=== PATIENT | female | born 1960 | race Caucasian/White ===

== ENCOUNTER 2019-06-13 21:03 | Inpatient (IN) | payer OTHER ==
[~2019-06-13] VITALS: Ht 162.6 cm; Wt 96.6 kg
[2019-06-13 21:14] VITALS: BP 173/70
--- NOTE | 2019-06-13 21:14 | NUR ---
ED Nurse Note: Patient brought in by ambulance from [facility] d/t [facility] declined intake d/t systolic BP over 180. Patient aao x 4 and ambulatory with walker. Patient stated on MRSA contact precautions. Patient placed in gown and manager cardiac cath. No acute distress noted. Addendum: 06/13/19 at 2255 by IOROPEL ED Nurse Note: Patient brought in by ambulance from [facility], facility declined intake d/t systolic BP over 180. Patient aao x 4 and ambulatory with walker. Patient reported she is on MRSA contact precautions. Patient placed in gown and manager cardiac cath. No acute distress noted.
--- NOTE | 2019-06-13 21:21 | Emergency Room Report ---
History of Present Illness General Chief Complaint: Hypertension Source: Patient Present Illness HPI Disclaimer: Please note that this report is being documented using [employer] technology. This can lead to erroneous entry secondary to incorrect interpretation by the dictating instrument. HPI: 50-year-old female with history of obesity, diabetes and chronic left foot ulcers with multiple drug-resistant bacteria presents for evaluation of elevated blood pressures. She was discharged from [facility] today on route to a nursing facility. She states that the nursing facility did not know she was coming and refused to accept her. She was also noted to have an elevated blood pressure with systolics in the 180s and was brought to the hospital again for reevaluation. She noted a headache and some nausea earlier but these are improving. She was taken off her lisinopril, 5 mg daily, yesterday or the day before because of low systolic blood pressures while in the hospital. She currently denies any chest pain, palpitations, shortness of breath, abdominal pain, changes in her vision. No other complaints at this time. She is due to receive extended antibiotics for her lower extremity wounds. She does not want me to evaluate the wounds as they were recently dressed and are clean at this time. PMH: Hypertension, obesity, diabetes, chronic lower extremity ulcers PSH: Reviewed Allergies: Denies Allergies: Coded Allergies: No Known Allergies (Unverified , 06/13/19) Review of Systems All Other Systems: negative except mentioned in HPI Physical Exam Vital Signs Date Time Temp Pulse Resp B/P (MAP) Pulse Ox O2 Delivery O2 Flow Rate FiO2 06/13/19 20:59 98.2 76 18 182/96 (124) 98 Room Air General: Awake and alert, no acute distress, hypertensive HEENT: NC/AT. EOMI. PERRLA. No nystagmus. Moist mucous membranes Neck: Supple, trachea midline Chest Wall: No tenderness, no deformity Cardiovascular: RRR. S1 and S2 normal. No murmur appreciated Resp: Normal work of breathing. No cough, wheezing or crackles appreciated Abdomen: Abdomen is soft, nondistended, obese abdomen. Nontender Skin:Bandage over the left foot and ankle is clean dry and intact. MSK: Normal tone and bulk. Moving all extremities. No obvious deformity. PICC line in right upper extremity. Neuro: Awake and alert. Mentating appropriately. Moving all extremities Medical Decision Making Diagnostic Impression: Primary Impression: Asymptomatic hypertension Additional Impression: Occluded PICC line ER Course This is a 58-year-old female released today from [facility] for worsening left lower extremity ulcers due to receive long-term antibiotics presenting after she was turned away from her nursing facility for elevated blood pressures. She was complaining of headache and nausea earlier but states these are resolving. Otherwise she is neurologically intact and has no symptoms of chest pain, shortness of breath or other complaints at this time. Will send screening labs , restart the patient's lisinopril, give Zofran and Tylenol. Once medically cleared she can be returned to the nursing facility if she is excepted otherwise will make other arrangements. Laboratory Tests Test 06/13/19 21:56 White Blood Count 12.1 K/UL (4.8-10.8) H Red Blood Count 3.23 M/UL (4.20-5.40) L Hemoglobin 9.3 G/DL (12.0-16.0) L Hematocrit 29.1 % (37.0-47.0) L Mean Corpuscular Volume 90 FL (80-99) Mean Corpuscular Hemoglobin 28.8 PG (27.0-31.0) Mean Corpuscular Hemoglobin Concent 31.9 G/DL (32.0-36.0) L Red Cell Distribution Width 13.9 % (11.6-14.8) Platelet Count 477 K/UL (150-450) H Mean Platelet Volume 5.7 FL (6.5-10.1) L Neutrophils (%) (Auto) 70.6 % (45.0-75.0) Lymphocytes (%) (Auto) 16.8 % (20.0-45.0) L Monocytes (%) (Auto) 7.1 % (1.0-10.0) Eosinophils (%) (Auto) 4.1 % (0.0-3.0) H Basophils (%) (Auto) 1.3 % (0.0-2.0) Sodium Level 140 MMOL/L (136-145) Potassium Level 3.9 MMOL/L (3.5-5.1) Chloride Level 104 MMOL/L (98-107) Carbon Dioxide Level 28 MMOL/L (21-32) Anion Gap 8 mmol/L (5-15) Blood Urea Nitrogen 19 mg/dL (7-18) H Creatinine 1.2 MG/DL (0.55-1.30) Estimate Glomerular Filtration Rate 46.2 mL/min (>60) Glucose Level 125 MG/DL (74-106) H Calcium Level 9.0 MG/DL (8.5-10.1) Total Bilirubin 0.2 MG/DL (0.2-1.0) Aspartate Amino Transferase (AST) 62 U/L (15-37) H Alanine Aminotransferase (ALT) 99 U/L (12-78) H Alkaline Phosphatase 393 U/L (46-116) H Troponin I 0.003 ng/mL (0.000-0.056) Total Protein 7.4 G/DL (6.4-8.2) Albumin 2.5 G/DL (3.4-5.0) L Globulin 4.9 g/dL Albumin/Globulin Ratio 0.5 (1.0-2.7) L EKG Diagnostic Results EKG Time: 21:29 Rate: normal Rhythm: NSR ST Segments: no acute changes Other Impression Sinus rhythm, normal axis, normal intervals, no ST segment changes. ASA given to the pt in ED: Yes Rhythm Strip Diag. Results Rhythm Strip Time: 21:29 EP Interpretation: yes Rate: 70s Rhythm: NSR, no PVC's Chest X-Ray Diagnostic Results Chest X-Ray Diagnostic Results : Chest X-Ray Ordered: Yes # of Views/Limited/Complete: 1 View Indication: Other - HTN Interpretation: no consolidation, no effusion, no pneumothorax, other - peripheral line present Impression: No acute disease Reevaluation Time: 00:16 Last Vital Signs Date Time Temp Pulse Resp B/P (MAP) Pulse Ox O2 Delivery O2 Flow Rate FiO2 06/13/19 20:59 98.2 76 18 182/96 (124) 98 Room Air Reevaluation Impression Labs have returned within normal limits. Patient is no acute distress and remains asymptomatic. Blood pressure improved. While attempting to assess the patient's PICC line found that it was occluded. Since she has multidrug- resistant bacteria in the ulcers and requires long-term antibiotics cannot safely discharged with a malfunctioning PICC line at this time. She will be admitted for PICC line replacement tomorrow. Admit to panel physician on observation status. Disposition: PLACE IN OBSERVATION Condition: Stable Arpan Cline MD Jun 13, 2019 21:21
[2019-06-13] MEDS ORDERED: Lisinopril 10mg tab ORAL ONE (21:30)
--- NOTE | 2019-06-13 21:54 | NUR ---
ED Nurse Note: Attempted to draw blood from PICC line, PICC line clogged. Attempted to establish new IV line x 2, unsuccessful.
[2019-06-13 22:16] LABS: BASOPHILS % (AUTO) 1.3 % (0.0-2.0); EOSINOPHILS % (AUTO) 4.1 % (0.0-3.0); HEMATOCRIT 29.1 % (37.0-47.0); HEMOGLOBIN 9.3 G/DL (12.0-16.0); LYMPHOCYTES % (AUTO) 16.8 % (20.0-45.0); MEAN CORPUSCULAR VOLUME 90 FL (80-99); MONOCYTES % (AUTO) 7.1 % (1.0-10.0); NEUTROPHILS % (AUTO) 70.6 % (45.0-75.0); PLATELET COUNT 477 K/UL (150-450); RED BLOOD COUNT 3.23 M/UL (4.20-5.40); RED CELL DISTRIBUTION WIDTH 13.9 % (11.6-14.8); WHITE BLOOD COUNT 12.1 K/UL (4.8-10.8)
[2019-06-13 22:28] LABS: ANION GAP 8 mmol/L (5-15); BLOOD UREA NITROGEN 19 mg/dL (7-18); CARBON DIOXIDE 28 MMOL/L (21-32); CHLORIDE 104 MMOL/L (98-107); CREATININE 1.2 MG/DL (0.55-1.30); POTASSIUM 3.9 MMOL/L (3.5-5.1); SODIUM 140 MMOL/L (136-145)
[2019-06-13 22:32] VITALS: BP 100/57
--- NOTE | 2019-06-13 22:32 | NUR ---
ED Nurse Note: Per pt, admission to [facility] was for left foot and ankle pus/infection. Patient stated wounds kept getting infected and had to be drained.
[2019-06-13 22:33] LABS: ALANINE AMINOTRANSFERASE 99 U/L (12-78); ALBUMIN 2.5 G/DL (3.4-5.0); ALBUMIN/GLOBULIN RATIO 0.5 (1.0-2.7); ALKALINE PHOSPHATASE 393 U/L (46-116); ASPARTATE AMINO TRANSFERASE 62 U/L (15-37); BILIRUBIN,TOTAL 0.2 MG/DL (0.2-1.0)
[2019-06-13] MEDS ORDERED: ATORVASTATIN CA40 MG ORAL (23:24)
[2019-06-13] MEDS ORDERED: LISINOPRIL5 MG ORAL (23:24)
[2019-06-13] MEDS ORDERED: LANTUS SOL100 UNIT/1 SUBQ (23:24)
[2019-06-13] MEDS ORDERED: ACETAMINOPHEN325 M1 ORAL (23:24)
[2019-06-13] MEDS ORDERED: NOVOLOG100 UNIT/4 SQ (23:24)
--- NOTE | 2019-06-13 23:45 | NUR ---
ED Nurse Note: CRE, MRSA swabs, belongings list, and med reconciled completed.
--- NOTE | 2019-06-13 23:52 | NUR ---
ED Nurse Note: Wound pictures uploaded.
--- NOTE | 2019-06-14 01:37 | NUR ---
ED Nurse Note: Report given to MICHELLE Dotson.
--- NOTE | 2019-06-14 01:45 | NUR ---
ED Nurse Note: Patient transported to med surg floor via gurney accompanied by 1 RN and aviation electrical technician in stable condition.
--- NOTE | 2019-06-14 02:00 | NUR ---
NURSE NOTES: Admitted patient awake, alert, verbal, ambulates with a walker, with essentially normal vital signs.
[2019-06-14 02:13] VITALS: BP 138/73
[2019-06-14 03:59] VITALS: BP 113/59
--- NOTE | 2019-06-14 07:28 | NUR ---
HAND-OFF: Report given to Isaac Brandt RN.
--- NOTE | 2019-06-14 07:28 | NUR ---
NURSE NOTES: Report received from Nila MARTINEZ. Patient is awake and alert x 4. Patient is currently eating breakfast. Patient noted to have wound on left foot. Dressing dry and intact. Dressing changed on previous shift. Picture in chart reviewed with previous nurse. Consult for Daysi placed. Will continue to monitor blood glucose levels. Patient noted to have PICC in right upper arm. Per previous nurse PICC currently not working. MD aware. Will continue to follow plan of care.
[2019-06-14 07:37] LABS: BASOPHILS % (AUTO) 0.9 % (0.0-2.0); EOSINOPHILS % (AUTO) 3.9 % (0.0-3.0); HEMATOCRIT 27.4 % (37.0-47.0); HEMOGLOBIN 9.2 G/DL (12.0-16.0); LYMPHOCYTES % (AUTO) 16.9 % (20.0-45.0); MEAN CORPUSCULAR VOLUME 87 FL (80-99); MONOCYTES % (AUTO) 6.9 % (1.0-10.0); NEUTROPHILS % (AUTO) 71.3 % (45.0-75.0); PLATELET COUNT 423 K/UL (150-450); RED BLOOD COUNT 3.13 M/UL (4.20-5.40); RED CELL DISTRIBUTION WIDTH 12.5 % (11.6-14.8); WHITE BLOOD COUNT 11.6 K/UL (4.8-10.8)
[2019-06-14 07:45] LABS: ALANINE AMINOTRANSFERASE 84 U/L (12-78); ALBUMIN 2.4 G/DL (3.4-5.0); ALBUMIN/GLOBULIN RATIO 0.5 (1.0-2.7); ALKALINE PHOSPHATASE 356 U/L (46-116); ANION GAP 7 mmol/L (5-15); ASPARTATE AMINO TRANSFERASE 54 U/L (15-37); BILIRUBIN,TOTAL 0.2 MG/DL (0.2-1.0); BLOOD UREA NITROGEN 17 mg/dL (7-18); CALCIUM 8.9 MG/DL (8.5-10.1); CARBON DIOXIDE 28 MMOL/L (21-32); CHLORIDE 106 MMOL/L (98-107); CREATININE 1.1 MG/DL (0.55-1.30); POTASSIUM 3.9 MMOL/L (3.5-5.1); SODIUM 141 MMOL/L (136-145)
[2019-06-14 08:00] VITALS: BP 123/59
[2019-06-14] MEDS: Lisinopril 10mg tab ORAL SCH (08:14)
--- NOTE | 2019-06-14 09:46 | Consultation ---
History of Present Illness General Date patient seen: Jun 14, 2019 Reason for Hospitalization: Hypertension Present Illness HPI 50-year-old female with history of obesity, diabetes and chronic left foot ulcers with multiple drug-resistant bacteria admitted to [facility] for evaluation and care. She was discharged from [facility] recently on route to a nursing facility. She states that the nursing facility did not know she was coming and refused to accept her because of her isolation status. She currently denies any chest pain , palpitations, shortness of breath, abdominal pain, changes in her vision. No other complaints at this time. She is receiving extended antibiotics for her lower extremity wounds. Surgery called to evaluate and assist with care. Patient seen, patient evaluated, chart reviewed. Patient states in 2018 she was walking around with thin shoes and sustained a wound to her left foot which then developed a blister and then abscess requiring I&D infection since. Develops intermittent infections requiring I&D. Most recent I&D a week ago for evaluate evacuation of pus at outside facility. PMH: Hypertension, obesity, diabetes, chronic lower extremity ulcers PSH: Reviewed Allergies: Denies Allergies: Coded Allergies: No Known Allergies (Unverified , 06/13/19) Medication History Scheduled Atorvastatin Calcium* (Atorvastatin Calcium*), 80 MG ORAL BEDTIME, (Reported) Insulin Aspart (Novolog), 100 UNIT SQ TID, (Reported) Insulin Glargine (Lantus), 0 SUBQ TID, (Reported) Lisinopril (Lisinopril*), 10 MG ORAL DAILY, (Reported) Scheduled PRN Acetaminophen* (Acetaminophen 325MG Tablet*), 650 MG ORAL Q4H PRN for For Pain, (Reported) Patient History History Provided By: Patient, Medical Record, PMD Healthcare decision maker Resuscitation status Full Code Advanced Directive on File No Past Medical/Surgical History Past Medical/Surgical History: (1) Left foot infection (2) Cellulitis of left foot (3) Open wound of left foot (4) Hypertension (5) Asymptomatic hypertension (6) Occluded PICC line Review of Systems Review of Symptoms General ROS: no weight loss or fever Psychological ROS: no depression or mood changes, no memory loss Ophthalmic ROS: no visual changes or eye irritation ENT ROS: no nasal congestion, hearing loss, dizziness Allergy and Immunology ROS: no allergic symptoms or urticaria Hematological and Lymphatic ROS: no swollen glands, unusual bleeding or bruising Endocrine ROS: no polyuria, polydipsia, weight changes, temperature intolerance Respiratory ROS: no cough, shortness of breath, or wheezing Cardiovascular ROS: no chest pain or dyspnea on exertion Gastrointestinal ROS: denies abdominal pain, bright red blood in stool. Musculoskeletal ROS: no myalgias or arthralgias Neurological ROS: no TIA or stroke symptoms Dermatological ROS: no new or changing skin lesions, rashes or pruritis Physical Exam Physical Exam General appearance: alert, cooperative, no distress, appears stated age Head: Normocephalic, without obvious abnormality, atraumatic Eyes: conjunctivae/corneas clear. PERRL, EOM's intact. Fundi benign Throat: Lips, mucosa, and tongue normal. Teeth and gums normal Neck: supple, symmetrical, trachea midline, no adenopathy, thyroid: not enlarged, symmetric, no tenderness/mass/nodules, no carotid bruit and no JVD Lungs: clear to auscultation bilaterally Heart: regular rate and rhythm, S1, S2 normal, no murmur, click, rub or gallop Abdomen: soft, non-tender. Bowel sounds normal. No masses, no organomegaly Extremities: extremities left foot cellulitis with 2 open wounds Pulses: 2+ and symmetric Skin: Skin color, texture, turgor normal. No rashes or lesions Neurologic: Grossly normal Last 24 Hour Vital Signs Date Time Temp Pulse Resp B/P (MAP) Pulse Ox O2 Delivery O2 Flow Rate FiO2 06/14/19 09:00 Room Air 06/14/19 08:14 123/59 06/14/19 08:00 98.1 84 20 123/59 (80) 95 06/14/19 03:59 98.5 79 18 113/59 (77) 98 06/14/19 02:13 98.2 80 18 138/73 (94) 96 06/14/19 02:12 Room Air 06/14/19 01:53 98.3 80 19 112/53 96 Room Air 06/13/19 22:35 98.2 06/13/19 22:32 100/57 06/13/19 22:06 173/70 06/13/19 22:05 173/70 06/13/19 21:14 90 21 Room Air 06/13/19 21:14 98.2 90 21 173/70 95 Room Air 06/13/19 20:59 98.2 76 18 182/96 (124) 98 Room Air Intake and Output 06/13/19 06/14/19 19:00 07:00 Intake Total 0 ml Balance 0 ml Intake Oral 0 ml # Voids 1 Laboratory Tests Test 06/13/19 21:56 06/14/19 05:35 White Blood Count 12.1 K/UL (4.8-10.8) H 11.6 K/UL (4.8-10.8) H Red Blood Count 3.23 M/UL (4.20-5.40) L 3.13 M/UL (4.20-5.40) L Hemoglobin 9.3 G/DL (12.0-16.0) L 9.2 G/DL (12.0-16.0) L Hematocrit 29.1 % (37.0-47.0) L 27.4 % (37.0-47.0) L Mean Corpuscular Volume 90 FL (80-99) 87 FL (80-99) Mean Corpuscular Hemoglobin 28.8 PG (27.0-31.0) 29.3 PG (27.0-31.0) Mean Corpuscular Hemoglobin Concent 31.9 G/DL (32.0-36.0) L 33.6 G/DL (32.0-36.0) Red Cell Distribution Width 13.9 % (11.6-14.8) 12.5 % (11.6-14.8) Platelet Count 477 K/UL (150-450) H 423 K/UL (150-450) Mean Platelet Volume 5.7 FL (6.5-10.1) L 4.8 FL (6.5-10.1) L Neutrophils (%) (Auto) 70.6 % (45.0-75.0) 71.3 % (45.0-75.0) Lymphocytes (%) (Auto) 16.8 % (20.0-45.0) L 16.9 % (20.0-45.0) L Monocytes (%) (Auto) 7.1 % (1.0-10.0) 6.9 % (1.0-10.0) Eosinophils (%) (Auto) 4.1 % (0.0-3.0) H 3.9 % (0.0-3.0) H Basophils (%) (Auto) 1.3 % (0.0-2.0) 0.9 % (0.0-2.0) Sodium Level 140 MMOL/L (136-145) 141 MMOL/L (136-145) Potassium Level 3.9 MMOL/L (3.5-5.1) 3.9 MMOL/L (3.5-5.1) Chloride Level 104 MMOL/L (98-107) 106 MMOL/L (98-107) Carbon Dioxide Level 28 MMOL/L (21-32) 28 MMOL/L (21-32) Anion Gap 8 mmol/L (5-15) 7 mmol/L (5-15) Blood Urea Nitrogen 19 mg/dL (7-18) H 17 mg/dL (7-18) Creatinine 1.2 MG/DL (0.55-1.30) 1.1 MG/DL (0.55-1.30) Estimat Glomerular Filtration Rate 46.2 mL/min (>60) 51.0 mL/min (>60) Glucose Level 125 MG/DL (74-106) H 143 MG/DL (74-106) H Calcium Level 9.0 MG/DL (8.5-10.1) 8.9 MG/DL (8.5-10.1) Total Bilirubin 0.2 MG/DL (0.2-1.0) 0.2 MG/DL (0.2-1.0) Aspartate Amino Transf (AST/SGOT) 62 U/L (15-37) H 54 U/L (15-37) H Alanine Aminotransferase (ALT/SGPT) 99 U/L (12-78) H 84 U/L (12-78) H Alkaline Phosphatase 393 U/L (46-116) H 356 U/L (46-116) H Troponin I 0.003 ng/mL (0.000-0.056) Total Protein 7.4 G/DL (6.4-8.2) 7.0 G/DL (6.4-8.2) Albumin 2.5 G/DL (3.4-5.0) L 2.4 G/DL (3.4-5.0) L Globulin 4.9 g/dL 4.6 g/dL Albumin/Globulin Ratio 0.5 (1.0-2.7) L 0.5 (1.0-2.7) L Microbiology Date/Time Source Procedure Growth Status 06/13/19 22:52 Rectum Received Height (Feet): 5 Height (Inches): 4.00 Weight (Pounds): 215 Medications Current Medications Medications (Trade) Dose Ordered Sig/Dileep Route PRN Reason Start Time Stop Time Status Last Admin Dose Admin Acetaminophen (Tylenol) 650 mg Q4H PRN ORAL For Pain 06/14/19 04:15 07/14/19 04:14 Atorvastatin Calcium (Lipitor) 80 mg BEDTIME ORAL 06/14/19 21:00 07/14/19 20:59 Dextrose (Dextrose 50%) 25 ml Q30M PRN IV Hypoglycemia 06/14/19 07:45 07/14/19 07:44 Dextrose (Dextrose 50%) 50 ml Q30M PRN IV Hypoglycemia 06/14/19 07:45 07/14/19 07:44 Insulin Aspart (NovoLOG) BEFORE MEALS AND HS SUBQ 06/14/19 11:30 07/14/19 11:29 Lisinopril (ZestriL) 10 mg DAILY ORAL 06/14/19 09:00 07/14/19 08:59 Assessment/Plan Problem List: (1) Left foot infection ICD Codes: L08.9 - Local infection of the skin and subcutaneous tissue, unspecified SNOMED: 954577800 (2) Occluded PICC line Assessment & Plan: Will need replacement ICD Codes: T82.898A - Other specified complication of vascular prosthetic devices, implants and grafts, initial encounter SNOMED: 177140669 (3) Open wound of left foot ICD Codes: S91.302A - Unspecified open wound, left foot, initial encounter SNOMED: 47286857669323712 (4) Cellulitis of left foot Assessment & Plan: 50-year-old female with history of chronic left foot wounds , cellulitis, infection who in 2018 initially developed a abscess/blister and has been dealing with chronic infection of the left foot since. On the medial aspect there is a 3 cm x 2 cm x 1 cm open wound with good granulation tissue seemingly a little bit more chronic than 1 week no drainage no signs of significant active infection. On the plantar aspect of the foot there is a 1 cm x 1 cm by half centimeter open punched-out wound from prior drainage with no active drainage currently. Patient states that she was recommended to have local wound care and antibiotics for 6 weeks. States that she is on isolation for the cultures that were taken outside facility. PICC line currently included needs a new PICC line for extended IV antibiotics Local wound care with hydrogel packing or Thera honey packing gauze daily Wash wound left foot daily with normal saline then apply above dressings Wrap foot leg with gauze after packing and dressings applied Trend labs Antibiotics per infectious disease Thank you will follow with recommendations ICD Codes: L03.116 - Cellulitis of left lower limb SNOMED: 945836738 Cristian Tavarez Jun 14, 2019 09:46
[2019-06-14] MEDS ORDERED: Heparin1,000 units/500ml Premix(Conc:2 units/ml) IV PRN (10:00)
[2019-06-14] MEDS ORDERED: Lidocaine 1% Plain 30 ml INJ PRN (10:00)
--- NOTE | 2019-06-14 10:48 | NUR ---
*-* NO INSURANCE INFORMATION ON [facility] UNABLE TO SEND CLINICALS OR REVIEWS *-*
--- NOTE | 2019-06-14 11:30 | Consultation ---
Consult Note Consult Note asked to evaluate by Dr Metz for electrolyte and BP management patient interviewed- Complains of swollen all over and weakness examined data reviewed ER: HPI: 50-year-old female with history of obesity, diabetes and chronic left foot ulcers with multiple drug-resistant bacteria presents for evaluation of elevated blood pressures. She was discharged from [facility] today on route to a nursing facility. She states that the nursing facility did not know she was coming and refused to accept her. She was also noted to have an elevated blood pressure with systolics in the 180s and was brought to the hospital again for reevaluation. She noted a headache and some nausea earlier but these are improving. She was taken off her lisinopril, 5 mg daily, yesterday or the day before because of low systolic blood pressures while in the hospital. She currently denies any chest pain, palpitations, shortness of breath, abdominal pain, changes in her vision. No other complaints at this time. She is due to receive extended antibiotics for her lower extremity wounds. She does not want me to evaluate the wounds as they were recently dressed and are clean at this time. PMH: Hypertension, obesity, diabetes, chronic lower extremity ulcers . Assessment/Plan Ascitis Obese DM Anemia HypoAlbuminemia elevated LFTs UA Anemia larose adjust BP meds wound care per orders Erasto Parikh MD Jun 14, 2019 11:30
[2019-06-14] MEDS: NovoLOG Insulin Flexpen SUBQ SCH ×3 (11:56→21:27)
[2019-06-14 12:00] VITALS: BP 133/58
[2019-06-14 12:06] LABS: CREATINE KINASE 26 U/L (26-308)
--- NOTE | 2019-06-14 12:07 | Diagnostic Imaging Report ---
Indication: Chest pain Technique: One view of the chest Comparison: none Findings: The heart is borderline enlarged. Lungs and pleural spaces are clear. There is a right arm PICC Impression: Borderline cardiomegaly. No acute process
[2019-06-14 12:19] LABS: CHOLESTEROL 117 MG/DL (< 200); FERRITIN 97 NG/ML (8-388); GAMMA GLUTAMYL TRANSPEPTIDASE 469 U/L (5-85); HDL CHOLESTEROL 24 MG/DL (40-60); PHOSPHORUS 3.9 MG/DL (2.5-4.9); TRIGLYCERIDES 203 MG/DL (30-150)
[2019-06-14 12:30] LABS: % IRON SATURATION 15 % (15-50); IRON 37 ug/dL (50-175); TOTAL IRON BINDING CAPACITY 251 ug/dL (250-450)
--- NOTE | 2019-06-14 13:52 | NUR ---
NURSE NOTES: Transport arrived to bring patient down to radiology for PICC placement. Consent signed. Patient okay with procedure. No questions at this time. Patient safely transferred to wheelchair. Patient awake and alert x 4 when leaving unit.
--- NOTE | 2019-06-14 15:00 | NUR ---
NURSE NOTES: Patient arrived back on unit. Patient safely transferred back to bed. Patient awake and alert x 4. Patient does not have any complaints. PICC line in right upper arm patent, intact, and functioning properly. Both lines have blood return and are able flush. Addendum: 06/14/19 at 1745 by Isaac Brandt RN PICC line cut at 40 cm per Doctor Porter
--- NOTE | 2019-06-14 15:09 | NUR ---
RADIOLOGY NOTE: RIGHT UPPER EXTREMITY PICC LINE REPLACEMENT BY DR. HARVINDER DASILVA AT 1420 HRS. FA
--- NOTE | 2019-06-14 15:21 | Consultation ---
Consult Note Assessment/Plan Dictated A/ 1) Osteo vs Charcot left foot 2) S/P I&D of left ankle and left foot - doing well 3) DM 2 4) Charcot P/ 1) Wound care orders placed. No surgical intervention is indicated at this time 2) Abx per ID 3) WIll follow Thank you John Rivera DPM Jun 14, 2019 15:21
[2019-06-14 16:00] VITALS: BP 130/70
--- NOTE | 2019-06-14 16:21 | NUR ---
CASE MANAGEMENT: INITIAL REVIEW 58YR OLD FEMALE BIBA FROM [facility] CC: HYPERTENSION SI: ASYMPTOMATIC HTN . OCCLUDED PICC LINE 98.3 80 19 112/53 96% ON RA WBC 12.1 H/H 9.3/29.1 PLT 477 BUN 19 BG 125 AST/ALT 62/99 ALK-PHOS 393 IS:IV HYDRALAZINE X1 IV ZOFRAN X1 ZESTRIL PO X1 TYLENOL PO X1 CHEST X-RAY \: 4E MED SURG UNIT CASE MANAGEMENT: REVIEW 06/14/19 SI: ASYMPTOMATIC HTN . OCCLUDED PICC LINE 98.5 62 18 133/58 94% ON RA WBC 11.6 H/H 9.2/27.4 BG 143 AST/ALT 54/84 ALK-PHOS 356 GGT 469 TRIGLYCERIDES 203 IS:LINEZOLID PO BID NOVOLOG SQ AC&HS TYLENOL PO Q4HR/PRN \: 4E MED SURG UNIT PLAN: CONSULT FOR WOUND LEFT FOOT ULCER
--- NOTE | 2019-06-14 16:25 | Pre-Procedure Note/Attestation ---
Pre-Procedure Note/Attestation Complete Prior to Procedure Planned Procedure: right Procedure Narrative: PICC exchange Indications for Procedure Pre-Operative Diagnosis: malfunction PICC Attestation I attest that I discussed the nature of the procedure; its benefits; risks and complications; and alternatives (and the risks and benefits of such alternatives ), prior to the procedure, with the patient (or the patient's legal business process representative). I attest that, if there was a reasonable possibility of needing a blood transfusion, the patient (or the patient's legal business process representative) was given the [facility] standardized written summary, pursuant to the [place] Blood Safety Act ([place] Health and Safety Code # 1645, as amended). I attest that I re-evaluated the patient just prior to the surgery and that there has been no change in the patient's H&P, except as documented below: Kye Porter MD Jun 14, 2019 16:25
--- NOTE | 2019-06-14 16:26 | Brief Operative Note ---
Immediate Post Operative Note Operative Note Pre-op Diagnosis: malfunction PICC Procedure: PICC exchange Post-op Diagnosis: same Surgeon: Ishmael Lewis Anesthesia: local Specimen: none Complications: none Condition: stable Fluids: none Estimated Blood Loss: none Implant(s) used?: No Kye Lewis MD Jun 14, 2019 16:26
--- NOTE | 2019-06-14 17:29 | Diagnostic Imaging Report ---
. Indications: Needs long-term IV access Technique: Total sterile technique, including sterile probe cover and sterile gel, hat, mask, sterile gown, large sterile drape, and preparation with 2% chlorhexidine utilized. Local anesthesia with 1% lidocaine. Through pre-existing catheter, passage 0.018 guidewire under direct fluoroscopy, which was used to determine appropriate catheter length, exchange for 4 Burkinan peel-away sheath. 4 [place] Bard dual-lumen power PICC cut to 40 cm. It was inserted through the peel-away sheath. Peel-away sheath and guidewire removed. Catheter fixed to the skin. Both catheter ports aspirated and flushed. Patient tolerated procedure well, without immediate complication. Digital radiograph documents satisfactory catheter tip position, at the cavoatrial junction. Total fluoroscopy time 31.2 seconds. Total dose area product [id number] Total number of images: 1 Impression: Successful replacement over wire (no sonography utilized) of right arm PICC under sonographic and fluoroscopic guidance, as described above.
--- NOTE | 2019-06-14 19:18 | NUR ---
HAND-OFF: Report given to Sourav MARTINEZ. Patient in stable condition.
--- NOTE | 2019-06-14 19:30 | NUR ---
NURSE NOTES: Received patient in no apparent distress. A&OX4. PICC line noted on right upper arm, patent and intact. Dressing noted on left foot, dry and intact. Bed in lowest position. Call light within reach. Will continue to monitor.
[2019-06-14 20:00] VITALS: BP 140/82
[2019-06-14] MEDS: Bactrim-DS 1 tab ORAL SCH (21:25)
[2019-06-14] MEDS: Atorvastatin 80mg tab ORAL SCH (21:25)
[2019-06-14] MEDS: Dyna-Hex 2% Top Sol 2oz TOPIC SCH (21:26)
[2019-06-14 23:51] LABS: APPEARANCE,URINE CLEAR; BILIRUBIN, URINE NEGATIVE (NEGATIVE); COLOR,URINE PALE YELLOW; GLUCOSE, URINE (UA) 2+ (NEGATIVE); KETONES,URINE NEGATIVE (NEGATIVE); LEUKOCYTE ESTERASE ,URINE NEGATIVE (NEGATIVE); NITRITE,URINE NEGATIVE (NEGATIVE); PH,URINE 7 (4.5-8.0); UROBILINOGEN,URINE NORMAL MG/DL (0.0-1.0)
[2019-06-14 23:55] LABS: PROTEIN,URINE NEGATIVE (NEGATIVE)
[2019-06-15] VITALS: BP 143/71
[2019-06-15 04:00] VITALS: BP 126/66
--- NOTE | 2019-06-15 04:00 | Consultation ---
DATE OF CONSULTATION: 06/14/2019 CONSULTING PHYSICIAN: John Gallegos D.P.M. REQUESTING PHYSICIAN: Elodia Dunbar M.D. REASON FOR CONSULTATION: Infected left foot ulceration in the presence of diabetes mellitus, failed PICC line placement, and sensitivity to antibiotics. HISTORY OF PRESENT ILLNESS: The patient is a 58-year-old female, who was admitted to [facility] on 06/13/2019 for PICC line problems. The patient states that she was admitted to the hospital about a week ago where she stated that her left lower extremity was severely swollen and she was diagnosed with an abscess in her foot as well as her ankle. She was taken for an incision and drainage and she has noted that her foot has extensively improved since her surgery. Swelling has gone down, redness has gone down, and she is able to ambulate with a walker as tolerated. She stated she has been on antibiotics at the facility that she was at, but she has developed a sensitivity to the antibiotics. She denies any pain, fevers, chills, nausea, or vomiting. PAST MEDICAL HISTORY: Significant for hypertension, diabetes mellitus, Charcot of the left foot, abscess of the left foot, possible osteomyelitis of the left foot. PAST SURGICAL HISTORY: As noted above. ALLERGIES: She has no known drug allergies. MEDICATIONS: Per MAR and include Bactrim and Zyvox. FAMILY HISTORY: Noncontributory. SOCIAL HISTORY: Noncontributory. REVIEW OF SYSTEMS: HEENT: The patient denies any headaches, blurred vision, or ringing in the ears. CARDIORESPIRATORY: The patient denies any shortness of breath or chest pain. GENITOURINARY: The patient denies any urgency, frequency, burning upon urination, or hematuria. GASTROINTESTINAL: The patient denies any constipation, diarrhea, or blood in the stool. PHYSICAL EXAMINATION: VITAL SIGNS: Temperature is 98.5, pulse is 62, respiration rate is 18, blood pressure is 133/58, she is sating 94% on room air. LOWER EXTREMITIES: Vascular, weakly palpable pedal pulses are noted bilaterally. Feet are equally warm. There is mild 1+ pitting edema noted bilateral. No cyanosis is noted of the toes. DERMATOLOGICAL: Right foot is unremarkable. Left foot full-thickness plantar ulceration is noted. No bone or tendon is exposed post. There is also a medial left ankle wound noted, appears clean. No signs of infection as well. The wounds appear granular with minimal serous drainage noted from the sites, no malodor is noted. No periwound erythema is noted. No pain upon palpation of either sites. MUSCULOSKELETAL: Right lower extremity is unremarkable. Left foot is noted to have a rocker bottom shape. Collapsed medial arch is noted. The patient ambulates with a walker. No gross deformities are noted. Muscle strength is intact bilateral. NEUROLOGICAL: Protective threshold is diminished. LABORATORY AND DIAGNOSTIC DATA: Laboratory data, white blood cell count is down from admission to 11.6 now, hemoglobin and hematocrit are 9.2 and 27.4, platelet count is 423. Sodium is 141, potassium is 3.9, BUN is 17, creatinine is 1.1, glucose is 143. Hemoglobin A1c is 11.2. Albumin is 2.4. Imaging, MRI from outside hospital notes that she has destructive erosive changes of the midfoot of the left foot. MRI could not conclude whether it was Charcot versus osteo or both. ASSESSMENT: 1. Osteomyelitis versus Charcot, left foot. 2. Status post I and D of the left ankle and left foot, doing well. 3. Uncontrolled type 2 diabetes mellitus. 4. Charcot foot. PLAN: 1. Wound care orders were placed. No surgical intervention is indicated at this time. Her surgical wounds appear to be healing without complication. 2. Antibiotics per Infectious Disease. 3. We will follow. Thank you for the courtesy of this consultation. John Gallegos D.P.M. DR: WICHO JOB#: [id number] CC: CIRO
--- NOTE | 2019-06-15 05:45 | History and Physical Report ---
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 discharged from a different hospital, went to the care home; however, was rejected because of her elevated blood pressure. She was asymptomatic, came to the ER, was admitted for cellulitis of the lower extremities, and PICC line was also placed at the hospital, so she came with a PICC line. The patient has pus from the left foot and was status post I and D of the last week. The patient also has rash all over for the past one week, most likely from the antibiotic that she has been receiving, came with PICC. The patient also has edema of the lower extremities. So, she is being admitted for the cellulitis of the feet, left worse than the right. The patient denies nausea, vomiting, or diarrhea. Denies fever or chills. PAST MEDICAL HISTORY: Hyperlipidemia, NIDDM, hypertension, and edema. PAST SURGICAL HISTORY: . ALLERGIES: No known allergies. FAMILY HISTORY: Noncontributory. MEDICATIONS: Lipitor, lisinopril, and Lantus. REVIEW OF SYSTEMS: HEENT: Denies headaches. RESPIRATORY: Denies shortness of breath. Denies cough. CARDIOVASCULAR: Denies chest pain. GASTROINTESTINAL: Denies nausea, vomiting, or diarrhea. EXTREMITIES: Does have pain in the lower extremities. CENTRAL NERVOUS SYSTEM: Denies change in speech pattern. PHYSICAL EXAMINATION: VITAL SIGNS: Temperature is 98.5, pulse is 79, and blood pressure is 113/59. HEENT: PERRLA. NECK: Supple. No lymphadenopathy. CHEST: Clear to auscultation. CARDIOVASCULAR: Regular rate and rhythm. No murmurs or extra sounds. GASTROINTESTINAL: Soft, nontender, and nondistended. No organomegaly. EXTREMITIES: No edema. Moves all four extremities. Sensory intact to light touch. Reflexes on both sides. Does have edema in the lower extremities, erythema, and warm to touch, especially on the left foot. LABORATORY DATA: WBC of 12.1, hemoglobin 9.3, and platelets 477. Sodium 140, potassium 3.9, BUN of 19, creatinine 1.2, glucose of 125. AST of 62 and ALT of 99. ASSESSMENT AND PLAN: Cellulitis of the feet, especially on the left, edema, rash all over from previous antibiotic most likely. I have consulted Dr. Adarsh Pitts, Dr. John Gallegos and Dr. Parikh for the management of basically infection. We will monitor the patient closely. Elodia Dunbar M.D. DR: NAN JOB#: [id number] CC:
[2019-06-15 06:11] LABS: BASOPHILS % (AUTO) 0.8 % (0.0-2.0); EOSINOPHILS % (AUTO) 3.4 % (0.0-3.0); HEMATOCRIT 27.3 % (37.0-47.0); HEMOGLOBIN 9.3 G/DL (12.0-16.0); LYMPHOCYTES % (AUTO) 20.3 % (20.0-45.0); MEAN CORPUSCULAR VOLUME 88 FL (80-99); NEUTROPHILS % (AUTO) 68.5 % (45.0-75.0); PLATELET COUNT 433 K/UL (150-450); RED BLOOD COUNT 3.11 M/UL (4.20-5.40); RED CELL DISTRIBUTION WIDTH 12.7 % (11.6-14.8); WHITE BLOOD COUNT 11.3 K/UL (4.8-10.8)
[2019-06-15] MEDS: NovoLOG Insulin Flexpen SUBQ SCH ×4 (06:12→20:54)
[2019-06-15 06:47] LABS: ALANINE AMINOTRANSFERASE 82 U/L (12-78); ALBUMIN 2.5 G/DL (3.4-5.0); ALBUMIN/GLOBULIN RATIO 0.5 (1.0-2.7); ALKALINE PHOSPHATASE 368 U/L (46-116); ANION GAP 6 mmol/L (5-15); ASPARTATE AMINO TRANSFERASE 52 U/L (15-37); BILIRUBIN,TOTAL 0.3 MG/DL (0.2-1.0); BLOOD UREA NITROGEN 18 mg/dL (7-18); CARBON DIOXIDE 30 MMOL/L (21-32); CHLORIDE 104 MMOL/L (98-107); CREATININE 1.2 MG/DL (0.55-1.30); POTASSIUM 4.4 MMOL/L (3.5-5.1); SODIUM 140 MMOL/L (136-145)
--- NOTE | 2019-06-15 07:13 | NUR ---
HAND-OFF: Report given to Isaac MARTINEZ.
--- NOTE | 2019-06-15 07:15 | Consultation ---
DATE OF CONSULTATION: 06/14/2019 INFECTIOUS DISEASE CONSULTATION CONSULTING PHYSICIAN: Adarsh Pitts M.D. PRIMARY ATTENDING PHYSICIAN: Elodia Dunbar M.D. REASON FOR CONSULT: Osteomyelitis of left foot, diabetic foot, allergic drug reaction to antibiotic. HISTORY OF PRESENT ILLNESS: This is a 58-year-old female admitted from a nursing facility after developing rash more in the lower extremity. The patient had a recent admission to [facility] in [place] with diabetic foot. At that time, she had left ankle abscess, had incision and drainage on 06/02/2019. Cultures in the hospital grew ESBL E coli, Enterococcus faecalis, and Strep group B. There was a concern about osteomyelitis of the foot and the patient was supposed to get 6 weeks of antibiotic treatment. For that reason, the patient had a PICC line placement. The patient was transferred because of the local rash that is itching. PAST MEDICAL HISTORY: Diabetes mellitus, obesity, has history of multiple infections in left and right foot, 4 times in the left foot, hypertension, Charcot joint in the left foot. ALLERGIES: No known drug allergies. MEDICATIONS: Getting atorvastatin, insulin, heparin, lisinopril. SOCIAL HISTORY: , has a daughter. Denies alcohol, drug abuse, or smoking. 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 REVIEW OF SYSTEMS: No fever, no chills. Some coughing. No nausea, no vomiting. No problem passing urine. Has erythematous rash that is itching. Overall, the foot after the surgery is better. PHYSICAL EXAMINATION: VITAL SIGNS: Temperature 98.5, pulse 62, blood pressure 133/85. GENERAL APPEARANCE: No acute distress. Obese. HEAD AND NECK: [place] conjunctivae. HEART: Normal rate. LUNGS: Clear. ABDOMEN: Soft, nontender. EXTREMITIES: Left foot deformity has some edema. SKIN: Has rash more in the lower extremities & back. Rash is erythematous, but there are area of scaling especially in upper body. IMPRESSION: 1. Diabetic foot, osteomyelitis. 2. Allergic drug reaction to Invanz and vancomycin with rash. 3. Diabetes mellitus. 4. Charcot joint. 5. Anemia. Based on the culture report, E coli ESBL is sensitive to Bactrim and Enterococcus & Strep group B start the patient on Bactrim and Zyvox. We will follow up the clinical course and check for ESR. At the end of my exam, I thank, Dr. Dunbar, for involving me in the care of this patient. Adarsh Pitts M.D. DR: ALTON JOB#: [id number] CC: CIRO
--- NOTE | 2019-06-15 07:20 | NUR ---
NURSE NOTES: Report received form Sourav MARTINEZ. Patient is awake and alert x 4. Patient presents with cellulitis and wound on the left foot. Left foot has clean, dry, and intact dressing. Legs noted to have edema bilaterally. Rash noted on lower extremities bilaterally, thought to be from previous antibiotic use. PICC line noted in right upper arm. Flushes and has blood return. Patient does not have any complaints at this time. Bed locked and in lowest position. Call light within reach. Will continue to follow plan of car.e
--- NOTE | 2019-06-15 07:57 | NUR ---
NURSE NOTES: DVT therapy contra indicated per Doctor Bettina due to wounds.
[2019-06-15 08:00] VITALS: BP 132/70
[2019-06-15] MEDS: Lisinopril 10mg tab ORAL SCH (08:46)
[2019-06-15] MEDS: Bactrim-DS 1 tab ORAL SCH ×2 (09:02→20:53)
[2019-06-15] MEDS ORDERED: Furosemide 40mg tab ORAL SCH (10:30)
--- NOTE | 2019-06-15 11:00 | Surgery Progress Note ---
Surgery Progress Note Subjective Additional Comments picc changed doing well labs noted exam stable Objective Last 24 Hour Vital Signs Date Time Temp Pulse Resp B/P (MAP) Pulse Ox O2 Delivery O2 Flow Rate FiO2 06/15/19 09:00 Room Air 06/15/19 08:46 132/70 06/15/19 08:00 97.8 79 18 132/70 (90) 96 06/15/19 04:00 98.3 78 18 126/66 (86) 95 06/15/19 00:00 98.6 82 18 143/71 (95) 96 06/14/19 21:00 Room Air 06/14/19 20:00 98.6 82 18 140/82 (101) 96 06/14/19 16:00 98.6 85 18 130/70 (90) 100 06/14/19 12:00 98.5 62 18 133/58 (83) 94 I&O Intake and Output 06/14/19 06/15/19 19:00 07:00 Intake Total 360 ml 120 ml Balance 360 ml 120 ml Intake Oral 360 ml 120 ml # Voids 2 2 Dressing: other Wound: other Drains: other Cardiovascular: RSR Respiratory: decreased breath sounds Abdomen: soft, present bowel sounds Extremities: no cyanosis Laboratory Tests Test 06/14/19 23:00 06/15/19 05:00 Urine Color Pale yellow Urine Appearance Clear Urine pH 7 (4.5-8.0) Urine Specific [place] 1.005 (1.005-1.035) Urine Protein Negative (NEGATIVE) Urine Glucose (UA) 2+ (NEGATIVE) H Urine Ketones Negative (NEGATIVE) Urine Blood Negative (NEGATIVE) Urine Nitrite Negative (NEGATIVE) Urine Bilirubin Negative (NEGATIVE) Urine Urobilinogen Normal MG/DL (0.0-1.0) Urine Leukocyte Esterase Negative (NEGATIVE) Urine RBC 0-2 /HPF (0 - 2) Urine WBC 0 /HPF (0 - 2) Urine Squamous Epithelial Cells Few /LPF (NONE/OCC) Urine Bacteria None /HPF (NONE) White Blood Count 11.3 K/UL (4.8-10.8) H Red Blood Count 3.11 M/UL (4.20-5.40) L Hemoglobin 9.3 G/DL (12.0-16.0) L Hematocrit 27.3 % (37.0-47.0) L Mean Corpuscular Volume 88 FL (80-99) Mean Corpuscular Hemoglobin 29.8 PG (27.0-31.0) Mean Corpuscular Hemoglobin Concent 33.9 G/DL (32.0-36.0) Red Cell Distribution Width 12.7 % (11.6-14.8) Platelet Count 433 K/UL (150-450) Mean Platelet Volume 4.9 FL (6.5-10.1) L Neutrophils (%) (Auto) 68.5 % (45.0-75.0) Lymphocytes (%) (Auto) 20.3 % (20.0-45.0) Monocytes (%) (Auto) 7.0 % (1.0-10.0) Eosinophils (%) (Auto) 3.4 % (0.0-3.0) H Basophils (%) (Auto) 0.8 % (0.0-2.0) Erythrocyte Sedimentation Rate 120 MM/HR (0-30) H Sodium Level 140 MMOL/L (136-145) Potassium Level 4.4 MMOL/L (3.5-5.1) Chloride Level 104 MMOL/L (98-107) Carbon Dioxide Level 30 MMOL/L (21-32) Anion Gap 6 mmol/L (5-15) Blood Urea Nitrogen 18 mg/dL (7-18) Creatinine 1.2 MG/DL (0.55-1.30) Estimat Glomerular Filtration Rate 46.2 mL/min (>60) Glucose Level 150 MG/DL (74-106) H Calcium Level 9.0 MG/DL (8.5-10.1) Total Bilirubin 0.3 MG/DL (0.2-1.0) Aspartate Amino Transf (AST/SGOT) 52 U/L (15-37) H Alanine Aminotransferase (ALT/SGPT) 82 U/L (12-78) H Alkaline Phosphatase 368 U/L (46-116) H C-Reactive Protein, Quantitative 2.1 mg/dL (0.00-0.90) H Pro-B-Type Natriuretic Peptide 1345 pg/mL (0-125) H Total Protein 7.3 G/DL (6.4-8.2) Albumin 2.5 G/DL (3.4-5.0) L Globulin 4.8 g/dL Albumin/Globulin Ratio 0.5 (1.0-2.7) L Plan Problems: (1) Left foot infection (2) Occluded PICC line Assessment & Plan: new picc 06/14/2019 (3) Open wound of left foot (4) Cellulitis of left foot Assessment & Plan: 50-year-old female with history of chronic left foot wounds , cellulitis, infection who in 2018 initially developed a abscess/blister and has been dealing with chronic infection of the left foot since. On the medial aspect there is a 3 cm x 2 cm x 1 cm open wound with good granulation tissue seemingly a little bit more chronic than 1 week no drainage no signs of significant active infection. On the plantar aspect of the foot there is a 1 cm x 1 cm by half centimeter open punched-out wound from prior drainage with no active drainage currently. Patient states that she was recommended to have local wound care and antibiotics for 6 weeks. States that she is on isolation for the cultures that were taken outside facility. new picc placed Local wound care with hydrogel packing or Thera honey packing gauze daily Wash wound left foot daily with normal saline then apply above dressings Wrap foot leg with gauze after packing and dressings applied Trend labs Antibiotics per infectious disease podiatry input appreciated Thank you will follow with recommendations Cristian Tavarez Jun 15, 2019 11:00
[2019-06-15 12:00] VITALS: BP 136/77
--- NOTE | 2019-06-15 12:02 | NUR ---
CASE MANAGEMENT: REVIEW 06/15/19 SI: ASYMPTOMATIC HTN . OCCLUDED PICC LINE . LEFT FOOT OSTEOMYELITIS 97.8 79 18 132/70 96% ON RA WBC 11.3 H/H 9.3/27.3 ESR 120 BG 150 AST/ALT 52/82 ALK-PHOS 368 BNP 1345 C-REC PROT. 2.1 IS:PO LASIX X1 LINEZOLID PO BID BACTRIM-DS PO BID LIPITOR PO QHS KRISTI-HEX 2% TP QD NOVOLOG SQ AC&HS TYLENOL PO Q4HR/PRN \: 4E MED SURG UNIT PLAN: WOUND CARE
[2019-06-15] MEDS: Magnesium Oxide 400mg tab ORAL SCH ×2 (12:24→17:05)
[2019-06-15] MEDS: metFORMIN 500mg tab ORAL SCH ×2 (12:24→17:05)
--- NOTE | 2019-06-15 14:12 | Infectious Diseases Prog Note ---
Assessment/Plan Assessment/Plan IMPRESSION: 1. Diabetic foot, osteomyelitis. 2. Allergic drug reaction to Invanz and vancomycin with rash. 3. Diabetes mellitus. 4. Charcot joint. 5. Anemia. 6. Elevated transaminase Plan: Continue Bactrim & Zyvox Check for hepatitis B & C Subjective ROS Limited/Unobtainable: No Constitutional: Reports: no symptoms, other - feels better Respiratory: Reports: dry cough Cardiovascular: Reports: other - PICC line was changed Gastrointestinal/Abdominal: Reports: no symptoms Skin: Reports: rash, other - decreasing Allergies: Coded Allergies: No Known Allergies (Unverified , 06/13/19) Objective Vital Signs Last 24 Hour Vital Signs Date Time Temp Pulse Resp B/P (MAP) Pulse Ox O2 Delivery O2 Flow Rate FiO2 06/15/19 12:00 98.3 72 18 136/77 (96) 94 06/15/19 09:00 Room Air 06/15/19 08:46 132/70 06/15/19 08:00 97.8 79 18 132/70 (90) 96 06/15/19 04:00 98.3 78 18 126/66 (86) 95 06/15/19 00:00 98.6 82 18 143/71 (95) 96 06/14/19 21:00 Room Air 06/14/19 20:00 98.6 82 18 140/82 (101) 96 06/14/19 16:00 98.6 85 18 130/70 (90) 100 Height (Feet): 5 Height (Inches): 4.00 Weight (Pounds): 215 General Appearance: no acute distress HEENT: mucous membranes moist Respiratory/Chest: lungs clear Cardiovascular: normal rate Abdomen: soft, non tender Extremities: no edema Skin: rash, other - erythmatous more in legs improving Neurologic/Psychiatric: alert, oriented x 3, responsive Microbiology Date/Time Source Procedure Growth Status 06/13/19 22:52 Rectum Received Laboratory Tests Test 06/14/19 23:00 06/15/19 05:00 Urine Color Pale yellow Urine Appearance Clear Urine pH 7 (4.5-8.0) Urine Specific [place] 1.005 (1.005-1.035) Urine Protein Negative (NEGATIVE) Urine Glucose (UA) 2+ (NEGATIVE) H Urine Ketones Negative (NEGATIVE) Urine Blood Negative (NEGATIVE) Urine Nitrite Negative (NEGATIVE) Urine Bilirubin Negative (NEGATIVE) Urine Urobilinogen Normal MG/DL (0.0-1.0) Urine Leukocyte Esterase Negative (NEGATIVE) Urine RBC 0-2 /HPF (0 - 2) Urine WBC 0 /HPF (0 - 2) Urine Squamous Epithelial Cells Few /LPF (NONE/OCC) Urine Bacteria None /HPF (NONE) White Blood Count 11.3 K/UL (4.8-10.8) H Red Blood Count 3.11 M/UL (4.20-5.40) L Hemoglobin 9.3 G/DL (12.0-16.0) L Hematocrit 27.3 % (37.0-47.0) L Mean Corpuscular Volume 88 FL (80-99) Mean Corpuscular Hemoglobin 29.8 PG (27.0-31.0) Mean Corpuscular Hemoglobin Concent 33.9 G/DL (32.0-36.0) Red Cell Distribution Width 12.7 % (11.6-14.8) Platelet Count 433 K/UL (150-450) Mean Platelet Volume 4.9 FL (6.5-10.1) L Neutrophils (%) (Auto) 68.5 % (45.0-75.0) Lymphocytes (%) (Auto) 20.3 % (20.0-45.0) Monocytes (%) (Auto) 7.0 % (1.0-10.0) Eosinophils (%) (Auto) 3.4 % (0.0-3.0) H Basophils (%) (Auto) 0.8 % (0.0-2.0) Erythrocyte Sedimentation Rate 120 MM/HR (0-30) H Sodium Level 140 MMOL/L (136-145) Potassium Level 4.4 MMOL/L (3.5-5.1) Chloride Level 104 MMOL/L (98-107) Carbon Dioxide Level 30 MMOL/L (21-32) Anion Gap 6 mmol/L (5-15) Blood Urea Nitrogen 18 mg/dL (7-18) Creatinine 1.2 MG/DL (0.55-1.30) Estimat Glomerular Filtration Rate 46.2 mL/min (>60) Glucose Level 150 MG/DL (74-106) H Calcium Level 9.0 MG/DL (8.5-10.1) Total Bilirubin 0.3 MG/DL (0.2-1.0) Aspartate Amino Transf (AST/SGOT) 52 U/L (15-37) H Alanine Aminotransferase (ALT/SGPT) 82 U/L (12-78) H Alkaline Phosphatase 368 U/L (46-116) H C-Reactive Protein, Quantitative 2.1 mg/dL (0.00-0.90) H Pro-B-Type Natriuretic Peptide 1345 pg/mL (0-125) H Total Protein 7.3 G/DL (6.4-8.2) Albumin 2.5 G/DL (3.4-5.0) L Globulin 4.8 g/dL Albumin/Globulin Ratio 0.5 (1.0-2.7) L Current Medications Medications (Trade) Dose Ordered Sig/Dileep Route PRN Reason Start Time Stop Time Status Last Admin Dose Admin Acetaminophen (Tylenol) 650 mg Q4H PRN ORAL For Pain 06/14/19 04:15 07/14/19 04:14 06/14/19 21:45 Atorvastatin Calcium (Lipitor) 80 mg BEDTIME ORAL 06/14/19 21:00 07/14/19 20:59 06/14/19 21:25 Chlorhexidine Gluconate (Tianna-Hex 2%) 1 applic DAILY@2000 TOPIC 06/14/19 20:00 07/14/19 19:59 06/14/19 21:26 Dextrose (Dextrose 50%) 25 ml Q30M PRN IV Hypoglycemia 06/14/19 07:45 07/14/19 07:44 Dextrose (Dextrose 50%) 50 ml Q30M PRN IV Hypoglycemia 06/14/19 07:45 07/14/19 07:44 Folic Acid (Folate) 2 mg DAILY ORAL 06/15/19 10:30 07/15/19 10:29 06/15/19 10:49 Heparin Sodium/ Sodium Chloride (Heparin 1000 units/500ml Premix) 1,000 unit ONCE PRN IV PICC LINE 06/14/19 10:00 06/16/19 18:00 Insulin Aspart (NovoLOG) BEFORE MEALS AND HS SUBQ 06/14/19 11:30 07/14/19 11:29 06/15/19 12:26 Lidocaine HCl (Xylocaine 1% 30ml) 30 ml ONCE PRN INJ PICC LINE 06/14/19 10:00 06/16/19 18:00 Linezolid (Zyvox) 600 mg EVERY 12 HOURS ORAL 06/14/19 15:42 06/19/19 15:41 06/15/19 09:02 Lisinopril (ZestriL) 10 mg DAILY ORAL 06/14/19 09:00 07/14/19 08:59 Magnesium Oxide (Mag-Ox 400mg) 400 mg THREE TIMES A DAY ORAL 06/15/19 13:00 07/15/19 12:59 06/15/19 12:24 Metformin HCl (Glucophage) 500 mg TIAC ORAL 06/15/19 11:30 07/15/19 11:29 06/15/19 12:24 Ondansetron HCl (Zofran) 4 mg Q6H PRN IVP Nausea & Vomiting 06/14/19 22:00 07/14/19 21:59 06/14/19 22:19 Trimethoprim/ Sulfamethoxazole (Bactrim-DS) 1 tab Q12HR ORAL 06/14/19 21:00 06/21/19 20:59 06/15/19 09:02 Adarsh Pitts MD Jun 15, 2019 14:12
--- NOTE | 2019-06-15 14:26 | Consultation ---
History of Present Illness General Chief Complaint: Hypertension Present Illness Allergies: Coded Allergies: No Known Allergies (Unverified , 06/13/19) Medication History Scheduled Atorvastatin Calcium* (Atorvastatin Calcium*), 80 MG ORAL BEDTIME, (Reported) Insulin Aspart (Novolog), 100 UNIT SQ TID, (Reported) Insulin Glargine (Lantus), 0 SUBQ TID, (Reported) Lisinopril (Lisinopril*), 10 MG ORAL DAILY, (Reported) Scheduled PRN Acetaminophen* (Acetaminophen 325MG Tablet*), 650 MG ORAL Q4H PRN for For Pain, (Reported) Patient History Healthcare decision maker Resuscitation status Full Code Advanced Directive on File No Physical Exam Last 24 Hour Vital Signs Date Time Temp Pulse Resp B/P (MAP) Pulse Ox O2 Delivery O2 Flow Rate FiO2 06/15/19 12:00 98.3 72 18 136/77 (96) 94 06/15/19 09:00 Room Air 06/15/19 08:46 132/70 06/15/19 08:00 97.8 79 18 132/70 (90) 96 06/15/19 04:00 98.3 78 18 126/66 (86) 95 06/15/19 00:00 98.6 82 18 143/71 (95) 96 06/14/19 21:00 Room Air 06/14/19 20:00 98.6 82 18 140/82 (101) 96 06/14/19 16:00 98.6 85 18 130/70 (90) 100 Intake and Output 06/14/19 06/15/19 19:00 07:00 Intake Total 360 ml 120 ml Balance 360 ml 120 ml Intake Oral 360 ml 120 ml # Voids 2 2 Laboratory Tests Test 06/14/19 23:00 06/15/19 05:00 Urine Color Pale yellow Urine Appearance Clear Urine pH 7 (4.5-8.0) Urine Specific [place] 1.005 (1.005-1.035) Urine Protein Negative (NEGATIVE) Urine Glucose (UA) 2+ (NEGATIVE) H Urine Ketones Negative (NEGATIVE) Urine Blood Negative (NEGATIVE) Urine Nitrite Negative (NEGATIVE) Urine Bilirubin Negative (NEGATIVE) Urine Urobilinogen Normal MG/DL (0.0-1.0) Urine Leukocyte Esterase Negative (NEGATIVE) Urine RBC 0-2 /HPF (0 - 2) Urine WBC 0 /HPF (0 - 2) Urine Squamous Epithelial Cells Few /LPF (NONE/OCC) Urine Bacteria None /HPF (NONE) White Blood Count 11.3 K/UL (4.8-10.8) H Red Blood Count 3.11 M/UL (4.20-5.40) L Hemoglobin 9.3 G/DL (12.0-16.0) L Hematocrit 27.3 % (37.0-47.0) L Mean Corpuscular Volume 88 FL (80-99) Mean Corpuscular Hemoglobin 29.8 PG (27.0-31.0) Mean Corpuscular Hemoglobin Concent 33.9 G/DL (32.0-36.0) Red Cell Distribution Width 12.7 % (11.6-14.8) Platelet Count 433 K/UL (150-450) Mean Platelet Volume 4.9 FL (6.5-10.1) L Neutrophils (%) (Auto) 68.5 % (45.0-75.0) Lymphocytes (%) (Auto) 20.3 % (20.0-45.0) Monocytes (%) (Auto) 7.0 % (1.0-10.0) Eosinophils (%) (Auto) 3.4 % (0.0-3.0) H Basophils (%) (Auto) 0.8 % (0.0-2.0) Erythrocyte Sedimentation Rate 120 MM/HR (0-30) H Sodium Level 140 MMOL/L (136-145) Potassium Level 4.4 MMOL/L (3.5-5.1) Chloride Level 104 MMOL/L (98-107) Carbon Dioxide Level 30 MMOL/L (21-32) Anion Gap 6 mmol/L (5-15) Blood Urea Nitrogen 18 mg/dL (7-18) Creatinine 1.2 MG/DL (0.55-1.30) Estimat Glomerular Filtration Rate 46.2 mL/min (>60) Glucose Level 150 MG/DL (74-106) H Calcium Level 9.0 MG/DL (8.5-10.1) Total Bilirubin 0.3 MG/DL (0.2-1.0) Aspartate Amino Transf (AST/SGOT) 52 U/L (15-37) H Alanine Aminotransferase (ALT/SGPT) 82 U/L (12-78) H Alkaline Phosphatase 368 U/L (46-116) H C-Reactive Protein, Quantitative 2.1 mg/dL (0.00-0.90) H Pro-B-Type Natriuretic Peptide 1345 pg/mL (0-125) H Total Protein 7.3 G/DL (6.4-8.2) Albumin 2.5 G/DL (3.4-5.0) L Globulin 4.8 g/dL Albumin/Globulin Ratio 0.5 (1.0-2.7) L Height (Feet): 5 Height (Inches): 4.00 Weight (Pounds): 215 Medications Current Medications Medications (Trade) Dose Ordered Sig/Dileep Route PRN Reason Start Time Stop Time Status Last Admin Dose Admin Acetaminophen (Tylenol) 650 mg Q4H PRN ORAL For Pain 06/14/19 04:15 07/14/19 04:14 06/14/19 21:45 Atorvastatin Calcium (Lipitor) 80 mg BEDTIME ORAL 06/14/19 21:00 07/14/19 20:59 06/14/19 21:25 Chlorhexidine Gluconate (Tianna-Hex 2%) 1 applic DAILY@2000 TOPIC 06/14/19 20:00 07/14/19 19:59 06/14/19 21:26 Dextrose (Dextrose 50%) 25 ml Q30M PRN IV Hypoglycemia 06/14/19 07:45 07/14/19 07:44 Dextrose (Dextrose 50%) 50 ml Q30M PRN IV Hypoglycemia 06/14/19 07:45 07/14/19 07:44 Folic Acid (Folate) 2 mg DAILY ORAL 06/15/19 10:30 07/15/19 10:29 06/15/19 10:49 Heparin Sodium/ Sodium Chloride (Heparin 1000 units/500ml Premix) 1,000 unit ONCE PRN IV PICC LINE 06/14/19 10:00 06/16/19 18:00 Insulin Aspart (NovoLOG) BEFORE MEALS AND HS SUBQ 06/14/19 11:30 07/14/19 11:29 06/15/19 12:26 Lidocaine HCl (Xylocaine 1% 30ml) 30 ml ONCE PRN INJ PICC LINE 06/14/19 10:00 06/16/19 18:00 Linezolid (Zyvox) 600 mg EVERY 12 HOURS ORAL 06/14/19 15:42 06/19/19 15:41 06/15/19 09:02 Lisinopril (ZestriL) 10 mg DAILY ORAL 06/14/19 09:00 07/14/19 08:59 Magnesium Oxide (Mag-Ox 400mg) 400 mg THREE TIMES A DAY ORAL 06/15/19 13:00 07/15/19 12:59 06/15/19 12:24 Metformin HCl (Glucophage) 500 mg TIAC ORAL 06/15/19 11:30 07/15/19 11:29 06/15/19 12:24 Ondansetron HCl (Zofran) 4 mg Q6H PRN IVP Nausea & Vomiting 06/14/19 22:00 07/14/19 21:59 06/14/19 22:19 Trimethoprim/ Sulfamethoxazole (Bactrim-DS) 1 tab Q12HR ORAL 06/14/19 21:00 06/21/19 20:59 06/15/19 09:02 Assessment/Plan Assessment/Plan: Heme consult REQ MD: Elodia Metz RFC: Anemia eval DOS: 06/15/19 HPI: 50-year-old female with history of obesity, diabetes and chronic left foot ulcers with multiple drug-resistant bacteria presents for evaluation of elevated blood pressures. She was discharged from [facility] today on route to a nursing facility. She states that the nursing facility did not know she was coming and refused to accept her. She was also noted to have an elevated blood pressure with systolics in the 180s and was brought to the hospital again for reevaluation. She noted a headache and some nausea earlier but these are improving. She was taken off her lisinopril, 5 mg daily, yesterday or the day before because of low systolic blood pressures while in the hospital. She currently denies any chest pain, palpitations, shortness of breath, abdominal pain, changes in her vision. No other complaints at this time. She is due to receive extended antibiotics for her lower extremity wounds. She does not want me to evaluate the wounds as they were recently dressed and are clean at this time. Here started on abx, seen by id, surg, podiatry and heme consulted for anemia eval, currently hgb 9.3 PMH: Hypertension, obesity, diabetes, chronic lower extremity ulcers PSH: Reviewed Allergies: Denies No Known Allergies (Unverified , 06/13/19) Review of Systems All Other Systems: negative except mentioned in HPI Physical Exam Vitals: reviewed General: NAD Neck: supple Chest: clear breath sounds bilaterally Cardiovascular: RRR, no s3, s4 Abdomen: soft, nontender, nd Extremities: no cce, normal range of motion ++ picc upper arm r, also ankle and left foot erythema with bandages+ Mental: alert Labs: noted Imaging: reviewed Assessment and Recs: # Anemia of chronic disease due to underlying chronic medical issues, multifactorial v Gi bleed --> Anemia workup has been ordered, rule out gi bleed --> No evidence of hemolysis is noted, peripheral smear has been reviewed. --> Hgb goal >7. Transfuse prn. --> Epogen or iron at this time is not particularly indicated --> Medications have been reviewed --> low threshold for gi evaluation in case has occult + # Occluded PICC line --> has been changed # Diabetic foot, osteomyelitis. --> per endo, accuchecks qac and qhs --> seen by pod, id surg --> on bactrim zyvox # Diabetes mellitus. # Charcot joint. # Transaminitis Appreciate consultation and dw Jose Hauser MD Jun 15, 2019 14:26
[2019-06-15 16:00] VITALS: BP 127/82
--- NOTE | 2019-06-15 19:20 | NUR ---
HAND-OFF: Report given to Guerline MARTINEZ.
--- NOTE | 2019-06-15 20:03 | Nephrology Progress Note ---
Assessment/Plan Problem List: (1) DMII (diabetes mellitus, type 2) (2) Ascites (3) Hypertension (4) Cellulitis of left foot Assessment Ascitis Obese DM Anemia HypoAlbuminemia elevated LFTs Plan UA Anemia larose adjust BP meds wound care per orders Subjective Constitutional: Reports: malaise, weakness Objective Objective Last 24 Hour Vital Signs Date Time Temp Pulse Resp B/P (MAP) Pulse Ox O2 Delivery O2 Flow Rate FiO2 06/15/19 18:46 Room Air 06/15/19 16:00 97.9 76 18 127/82 (97) 96 06/15/19 12:00 98.3 72 18 136/77 (96) 94 06/15/19 09:00 Room Air 06/15/19 08:46 132/70 06/15/19 08:00 97.8 79 18 132/70 (90) 96 06/15/19 04:00 98.3 78 18 126/66 (86) 95 06/15/19 00:00 98.6 82 18 143/71 (95) 96 06/14/19 21:00 Room Air Intake and Output 06/14/19 06/15/19 19:00 07:00 Intake Total 360 ml 120 ml Balance 360 ml 120 ml Intake Oral 360 ml 120 ml # Voids 2 2 Current Medications Medications (Trade) Dose Ordered Sig/Dileep Route PRN Reason Start Time Stop Time Status Last Admin Dose Admin Acetaminophen (Tylenol) 650 mg Q4H PRN ORAL For Pain 06/14/19 04:15 07/14/19 04:14 06/14/19 21:45 Atorvastatin Calcium (Lipitor) 80 mg BEDTIME ORAL 06/14/19 21:00 07/14/19 20:59 06/14/19 21:25 Chlorhexidine Gluconate (Tianna-Hex 2%) 1 applic DAILY@2000 TOPIC 06/14/19 20:00 07/14/19 19:59 06/14/19 21:26 Dextrose (Dextrose 50%) 25 ml Q30M PRN IV Hypoglycemia 06/14/19 07:45 07/14/19 07:44 Dextrose (Dextrose 50%) 50 ml Q30M PRN IV Hypoglycemia 06/14/19 07:45 07/14/19 07:44 Folic Acid (Folate) 2 mg DAILY ORAL 06/15/19 10:30 07/15/19 10:29 06/15/19 10:49 Heparin Sodium/ Sodium Chloride (Heparin 1000 units/500ml Premix) 1,000 unit ONCE PRN IV PICC LINE 06/14/19 10:00 06/16/19 18:00 Insulin Aspart (NovoLOG) BEFORE MEALS AND HS SUBQ 06/14/19 11:30 07/14/19 11:29 06/15/19 17:06 Lidocaine HCl (Xylocaine 1% 30ml) 30 ml ONCE PRN INJ PICC LINE 06/14/19 10:00 06/16/19 18:00 Linezolid (Zyvox) 600 mg EVERY 12 HOURS ORAL 06/14/19 15:42 06/19/19 15:41 06/15/19 09:02 Lisinopril (ZestriL) 10 mg DAILY ORAL 06/14/19 09:00 07/14/19 08:59 Magnesium Oxide (Mag-Ox 400mg) 400 mg THREE TIMES A DAY ORAL 06/15/19 13:00 07/15/19 12:59 06/15/19 17:05 Metformin HCl (Glucophage) 500 mg TIAC ORAL 06/15/19 11:30 07/15/19 11:29 06/15/19 17:05 Ondansetron HCl (Zofran) 4 mg Q6H PRN IVP Nausea & Vomiting 06/14/19 22:00 07/14/19 21:59 06/14/19 22:19 Trimethoprim/ Sulfamethoxazole (Bactrim-DS) 1 tab Q12HR ORAL 06/14/19 21:00 06/21/19 20:59 06/15/19 09:02 Laboratory Tests 06/14/19 23:00: Urine Color Pale yellow, Urine Appearance Clear, Urine pH 7, Urine Specific [place] 1.005, Urine Protein Negative, Urine Glucose (UA) 2+H, Urine Ketones Negative, Urine Blood Negative, Urine Nitrite Negative, Urine Bilirubin Negative , Urine Urobilinogen Normal, Urine Leukocyte Esterase Negative, Urine RBC 0-2, Urine WBC 0, Urine Squamous Epithelial Cells Few, Urine Bacteria None 06/15/19 05:00: White Blood Count 11.3H, Red Blood Count 3.11L, Hemoglobin 9.3L, Hematocrit 27.3L, Mean Corpuscular Volume 88, Mean Corpuscular Hemoglobin 29.8, Mean Corpuscular Hemoglobin Concent 33.9, Red Cell Distribution Width 12.7, Platelet Count 433, Mean Platelet Volume 4.9L, Neutrophils (%) (Auto) 68.5, Lymphocytes ( %) (Auto) 20.3, Monocytes (%) (Auto) 7.0, Eosinophils (%) (Auto) 3.4H, Basophils (%) (Auto) 0.8, Erythrocyte Sedimentation Rate 120H, Sodium Level 140 , Potassium Level 4.4, Chloride Level 104, Carbon Dioxide Level 30, Anion Gap 6 , Blood Urea Nitrogen 18, Creatinine 1.2, Estimat Glomerular Filtration Rate 46.2, Glucose Level 150H, Calcium Level 9.0, Total Bilirubin 0.3, Aspartate Amino Transf (AST/SGOT) 52H, Alanine Aminotransferase (ALT/SGPT) 82H, Alkaline Phosphatase 368H, C-Reactive Protein, Quantitative 2.1H, Pro-B-Type Natriuretic Peptide 1345H, Total Protein 7.3, Albumin 2.5L, Globulin 4.8, Albumin/Globulin Ratio 0.5L Height (Feet): 5 Height (Inches): 4.00 Weight (Pounds): 215 General Appearance: no apparent distress Cardiovascular: normal rate Respiratory/Chest: decreased breath sounds Abdomen: distended Extremities: other - swollen Erasto Parikh MD Jun 15, 2019 20:03
--- NOTE | 2019-06-15 20:04 | NUR ---
NURSE NOTES: Received patient in bed awake, alert and oriented X4. Breathing even and unlaboured. PICC line noted on right upper arm, patent and intact. Dressing noted on left foot, dry and intact. Bed in lowest position. Call light within reach. Will continue to monitor.
[2019-06-15 20:37] VITALS: BP 147/82
[2019-06-15] MEDS: Dyna-Hex 2% Top Sol 2oz TOPIC SCH (20:53)
[2019-06-15] MEDS: Atorvastatin 80mg tab ORAL SCH (20:53)
--- NOTE | 2019-06-15 21:07 | General Progress Note ---
Assessment/Plan Problem List: (1) Hypertension ICD Codes: I10 - Essential (primary) hypertension SNOMED: 89350075 (2) Cellulitis of left foot ICD Codes: L03.116 - Cellulitis of left lower limb SNOMED: 971862319 (3) Open wound of left foot ICD Codes: S91.302A - Unspecified open wound, left foot, initial encounter SNOMED: 46416115072970983 (4) Left foot infection ICD Codes: L08.9 - Local infection of the skin and subcutaneous tissue, unspecified SNOMED: 406036099 (5) DMII (diabetes mellitus, type 2) ICD Codes: E11.9 - Type 2 diabetes mellitus without complications SNOMED: 25236056 Status: progressing Assessment/Plan: foot cellulitis le celluitis and edema abx 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 Subjective ROS Limited/Unobtainable: Yes Allergies: Coded Allergies: No Known Allergies (Unverified , 06/13/19) Objective Last 24 Hour Vital Signs Date Time Temp Pulse Resp B/P (MAP) Pulse Ox O2 Delivery O2 Flow Rate FiO2 06/15/19 20:37 98.7 79 16 147/82 (103) 97 06/15/19 18:46 Room Air 06/15/19 16:00 97.9 76 18 127/82 (97) 96 06/15/19 12:00 98.3 72 18 136/77 (96) 94 06/15/19 09:00 Room Air 06/15/19 08:46 132/70 06/15/19 08:00 97.8 79 18 132/70 (90) 96 06/15/19 04:00 98.3 78 18 126/66 (86) 95 06/15/19 00:00 98.6 82 18 143/71 (95) 96 Intake and Output 06/14/19 06/15/19 19:00 07:00 Intake Total 360 ml 120 ml Balance 360 ml 120 ml Intake Oral 360 ml 120 ml # Voids 2 2 Laboratory Tests 06/14/19 23:00: Urine Color Pale yellow, Urine Appearance Clear, Urine pH 7, Urine Specific [place] 1.005, Urine Protein Negative, Urine Glucose (UA) 2+H, Urine Ketones Negative, Urine Blood Negative, Urine Nitrite Negative, Urine Bilirubin Negative , Urine Urobilinogen Normal, Urine Leukocyte Esterase Negative, Urine RBC 0-2, Urine WBC 0, Urine Squamous Epithelial Cells Few, Urine Bacteria None 06/15/19 05:00: White Blood Count 11.3H, Red Blood Count 3.11L, Hemoglobin 9.3L, Hematocrit 27.3L, Mean Corpuscular Volume 88, Mean Corpuscular Hemoglobin 29.8, Mean Corpuscular Hemoglobin Concent 33.9, Red Cell Distribution Width 12.7, Platelet Count 433, Mean Platelet Volume 4.9L, Neutrophils (%) (Auto) 68.5, Lymphocytes ( %) (Auto) 20.3, Monocytes (%) (Auto) 7.0, Eosinophils (%) (Auto) 3.4H, Basophils (%) (Auto) 0.8, Erythrocyte Sedimentation Rate 120H, Sodium Level 140 , Potassium Level 4.4, Chloride Level 104, Carbon Dioxide Level 30, Anion Gap 6 , Blood Urea Nitrogen 18, Creatinine 1.2, Estimat Glomerular Filtration Rate 46.2, Glucose Level 150H, Calcium Level 9.0, Total Bilirubin 0.3, Aspartate Amino Transf (AST/SGOT) 52H, Alanine Aminotransferase (ALT/SGPT) 82H, Alkaline Phosphatase 368H, C-Reactive Protein, Quantitative 2.1H, Pro-B-Type Natriuretic Peptide 1345H, Total Protein 7.3, Albumin 2.5L, Globulin 4.8, Albumin/Globulin Ratio 0.5L Height (Feet): 5 Height (Inches): 4.00 Weight (Pounds): 215 General Appearance: lethargic Neck: supple Cardiovascular: regular rhythm Elodia Dunbar MD Jun 15, 2019 21:07
[2019-06-16] VITALS: BP 111/63
--- NOTE | 2019-06-16 03:46 | NUR ---
NURSE NOTES: Received call , from lab and spoke with Pradip regarding patient is positive for VRE rectum
[2019-06-16 04:00] VITALS: BP 118/56
[2019-06-16 04:28] LABS: APPEARANCE,URINE CLEAR; BILIRUBIN, URINE NEGATIVE (NEGATIVE); COLOR,URINE PALE YELLOW; GLUCOSE, URINE (UA) NEGATIVE (NEGATIVE); KETONES,URINE NEGATIVE (NEGATIVE); LEUKOCYTE ESTERASE ,URINE 1+ (NEGATIVE); NITRITE,URINE NEGATIVE (NEGATIVE); PH,URINE 6.5 (4.5-8.0); PROTEIN,URINE 2+ (NEGATIVE); UROBILINOGEN,URINE NORMAL MG/DL (0.0-1.0)
[2019-06-16 04:44] LABS: ALANINE AMINOTRANSFERASE 72 U/L (12-78); ALBUMIN 2.8 G/DL (3.4-5.0); ALBUMIN/GLOBULIN RATIO 0.6 (1.0-2.7); ALKALINE PHOSPHATASE 372 U/L (46-116); ANION GAP 7 mmol/L (5-15); ASPARTATE AMINO TRANSFERASE 35 U/L (15-37); BILIRUBIN,TOTAL 0.2 MG/DL (0.2-1.0); BLOOD UREA NITROGEN 22 mg/dL (7-18); CARBON DIOXIDE 30 MMOL/L (21-32); CHLORIDE 100 MMOL/L (98-107); CREATININE 1.5 MG/DL (0.55-1.30); POTASSIUM 4.3 MMOL/L (3.5-5.1); SODIUM 137 MMOL/L (136-145)
[2019-06-16 04:57] LABS: EOSINOPHILS % (AUTO) 3.9 % (0.0-3.0); HEMATOCRIT 28.9 % (37.0-47.0); HEMOGLOBIN 9.7 G/DL (12.0-16.0); LYMPHOCYTES % (AUTO) 18.7 % (20.0-45.0); MEAN CORPUSCULAR VOLUME 87 FL (80-99); NEUTROPHILS % (AUTO) 68.4 % (45.0-75.0); PLATELET COUNT 457 K/UL (150-450); RED BLOOD COUNT 3.32 M/UL (4.20-5.40); RED CELL DISTRIBUTION WIDTH 12.6 % (11.6-14.8); WHITE BLOOD COUNT 11.9 K/UL (4.8-10.8)
[2019-06-16 05:06] LABS: PHOSPHORUS 3.5 MG/DL (2.5-4.9)
[2019-06-16] MEDS: metFORMIN 500mg tab ORAL SCH ×3 (05:51→17:27)
[2019-06-16] MEDS: NovoLOG Insulin Flexpen SUBQ SCH ×4 (05:52→22:34)
--- NOTE | 2019-06-16 06:12 | NUR ---
NURSE NOTES: Informed DR Dunbar about pt is positive for VRE rectum.
--- NOTE | 2019-06-16 07:15 | NUR ---
NURSE NOTES: Report received from Guerline MARTINEZ. Patient is awake and alert x 4. Patient presents to hospital due to abscess on left foot. Dressing noted, clean, dry, and in tact. Patient does not have complaints of pain at this time. Patient able to make needs known, will call when needs to get up, ambulates well with walker. PICC line present in right upper arm. Flushes and has blood return. Bed locked in lowest position. Call light within reach. Will continue to follow plan of care.
--- NOTE | 2019-06-16 07:29 | NUR ---
HAND-OFF: Report given to MICHELLE Paredes.
[2019-06-16 08:00] VITALS: BP 132/76
[2019-06-16] MEDS: Lisinopril 10mg tab ORAL SCH (08:32)
[2019-06-16] MEDS: Bactrim-DS 1 tab ORAL SCH (08:33)
[2019-06-16] MEDS: Magnesium Oxide 400mg tab ORAL SCH ×3 (08:33→17:27)
--- NOTE | 2019-06-16 09:00 | NUR ---
NURSE NOTES: Spoke with Doctor Dunbar on phone. He is okay with patient being discharged. Needs to be cleared by podiatry first, then infectious disease. Will contact appropriate doctors.
--- NOTE | 2019-06-16 10:18 | NUR ---
CASE MANAGEMENT: REVIEW 06/16/19 SI: LEFT FOOT OSTEOMYELITIS/ INFECTION . DM II 96.3 85 16 132/76 98% ON RA WBC 11.9 H/H 9.7/28.9 PLT 457 BUN 22 CREAT 1.5 PHOS 1.6 ALK-PHOS 372 IS:IV MG SULFATE X 4BAGS LINEZOLID PO BID BACTRIM-DS PO BID LIPITOR PO QHS KRISTI-HEX 2% TP QD NOVOLOG SQ AC&HS TYLENOL PO Q4HR/PRN MAG-OX PO TID \: 4E MED SURG UNIT PLAN: HEP PANEL PENDING +VRE PICC LINE CHANGE 06/14 WOUND CARE
--- NOTE | 2019-06-16 11:06 | Infectious Diseases Prog Note ---
Assessment/Plan Assessment/Plan IMPRESSION: 1. Diabetic foot, osteomyelitis. 2. Allergic drug reaction to Invanz and vancomycin with rash. 3. Diabetes mellitus. 4. Charcot joint. 5. Anemia. 6. Elevated transaminase improving Plan: Decrease dose of Bactrim Continue Zyvox Will f/u hepatitis B & C serologies Subjective ROS Limited/Unobtainable: No Constitutional: Reports: no symptoms Respiratory: Reports: no symptoms Gastrointestinal/Abdominal: Reports: no symptoms Genitourinary: Reports: no symptoms Skin: Reports: rash, other - mild itching Allergies: Coded Allergies: No Known Allergies (Unverified , 06/13/19) Objective Vital Signs Last 24 Hour Vital Signs Date Time Temp Pulse Resp B/P (MAP) Pulse Ox O2 Delivery O2 Flow Rate FiO2 06/16/19 09:00 Room Air 06/16/19 08:32 132/76 06/16/19 08:00 96.3 85 16 132/76 (94) 98 06/16/19 04:00 97.3 77 16 118/56 (76) 96 06/16/19 00:00 98.6 81 16 111/63 (79) 96 06/15/19 20:37 98.7 79 16 147/82 (103) 97 06/15/19 18:46 Room Air 06/15/19 16:00 97.9 76 18 127/82 (97) 96 06/15/19 12:00 98.3 72 18 136/77 (96) 94 Height (Feet): 5 Height (Inches): 4.00 Weight (Pounds): 215 General Appearance: no acute distress HEENT: mucous membranes moist Respiratory/Chest: lungs clear Cardiovascular: normal rate, other - R arm PICC line Abdomen: soft, non tender Extremities: no edema Skin: rash, other - legs Microbiology Date/Time Source Procedure Growth Status 06/13/19 22:52 Nasal Nares MRSA Culture - Final NO METHICILLIN RESISTANT STAPH AUREUS... 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 Complete Laboratory Tests Test 06/16/19 04:15 06/16/19 04:45 Urine Color Pale yellow Urine Appearance Clear Urine pH 6.5 (4.5-8.0) Urine Specific [place] 1.010 (1.005-1.035) Urine Protein 2+ (NEGATIVE) H Urine Glucose (UA) Negative (NEGATIVE) Urine Ketones Negative (NEGATIVE) Urine Blood 5+ (NEGATIVE) H Urine Nitrite Negative (NEGATIVE) Urine Bilirubin Negative (NEGATIVE) Urine Urobilinogen Normal MG/DL (0.0-1.0) Urine Leukocyte Esterase 1+ (NEGATIVE) H Urine RBC Tntc /HPF (0 - 2) H Urine WBC 0-2 /HPF (0 - 2) Urine Squamous Epithelial Cells Moderate /LPF (NONE/OCC) H Urine Bacteria Few /HPF (NONE) Urine Mucus Moderate /LPF (NONE/OCC) H Sodium Level 137 MMOL/L (136-145) Potassium Level 4.3 MMOL/L (3.5-5.1) Chloride Level 100 MMOL/L (98-107) Carbon Dioxide Level 30 MMOL/L (21-32) Anion Gap 7 mmol/L (5-15) Blood Urea Nitrogen 22 mg/dL (7-18) H Creatinine 1.5 MG/DL (0.55-1.30) H Estimat Glomerular Filtration Rate 35.7 mL/min (>60) Glucose Level 194 MG/DL (74-106) H Calcium Level 9.0 MG/DL (8.5-10.1) Phosphorus Level 3.5 MG/DL (2.5-4.9) Magnesium Level 1.6 MG/DL (1.8-2.4) L Total Bilirubin 0.2 MG/DL (0.2-1.0) Aspartate Amino Transf (AST/SGOT) 35 U/L (15-37) Alanine Aminotransferase (ALT/SGPT) 72 U/L (12-78) Alkaline Phosphatase 372 U/L (46-116) H Total Protein 7.5 G/DL (6.4-8.2) Albumin 2.8 G/DL (3.4-5.0) L Globulin 4.7 g/dL Albumin/Globulin Ratio 0.6 (1.0-2.7) L Hepatitis B Surface Antigen Pending Hepatitis B Surface Antibody, Quant Pending Hepatitis C Antibody Pending White Blood Count 11.9 K/UL (4.8-10.8) H Red Blood Count 3.32 M/UL (4.20-5.40) L Hemoglobin 9.7 G/DL (12.0-16.0) L Hematocrit 28.9 % (37.0-47.0) L Mean Corpuscular Volume 87 FL (80-99) Mean Corpuscular Hemoglobin 29.4 PG (27.0-31.0) Mean Corpuscular Hemoglobin Concent 33.7 G/DL (32.0-36.0) Red Cell Distribution Width 12.6 % (11.6-14.8) Platelet Count 457 K/UL (150-450) H Mean Platelet Volume 5.0 FL (6.5-10.1) L Neutrophils (%) (Auto) 68.4 % (45.0-75.0) Lymphocytes (%) (Auto) 18.7 % (20.0-45.0) L Monocytes (%) (Auto) 8.0 % (1.0-10.0) Eosinophils (%) (Auto) 3.9 % (0.0-3.0) H Basophils (%) (Auto) 1.0 % (0.0-2.0) Current Medications Medications (Trade) Dose Ordered Sig/Dileep Route PRN Reason Start Time Stop Time Status Last Admin Dose Admin Acetaminophen (Tylenol) 650 mg Q4H PRN ORAL For Pain 06/14/19 04:15 07/14/19 04:14 06/14/19 21:45 Atorvastatin Calcium (Lipitor) 80 mg BEDTIME ORAL 06/14/19 21:00 07/14/19 20:59 06/15/19 20:53 Chlorhexidine Gluconate (Tianna-Hex 2%) 1 applic DAILY@2000 TOPIC 06/14/19 20:00 07/14/19 19:59 06/15/19 20:53 Dextrose (Dextrose 50%) 25 ml Q30M PRN IV Hypoglycemia 06/14/19 07:45 07/14/19 07:44 Dextrose (Dextrose 50%) 50 ml Q30M PRN IV Hypoglycemia 06/14/19 07:45 07/14/19 07:44 Folic Acid (Folate) 2 mg DAILY ORAL 06/15/19 10:30 07/15/19 10:29 06/16/19 08:33 Heparin Sodium/ Sodium Chloride (Heparin 1000 units/500ml Premix) 1,000 unit ONCE PRN IV PICC LINE 06/14/19 10:00 06/16/19 18:00 Insulin Aspart (NovoLOG) BEFORE MEALS AND HS SUBQ 06/14/19 11:30 07/14/19 11:29 06/16/19 05:52 Lidocaine HCl (Xylocaine 1% 30ml) 30 ml ONCE PRN INJ PICC LINE 06/14/19 10:00 06/16/19 18:00 Linezolid (Zyvox) 600 mg EVERY 12 HOURS ORAL 06/14/19 15:42 06/19/19 15:41 06/16/19 08:33 Lisinopril (ZestriL) 10 mg DAILY ORAL 06/14/19 09:00 07/14/19 08:59 06/16/19 08:32 Magnesium Oxide (Mag-Ox 400mg) 400 mg THREE TIMES A DAY ORAL 06/15/19 13:00 07/15/19 12:59 06/16/19 08:33 Magnesium Sulfate 100 ml @ 100 mls/hr Q1H IVPB 06/16/19 08:00 06/16/19 11:59 06/16/19 10:00 Metformin HCl (Glucophage) 500 mg TIAC ORAL 06/15/19 11:30 07/15/19 11:29 06/16/19 05:51 Ondansetron HCl (Zofran) 4 mg Q6H PRN IVP Nausea & Vomiting 06/14/19 22:00 07/14/19 21:59 06/16/19 08:56 Trimethoprim/ Sulfamethoxazole (Bactrim-DS) 1 tab Q12HR ORAL 06/14/19 21:00 06/21/19 20:59 06/16/19 08:33 Adarsh Pitts MD Jun 16, 2019 11:06
--- NOTE | 2019-06-16 11:11 | NUR ---
NURSE NOTES: Contacted Doctor Fiona's office regarding discharge. left message, waiting for call back.
[2019-06-16 12:00] VITALS: BP_SYST 134; BP_SYST 212; BP_DIAS 125; BP_DIAS 72
--- NOTE | 2019-06-16 12:40 | Nephrology Progress Note ---
Assessment/Plan Problem List: (1) DMII (diabetes mellitus, type 2) (2) Ascites (3) Hypertension (4) Cellulitis of left foot Assessment Ascitis Obese DM Anemia HypoAlbuminemia elevated LFTs Plan UA prn Lasix Anemia larose adjust BP meds wound care per orders Subjective ROS Limited/Unobtainable: No Objective Objective Last 24 Hour Vital Signs Date Time Temp Pulse Resp B/P (MAP) Pulse Ox O2 Delivery O2 Flow Rate FiO2 06/16/19 09:00 Room Air 06/16/19 08:32 132/76 06/16/19 08:00 96.3 85 16 132/76 (94) 98 06/16/19 04:00 97.3 77 16 118/56 (76) 96 06/16/19 00:00 98.6 81 16 111/63 (79) 96 06/15/19 20:37 98.7 79 16 147/82 (103) 97 06/15/19 18:46 Room Air 06/15/19 16:00 97.9 76 18 127/82 (97) 96 Intake and Output 06/15/19 06/16/19 19:00 07:00 Intake Total 1200 ml Balance 1200 ml Other 1200 ml # Voids 1 # Bowel Movements 1 Current Medications Medications (Trade) Dose Ordered Sig/Dileep Route PRN Reason Start Time Stop Time Status Last Admin Dose Admin Acetaminophen (Tylenol) 650 mg Q4H PRN ORAL For Pain 06/14/19 04:15 07/14/19 04:14 06/14/19 21:45 Atorvastatin Calcium (Lipitor) 80 mg BEDTIME ORAL 06/14/19 21:00 07/14/19 20:59 06/15/19 20:53 Chlorhexidine Gluconate (Tianna-Hex 2%) 1 applic DAILY@1999 TOPIC 06/14/19 20:00 07/14/19 19:59 06/15/19 20:53 Dextrose (Dextrose 50%) 25 ml Q30M PRN IV Hypoglycemia 06/14/19 07:45 07/14/19 07:44 Dextrose (Dextrose 50%) 50 ml Q30M PRN IV Hypoglycemia 06/14/19 07:45 07/14/19 07:44 Folic Acid (Folate) 2 mg DAILY ORAL 06/15/19 10:30 07/15/19 10:29 06/16/19 08:33 Heparin Sodium/ Sodium Chloride (Heparin 1000 units/500ml Premix) 1,000 unit ONCE PRN IV PICC LINE 06/14/19 10:00 06/16/19 18:00 Insulin Aspart (NovoLOG) BEFORE MEALS AND HS SUBQ 06/14/19 11:30 07/14/19 11:29 06/16/19 11:48 Lidocaine HCl (Xylocaine 1% 30ml) 30 ml ONCE PRN INJ PICC LINE 06/14/19 10:00 06/16/19 18:00 Linezolid (Zyvox) 600 mg EVERY 12 HOURS ORAL 06/14/19 15:42 06/19/19 15:41 06/16/19 08:33 Lisinopril (ZestriL) 10 mg DAILY ORAL 06/14/19 09:00 07/14/19 08:59 06/16/19 08:32 Magnesium Oxide (Mag-Ox 400mg) 400 mg THREE TIMES A DAY ORAL 06/15/19 13:00 07/15/19 12:59 06/16/19 11:47 Metformin HCl (Glucophage) 500 mg TIAC ORAL 06/15/19 11:30 07/15/19 11:29 06/16/19 11:47 Ondansetron HCl (Zofran) 4 mg Q6H PRN IVP Nausea & Vomiting 06/14/19 22:00 07/14/19 21:59 06/16/19 08:56 Trimethoprim/ Sulfamethoxazole (Bactrim Single Strength) 1 tab EVERY 12 HOURS ORAL 06/16/19 21:00 06/23/19 20:59 Laboratory Tests 06/16/19 04:15: Urine Color Pale yellow, Urine Appearance Clear, Urine pH 6.5, Urine Specific [place] 1.010, Urine Protein 2+H, Urine Glucose (UA) Negative, Urine Ketones Negative, Urine Blood 5+H, Urine Nitrite Negative, Urine Bilirubin Negative, Urine Urobilinogen Normal, Urine Leukocyte Esterase 1+H, Urine RBC TntcH, Urine WBC 0-2, Urine Squamous Epithelial Cells ModerateH, Urine Bacteria Few, Urine Mucus ModerateH, Sodium Level 137, Potassium Level 4.3, Chloride Level 100, Carbon Dioxide Level 30, Anion Gap 7, Blood Urea Nitrogen 22H, Creatinine 1.5H, Estimat Glomerular Filtration Rate 35.7, Glucose Level 194H, Calcium Level 9.0, Phosphorus Level 3.5, Magnesium Level 1.6L, Total Bilirubin 0.2, Aspartate Amino Transf (AST/SGOT) 35, Alanine Aminotransferase (ALT/SGPT) 72, Alkaline Phosphatase 372H, Total Protein 7.5, Albumin 2.8L, Globulin 4.7, Albumin/ Globulin Ratio 0.6L, Hepatitis B Surface Antigen [Pending], Hepatitis B Surface Antibody, Quant [Pending], Hepatitis C Antibody [Pending] 06/16/19 04:45: White Blood Count 11.9H, Red Blood Count 3.32L, Hemoglobin 9.7L, Hematocrit 28.9L, Mean Corpuscular Volume 87, Mean Corpuscular Hemoglobin 29.4, Mean Corpuscular Hemoglobin Concent 33.7, Red Cell Distribution Width 12.6, Platelet Count 457H, Mean Platelet Volume 5.0L, Neutrophils (%) (Auto) 68.4, Lymphocytes (%) (Auto) 18.7L, Monocytes (%) (Auto) 8.0, Eosinophils (%) (Auto) 3.9H, Basophils (%) (Auto) 1.0 Height (Feet): 5 Height (Inches): 4.00 Weight (Pounds): 215 Cardiovascular: normal rate Respiratory/Chest: decreased breath sounds Abdomen: distended Erasto Parikh MD Jun 16, 2019 12:40
[2019-06-16] MEDS ORDERED: Furosemide 40mg tab ORAL SCH (12:41)
--- NOTE | 2019-06-16 14:11 | NUR ---
NURSE NOTES: Doctor Rosy cleared patient for discharge.
--- NOTE | 2019-06-16 15:04 | NUR ---
NURSE NOTES: Paged Doctor Ratlan regarding discharge of patient. No answer, left message, awaiting call back.
--- NOTE | 2019-06-16 15:20 | Surgery Progress Note ---
Surgery Progress Note Subjective Symptoms: improved Objective Last 24 Hour Vital Signs Date Time Temp Pulse Resp B/P (MAP) Pulse Ox O2 Delivery O2 Flow Rate FiO2 06/16/19 12:00 98.5 69 18 134/72 (92) 94 06/16/19 09:00 Room Air 06/16/19 08:32 132/76 06/16/19 08:00 96.3 85 16 132/76 (94) 98 06/16/19 04:00 97.3 77 16 118/56 (76) 96 06/16/19 00:00 98.6 81 16 111/63 (79) 96 06/15/19 20:37 98.7 79 16 147/82 (103) 97 06/15/19 18:46 Room Air 06/15/19 16:00 97.9 76 18 127/82 (97) 96 I&O Intake and Output 06/15/19 06/16/19 19:00 07:00 Intake Total 1200 ml Balance 1200 ml Other 1200 ml # Voids 1 # Bowel Movements 1 Dressing: other Wound: other Drains: other Cardiovascular: RSR Respiratory: decreased breath sounds Abdomen: soft, present bowel sounds Extremities: no cyanosis, other Laboratory Tests Test 06/16/19 04:15 06/16/19 04:45 Urine Color Pale yellow Urine Appearance Clear Urine pH 6.5 (4.5-8.0) Urine Specific [place] 1.010 (1.005-1.035) Urine Protein 2+ (NEGATIVE) H Urine Glucose (UA) Negative (NEGATIVE) Urine Ketones Negative (NEGATIVE) Urine Blood 5+ (NEGATIVE) H Urine Nitrite Negative (NEGATIVE) Urine Bilirubin Negative (NEGATIVE) Urine Urobilinogen Normal MG/DL (0.0-1.0) Urine Leukocyte Esterase 1+ (NEGATIVE) H Urine RBC Tntc /HPF (0 - 2) H Urine WBC 0-2 /HPF (0 - 2) Urine Squamous Epithelial Cells Moderate /LPF (NONE/OCC) H Urine Bacteria Few /HPF (NONE) Urine Mucus Moderate /LPF (NONE/OCC) H Sodium Level 137 MMOL/L (136-145) Potassium Level 4.3 MMOL/L (3.5-5.1) Chloride Level 100 MMOL/L (98-107) Carbon Dioxide Level 30 MMOL/L (21-32) Anion Gap 7 mmol/L (5-15) Blood Urea Nitrogen 22 mg/dL (7-18) H Creatinine 1.5 MG/DL (0.55-1.30) H Estimat Glomerular Filtration Rate 35.7 mL/min (>60) Glucose Level 194 MG/DL (74-106) H Calcium Level 9.0 MG/DL (8.5-10.1) Phosphorus Level 3.5 MG/DL (2.5-4.9) Magnesium Level 1.6 MG/DL (1.8-2.4) L Total Bilirubin 0.2 MG/DL (0.2-1.0) Aspartate Amino Transf (AST/SGOT) 35 U/L (15-37) Alanine Aminotransferase (ALT/SGPT) 72 U/L (12-78) Alkaline Phosphatase 372 U/L (46-116) H Total Protein 7.5 G/DL (6.4-8.2) Albumin 2.8 G/DL (3.4-5.0) L Globulin 4.7 g/dL Albumin/Globulin Ratio 0.6 (1.0-2.7) L Hepatitis B Surface Antigen Pending Hepatitis B Surface Antibody, Quant Pending Hepatitis C Antibody Pending White Blood Count 11.9 K/UL (4.8-10.8) H Red Blood Count 3.32 M/UL (4.20-5.40) L Hemoglobin 9.7 G/DL (12.0-16.0) L Hematocrit 28.9 % (37.0-47.0) L Mean Corpuscular Volume 87 FL (80-99) Mean Corpuscular Hemoglobin 29.4 PG (27.0-31.0) Mean Corpuscular Hemoglobin Concent 33.7 G/DL (32.0-36.0) Red Cell Distribution Width 12.6 % (11.6-14.8) Platelet Count 457 K/UL (150-450) H Mean Platelet Volume 5.0 FL (6.5-10.1) L Neutrophils (%) (Auto) 68.4 % (45.0-75.0) Lymphocytes (%) (Auto) 18.7 % (20.0-45.0) L Monocytes (%) (Auto) 8.0 % (1.0-10.0) Eosinophils (%) (Auto) 3.9 % (0.0-3.0) H Basophils (%) (Auto) 1.0 % (0.0-2.0) Plan Problems: (1) Left foot infection (2) Occluded PICC line Assessment & Plan: new picc 06/14/2019 (3) Open wound of left foot (4) Cellulitis of left foot Assessment & Plan: 50-year-old female with history of chronic left foot wounds , cellulitis, infection who in 2018 initially developed a abscess/blister and has been dealing with chronic infection of the left foot since. On the medial aspect there is a 3 cm x 2 cm x 1 cm open wound with good granulation tissue seemingly a little bit more chronic than 1 week no drainage no signs of significant active infection. On the plantar aspect of the foot there is a 1 cm x 1 cm by half centimeter open punched-out wound from prior drainage with no active drainage currently. Patient states that she was recommended to have local wound care and antibiotics for 6 weeks. States that she is on isolation for the cultures that were taken outside facility. new picc placed Local wound care with hydrogel packing or Thera honey packing gauze daily Wash wound left foot daily with normal saline then apply above dressings Wrap foot leg with gauze after packing and dressings applied Trend labs Antibiotics per infectious disease podiatry input appreciated Thank you will follow with recommendations Cristian Tavarez Jun 16, 2019 15:20
--- NOTE | 2019-06-16 15:52 | NUR ---
NURSE NOTES: Spoke with Doctor Gisselle. Clarification needed on where patient is being discharged to. Stacy from case management is waiting to hear back from [facility] if bed is available. Awaiting call back and will update Gisselle.
[2019-06-16 16:00] VITALS: BP 130/79
--- NOTE | 2019-06-16 16:51 | NUR ---
NURSE NOTES: No update on discharge placement for patient.
--- NOTE | 2019-06-16 19:30 | NUR ---
NURSE NOTES: RECEIVED PATIENT FROM MICHELLE SULLIVAN. PATIENT IS AWAKE, AAOX4, ON ROOM AIR, NO ACUTE DISTRESS NOTED. DRESSINGS ON LEFT FOOT IS INTACT AND DRY. PICC LINE ON RIGHT UPPER ARM IS INTACT AND PATENT, FLUSHES WELL. BED IS LOCKED AND LOW, BED ALARMS ACTIVE, SIDE RAILS UP X2, AND CALL LIGHT IS WITHIN REACH. WILL CONTINUE TO MONITOR.
--- NOTE | 2019-06-16 19:37 | NUR ---
HAND-OFF: Report given to Maritza RN.
--- NOTE | 2019-06-16 19:57 | Hematology/Onc Progress Note ---
Assessment/Plan Assessment/Plan Assessment and Recs: # Anemia of chronic disease due to underlying chronic medical issues, multifactorial v Gi bleed --> Anemia workup has been ordered, rule out gi bleed --> No evidence of hemolysis is noted, peripheral smear has been reviewed. --> Hgb goal >7. Transfuse prn. --> Epogen or iron at this time is not particularly indicated --> hgb trend: 9.7 --> Medications have been reviewed --> low threshold for gi evaluation in case has occult + # Occluded PICC line --> has been changed # Diabetic foot, osteomyelitis. --> per endo, accuchecks qac and qhs --> seen by pod, id surg --> on bactrim zyvox # Diabetes mellitus. # Charcot joint. # Transaminitis Appreciate consultation and dw RN Subjective Allergies: Coded Allergies: ERTAPENEM (Verified Allergy, Intermediate, RASH - legs, back, torso, ) VANCOMYCIN (Verified Allergy, Intermediate, RASH - legs, back, torso, 06/16) Subjective 06/16: no acute events, h/h stable, on zyvox, hep panel pending Objective Objective Current Medications Medications (Trade) Dose Ordered Sig/Dileep Route PRN Reason Start Time Stop Time Status Last Admin Dose Admin Acetaminophen (Tylenol) 650 mg Q4H PRN ORAL For Pain 06/14/19 04:15 07/14/19 04:14 06/16/19 17:26 Atorvastatin Calcium (Lipitor) 80 mg BEDTIME ORAL 06/14/19 21:00 07/14/19 20:59 06/15/19 20:53 Chlorhexidine Gluconate (Tianna-Hex 2%) 1 applic DAILY@1999 TOPIC 06/14/19 20:00 07/14/19 19:59 06/15/19 20:53 Dextrose (Dextrose 50%) 25 ml Q30M PRN IV Hypoglycemia 06/14/19 07:45 07/14/19 07:44 Dextrose (Dextrose 50%) 50 ml Q30M PRN IV Hypoglycemia 06/14/19 07:45 07/14/19 07:44 Folic Acid (Folate) 2 mg DAILY ORAL 06/15/19 10:30 07/15/19 10:29 06/16/19 08:33 Insulin Aspart (NovoLOG) BEFORE MEALS AND HS SUBQ 06/14/19 11:30 07/14/19 11:29 06/16/19 17:28 Linezolid (Zyvox) 600 mg EVERY 12 HOURS ORAL 06/14/19 15:42 06/19/19 15:41 06/16/19 08:33 Lisinopril (ZestriL) 10 mg DAILY ORAL 06/14/19 09:00 07/14/19 08:59 06/16/19 08:32 Magnesium Oxide (Mag-Ox 400mg) 400 mg THREE TIMES A DAY ORAL 06/15/19 13:00 07/15/19 12:59 06/16/19 17:27 Metformin HCl (Glucophage) 500 mg TIAC ORAL 06/15/19 11:30 07/15/19 11:29 06/16/19 17:27 Ondansetron HCl (Zofran) 4 mg Q6H PRN IVP Nausea & Vomiting 06/14/19 22:00 07/14/19 21:59 06/16/19 17:27 Trimethoprim/ Sulfamethoxazole (Bactrim Single Strength) 1 tab EVERY 12 HOURS ORAL 06/16/19 21:00 06/23/19 20:59 Last 24 Hour Vital Signs Date Time Temp Pulse Resp B/P (MAP) Pulse Ox O2 Delivery O2 Flow Rate FiO2 06/16/19 16:00 97.9 70 18 130/79 (96) 93 06/16/19 12:00 98.5 69 18 134/72 (92) 94 06/16/19 09:00 Room Air 06/16/19 08:32 132/76 06/16/19 08:00 96.3 85 16 132/76 (94) 98 06/16/19 04:00 97.3 77 16 118/56 (76) 96 06/16/19 00:00 98.6 81 16 111/63 (79) 96 06/15/19 20:37 98.7 79 16 147/82 (103) 97 06/15/19 18:46 Room Air 06/15/19 16:00 97.9 76 18 127/82 (97) 96 06/15/19 12:00 98.3 72 18 136/77 (96) 94 06/15/19 09:00 Room Air 06/15/19 08:46 132/70 06/15/19 08:00 97.8 79 18 132/70 (90) 96 06/15/19 04:00 98.3 78 18 126/66 (86) 95 06/15/19 00:00 98.6 82 18 143/71 (95) 96 06/14/19 21:00 Room Air 06/14/19 20:00 98.6 82 18 140/82 (101) 96 Intake and Output 06/15/19 06/16/19 19:00 07:00 Intake Total 1200 ml Balance 1200 ml Other 1200 ml # Voids 1 # Bowel Movements 1 Labs Test 06/13/19 21:56 06/14/19 05:31 06/14/19 05:35 06/14/19 23:00 White Blood Count 12.1 K/UL (4.8-10.8) 11.6 K/UL (4.8-10.8) Red Blood Count 3.23 M/UL (4.20-5.40) 3.13 M/UL (4.20-5.40) Hemoglobin 9.3 G/DL (12.0-16.0) 9.2 G/DL (12.0-16.0) Hematocrit 29.1 % (37.0-47.0) 27.4 % (37.0-47.0) Mean Corpuscular Volume 90 FL (80-99) 87 FL (80-99) Mean Corpuscular Hemoglobin 28.8 PG (27.0-31.0) 29.3 PG (27.0-31.0) Mean Corpuscular Hemoglobin Concent 31.9 G/DL (32.0-36.0) 33.6 G/DL (32.0-36.0) Red Cell Distribution Width 13.9 % (11.6-14.8) 12.5 % (11.6-14.8) Platelet Count 477 K/UL (150-450) 423 K/UL (150-450) Mean Platelet Volume 5.7 FL (6.5-10.1) 4.8 FL (6.5-10.1) Neutrophils (%) (Auto) 70.6 % (45.0-75.0) 71.3 % (45.0-75.0) Lymphocytes (%) (Auto) 16.8 % (20.0-45.0) 16.9 % (20.0-45.0) Monocytes (%) (Auto) 7.1 % (1.0-10.0) 6.9 % (1.0-10.0) Eosinophils (%) (Auto) 4.1 % (0.0-3.0) 3.9 % (0.0-3.0) Basophils (%) (Auto) 1.3 % (0.0-2.0) 0.9 % (0.0-2.0) Sodium Level 140 MMOL/L (136-145) 141 MMOL/L (136-145) Potassium Level 3.9 MMOL/L (3.5-5.1) 3.9 MMOL/L (3.5-5.1) Chloride Level 104 MMOL/L (98-107) 106 MMOL/L (98-107) Carbon Dioxide Level 28 MMOL/L (21-32) 28 MMOL/L (21-32) Anion Gap 8 mmol/L (5-15) 7 mmol/L (5-15) Blood Urea Nitrogen 19 mg/dL (7-18) 17 mg/dL (7-18) Creatinine 1.2 MG/DL (0.55-1.30) 1.1 MG/DL (0.55-1.30) Estimat Glomerular Filtration Rate 46.2 mL/min (>60) 51.0 mL/min (>60) Glucose Level 125 MG/DL (74-106) 143 MG/DL (74-106) Calcium Level 9.0 MG/DL (8.5-10.1) 8.9 MG/DL (8.5-10.1) Total Bilirubin 0.2 MG/DL (0.2-1.0) 0.2 MG/DL (0.2-1.0) Aspartate Amino Transf (AST/SGOT) 62 U/L (15-37) 54 U/L (15-37) Alanine Aminotransferase (ALT/SGPT) 99 U/L (12-78) 84 U/L (12-78) Alkaline Phosphatase 393 U/L (46-116) 356 U/L (46-116) Troponin I 0.003 ng/mL (0.000-0.056) Total Protein 7.4 G/DL (6.4-8.2) 7.0 G/DL (6.4-8.2) Albumin 2.5 G/DL (3.4-5.0) 2.4 G/DL (3.4-5.0) Globulin 4.9 g/dL 4.6 g/dL Albumin/Globulin Ratio 0.5 (1.0-2.7) 0.5 (1.0-2.7) Hemoglobin A1c 11.2 % (4.3-6.0) Uric Acid 7.0 MG/DL (2.6-7.2) Phosphorus Level 3.9 MG/DL (2.5-4.9) Magnesium Level 1.6 MG/DL (1.8-2.4) Iron Level 37 ug/dL (50-175) Total Iron Binding Capacity 251 ug/dL (250-450) Percent Iron Saturation 15 % (15-50) Unsaturated Iron Binding 214 ug/dL (112-346) Ferritin 97 NG/ML (8-388) Gamma Glutamyl Transpeptidase 469 U/L (5-85) Total Creatine Kinase 26 U/L (26-308) Triglycerides Level 203 MG/DL (30-150) Cholesterol Level 117 MG/DL (< 200) LDL Cholesterol 60 mg/dL (<100) HDL Cholesterol 24 MG/DL (40-60) Cholesterol/HDL Ratio 4.9 (3.3-4.4) Vitamin B12 Level 387 PG/ML (193-986) Folate 7.0 NG/ML (8.6-58.9) Urine Color Pale yellow Urine Appearance Clear Urine pH 7 (4.5-8.0) Urine Specific [place] 1.005 (1.005-1.035) Urine Protein Negative (NEGATIVE) Urine Glucose (UA) 2+ (NEGATIVE) Urine Ketones Negative (NEGATIVE) Urine Blood Negative (NEGATIVE) Urine Nitrite Negative (NEGATIVE) Urine Bilirubin Negative (NEGATIVE) Urine Urobilinogen Normal MG/DL (0.0-1.0) Urine Leukocyte Esterase Negative (NEGATIVE) Urine RBC 0-2 /HPF (0 - 2) Urine WBC 0 /HPF (0 - 2) Urine Squamous Epithelial Cells Few /LPF (NONE/OCC) Urine Bacteria None /HPF (NONE) Test 06/15/19 05:00 06/16/19 04:15 06/16/19 04:45 White Blood Count 11.3 K/UL (4.8-10.8) 11.9 K/UL (4.8-10.8) Red Blood Count 3.11 M/UL (4.20-5.40) 3.32 M/UL (4.20-5.40) Hemoglobin 9.3 G/DL (12.0-16.0) 9.7 G/DL (12.0-16.0) Hematocrit 27.3 % (37.0-47.0) 28.9 % (37.0-47.0) Mean Corpuscular Volume 88 FL (80-99) 87 FL (80-99) Mean Corpuscular Hemoglobin 29.8 PG (27.0-31.0) 29.4 PG (27.0-31.0) Mean Corpuscular Hemoglobin Concent 33.9 G/DL (32.0-36.0) 33.7 G/DL (32.0-36.0) Red Cell Distribution Width 12.7 % (11.6-14.8) 12.6 % (11.6-14.8) Platelet Count 433 K/UL (150-450) 457 K/UL (150-450) Mean Platelet Volume 4.9 FL (6.5-10.1) 5.0 FL (6.5-10.1) Neutrophils (%) (Auto) 68.5 % (45.0-75.0) 68.4 % (45.0-75.0) Lymphocytes (%) (Auto) 20.3 % (20.0-45.0) 18.7 % (20.0-45.0) Monocytes (%) (Auto) 7.0 % (1.0-10.0) 8.0 % (1.0-10.0) Eosinophils (%) (Auto) 3.4 % (0.0-3.0) 3.9 % (0.0-3.0) Basophils (%) (Auto) 0.8 % (0.0-2.0) 1.0 % (0.0-2.0) Erythrocyte Sedimentation Rate 120 MM/HR (0-30) Sodium Level 140 MMOL/L (136-145) 137 MMOL/L (136-145) Potassium Level 4.4 MMOL/L (3.5-5.1) 4.3 MMOL/L (3.5-5.1) Chloride Level 104 MMOL/L (98-107) 100 MMOL/L (98-107) Carbon Dioxide Level 30 MMOL/L (21-32) 30 MMOL/L (21-32) Anion Gap 6 mmol/L (5-15) 7 mmol/L (5-15) Blood Urea Nitrogen 18 mg/dL (7-18) 22 mg/dL (7-18) Creatinine 1.2 MG/DL (0.55-1.30) 1.5 MG/DL (0.55-1.30) Estimat Glomerular Filtration Rate 46.2 mL/min (>60) 35.7 mL/min (>60) Glucose Level 150 MG/DL (74-106) 194 MG/DL (74-106) Calcium Level 9.0 MG/DL (8.5-10.1) 9.0 MG/DL (8.5-10.1) Total Bilirubin 0.3 MG/DL (0.2-1.0) 0.2 MG/DL (0.2-1.0) Aspartate Amino Transf (AST/SGOT) 52 U/L (15-37) 35 U/L (15-37) Alanine Aminotransferase (ALT/SGPT) 82 U/L (12-78) 72 U/L (12-78) Alkaline Phosphatase 368 U/L (46-116) 372 U/L (46-116) C-Reactive Protein, Quantitative 2.1 mg/dL (0.00-0.90) Pro-B-Type Natriuretic Peptide 1345 pg/mL (0-125) Total Protein 7.3 G/DL (6.4-8.2) 7.5 G/DL (6.4-8.2) Albumin 2.5 G/DL (3.4-5.0) 2.8 G/DL (3.4-5.0) Globulin 4.8 g/dL 4.7 g/dL Albumin/Globulin Ratio 0.5 (1.0-2.7) 0.6 (1.0-2.7) Urine Color Pale yellow Urine Appearance Clear Urine pH 6.5 (4.5-8.0) Urine Specific [place] 1.010 (1.005-1.035) Urine Protein 2+ (NEGATIVE) Urine Glucose (UA) Negative (NEGATIVE) Urine Ketones Negative (NEGATIVE) Urine Blood 5+ (NEGATIVE) Urine Nitrite Negative (NEGATIVE) Urine Bilirubin Negative (NEGATIVE) Urine Urobilinogen Normal MG/DL (0.0-1.0) Urine Leukocyte Esterase 1+ (NEGATIVE) Urine RBC Tntc /HPF (0 - 2) Urine WBC 0-2 /HPF (0 - 2) Urine Squamous Epithelial Cells Moderate /LPF (NONE/OCC) Urine Bacteria Few /HPF (NONE) Urine Mucus Moderate /LPF (NONE/OCC) Phosphorus Level 3.5 MG/DL (2.5-4.9) Magnesium Level 1.6 MG/DL (1.8-2.4) Height (Feet): 5 Height (Inches): 4.00 Weight (Pounds): 215 Objective Physical Exam Vitals: reviewed General: NAD Neck: supple Chest: clear breath sounds bilaterally Cardiovascular: RRR, no s3, s4 Abdomen: soft, nontender, nd Extremities: no cce, normal range of motion ++ picc upper arm r, also ankle and left foot erythema with bandages+ Mental: alert Jose Bond MD Jun 16, 2019 19:57
[2019-06-16 20:00] VITALS: BP 144/82
[2019-06-16] MEDS: Atorvastatin 80mg tab ORAL SCH (22:26)
[2019-06-16] MEDS: Bactrim SS Tab ORAL SCH (22:26)
[2019-06-16] MEDS: Dyna-Hex 2% Top Sol 2oz TOPIC SCH (22:27)
[2019-06-17] VITALS: BP 119/60
[2019-06-17 04:00] VITALS: BP 129/67
[2019-06-17] MEDS: metFORMIN 500mg tab ORAL SCH ×3 (06:46→17:10)
[2019-06-17] MEDS: NovoLOG Insulin Flexpen SUBQ SCH ×4 (06:55→21:39)
--- NOTE | 2019-06-17 07:25 | NUR ---
NURSE NOTES: Report received from Maritza, RN. Patient is awake, alert, oriented x 4. Dressing clean, dry, and intact. denies of pain at this time. Patient able to make needs known, ambulates with walker. PICC line present in right upper arm. intact and patent. HOB elevated. Bed locked in lowest position. Call light within reach. Will continue to follow plan of care.
--- NOTE | 2019-06-17 07:45 | NUR ---
HAND-OFF: Report given to MICHELLE Reyes.
[2019-06-17 08:00] VITALS: BP 114/60
[2019-06-17] MEDS: Lisinopril 10mg tab ORAL SCH (08:09)
[2019-06-17] MEDS: Magnesium Oxide 400mg tab ORAL SCH ×3 (08:09→17:10)
[2019-06-17] MEDS: Bactrim SS Tab ORAL SCH ×2 (08:09→21:35)
[2019-06-17 12:00] VITALS: BP 128/67
[2019-06-17] MEDS ORDERED: Furosemide 40mg tab ORAL SCH (14:00)
--- NOTE | 2019-06-17 14:04 | Nephrology Progress Note ---
Assessment/Plan Problem List: (1) DMII (diabetes mellitus, type 2) (2) Ascites (3) Hypertension (4) Cellulitis of left foot (5) Proteinuria Assessment: diabetic nephropathy Assessment Ascitis Obese DM Anemia HypoAlbuminemia elevated LFTs Plan UA prn Lasix Anemia larose adjust BP meds wound care per orders Subjective ROS Limited/Unobtainable: No Constitutional: Reports: malaise Objective Objective Last 24 Hour Vital Signs Date Time Temp Pulse Resp B/P (MAP) Pulse Ox O2 Delivery O2 Flow Rate FiO2 06/17/19 12:00 98.7 78 17 128/67 (87) 97 06/17/19 09:00 Room Air 06/17/19 08:09 114/60 06/17/19 08:00 98.0 82 19 114/60 (78) 96 06/17/19 04:00 98.6 74 17 129/67 (87) 94 06/17/19 00:00 98.4 77 17 119/60 (79) 99 06/16/19 21:00 Room Air 06/16/19 20:00 98.2 70 17 144/82 (102) 94 06/16/19 16:00 97.9 70 18 130/79 (96) 93 Intake and Output 06/16/19 06/17/19 19:00 07:00 Intake Total 1400 ml 300 ml Balance 1400 ml 300 ml IV Total 400 ml Other 1000 ml 300 ml # Voids 1 # Bowel Movements 1 Height (Feet): 5 Height (Inches): 4.00 Weight (Pounds): 215 General Appearance: no apparent distress Cardiovascular: normal rate Respiratory/Chest: decreased breath sounds Abdomen: soft Extremities: other - less edema Objective no change Erasto Parikh MD Jun 17, 2019 14:04
--- NOTE | 2019-06-17 15:17 | Surgery Progress Note ---
Surgery Progress Note Subjective Additional Comments no acute events comfortable stable Objective Last 24 Hour Vital Signs Date Time Temp Pulse Resp B/P (MAP) Pulse Ox O2 Delivery O2 Flow Rate FiO2 06/17/19 12:00 98.7 78 17 128/67 (87) 97 06/17/19 09:00 Room Air 06/17/19 08:09 114/60 06/17/19 08:00 98.0 82 19 114/60 (78) 96 06/17/19 04:00 98.6 74 17 129/67 (87) 94 06/17/19 00:00 98.4 77 17 119/60 (79) 99 06/16/19 21:00 Room Air 06/16/19 20:00 98.2 70 17 144/82 (102) 94 06/16/19 16:00 97.9 70 18 130/79 (96) 93 I&O Intake and Output 06/16/19 06/17/19 19:00 07:00 Intake Total 1400 ml 300 ml Balance 1400 ml 300 ml IV Total 400 ml Other 1000 ml 300 ml # Voids 1 # Bowel Movements 1 Dressing: other Wound: other Drains: other Cardiovascular: RSR Respiratory: decreased breath sounds Abdomen: soft, present bowel sounds Extremities: no cyanosis Plan Problems: (1) Left foot infection (2) Occluded PICC line Assessment & Plan: new picc 06/14/2019 (3) Open wound of left foot (4) Cellulitis of left foot Assessment & Plan: 50-year-old female with history of chronic left foot wounds , cellulitis, infection who in 2018 initially developed a abscess/blister and has been dealing with chronic infection of the left foot since. On the medial aspect there is a 3 cm x 2 cm x 1 cm open wound with good granulation tissue seemingly a little bit more chronic than 1 week no drainage no signs of significant active infection. On the plantar aspect of the foot there is a 1 cm x 1 cm by half centimeter open punched-out wound from prior drainage with no active drainage currently. Patient states that she was recommended to have local wound care and antibiotics for 6 weeks. States that she is on isolation for the cultures that were taken outside facility. new picc placed Local wound care with hydrogel packing or Thera honey packing gauze daily Wash wound left foot daily with normal saline then apply above dressings Wrap foot leg with gauze after packing and dressings applied [facility] labs Antibiotics per infectious disease podiatry input appreciated Thank you will follow with recommendations Cristian Tavarez Jun 17, 2019 15:17
--- NOTE | 2019-06-17 15:39 | General Progress Note ---
Assessment/Plan Problem List: (1) Hypertension ICD Codes: I10 - Essential (primary) hypertension SNOMED: 61099983 (2) Cellulitis of left foot ICD Codes: L03.116 - Cellulitis of left lower limb SNOMED: 711770872 (3) Open wound of left foot ICD Codes: S91.302A - Unspecified open wound, left foot, initial encounter SNOMED: 24233965294576728 (4) Left foot infection ICD Codes: L08.9 - Local infection of the skin and subcutaneous tissue, unspecified SNOMED: 429753947 (5) DMII (diabetes mellitus, type 2) ICD Codes: E11.9 - Type 2 diabetes mellitus without complications SNOMED: 33398000 Status: progressing Assessment/Plan: foot cellulitis le celluitis and edema dc once cleared by id and podiatry afebrile Subjective ROS Limited/Unobtainable: Yes Allergies: Coded Allergies: ERTAPENEM (Verified Allergy, Intermediate, RASH - legs, back, torso, ) VANCOMYCIN (Verified Allergy, Intermediate, RASH - legs, back, torso, 06/16) Objective Last 24 Hour Vital Signs Date Time Temp Pulse Resp B/P (MAP) Pulse Ox O2 Delivery O2 Flow Rate FiO2 06/17/19 12:00 98.7 78 17 128/67 (87) 97 06/17/19 09:00 Room Air 06/17/19 08:09 114/60 06/17/19 08:00 98.0 82 19 114/60 (78) 96 06/17/19 04:00 98.6 74 17 129/67 (87) 94 06/17/19 00:00 98.4 77 17 119/60 (79) 99 06/16/19 21:00 Room Air 06/16/19 20:00 98.2 70 17 144/82 (102) 94 06/16/19 16:00 97.9 70 18 130/79 (96) 93 Intake and Output 06/16/19 06/17/19 19:00 07:00 Intake Total 1400 ml 300 ml Balance 1400 ml 300 ml IV Total 400 ml Other 1000 ml 300 ml # Voids 1 # Bowel Movements 1 Height (Feet): 5 Height (Inches): 4.00 Weight (Pounds): 215 Cardiovascular: normal peripheral pulses Respiratory/Chest: lungs clear Elodia Dunbar MD Jun 17, 2019 15:39
[2019-06-17 16:00] VITALS: BP 127/69
--- NOTE | 2019-06-17 19:17 | NUR ---
HAND-OFF: Report given to maria de jesus.
--- NOTE | 2019-06-17 19:46 | NUR ---
NURSE NOTES: Patient in bed, awake and alert x4. On room air with no signs of distress or SOB. MICHELLE PICC line intact and patent. Dressing dry and intact. Bed locked in lowest position. Call light within reach. Will continue to follow plan of care.
[2019-06-17 20:00] VITALS: BP 114/68
[2019-06-17] MEDS: Dyna-Hex 2% Top Sol 2oz TOPIC SCH (21:32)
[2019-06-17] MEDS: Atorvastatin 80mg tab ORAL SCH (21:35)
[2019-06-18] VITALS: BP 121/69
--- NOTE | 2019-06-18 01:00 | NUR ---
NURSE NOTES: Left foot dressing changed as ordered. Patient tolerated well. Will continue to follow plan of care.
[2019-06-18 04:00] VITALS: BP 116/71
[2019-06-18] MEDS: metFORMIN 500mg tab ORAL SCH ×3 (06:00→16:56)
[2019-06-18] MEDS: NovoLOG Insulin Flexpen SUBQ SCH ×4 (06:01→21:00)
[2019-06-18 07:02] LABS: ALANINE AMINOTRANSFERASE 45 U/L (12-78); ALBUMIN 2.9 G/DL (3.4-5.0); ALBUMIN/GLOBULIN RATIO 0.6 (1.0-2.7); ALKALINE PHOSPHATASE 296 U/L (46-116); ANION GAP 8 mmol/L (5-15); ASPARTATE AMINO TRANSFERASE 17 U/L (15-37); BILIRUBIN,TOTAL 0.2 MG/DL (0.2-1.0); BLOOD UREA NITROGEN 26 mg/dL (7-18); CALCIUM 9.2 MG/DL (8.5-10.1); CARBON DIOXIDE 27 MMOL/L (21-32); CHLORIDE 101 MMOL/L (98-107); CREATININE 1.7 MG/DL (0.55-1.30); PHOSPHORUS 3.2 MG/DL (2.5-4.9); SODIUM 136 MMOL/L (136-145)
[2019-06-18 07:19] LABS: EOSINOPHILS % (AUTO) 4.2 % (0.0-3.0); HEMATOCRIT 29.6 % (37.0-47.0); LYMPHOCYTES % (AUTO) 28.6 % (20.0-45.0); MEAN CORPUSCULAR VOLUME 88 FL (80-99); MONOCYTES % (AUTO) 4.5 % (1.0-10.0); NEUTROPHILS % (AUTO) 61.7 % (45.0-75.0); PLATELET COUNT 472 K/UL (150-450); RED BLOOD COUNT 3.36 M/UL (4.20-5.40); RED CELL DISTRIBUTION WIDTH 12.9 % (11.6-14.8)
--- NOTE | 2019-06-18 07:25 | NUR ---
NURSE NOTES: Report received from MICHELLE Padilla. Patient is awake, alert, oriented x 4. Dressing clean, dry, and intact. denies of pain at this time. Patient able to make needs known. PICC line present in right upper arm. intact and patent. HOB elevated. Bed locked in lowest position. Call light within reach. Will continue to follow plan of care.
--- NOTE | 2019-06-18 07:46 | NUR ---
HAND-OFF: Report given to LEOBARDO Cool.
[2019-06-18 08:00] VITALS: BP 119/61
[2019-06-18] MEDS: Bactrim SS Tab ORAL SCH ×2 (09:06→21:14)
[2019-06-18] MEDS: Magnesium Oxide 400mg tab ORAL SCH (09:06)
--- NOTE | 2019-06-18 10:55 | Nephrology Progress Note ---
Assessment/Plan Problem List: (1) DMII (diabetes mellitus, type 2) (2) Ascites (3) Hypertension (4) Cellulitis of left foot (5) Proteinuria Assessment: diabetic nephropathy Assessment Cr rising- Hold Zestril- watch Cr on Bactrim - Metformin Ascitis Obese DM Anemia HypoAlbuminemia elevated LFTs Plan UA prn Lasix Anemia larose adjust BP meds wound care per orders Subjective ROS Limited/Unobtainable: No Constitutional: Reports: malaise, weakness Objective Objective Last 24 Hour Vital Signs Date Time Temp Pulse Resp B/P (MAP) Pulse Ox O2 Delivery O2 Flow Rate FiO2 06/18/19 08:00 98.6 80 19 119/61 (80) 97 06/18/19 04:00 97.0 80 16 116/71 (86) 99 06/18/19 03:43 Room Air 06/18/19 00:00 97.9 76 17 121/69 (86) 96 06/17/19 20:19 Room Air 06/17/19 20:00 98.1 80 16 114/68 (83) 96 06/17/19 16:00 97.5 80 17 127/69 (88) 98 06/17/19 12:00 98.7 78 17 128/67 (87) 97 Intake and Output 06/17/19 06/18/19 19:00 07:00 Intake Total 950 ml 480 ml Balance 950 ml 480 ml Intake Oral 480 ml Other 950 ml # Voids 1 # Bowel Movements 2 Laboratory Tests 06/18/19 05:51: White Blood Count 10.0, Red Blood Count 3.36L, Hemoglobin 10.0L, Hematocrit 29.6L, Mean Corpuscular Volume 88, Mean Corpuscular Hemoglobin 29.8, Mean Corpuscular Hemoglobin Concent 33.8, Red Cell Distribution Width 12.9, Platelet Count 472H, Mean Platelet Volume 4.7L, Neutrophils (%) (Auto) 61.7, Lymphocytes (%) (Auto) 28.6, Monocytes (%) (Auto) 4.5, Eosinophils (%) (Auto) 4.2H, Basophils (%) (Auto) 1.0, Sodium Level 136, Potassium Level 5.0, Chloride Level 101, Carbon Dioxide Level 27, Anion Gap 8, Blood Urea Nitrogen 26H, Creatinine 1.7H, Estimat Glomerular Filtration Rate 30.9, Glucose Level 175H, Uric Acid 7.5H, Calcium Level 9.2, Phosphorus Level 3.2, Magnesium Level 2.1, Total Bilirubin 0.2, Aspartate Amino Transf (AST/SGOT) 17, Alanine Aminotransferase ( ALT/SGPT) 45, Alkaline Phosphatase 296H, C-Reactive Protein, Quantitative 0.6, Pro-B-Type Natriuretic Peptide 160H, Total Protein 7.9, Albumin 2.9L, Globulin 5.0, Albumin/Globulin Ratio 0.6L Height (Feet): 5 Height (Inches): 4.00 Weight (Pounds): 215 Cardiovascular: normal rate Respiratory/Chest: decreased breath sounds Abdomen: soft Objective no change Erasto Parikh MD Jun 18, 2019 10:55
--- NOTE | 2019-06-18 11:55 | Hematology/Onc Progress Note ---
Assessment/Plan Assessment/Plan Assessment and Recs: # Anemia of chronic disease due to underlying chronic medical issues, multifactorial v Gi bleed --> Anemia workup has been ordered, rule out gi bleed --> No evidence of hemolysis is noted, peripheral smear has been reviewed. --> Hgb goal >7. Transfuse prn. --> Epogen or iron at this time is not particularly indicated --> hgb trend: 9.7-->10 --> Medications have been reviewed --> low threshold for gi evaluation in case has occult + # Occluded PICC line --> has been changed # Diabetic foot, osteomyelitis. --> per endo, accuchecks qac and qhs --> seen by pod, id surg --> on bactrim zyvox # Diabetes mellitus. # Charcot joint. # Transaminitis Appreciate consultation and dw RN Subjective Allergies: Coded Allergies: ERTAPENEM (Verified Allergy, Intermediate, RASH - legs, back, torso, ) VANCOMYCIN (Verified Allergy, Intermediate, RASH - legs, back, torso, 06/16) Subjective 06/16: no acute events, h/h stable, on zyvox, hep panel pending 06/18: awake and alert, no acute distress, labs reviewed Objective Objective Current Medications Medications (Trade) Dose Ordered Sig/Dileep Route PRN Reason Start Time Stop Time Status Last Admin Dose Admin Acetaminophen (Tylenol) 650 mg Q4H PRN ORAL For Pain 06/14/19 04:15 07/14/19 04:14 06/16/19 17:26 Atorvastatin Calcium (Lipitor) 80 mg BEDTIME ORAL 06/14/19 21:00 07/14/19 20:59 06/17/19 21:35 Chlorhexidine Gluconate (Tianna-Hex 2%) 1 applic DAILY@1999 TOPIC 06/14/19 20:00 07/14/19 19:59 06/17/19 21:32 Dextrose (Dextrose 50%) 25 ml Q30M PRN IV Hypoglycemia 06/14/19 07:45 07/14/19 07:44 Dextrose (Dextrose 50%) 50 ml Q30M PRN IV Hypoglycemia 06/14/19 07:45 07/14/19 07:44 Folic Acid (Folate) 2 mg DAILY ORAL 06/15/19 10:30 07/15/19 10:29 06/18/19 09:08 Insulin Aspart (NovoLOG) BEFORE MEALS AND HS SUBQ 06/14/19 11:30 07/14/19 11:29 06/18/19 06:01 Linezolid (Zyvox) 600 mg EVERY 12 HOURS ORAL 06/14/19 15:42 06/23/19 15:41 06/18/19 09:06 Metformin HCl (Glucophage) 500 mg TIAC ORAL 06/15/19 11:30 07/15/19 11:29 06/18/19 06:00 Ondansetron HCl (Zofran) 4 mg Q6H PRN IVP Nausea & Vomiting 06/14/19 22:00 07/14/19 21:59 06/18/19 09:33 Trimethoprim/ Sulfamethoxazole (Bactrim Single Strength) 1 tab EVERY 12 HOURS ORAL 06/16/19 21:00 06/23/19 20:59 06/18/19 09:06 Last 24 Hour Vital Signs Date Time Temp Pulse Resp B/P (MAP) Pulse Ox O2 Delivery O2 Flow Rate FiO2 06/18/19 08:00 98.6 80 19 119/61 (80) 97 06/18/19 04:00 97.0 80 16 116/71 (86) 99 06/18/19 03:43 Room Air 06/18/19 00:00 97.9 76 17 121/69 (86) 96 06/17/19 20:19 Room Air 06/17/19 20:00 98.1 80 16 114/68 (83) 96 06/17/19 16:00 97.5 80 17 127/69 (88) 98 06/17/19 12:00 98.7 78 17 128/67 (87) 97 06/17/19 09:00 Room Air 06/17/19 08:09 114/60 06/17/19 08:00 98.0 82 19 114/60 (78) 96 06/17/19 04:00 98.6 74 17 129/67 (87) 94 06/17/19 00:00 98.4 77 17 119/60 (79) 99 06/16/19 21:00 Room Air 06/16/19 20:00 98.2 70 17 144/82 (102) 94 06/16/19 16:00 97.9 70 18 130/79 (96) 93 06/16/19 12:00 98.5 69 18 134/72 (92) 94 Intake and Output 06/17/19 06/18/19 19:00 07:00 Intake Total 950 ml 480 ml Balance 950 ml 480 ml Intake Oral 480 ml Other 950 ml # Voids 1 # Bowel Movements 2 Labs Test 06/16/19 04:15 06/16/19 04:45 06/18/19 05:51 Urine Color Pale yellow Urine Appearance Clear Urine pH 6.5 (4.5-8.0) Urine Specific [address] 1.010 (1.005-1.035) Urine Protein 2+ (NEGATIVE) Urine Glucose (UA) Negative (NEGATIVE) Urine Ketones Negative (NEGATIVE) Urine Blood 5+ (NEGATIVE) Urine Nitrite Negative (NEGATIVE) Urine Bilirubin Negative (NEGATIVE) Urine Urobilinogen Normal MG/DL (0.0-1.0) Urine Leukocyte Esterase 1+ (NEGATIVE) Urine RBC Tntc /HPF (0 - 2) Urine WBC 0-2 /HPF (0 - 2) Urine Squamous Epithelial Cells Moderate /LPF (NONE/OCC) Urine Bacteria Few /HPF (NONE) Urine Mucus Moderate /LPF (NONE/OCC) Sodium Level 137 MMOL/L (136-145) 136 MMOL/L (136-145) Potassium Level 4.3 MMOL/L (3.5-5.1) 5.0 MMOL/L (3.5-5.1) Chloride Level 100 MMOL/L (98-107) 101 MMOL/L (98-107) Carbon Dioxide Level 30 MMOL/L (21-32) 27 MMOL/L (21-32) Anion Gap 7 mmol/L (5-15) 8 mmol/L (5-15) Blood Urea Nitrogen 22 mg/dL (7-18) 26 mg/dL (7-18) Creatinine 1.5 MG/DL (0.55-1.30) 1.7 MG/DL (0.55-1.30) Estimat Glomerular Filtration Rate 35.7 mL/min (>60) 30.9 mL/min (>60) Glucose Level 194 MG/DL (74-106) 175 MG/DL (74-106) Calcium Level 9.0 MG/DL (8.5-10.1) 9.2 MG/DL (8.5-10.1) Phosphorus Level 3.5 MG/DL (2.5-4.9) 3.2 MG/DL (2.5-4.9) Magnesium Level 1.6 MG/DL (1.8-2.4) 2.1 MG/DL (1.8-2.4) Total Bilirubin 0.2 MG/DL (0.2-1.0) 0.2 MG/DL (0.2-1.0) Aspartate Amino Transf (AST/SGOT) 35 U/L (15-37) 17 U/L (15-37) Alanine Aminotransferase (ALT/SGPT) 72 U/L (12-78) 45 U/L (12-78) Alkaline Phosphatase 372 U/L (46-116) 296 U/L (46-116) Total Protein 7.5 G/DL (6.4-8.2) 7.9 G/DL (6.4-8.2) Albumin 2.8 G/DL (3.4-5.0) 2.9 G/DL (3.4-5.0) Globulin 4.7 g/dL 5.0 g/dL Albumin/Globulin Ratio 0.6 (1.0-2.7) 0.6 (1.0-2.7) White Blood Count 11.9 K/UL (4.8-10.8) 10.0 K/UL (4.8-10.8) Red Blood Count 3.32 M/UL (4.20-5.40) 3.36 M/UL (4.20-5.40) Hemoglobin 9.7 G/DL (12.0-16.0) 10.0 G/DL (12.0-16.0) Hematocrit 28.9 % (37.0-47.0) 29.6 % (37.0-47.0) Mean Corpuscular Volume 87 FL (80-99) 88 FL (80-99) Mean Corpuscular Hemoglobin 29.4 PG (27.0-31.0) 29.8 PG (27.0-31.0) Mean Corpuscular Hemoglobin Concent 33.7 G/DL (32.0-36.0) 33.8 G/DL (32.0-36.0) Red Cell Distribution Width 12.6 % (11.6-14.8) 12.9 % (11.6-14.8) Platelet Count 457 K/UL (150-450) 472 K/UL (150-450) Mean Platelet Volume 5.0 FL (6.5-10.1) 4.7 FL (6.5-10.1) Neutrophils (%) (Auto) 68.4 % (45.0-75.0) 61.7 % (45.0-75.0) Lymphocytes (%) (Auto) 18.7 % (20.0-45.0) 28.6 % (20.0-45.0) Monocytes (%) (Auto) 8.0 % (1.0-10.0) 4.5 % (1.0-10.0) Eosinophils (%) (Auto) 3.9 % (0.0-3.0) 4.2 % (0.0-3.0) Basophils (%) (Auto) 1.0 % (0.0-2.0) 1.0 % (0.0-2.0) Uric Acid 7.5 MG/DL (2.6-7.2) C-Reactive Protein, Quantitative 0.6 mg/dL (0.00-0.90) Pro-B-Type Natriuretic Peptide 160 pg/mL (0-125) Height (Feet): 5 Height (Inches): 4.00 Weight (Pounds): 215 Objective Physical Exam Vitals: reviewed General: NAD Neck: supple Chest: clear breath sounds bilaterally Cardiovascular: RRR, no s3, s4 Abdomen: soft, nontender, nd Extremities: no cce, normal range of motion ++ picc upper arm r, also ankle and left foot erythema with bandages+ Mental: alert Jose Bond MD Jun 18, 2019 11:55
[2019-06-18 12:00] VITALS: BP 132/82
--- NOTE | 2019-06-18 12:43 | Surgery Progress Note ---
Surgery Progress Note Subjective Additional Comments no acute events Objective Last 24 Hour Vital Signs Date Time Temp Pulse Resp B/P (MAP) Pulse Ox O2 Delivery O2 Flow Rate FiO2 06/18/19 12:00 98.2 86 19 132/82 (99) 96 06/18/19 08:00 98.6 80 19 119/61 (80) 97 06/18/19 04:00 97.0 80 16 116/71 (86) 99 06/18/19 03:43 Room Air 06/18/19 00:00 97.9 76 17 121/69 (86) 96 06/17/19 20:19 Room Air 06/17/19 20:00 98.1 80 16 114/68 (83) 96 06/17/19 16:00 97.5 80 17 127/69 (88) 98 I&O Intake and Output 06/17/19 06/18/19 19:00 07:00 Intake Total 950 ml 480 ml Balance 950 ml 480 ml Intake Oral 480 ml Other 950 ml # Voids 1 # Bowel Movements 2 Dressing: other Wound: other Drains: other Cardiovascular: RSR Respiratory: decreased breath sounds Abdomen: soft, present bowel sounds Extremities: no cyanosis, other Laboratory Tests Test 06/18/19 05:51 White Blood Count 10.0 K/UL (4.8-10.8) Red Blood Count 3.36 M/UL (4.20-5.40) L Hemoglobin 10.0 G/DL (12.0-16.0) L Hematocrit 29.6 % (37.0-47.0) L Mean Corpuscular Volume 88 FL (80-99) Mean Corpuscular Hemoglobin 29.8 PG (27.0-31.0) Mean Corpuscular Hemoglobin Concent 33.8 G/DL (32.0-36.0) Red Cell Distribution Width 12.9 % (11.6-14.8) Platelet Count 472 K/UL (150-450) H Mean Platelet Volume 4.7 FL (6.5-10.1) L Neutrophils (%) (Auto) 61.7 % (45.0-75.0) Lymphocytes (%) (Auto) 28.6 % (20.0-45.0) Monocytes (%) (Auto) 4.5 % (1.0-10.0) Eosinophils (%) (Auto) 4.2 % (0.0-3.0) H Basophils (%) (Auto) 1.0 % (0.0-2.0) Sodium Level 136 MMOL/L (136-145) Potassium Level 5.0 MMOL/L (3.5-5.1) Chloride Level 101 MMOL/L (98-107) Carbon Dioxide Level 27 MMOL/L (21-32) Anion Gap 8 mmol/L (5-15) Blood Urea Nitrogen 26 mg/dL (7-18) H Creatinine 1.7 MG/DL (0.55-1.30) H Estimat Glomerular Filtration Rate 30.9 mL/min (>60) Glucose Level 175 MG/DL (74-106) H Uric Acid 7.5 MG/DL (2.6-7.2) H Calcium Level 9.2 MG/DL (8.5-10.1) Phosphorus Level 3.2 MG/DL (2.5-4.9) Magnesium Level 2.1 MG/DL (1.8-2.4) Total Bilirubin 0.2 MG/DL (0.2-1.0) Aspartate Amino Transf (AST/SGOT) 17 U/L (15-37) Alanine Aminotransferase (ALT/SGPT) 45 U/L (12-78) Alkaline Phosphatase 296 U/L (46-116) H C-Reactive Protein, Quantitative 0.6 mg/dL (0.00-0.90) Pro-B-Type Natriuretic Peptide 160 pg/mL (0-125) H Total Protein 7.9 G/DL (6.4-8.2) Albumin 2.9 G/DL (3.4-5.0) L Globulin 5.0 g/dL Albumin/Globulin Ratio 0.6 (1.0-2.7) L Plan Problems: (1) Left foot infection (2) Occluded PICC line Assessment & Plan: new picc 06/14/2019 (3) Open wound of left foot (4) Cellulitis of left foot Assessment & Plan: 50-year-old female with history of chronic left foot wounds , cellulitis, infection who in 2018 initially developed a abscess/blister and has been dealing with chronic infection of the left foot since. On the medial aspect there is a 3 cm x 2 cm x 1 cm open wound with good granulation tissue seemingly a little bit more chronic than 1 week no drainage no signs of significant active infection. On the plantar aspect of the foot there is a 1 cm x 1 cm by half centimeter open punched-out wound from prior drainage with no active drainage currently. Patient states that she was recommended to have local wound care and antibiotics for 6 weeks. States that she is on isolation for the cultures that were taken outside facility. new picc placed Local wound care with hydrogel packing or Thera honey packing gauze daily Wash wound left foot daily with normal saline then apply above dressings Wrap foot leg with gauze after packing and dressings applied Trend labs Antibiotics per infectious disease podiatry input appreciated Thank you will follow with recommendations Cristian Tavarez Jun 18, 2019 12:43
--- NOTE | 2019-06-18 13:49 | Infectious Diseases Prog Note ---
Assessment/Plan Assessment/Plan IMPRESSION: 1. Diabetic foot, osteomyelitis. 2. Allergic drug reaction to Invanz and vancomycin with rash. 3. Diabetes mellitus. 4. Charcot joint. 5. Anemia. 6. Elevated transaminase improving 7. Plan: If Creatinine continue to goes up will stop Bactrim Continue Zyvox Will f/u hepatitis B & C serologies Subjective ROS Limited/Unobtainable: No Constitutional: Reports: no symptoms Respiratory: Reports: no symptoms Gastrointestinal/Abdominal: Reports: vomiting, diarrhea Genitourinary: Reports: no symptoms Allergies: Coded Allergies: ERTAPENEM (Verified Allergy, Intermediate, RASH - legs, back, torso, ) VANCOMYCIN (Verified Allergy, Intermediate, RASH - legs, back, torso, 06/16) Objective Vital Signs Last 24 Hour Vital Signs Date Time Temp Pulse Resp B/P (MAP) Pulse Ox O2 Delivery O2 Flow Rate FiO2 06/18/19 12:00 98.2 86 19 132/82 (99) 96 06/18/19 08:00 98.6 80 19 119/61 (80) 97 06/18/19 04:00 97.0 80 16 116/71 (86) 99 06/18/19 03:43 Room Air 06/18/19 00:00 97.9 76 17 121/69 (86) 96 06/17/19 20:19 Room Air 06/17/19 20:00 98.1 80 16 114/68 (83) 96 06/17/19 16:00 97.5 80 17 127/69 (88) 98 Height (Feet): 5 Height (Inches): 4.00 Weight (Pounds): 215 General Appearance: no acute distress HEENT: mucous membranes moist Cardiovascular: normal rate Abdomen: soft, non tender Extremities: no edema Neurologic/Psychiatric: alert, oriented x 3, responsive Laboratory Tests Test 06/18/19 05:51 White Blood Count 10.0 K/UL (4.8-10.8) Red Blood Count 3.36 M/UL (4.20-5.40) L Hemoglobin 10.0 G/DL (12.0-16.0) L Hematocrit 29.6 % (37.0-47.0) L Mean Corpuscular Volume 88 FL (80-99) Mean Corpuscular Hemoglobin 29.8 PG (27.0-31.0) Mean Corpuscular Hemoglobin Concent 33.8 G/DL (32.0-36.0) Red Cell Distribution Width 12.9 % (11.6-14.8) Platelet Count 472 K/UL (150-450) H Mean Platelet Volume 4.7 FL (6.5-10.1) L Neutrophils (%) (Auto) 61.7 % (45.0-75.0) Lymphocytes (%) (Auto) 28.6 % (20.0-45.0) Monocytes (%) (Auto) 4.5 % (1.0-10.0) Eosinophils (%) (Auto) 4.2 % (0.0-3.0) H Basophils (%) (Auto) 1.0 % (0.0-2.0) Sodium Level 136 MMOL/L (136-145) Potassium Level 5.0 MMOL/L (3.5-5.1) Chloride Level 101 MMOL/L (98-107) Carbon Dioxide Level 27 MMOL/L (21-32) Anion Gap 8 mmol/L (5-15) Blood Urea Nitrogen 26 mg/dL (7-18) H Creatinine 1.7 MG/DL (0.55-1.30) H Estimat Glomerular Filtration Rate 30.9 mL/min (>60) Glucose Level 175 MG/DL (74-106) H Uric Acid 7.5 MG/DL (2.6-7.2) H Calcium Level 9.2 MG/DL (8.5-10.1) Phosphorus Level 3.2 MG/DL (2.5-4.9) Magnesium Level 2.1 MG/DL (1.8-2.4) Total Bilirubin 0.2 MG/DL (0.2-1.0) Aspartate Amino Transf (AST/SGOT) 17 U/L (15-37) Alanine Aminotransferase (ALT/SGPT) 45 U/L (12-78) Alkaline Phosphatase 296 U/L (46-116) H C-Reactive Protein, Quantitative 0.6 mg/dL (0.00-0.90) Pro-B-Type Natriuretic Peptide 160 pg/mL (0-125) H Total Protein 7.9 G/DL (6.4-8.2) Albumin 2.9 G/DL (3.4-5.0) L Globulin 5.0 g/dL Albumin/Globulin Ratio 0.6 (1.0-2.7) L Current Medications Medications (Trade) Dose Ordered Sig/Dileep Route PRN Reason Start Time Stop Time Status Last Admin Dose Admin Acetaminophen (Tylenol) 650 mg Q4H PRN ORAL For Pain 06/14/19 04:15 07/14/19 04:14 06/16/19 17:26 Atorvastatin Calcium (Lipitor) 80 mg BEDTIME ORAL 06/14/19 21:00 07/14/19 20:59 06/17/19 21:35 Chlorhexidine Gluconate (Tianna-Hex 2%) 1 applic DAILY@1999 TOPIC 06/14/19 20:00 07/14/19 19:59 06/17/19 21:32 Dextrose (Dextrose 50%) 25 ml Q30M PRN IV Hypoglycemia 06/14/19 07:45 07/14/19 07:44 Dextrose (Dextrose 50%) 50 ml Q30M PRN IV Hypoglycemia 06/14/19 07:45 07/14/19 07:44 Folic Acid (Folate) 2 mg DAILY ORAL 06/15/19 10:30 07/15/19 10:29 06/18/19 09:08 Insulin Aspart (NovoLOG) BEFORE MEALS AND HS SUBQ 06/14/19 11:30 07/14/19 11:29 06/18/19 12:15 Linezolid (Zyvox) 600 mg EVERY 12 HOURS ORAL 06/14/19 15:42 06/23/19 15:41 06/18/19 09:06 Metformin HCl (Glucophage) 500 mg TIAC ORAL 06/15/19 11:30 07/15/19 11:29 06/18/19 12:13 Ondansetron HCl (Zofran) 4 mg Q6H PRN IVP Nausea & Vomiting 06/14/19 22:00 07/14/19 21:59 06/18/19 09:33 Trimethoprim/ Sulfamethoxazole (Bactrim Single Strength) 1 tab EVERY 12 HOURS ORAL 06/16/19 21:00 06/23/19 20:59 06/18/19 09:06 Adarsh Pitts MD Jun 18, 2019 13:49
--- NOTE | 2019-06-18 15:36 | NUR ---
NURSE NOTES: PATIENT HAD EPISODES OF N/V X1. ZOFRAN GIVEN VIA IVP GIVEN BY LISBETH RICE. PATIENT IS NOW RESTING COMFORTABLY. NO C/O PAIN/DISCOMFORT NOTED. WILL CONT TO MONITOR.
[2019-06-18 16:00] VITALS: BP 142/75
--- NOTE | 2019-06-18 19:07 | NUR ---
HAND-OFF: Report given to Valerie.
[2019-06-18 20:00] VITALS: BP 156/75
[2019-06-18] MEDS: Dyna-Hex 2% Top Sol 2oz TOPIC SCH (20:00)
[2019-06-18] MEDS: Atorvastatin 80mg tab ORAL SCH (21:14)
--- NOTE | 2019-06-18 22:15 | General Progress Note ---
Assessment/Plan Problem List: (1) Hypertension ICD Codes: I10 - Essential (primary) hypertension SNOMED: 39154058 (2) Cellulitis of left foot ICD Codes: L03.116 - Cellulitis of left lower limb SNOMED: 784365602 (3) Open wound of left foot ICD Codes: S91.302A - Unspecified open wound, left foot, initial encounter SNOMED: 05065851633215727 (4) Left foot infection ICD Codes: L08.9 - Local infection of the skin and subcutaneous tissue, unspecified SNOMED: 270334850 (5) DMII (diabetes mellitus, type 2) ICD Codes: E11.9 - Type 2 diabetes mellitus without complications SNOMED: 69217360 Status: progressing Assessment/Plan: foot cellulitis le celluitis and edema dc only if cleared by id and podiatry abx per id Subjective ROS Limited/Unobtainable: Yes Allergies: Coded Allergies: ERTAPENEM (Verified Allergy, Intermediate, RASH - legs, back, torso, ) VANCOMYCIN (Verified Allergy, Intermediate, RASH - legs, back, torso, 06/16) Objective Last 24 Hour Vital Signs Date Time Temp Pulse Resp B/P (MAP) Pulse Ox O2 Delivery O2 Flow Rate FiO2 06/18/19 16:00 98.4 85 20 142/75 (97) 95 06/18/19 12:00 98.2 86 19 132/82 (99) 96 06/18/19 09:00 Room Air 06/18/19 08:00 98.6 80 19 119/61 (80) 97 06/18/19 04:00 97.0 80 16 116/71 (86) 99 06/18/19 03:43 Room Air 06/18/19 00:00 97.9 76 17 121/69 (86) 96 Intake and Output 06/17/19 06/18/19 19:00 07:00 Intake Total 950 ml 480 ml Balance 950 ml 480 ml Intake Oral 480 ml Other 950 ml # Voids 1 # Bowel Movements 2 Laboratory Tests 06/18/19 05:51: White Blood Count 10.0, Red Blood Count 3.36L, Hemoglobin 10.0L, Hematocrit 29.6L, Mean Corpuscular Volume 88, Mean Corpuscular Hemoglobin 29.8, Mean Corpuscular Hemoglobin Concent 33.8, Red Cell Distribution Width 12.9, Platelet Count 472H, Mean Platelet Volume 4.7L, Neutrophils (%) (Auto) 61.7, Lymphocytes (%) (Auto) 28.6, Monocytes (%) (Auto) 4.5, Eosinophils (%) (Auto) 4.2H, Basophils (%) (Auto) 1.0, Sodium Level 136, Potassium Level 5.0, Chloride Level 101, Carbon Dioxide Level 27, Anion Gap 8, Blood Urea Nitrogen 26H, Creatinine 1.7H, Estimat Glomerular Filtration Rate 30.9, Glucose Level 175H, Uric Acid 7.5H, Calcium Level 9.2, Phosphorus Level 3.2, Magnesium Level 2.1, Total Bilirubin 0.2, Aspartate Amino Transf (AST/SGOT) 17, Alanine Aminotransferase ( ALT/SGPT) 45, Alkaline Phosphatase 296H, C-Reactive Protein, Quantitative 0.6, Pro-B-Type Natriuretic Peptide 160H, Total Protein 7.9, Albumin 2.9L, Globulin 5.0, Albumin/Globulin Ratio 0.6L Height (Feet): 5 Height (Inches): 4.00 Weight (Pounds): 215 Neck: normal alignment Cardiovascular: normal rate Respiratory/Chest: lungs clear Elodia Dunbar MD Jun 18, 2019 22:15
[2019-06-19] VITALS: BP 136/74
[2019-06-19 04:00] VITALS: BP 129/63
[2019-06-19] MEDS: NovoLOG Insulin Flexpen SUBQ SCH ×4 (05:38→20:17)
[2019-06-19] MEDS: metFORMIN 500mg tab ORAL SCH ×3 (05:38→17:12)
[2019-06-19 06:02] LABS: ANION GAP 8 mmol/L (5-15); BLOOD UREA NITROGEN 28 mg/dL (7-18); CALCIUM 9.3 MG/DL (8.5-10.1); CARBON DIOXIDE 27 MMOL/L (21-32); CHLORIDE 101 MMOL/L (98-107); CREATININE 1.6 MG/DL (0.55-1.30); POTASSIUM 5.3 MMOL/L (3.5-5.1); SODIUM 136 MMOL/L (136-145)
--- NOTE | 2019-06-19 06:10 | NUR ---
NURSE NOTES: Patient's potassium noted to be 5.3 this morning. Contacted ordering physician and left message. Awaiting orders.
--- NOTE | 2019-06-19 07:21 | NUR ---
HAND-OFF: Report given to MICHELLE Beck.
[2019-06-19 08:00] VITALS: BP 117/73
[2019-06-19] MEDS: Bactrim SS Tab ORAL SCH (08:14)
[2019-06-19] MEDS ORDERED: Sodium Polystyrene Sulfonate 15gm Powder ORAL SCH (11:00)
--- NOTE | 2019-06-19 11:01 | Infectious Diseases Prog Note ---
Assessment/Plan Assessment/Plan IMPRESSION: 1. Diabetic foot, osteomyelitis. 2. Allergic drug reaction to Invanz and vancomycin with rash. 3. Diabetes mellitus. 4. Charcot joint. 5. Anemia. 6. Elevated transaminase improving 7. Chronic kidney disease Plan: stop Bactrim Continue Zyvox X 24 days Will f/u hepatitis B & C serologies Subjective ROS Limited/Unobtainable: No Constitutional: Reports: no symptoms Respiratory: Reports: no symptoms Cardiovascular: Reports: no symptoms Gastrointestinal/Abdominal: Reports: no symptoms Genitourinary: Reports: no symptoms Allergies: Coded Allergies: ERTAPENEM (Verified Allergy, Intermediate, RASH - legs, back, torso, ) VANCOMYCIN (Verified Allergy, Intermediate, RASH - legs, back, torso, 06/16) Objective Vital Signs Last 24 Hour Vital Signs Date Time Temp Pulse Resp B/P (MAP) Pulse Ox O2 Delivery O2 Flow Rate FiO2 06/19/19 08:00 98.5 85 16 117/73 (88) 98 06/19/19 04:00 98.2 82 16 129/63 (85) 96 06/19/19 00:00 98.2 76 16 136/74 (94) 96 06/18/19 21:00 Room Air 06/18/19 20:00 97.9 83 20 156/75 (102) 98 06/18/19 16:00 98.4 85 20 142/75 (97) 95 06/18/19 12:00 98.2 86 19 132/82 (99) 96 Height (Feet): 5 Height (Inches): 4.00 Weight (Pounds): 215 General Appearance: no acute distress HEENT: mucous membranes moist Respiratory/Chest: lungs clear Cardiovascular: normal rate Extremities: other - edema of left leg Skin: ulcers, other - left foot, toe callous of R foot Neurologic/Psychiatric: alert, oriented x 3, responsive Microbiology Date/Time Source Procedure Growth Status 06/19/19 05:02 Stool Clostridium difficile Toxin Assay - Final Complete Laboratory Tests Test 06/19/19 05:30 Sodium Level 136 MMOL/L (136-145) Potassium Level 5.3 MMOL/L (3.5-5.1) H Chloride Level 101 MMOL/L (98-107) Carbon Dioxide Level 27 MMOL/L (21-32) Anion Gap 8 mmol/L (5-15) Blood Urea Nitrogen 28 mg/dL (7-18) H Creatinine 1.6 MG/DL (0.55-1.30) H Estimat Glomerular Filtration Rate 33.1 mL/min (>60) Glucose Level 139 MG/DL (74-106) H Calcium Level 9.3 MG/DL (8.5-10.1) Current Medications Medications (Trade) Dose Ordered Sig/Dileep Route PRN Reason Start Time Stop Time Status Last Admin Dose Admin Acetaminophen (Tylenol) 650 mg Q4H PRN ORAL For Pain 06/14/19 04:15 07/14/19 04:14 06/16/19 17:26 Atorvastatin Calcium (Lipitor) 80 mg BEDTIME ORAL 06/14/19 21:00 07/14/19 20:59 06/18/19 21:14 Chlorhexidine Gluconate (Tianna-Hex 2%) 1 applic DAILY@2000 TOPIC 06/14/19 20:00 07/14/19 19:59 06/17/19 21:32 Dextrose (Dextrose 50%) 25 ml Q30M PRN IV Hypoglycemia 06/14/19 07:45 07/14/19 07:44 Dextrose (Dextrose 50%) 50 ml Q30M PRN IV Hypoglycemia 06/14/19 07:45 07/14/19 07:44 Folic Acid (Folate) 2 mg DAILY ORAL 06/15/19 10:30 07/15/19 10:29 06/19/19 08:15 Insulin Aspart (NovoLOG) BEFORE MEALS AND HS SUBQ 06/14/19 11:30 07/14/19 11:29 06/18/19 12:15 Linezolid (Zyvox) 600 mg EVERY 12 HOURS ORAL 06/14/19 15:42 06/23/19 15:41 06/19/19 08:14 Metformin HCl (Glucophage) 500 mg TIAC ORAL 06/15/19 11:30 07/15/19 11:29 06/19/19 05:38 Ondansetron HCl (Zofran) 4 mg Q6H PRN IVP Nausea & Vomiting 06/14/19 22:00 07/14/19 21:59 06/18/19 09:33 Trimethoprim/ Sulfamethoxazole (Bactrim Single Strength) 1 tab EVERY 12 HOURS ORAL 06/16/19 21:00 06/23/19 20:59 06/19/19 08:14 Adarsh Pitts MD Jun 19, 2019 11:01
--- NOTE | 2019-06-19 11:06 | Nephrology Progress Note ---
Assessment/Plan Problem List: (1) DMII (diabetes mellitus, type 2) (2) Ascites (3) Hypertension (4) Cellulitis of left foot (5) Proteinuria Assessment: diabetic nephropathy Assessment Cr rising- Hold Zestril- watch Cr on Bactrim - Metformin Ascitis Obese DM Anemia HypoAlbuminemia elevated LFTs Plan Kayexelate as needed Bolus NS UA prn Lasix Anemia larose adjust BP meds wound care per orders Subjective ROS Limited/Unobtainable: No Constitutional: Reports: malaise Objective Objective Last 24 Hour Vital Signs Date Time Temp Pulse Resp B/P (MAP) Pulse Ox O2 Delivery O2 Flow Rate FiO2 06/19/19 09:00 Room Air 06/19/19 08:00 98.5 85 16 117/73 (88) 98 06/19/19 04:00 98.2 82 16 129/63 (85) 96 06/19/19 00:00 98.2 76 16 136/74 (94) 96 06/18/19 21:00 Room Air 06/18/19 20:00 97.9 83 20 156/75 (102) 98 06/18/19 16:00 98.4 85 20 142/75 (97) 95 06/18/19 12:00 98.2 86 19 132/82 (99) 96 Intake and Output 06/18/19 06/19/19 19:00 07:00 Intake Total 480 ml 240 ml Balance 480 ml 240 ml Intake Oral 480 ml 240 ml # Voids 3 2 # Bowel Movements 1 2 Laboratory Tests 06/19/19 05:30: Sodium Level 136, Potassium Level 5.3H, Chloride Level 101, Carbon Dioxide Level 27, Anion Gap 8, Blood Urea Nitrogen 28H, Creatinine 1.6H, Estimat Glomerular Filtration Rate 33.1, Glucose Level 139H, Calcium Level 9.3 Height (Feet): 5 Height (Inches): 4.00 Weight (Pounds): 215 General Appearance: no apparent distress Objective no change Erasto Parikh MD Jun 19, 2019 11:06
--- NOTE | 2019-06-19 11:29 | Hematology/Onc Progress Note ---
Assessment/Plan Assessment/Plan Assessment and Recs: # Anemia of chronic disease due to underlying chronic medical issues, multifactorial v Gi bleed --> Anemia workup has been ordered, rule out gi bleed --> No evidence of hemolysis is noted, peripheral smear has been reviewed. --> Hgb goal >7. Transfuse prn. --> Epogen or iron at this time is not particularly indicated --> hgb trend: 9.7-->10 --> Medications have been reviewed --> low threshold for gi evaluation in case has occult + # Occluded PICC line --> has been changed # Diabetic foot, osteomyelitis. --> per endo, accuchecks qac and qhs --> seen by pod, id surg --> on bactrim zyvox # Diabetes mellitus. # Charcot joint. # Transaminitis Appreciate consultation and dw RN Subjective Constitutional: Denies: no symptoms, chills, fever, malaise, weakness, other HEENT: Denies: no symptoms, eye pain, blurred vision, tearing, double vision, ear pain, ear discharge, nose pain, nose congestion, throat pain, throat swelling, mouth pain, mouth swelling, other Respiratory: Denies: no symptoms, cough, shortness of breath, SOB with excertion, SOB at rest, sputum, wheezing, other Genitourinary: Denies: no symptoms, burning, discharge, frequency, flank pain, hematuria, incontinence, pain, urgency, other Neurologic/Psychiatric: Denies: no symptoms, anxiety, depressed, emotional problems, headache, numbness, paresthesia, pre-existing deficit, seizure, tingling, tremors, weakness, other Hematologic/Lymphatic: Denies: no symptoms, anemia, easy bleeding, easy bruising, adenopathy, other Allergies: Coded Allergies: ERTAPENEM (Verified Allergy, Intermediate, RASH - legs, back, torso, ) VANCOMYCIN (Verified Allergy, Intermediate, RASH - legs, back, torso, 06/16) Subjective 06/16: no acute events, h/h stable, on zyvox, hep panel pending 06/18: awake and alert, no acute distress, labs reviewed 06/19: remains on linezolid, no bleeding, labs noted, no major changes Objective Objective Current Medications Medications (Trade) Dose Ordered Sig/Dileep Route PRN Reason Start Time Stop Time Status Last Admin Dose Admin Acetaminophen (Tylenol) 650 mg Q4H PRN ORAL For Pain 06/14/19 04:15 07/14/19 04:14 06/16/19 17:26 Atorvastatin Calcium (Lipitor) 80 mg BEDTIME ORAL 06/14/19 21:00 07/14/19 20:59 06/18/19 21:14 Chlorhexidine Gluconate (Tianna-Hex 2%) 1 applic DAILY@2000 TOPIC 06/14/19 20:00 07/14/19 19:59 06/17/19 21:32 Dextrose (Dextrose 50%) 25 ml Q30M PRN IV Hypoglycemia 06/14/19 07:45 07/14/19 07:44 Dextrose (Dextrose 50%) 50 ml Q30M PRN IV Hypoglycemia 06/14/19 07:45 07/14/19 07:44 Folic Acid (Folate) 2 mg DAILY ORAL 06/15/19 10:30 07/15/19 10:29 06/19/19 08:15 Insulin Aspart (NovoLOG) BEFORE MEALS AND HS SUBQ 06/14/19 11:30 07/14/19 11:29 06/18/19 12:15 Linezolid (Zyvox) 600 mg EVERY 12 HOURS ORAL 06/14/19 15:42 06/23/19 15:41 06/19/19 08:14 Metformin HCl (Glucophage) 500 mg TIAC ORAL 06/15/19 11:30 07/15/19 11:29 06/19/19 05:38 Ondansetron HCl (Zofran) 4 mg Q6H PRN IVP Nausea & Vomiting 06/14/19 22:00 07/14/19 21:59 06/18/19 09:33 Sodium Polystyrene Sulfonate (Kayexalate) 30 gm ONCE ORAL 06/19/19 11:00 06/19/19 12:00 Sodium Chloride 250 ml @ 999 mls/hr Q16M ONCE IV 06/19/19 11:15 06/19/19 11:30 Last 24 Hour Vital Signs Date Time Temp Pulse Resp B/P (MAP) Pulse Ox O2 Delivery O2 Flow Rate FiO2 06/19/19 09:00 Room Air 06/19/19 08:00 98.5 85 16 117/73 (88) 98 06/19/19 04:00 98.2 82 16 129/63 (85) 96 06/19/19 00:00 98.2 76 16 136/74 (94) 96 06/18/19 21:00 Room Air 06/18/19 20:00 97.9 83 20 156/75 (102) 98 06/18/19 16:00 98.4 85 20 142/75 (97) 95 06/18/19 12:00 98.2 86 19 132/82 (99) 96 06/18/19 09:00 Room Air 06/18/19 08:00 98.6 80 19 119/61 (80) 97 06/18/19 04:00 97.0 80 16 116/71 (86) 99 06/18/19 03:43 Room Air 06/18/19 00:00 97.9 76 17 121/69 (86) 96 06/17/19 20:19 Room Air 06/17/19 20:00 98.1 80 16 114/68 (83) 96 06/17/19 16:00 97.5 80 17 127/69 (88) 98 06/17/19 12:00 98.7 78 17 128/67 (87) 97 Intake and Output 06/18/19 06/19/19 19:00 07:00 Intake Total 480 ml 240 ml Balance 480 ml 240 ml Intake Oral 480 ml 240 ml # Voids 3 2 # Bowel Movements 1 2 Labs Test 06/18/19 05:51 06/19/19 05:30 White Blood Count 10.0 K/UL (4.8-10.8) Red Blood Count 3.36 M/UL (4.20-5.40) Hemoglobin 10.0 G/DL (12.0-16.0) Hematocrit 29.6 % (37.0-47.0) Mean Corpuscular Volume 88 FL (80-99) Mean Corpuscular Hemoglobin 29.8 PG (27.0-31.0) Mean Corpuscular Hemoglobin Concent 33.8 G/DL (32.0-36.0) Red Cell Distribution Width 12.9 % (11.6-14.8) Platelet Count 472 K/UL (150-450) Mean Platelet Volume 4.7 FL (6.5-10.1) Neutrophils (%) (Auto) 61.7 % (45.0-75.0) Lymphocytes (%) (Auto) 28.6 % (20.0-45.0) Monocytes (%) (Auto) 4.5 % (1.0-10.0) Eosinophils (%) (Auto) 4.2 % (0.0-3.0) Basophils (%) (Auto) 1.0 % (0.0-2.0) Sodium Level 136 MMOL/L (136-145) 136 MMOL/L (136-145) Potassium Level 5.0 MMOL/L (3.5-5.1) 5.3 MMOL/L (3.5-5.1) Chloride Level 101 MMOL/L (98-107) 101 MMOL/L (98-107) Carbon Dioxide Level 27 MMOL/L (21-32) 27 MMOL/L (21-32) Anion Gap 8 mmol/L (5-15) 8 mmol/L (5-15) Blood Urea Nitrogen 26 mg/dL (7-18) 28 mg/dL (7-18) Creatinine 1.7 MG/DL (0.55-1.30) 1.6 MG/DL (0.55-1.30) Estimat Glomerular Filtration Rate 30.9 mL/min (>60) 33.1 mL/min (>60) Glucose Level 175 MG/DL (74-106) 139 MG/DL (74-106) Uric Acid 7.5 MG/DL (2.6-7.2) Calcium Level 9.2 MG/DL (8.5-10.1) 9.3 MG/DL (8.5-10.1) Phosphorus Level 3.2 MG/DL (2.5-4.9) Magnesium Level 2.1 MG/DL (1.8-2.4) Total Bilirubin 0.2 MG/DL (0.2-1.0) Aspartate Amino Transf (AST/SGOT) 17 U/L (15-37) Alanine Aminotransferase (ALT/SGPT) 45 U/L (12-78) Alkaline Phosphatase 296 U/L (46-116) C-Reactive Protein, Quantitative 0.6 mg/dL (0.00-0.90) Pro-B-Type Natriuretic Peptide 160 pg/mL (0-125) Total Protein 7.9 G/DL (6.4-8.2) Albumin 2.9 G/DL (3.4-5.0) Globulin 5.0 g/dL Albumin/Globulin Ratio 0.6 (1.0-2.7) Micro Microbiology Date/Time Source Procedure Growth Status 06/19/19 05:02 Stool Clostridium difficile Toxin Assay - Final Complete Height (Feet): 5 Height (Inches): 4.00 Weight (Pounds): 215 Objective Physical Exam Vitals: reviewed General: NAD Neck: supple Chest: clear breath sounds bilaterally Cardiovascular: RRR, no s3, s4 Abdomen: soft, nontender, nd Extremities: no cce, normal range of motion ++ picc upper arm r, also ankle and left foot erythema with bandages+ Mental: alert Jose Bond MD Jun 19, 2019 11:29
[2019-06-19 12:00] VITALS: BP 120/80
[2019-06-19] MEDS ORDERED: ZYVOX600 MG ORAL (13:06)
--- NOTE | 2019-06-19 13:57 | Surgery Progress Note ---
Surgery Progress Note Subjective Additional Comments improved comfortable states feels better Objective Last 24 Hour Vital Signs Date Time Temp Pulse Resp B/P (MAP) Pulse Ox O2 Delivery O2 Flow Rate FiO2 06/19/19 12:00 98.7 17 120/80 (93) 81 06/19/19 09:00 Room Air 06/19/19 08:00 98.5 85 16 117/73 (88) 98 06/19/19 04:00 98.2 82 16 129/63 (85) 96 06/19/19 00:00 98.2 76 16 136/74 (94) 96 06/18/19 21:00 Room Air 06/18/19 20:00 97.9 83 20 156/75 (102) 98 06/18/19 16:00 98.4 85 20 142/75 (97) 95 I&O Intake and Output 06/18/19 06/19/19 18:59 06:59 Intake Total 480 ml 240 ml Balance 480 ml 240 ml Intake Oral 480 ml 240 ml # Voids 3 2 # Bowel Movements 1 2 Dressing: other Wound: other Drains: other Cardiovascular: RSR, other Respiratory: clear Abdomen: soft, flat, non-tender, present bowel sounds Extremities: no cyanosis Laboratory Tests Test 06/19/19 05:30 Sodium Level 136 MMOL/L (136-145) Potassium Level 5.3 MMOL/L (3.5-5.1) H Chloride Level 101 MMOL/L (98-107) Carbon Dioxide Level 27 MMOL/L (21-32) Anion Gap 8 mmol/L (5-15) Blood Urea Nitrogen 28 mg/dL (7-18) H Creatinine 1.6 MG/DL (0.55-1.30) H Estimat Glomerular Filtration Rate 33.1 mL/min (>60) Glucose Level 139 MG/DL (74-106) H Calcium Level 9.3 MG/DL (8.5-10.1) Plan Problems: (1) Left foot infection (2) Occluded PICC line Assessment & Plan: new picc 06/14/2019 (3) Open wound of left foot (4) Cellulitis of left foot Assessment & Plan: 50-year-old female with history of chronic left foot wounds , cellulitis, infection who in 2018 initially developed a abscess/blister and has been dealing with chronic infection of the left foot since. On the medial aspect there is a 3 cm x 2 cm x 1 cm open wound with good granulation tissue seemingly a little bit more chronic than 1 week no drainage no signs of significant active infection. On the plantar aspect of the foot there is a 1 cm x 1 cm by half centimeter open punched-out wound from prior drainage with no active drainage currently. Patient states that she was recommended to have local wound care and antibiotics for 6 weeks. States that she is on isolation for the cultures that were taken outside facility. new picc placed Local wound care with hydrogel packing or Thera honey packing gauze daily Wash wound left foot daily with normal saline then apply above dressings Wrap foot leg with gauze after packing and dressings applied Trend labs Antibiotics per infectious disease podiatry input appreciated Thank you will follow with recommendations Cristian Tavarez Jun 19, 2019 13:57
--- NOTE | 2019-06-19 14:29 | NUR ---
NURSE NOTES: PT AXOX4, CALM, IN NO APPARENT DISTRESS AT THIS TIME. PT HAD ONE EPISODE OF EMESIS. PT WAS GIVEN PRN ZOFRAN ORDERED. PT ABLE TO EAT LUNCH AND TOLERATED WELL. ORDER FOR DISCHARGE NOTED. DR HILLIARD WITH ORDER FOR HOME HEALTH FOR WOUND DRESSINGS. MICHELLE STAFFORD, ADMINISTRATIVE OFFICE SPECIALIST, AWARE OF HOME HEALTH ORDER. PT'S NEW PRESCRIPTION FOR ZYVOX FAXED TO [facility] AND CONFIRMED RECEIPT. RN MADE PHARMACY AWARE PT HAS NO FUNDS TO PAY FOR PRESCRIPTION. WILL CONTINUE TO MONITOR.
--- NOTE | 2019-06-19 15:44 | NUR ---
*-* INSURANCE *-* ALL CLINICALS HAVE BEEN FAXED: [facility] SEXTON # [phone] FAX# [phone] REVIEWS/CLINICALS
[2019-06-19 16:00] VITALS: BP 110/70
--- NOTE | 2019-06-19 19:29 | NUR ---
HAND-OFF: Report given to Arsh VIDALES RN.
--- NOTE | 2019-06-19 19:44 | NUR ---
MARJAN NOTES: Patient in bed, awake and alert x4. On room air. No c/o pain or acute distress noted. MICHELLE PICC line intact and patent. Dressing dry and intact. Bed locked in lowest position. Call light within reach. Will continue to monitor the pt.
[2019-06-19 19:59] VITALS: BP 110/70
[2019-06-19] MEDS: Dyna-Hex 2% Top Sol 2oz TOPIC SCH (20:18)
[2019-06-19] MEDS: Atorvastatin 80mg tab ORAL SCH (20:18)
--- NOTE | 2019-06-19 20:53 | General Progress Note ---
Assessment/Plan Problem List: (1) Hypertension ICD Codes: I10 - Essential (primary) hypertension SNOMED: 33937170 (2) Cellulitis of left foot ICD Codes: L03.116 - Cellulitis of left lower limb SNOMED: 310414996 (3) Open wound of left foot ICD Codes: S91.302A - Unspecified open wound, left foot, initial encounter SNOMED: 84117181992786538 (4) Left foot infection ICD Codes: L08.9 - Local infection of the skin and subcutaneous tissue, unspecified SNOMED: 544600297 (5) DMII (diabetes mellitus, type 2) ICD Codes: E11.9 - Type 2 diabetes mellitus without complications SNOMED: 89607708 Status: progressing Assessment/Plan: le and foot celluiits cleared by podiatry and id for dc afebrile no acute events Subjective ROS Limited/Unobtainable: Yes Allergies: Coded Allergies: ERTAPENEM (Verified Allergy, Intermediate, RASH - legs, back, torso, ) VANCOMYCIN (Verified Allergy, Intermediate, RASH - legs, back, torso, 06/16) Objective Last 24 Hour Vital Signs Date Time Temp Pulse Resp B/P (MAP) Pulse Ox O2 Delivery O2 Flow Rate FiO2 06/19/19 19:59 98.4 84 18 110/70 (83) 97 06/19/19 16:00 98.6 18 110/70 (83) 84 06/19/19 12:00 98.7 17 120/80 (93) 81 06/19/19 09:00 Room Air 06/19/19 08:00 98.5 85 16 117/73 (88) 98 06/19/19 04:00 98.2 82 16 129/63 (85) 96 06/19/19 00:00 98.2 76 16 136/74 (94) 96 06/18/19 21:00 Room Air Intake and Output 06/18/19 06/19/19 19:00 07:00 Intake Total 480 ml 240 ml Balance 480 ml 240 ml Intake Oral 480 ml 240 ml # Voids 3 2 # Bowel Movements 1 2 Laboratory Tests 06/19/19 05:30: Sodium Level 136, Potassium Level 5.3H, Chloride Level 101, Carbon Dioxide Level 27, Anion Gap 8, Blood Urea Nitrogen 28H, Creatinine 1.6H, Estimat Glomerular Filtration Rate 33.1, Glucose Level 139H, Calcium Level 9.3 Height (Feet): 5 Height (Inches): 4.00 Weight (Pounds): 215 Cardiovascular: regular rhythm Respiratory/Chest: lungs clear Elodia Dunbar MD Jun 19, 2019 20:53
[2019-06-20] VITALS: BP 118/72
[2019-06-20 04:00] VITALS: BP 106/68
[2019-06-20] MEDS: NovoLOG Insulin Flexpen SUBQ SCH ×4 (06:04→20:40)
[2019-06-20] MEDS: metFORMIN 500mg tab ORAL SCH ×3 (06:04→17:01)
--- NOTE | 2019-06-20 06:38 | Hematology/Onc Progress Note ---
Assessment/Plan Assessment/Plan Assessment and Recs: # Anemia of chronic disease due to underlying chronic medical issues, multifactorial v Gi bleed --> Anemia workup has been ordered, rule out gi bleed --> No evidence of hemolysis is noted, peripheral smear has been reviewed. --> Hgb goal >7. Transfuse prn. --> Epogen or iron at this time is not particularly indicated --> hgb trend: 9.7-->10 --> Medications have been reviewed --> low threshold for gi evaluation in case has occult + # Occluded PICC line --> has been changed # Diabetic foot, osteomyelitis. --> per endo, accuchecks qac and qhs --> seen by pod, id surg --> on bactrim zyvox-->now off # Diabetes mellitus. # Charcot joint. # Transaminitis # Dvt ppx scds Appreciate consultation and dw RN Subjective Constitutional: Denies: no symptoms, chills, fever, malaise, weakness, other HEENT: Denies: no symptoms, eye pain, blurred vision, tearing, double vision, ear pain, ear discharge, nose pain, nose congestion, throat pain, throat swelling, mouth pain, mouth swelling, other Respiratory: Denies: no symptoms, cough, shortness of breath, SOB with excertion, SOB at rest, sputum, wheezing, other Gastrointestinal/Abdominal: Denies: no symptoms, abdomen distended, abdominal pain, black stools, tarry stools, blood in stool, constipated, diarrhea, difficulty swallowing, nausea, poor appetite, poor fluid intake, rectal bleeding , vomiting, other Genitourinary: Denies: no symptoms, burning, discharge, frequency, flank pain, hematuria, incontinence, pain, urgency, other Neurologic/Psychiatric: Denies: no symptoms, anxiety, depressed, emotional problems, headache, numbness, paresthesia, pre-existing deficit, seizure, tingling, tremors, weakness, other Allergies: Coded Allergies: ERTAPENEM (Verified Allergy, Intermediate, RASH - legs, back, torso, ) VANCOMYCIN (Verified Allergy, Intermediate, RASH - legs, back, torso, 06/16) Subjective 06/16: no acute events, h/h stable, on zyvox, hep panel pending 06/18: awake and alert, no acute distress, labs reviewed 06/19: remains on linezolid, no bleeding, labs noted, no major changes 06/20: no major changes, labs noted, remains on abx, no bleeding Objective Objective Current Medications Medications (Trade) Dose Ordered Sig/Dielep Route PRN Reason Start Time Stop Time Status Last Admin Dose Admin Acetaminophen (Tylenol) 650 mg Q4H PRN ORAL For Pain 06/14/19 04:15 07/14/19 04:14 06/16/19 17:26 Atorvastatin Calcium (Lipitor) 80 mg BEDTIME ORAL 06/14/19 21:00 07/14/19 20:59 06/19/19 20:18 Chlorhexidine Gluconate (Tianna-Hex 2%) 1 applic DAILY@1999 TOPIC 06/14/19 20:00 07/14/19 19:59 06/19/19 20:18 Dextrose (Dextrose 50%) 25 ml Q30M PRN IV Hypoglycemia 06/14/19 07:45 07/14/19 07:44 Dextrose (Dextrose 50%) 50 ml Q30M PRN IV Hypoglycemia 06/14/19 07:45 07/14/19 07:44 Folic Acid (Folate) 2 mg DAILY ORAL 06/15/19 10:30 07/15/19 10:29 06/19/19 08:15 Insulin Aspart (NovoLOG) BEFORE MEALS AND HS SUBQ 06/14/19 11:30 07/14/19 11:29 06/20/19 06:04 Linezolid (Zyvox) 600 mg EVERY 12 HOURS ORAL 06/14/19 15:42 06/23/19 15:41 06/19/19 20:18 Metformin HCl (Glucophage) 500 mg TIAC ORAL 06/15/19 11:30 07/15/19 11:29 06/20/19 06:04 Ondansetron HCl (Zofran) 4 mg Q6H PRN IVP Nausea & Vomiting 06/14/19 22:00 07/14/19 21:59 06/19/19 11:33 Last 24 Hour Vital Signs Date Time Temp Pulse Resp B/P (MAP) Pulse Ox O2 Delivery O2 Flow Rate FiO2 06/20/19 04:00 98.5 83 18 106/68 (81) 98 06/20/19 00:00 98.2 85 18 118/72 (87) 98 06/19/19 21:00 Room Air 06/19/19 19:59 98.4 84 18 110/70 (83) 97 06/19/19 16:00 98.6 18 110/70 (83) 84 06/19/19 12:00 98.7 17 120/80 (93) 81 06/19/19 09:00 Room Air 06/19/19 08:00 98.5 85 16 117/73 (88) 98 06/19/19 04:00 98.2 82 16 129/63 (85) 96 06/19/19 00:00 98.2 76 16 136/74 (94) 96 06/18/19 21:00 Room Air 06/18/19 20:00 97.9 83 20 156/75 (102) 98 06/18/19 16:00 98.4 85 20 142/75 (97) 95 06/18/19 12:00 98.2 86 19 132/82 (99) 96 06/18/19 09:00 Room Air 06/18/19 08:00 98.6 80 19 119/61 (80) 97 Intake and Output 06/19/19 06/20/19 19:00 07:00 Intake Total 300 ml Balance 300 ml Intake Oral 300 ml # Voids 2 Labs Test 06/18/19 05:51 06/19/19 05:30 White Blood Count 10.0 K/UL (4.8-10.8) Red Blood Count 3.36 M/UL (4.20-5.40) Hemoglobin 10.0 G/DL (12.0-16.0) Hematocrit 29.6 % (37.0-47.0) Mean Corpuscular Volume 88 FL (80-99) Mean Corpuscular Hemoglobin 29.8 PG (27.0-31.0) Mean Corpuscular Hemoglobin Concent 33.8 G/DL (32.0-36.0) Red Cell Distribution Width 12.9 % (11.6-14.8) Platelet Count 472 K/UL (150-450) Mean Platelet Volume 4.7 FL (6.5-10.1) Neutrophils (%) (Auto) 61.7 % (45.0-75.0) Lymphocytes (%) (Auto) 28.6 % (20.0-45.0) Monocytes (%) (Auto) 4.5 % (1.0-10.0) Eosinophils (%) (Auto) 4.2 % (0.0-3.0) Basophils (%) (Auto) 1.0 % (0.0-2.0) Sodium Level 136 MMOL/L (136-145) 136 MMOL/L (136-145) Potassium Level 5.0 MMOL/L (3.5-5.1) 5.3 MMOL/L (3.5-5.1) Chloride Level 101 MMOL/L (98-107) 101 MMOL/L (98-107) Carbon Dioxide Level 27 MMOL/L (21-32) 27 MMOL/L (21-32) Anion Gap 8 mmol/L (5-15) 8 mmol/L (5-15) Blood Urea Nitrogen 26 mg/dL (7-18) 28 mg/dL (7-18) Creatinine 1.7 MG/DL (0.55-1.30) 1.6 MG/DL (0.55-1.30) Estimat Glomerular Filtration Rate 30.9 mL/min (>60) 33.1 mL/min (>60) Glucose Level 175 MG/DL (74-106) 139 MG/DL (74-106) Uric Acid 7.5 MG/DL (2.6-7.2) Calcium Level 9.2 MG/DL (8.5-10.1) 9.3 MG/DL (8.5-10.1) Phosphorus Level 3.2 MG/DL (2.5-4.9) Magnesium Level 2.1 MG/DL (1.8-2.4) Total Bilirubin 0.2 MG/DL (0.2-1.0) Aspartate Amino Transf (AST/SGOT) 17 U/L (15-37) Alanine Aminotransferase (ALT/SGPT) 45 U/L (12-78) Alkaline Phosphatase 296 U/L (46-116) C-Reactive Protein, Quantitative 0.6 mg/dL (0.00-0.90) Pro-B-Type Natriuretic Peptide 160 pg/mL (0-125) Total Protein 7.9 G/DL (6.4-8.2) Albumin 2.9 G/DL (3.4-5.0) Globulin 5.0 g/dL Albumin/Globulin Ratio 0.6 (1.0-2.7) Height (Feet): 5 Height (Inches): 4.00 Weight (Pounds): 215 Objective Physical Exam Vitals: reviewed General: NAD Neck: supple Chest: clear breath sounds bilaterally Cardiovascular: RRR, no s3, s4 Abdomen: soft, nontender, nd Extremities: no cce, normal range of motion ++ picc upper arm r, also ankle and left foot erythema with bandages+ Mental: alert Jose Bond MD Jun 20, 2019 06:38
--- NOTE | 2019-06-20 07:16 | NUR ---
HAND-OFF: Report given to MICHELLE Irwin.
[2019-06-20 07:21] LABS: BASOPHILS % (AUTO) 1.2 % (0.0-2.0); EOSINOPHILS % (AUTO) 4.2 % (0.0-3.0); HEMATOCRIT 32.7 % (37.0-47.0); LYMPHOCYTES % (AUTO) 23.9 % (20.0-45.0); MEAN CORPUSCULAR VOLUME 89 FL (80-99); NEUTROPHILS % (AUTO) 63.8 % (45.0-75.0); PLATELET COUNT 434 K/UL (150-450); RED BLOOD COUNT 3.69 M/UL (4.20-5.40); WHITE BLOOD COUNT 9.9 K/UL (4.8-10.8)
[2019-06-20 07:54] LABS: ALANINE AMINOTRANSFERASE 29 U/L (12-78); ALBUMIN 3.1 G/DL (3.4-5.0); ALBUMIN/GLOBULIN RATIO 0.6 (1.0-2.7); ALKALINE PHOSPHATASE 240 U/L (46-116); ANION GAP 13 mmol/L (5-15); ASPARTATE AMINO TRANSFERASE 21 U/L (15-37); BILIRUBIN,TOTAL 0.4 MG/DL (0.2-1.0); BLOOD UREA NITROGEN 34 mg/dL (7-18); CALCIUM 9.3 MG/DL (8.5-10.1); CARBON DIOXIDE 22 MMOL/L (21-32); CHLORIDE 101 MMOL/L (98-107); CREATININE 1.6 MG/DL (0.55-1.30); PHOSPHORUS 4.4 MG/DL (2.5-4.9); POTASSIUM 4.9 MMOL/L (3.5-5.1); SODIUM 136 MMOL/L (136-145)
[2019-06-20 08:00] VITALS: BP 113/71
[2019-06-20 08:23] LABS: CREATINE KINASE 15 U/L (26-308); GAMMA GLUTAMYL TRANSPEPTIDASE 18 U/L (5-85)
--- NOTE | 2019-06-20 10:40 | NUR ---
NURSE TECH NOTE Pt is identified as homeless. SW met w/ pt and assessed her needs. Pt states she has been homeless since 1989. Pt is single, never , has seven adult children and emergency contact provided: Patty (daughter) [phone]. Pt uses a walker to ambulate and is independent w/ ADLs. Pt receives GR and food stamp. Her income is available for this month. Pt denies substance abuse. Pt declined counseling/tx intervention/resource on substance abuse. PT was previously at [facility] in [place] before admitting to [facility]. Assigned CM is aware of pt's situation. SW will F/U as needed w/ dc planning. Signed: 06/20/19 at 1047 by ERMIAS GAMBOA <Co-Signature Required>
--- NOTE | 2019-06-20 10:47 | Infectious Diseases Prog Note ---
Assessment/Plan Assessment/Plan IMPRESSION: 1. Diabetic foot, osteomyelitis. 2. Allergic drug reaction to Invanz and vancomycin with rash, resolving 3. Diabetes mellitus. 4. Charcot joint. 5. Anemia. 6. Elevated transaminase improving 7. Chronic kidney disease Plan: stop Bactrim Continue Zyvox X 23 days Negative hepatitis B & C serologies Waiting for placement Subjective ROS Limited/Unobtainable: No Constitutional: Reports: no symptoms Respiratory: Reports: no symptoms Gastrointestinal/Abdominal: Reports: nausea, vomiting Genitourinary: Reports: no symptoms Allergies: Coded Allergies: ERTAPENEM (Verified Allergy, Intermediate, RASH - legs, back, torso, ) VANCOMYCIN (Verified Allergy, Intermediate, RASH - legs, back, torso, 06/16) Objective Vital Signs Last 24 Hour Vital Signs Date Time Temp Pulse Resp B/P (MAP) Pulse Ox O2 Delivery O2 Flow Rate FiO2 06/20/19 09:00 Room Air 06/20/19 08:00 98.5 85 19 113/71 (85) 97 06/20/19 04:00 98.5 83 18 106/68 (81) 98 06/20/19 00:00 98.2 85 18 118/72 (87) 98 06/19/19 21:00 Room Air 06/19/19 19:59 98.4 84 18 110/70 (83) 97 06/19/19 16:00 98.6 18 110/70 (83) 84 06/19/19 12:00 98.7 17 120/80 (93) 81 Height (Feet): 5 Height (Inches): 4.00 Weight (Pounds): 215 General Appearance: no acute distress HEENT: mucous membranes moist Respiratory/Chest: lungs clear Cardiovascular: normal rate Abdomen: soft, non tender Extremities: other - edema of left foot Skin: ulcers, other - left foot Neurologic/Psychiatric: alert, oriented x 3, responsive Microbiology Date/Time Source Procedure Growth Status 06/19/19 05:02 Stool Clostridium difficile Toxin Assay - Final Complete Laboratory Tests Test 06/20/19 05:55 White Blood Count 9.9 K/UL (4.8-10.8) Red Blood Count 3.69 M/UL (4.20-5.40) L Hemoglobin 11.0 G/DL (12.0-16.0) L Hematocrit 32.7 % (37.0-47.0) L Mean Corpuscular Volume 89 FL (80-99) Mean Corpuscular Hemoglobin 29.7 PG (27.0-31.0) Mean Corpuscular Hemoglobin Concent 33.6 G/DL (32.0-36.0) Red Cell Distribution Width 13.0 % (11.6-14.8) Platelet Count 434 K/UL (150-450) Mean Platelet Volume 4.6 FL (6.5-10.1) L Neutrophils (%) (Auto) 63.8 % (45.0-75.0) Lymphocytes (%) (Auto) 23.9 % (20.0-45.0) Monocytes (%) (Auto) 7.0 % (1.0-10.0) Eosinophils (%) (Auto) 4.2 % (0.0-3.0) H Basophils (%) (Auto) 1.2 % (0.0-2.0) Sodium Level 136 MMOL/L (136-145) Potassium Level 4.9 MMOL/L (3.5-5.1) Chloride Level 101 MMOL/L (98-107) Carbon Dioxide Level 22 MMOL/L (21-32) Anion Gap 13 mmol/L (5-15) Blood Urea Nitrogen 34 mg/dL (7-18) H Creatinine 1.6 MG/DL (0.55-1.30) H Estimat Glomerular Filtration Rate 33.1 mL/min (>60) Glucose Level 152 MG/DL (74-106) H Calcium Level 9.3 MG/DL (8.5-10.1) Phosphorus Level 4.4 MG/DL (2.5-4.9) Magnesium Level 2.1 MG/DL (1.8-2.4) Total Bilirubin 0.4 MG/DL (0.2-1.0) Gamma Glutamyl Transpeptidase 18 U/L (5-85) Aspartate Amino Transf (AST/SGOT) 21 U/L (15-37) Alanine Aminotransferase (ALT/SGPT) 29 U/L (12-78) Alkaline Phosphatase 240 U/L (46-116) H Total Creatine Kinase 15 U/L (26-308) L C-Reactive Protein, Quantitative 0.6 mg/dL (0.00-0.90) Pro-B-Type Natriuretic Peptide 76 pg/mL (0-125) Total Protein 8.2 G/DL (6.4-8.2) Albumin 3.1 G/DL (3.4-5.0) L Globulin 5.1 g/dL Albumin/Globulin Ratio 0.6 (1.0-2.7) L Current Medications Medications (Trade) Dose Ordered Sig/Dileep Route PRN Reason Start Time Stop Time Status Last Admin Dose Admin Acetaminophen (Tylenol) 650 mg Q4H PRN ORAL For Pain 06/14/19 04:15 07/14/19 04:14 06/16/19 17:26 Atorvastatin Calcium (Lipitor) 80 mg BEDTIME ORAL 06/14/19 21:00 07/14/19 20:59 06/19/19 20:18 Chlorhexidine Gluconate (Tianna-Hex 2%) 1 applic DAILY@1999 TOPIC 06/14/19 20:00 07/14/19 19:59 06/19/19 20:18 Dextrose (Dextrose 50%) 25 ml Q30M PRN IV Hypoglycemia 06/14/19 07:45 07/14/19 07:44 Dextrose (Dextrose 50%) 50 ml Q30M PRN IV Hypoglycemia 06/14/19 07:45 07/14/19 07:44 Folic Acid (Folate) 2 mg DAILY ORAL 06/15/19 10:30 07/15/19 10:29 06/20/19 08:38 Insulin Aspart (NovoLOG) BEFORE MEALS AND HS SUBQ 06/14/19 11:30 07/14/19 11:29 06/20/19 06:04 Linezolid (Zyvox) 600 mg EVERY 12 HOURS ORAL 06/14/19 15:42 06/23/19 15:41 06/20/19 08:38 Metformin HCl (Glucophage) 500 mg TIAC ORAL 06/15/19 11:30 07/15/19 11:29 06/20/19 06:04 Ondansetron HCl (Zofran) 4 mg Q6H PRN IVP Nausea & Vomiting 06/14/19 22:00 07/14/19 21:59 06/19/19 11:33 Adarsh Pitts MD Jun 20, 2019 10:47
--- NOTE | 2019-06-20 11:00 | NUR ---
NURSE NOTES: PT'S LEFT FOOT DRESSING WAS SOILED AND DRESSING WAS CHANGED ORDERED. PT TOLERATED WELL. WILL CONTINUE TO MONITOR.
[2019-06-20 12:00] VITALS: BP 118/79
--- NOTE | 2019-06-20 12:25 | NUR ---
NURSE NOTES: PT WOULD LIKE TO GO BACK TO HER RECUPERATIVE CARE ([facility]) AND WANTS OUR DATA ENTRY COORDINATOR TO SPEAK TO THE DATA ENTRY COORDINATOR AT THE REC CARE: SAMMIE BREEN EXT 808 OR NISHA EXT 066. RN WILL RELAY TO CM. RIVERA
--- NOTE | 2019-06-20 12:31 | Surgery Progress Note ---
Surgery Progress Note Subjective Additional Comments stable comfortable no complaints Objective Last 24 Hour Vital Signs Date Time Temp Pulse Resp B/P (MAP) Pulse Ox O2 Delivery O2 Flow Rate FiO2 06/20/19 09:00 Room Air 06/20/19 08:00 98.5 85 19 113/71 (85) 97 06/20/19 04:00 98.5 83 18 106/68 (81) 98 06/20/19 00:00 98.2 85 18 118/72 (87) 98 06/19/19 21:00 Room Air 06/19/19 19:59 98.4 84 18 110/70 (83) 97 06/19/19 16:00 98.6 18 110/70 (83) 84 I&O Intake and Output 06/19/19 06/20/19 19:00 07:00 Intake Total 300 ml Balance 300 ml Intake Oral 300 ml # Voids 2 Cardiovascular: RSR Respiratory: clear Abdomen: soft, non-tender, present bowel sounds Extremities: no cyanosis Laboratory Tests Test 06/20/19 05:55 White Blood Count 9.9 K/UL (4.8-10.8) Red Blood Count 3.69 M/UL (4.20-5.40) L Hemoglobin 11.0 G/DL (12.0-16.0) L Hematocrit 32.7 % (37.0-47.0) L Mean Corpuscular Volume 89 FL (80-99) Mean Corpuscular Hemoglobin 29.7 PG (27.0-31.0) Mean Corpuscular Hemoglobin Concent 33.6 G/DL (32.0-36.0) Red Cell Distribution Width 13.0 % (11.6-14.8) Platelet Count 434 K/UL (150-450) Mean Platelet Volume 4.6 FL (6.5-10.1) L Neutrophils (%) (Auto) 63.8 % (45.0-75.0) Lymphocytes (%) (Auto) 23.9 % (20.0-45.0) Monocytes (%) (Auto) 7.0 % (1.0-10.0) Eosinophils (%) (Auto) 4.2 % (0.0-3.0) H Basophils (%) (Auto) 1.2 % (0.0-2.0) Sodium Level 136 MMOL/L (136-145) Potassium Level 4.9 MMOL/L (3.5-5.1) Chloride Level 101 MMOL/L (98-107) Carbon Dioxide Level 22 MMOL/L (21-32) Anion Gap 13 mmol/L (5-15) Blood Urea Nitrogen 34 mg/dL (7-18) H Creatinine 1.6 MG/DL (0.55-1.30) H Estimat Glomerular Filtration Rate 33.1 mL/min (>60) Glucose Level 152 MG/DL (74-106) H Calcium Level 9.3 MG/DL (8.5-10.1) Phosphorus Level 4.4 MG/DL (2.5-4.9) Magnesium Level 2.1 MG/DL (1.8-2.4) Total Bilirubin 0.4 MG/DL (0.2-1.0) Gamma Glutamyl Transpeptidase 18 U/L (5-85) Aspartate Amino Transf (AST/SGOT) 21 U/L (15-37) Alanine Aminotransferase (ALT/SGPT) 29 U/L (12-78) Alkaline Phosphatase 240 U/L (46-116) H Total Creatine Kinase 15 U/L (26-308) L C-Reactive Protein, Quantitative 0.6 mg/dL (0.00-0.90) Pro-B-Type Natriuretic Peptide 76 pg/mL (0-125) Total Protein 8.2 G/DL (6.4-8.2) Albumin 3.1 G/DL (3.4-5.0) L Globulin 5.1 g/dL Albumin/Globulin Ratio 0.6 (1.0-2.7) L Plan Problems: (1) Left foot infection (2) Occluded PICC line Assessment & Plan: new picc 06/14/2019 (3) Open wound of left foot (4) Cellulitis of left foot Assessment & Plan: 50-year-old female with history of chronic left foot wounds , cellulitis, infection who in 2018 initially developed a abscess/blister and has been dealing with chronic infection of the left foot since. On the medial aspect there is a 3 cm x 2 cm x 1 cm open wound with good granulation tissue seemingly a little bit more chronic than 1 week no drainage no signs of significant active infection. On the plantar aspect of the foot there is a 1 cm x 1 cm by half centimeter open punched-out wound from prior drainage with no active drainage currently. Patient states that she was recommended to have local wound care and antibiotics for 6 weeks. States that she is on isolation for the cultures that were taken outside facility. new picc placed Local wound care with hydrogel packing or Thera honey packing gauze daily Wash wound left foot daily with normal saline then apply above dressings Wrap foot leg with gauze after packing and dressings applied Trend labs Antibiotics per infectious disease podiatry input appreciated Thank you will follow with recommendations Cristian Tavarez Jun 20, 2019 12:31
--- NOTE | 2019-06-20 12:37 | Nephrology Progress Note ---
Assessment/Plan Problem List: (1) DMII (diabetes mellitus, type 2) (2) Ascites (3) Hypertension (4) Cellulitis of left foot (5) Proteinuria Assessment: diabetic nephropathy Assessment Cr rising- Hold Zestril- watch Cr on Bactrim - Metformin Ascitis Obese DM Anemia HypoAlbuminemia elevated LFTs Plan Kayexelate as needed Bolus NS UA prn Lasix Anemia larose adjust BP meds wound care per orders Subjective ROS Limited/Unobtainable: No Constitutional: Reports: malaise Objective Objective Last 24 Hour Vital Signs Date Time Temp Pulse Resp B/P (MAP) Pulse Ox O2 Delivery O2 Flow Rate FiO2 06/20/19 12:00 97.9 83 17 118/79 (92) 99 06/20/19 09:00 Room Air 06/20/19 08:00 98.5 85 19 113/71 (85) 97 06/20/19 04:00 98.5 83 18 106/68 (81) 98 06/20/19 00:00 98.2 85 18 118/72 (87) 98 06/19/19 21:00 Room Air 06/19/19 19:59 98.4 84 18 110/70 (83) 97 06/19/19 16:00 98.6 18 110/70 (83) 84 Intake and Output 06/19/19 06/20/19 19:00 07:00 Intake Total 300 ml Balance 300 ml Intake Oral 300 ml # Voids 2 Current Medications Medications (Trade) Dose Ordered Sig/Dileep Route PRN Reason Start Time Stop Time Status Last Admin Dose Admin Acetaminophen (Tylenol) 650 mg Q4H PRN ORAL For Pain 06/14/19 04:15 07/14/19 04:14 06/16/19 17:26 Atorvastatin Calcium (Lipitor) 80 mg BEDTIME ORAL 06/14/19 21:00 07/14/19 20:59 06/19/19 20:18 Chlorhexidine Gluconate (Tianna-Hex 2%) 1 applic DAILY@1999 TOPIC 06/14/19 20:00 07/14/19 19:59 06/19/19 20:18 Dextrose (Dextrose 50%) 25 ml Q30M PRN IV Hypoglycemia 06/14/19 07:45 07/14/19 07:44 Dextrose (Dextrose 50%) 50 ml Q30M PRN IV Hypoglycemia 06/14/19 07:45 07/14/19 07:44 Folic Acid (Folate) 2 mg DAILY ORAL 06/15/19 10:30 07/15/19 10:29 06/20/19 08:38 Insulin Aspart (NovoLOG) BEFORE MEALS AND HS SUBQ 06/14/19 11:30 07/14/19 11:29 06/20/19 06:04 Linezolid (Zyvox) 600 mg EVERY 12 HOURS ORAL 06/14/19 15:42 06/23/19 15:41 06/20/19 08:38 Metformin HCl (Glucophage) 500 mg TIAC ORAL 06/15/19 11:30 07/15/19 11:29 06/20/19 12:20 Ondansetron HCl (Zofran) 4 mg Q6H PRN IVP Nausea & Vomiting 06/14/19 22:00 07/14/19 21:59 06/20/19 12:20 Laboratory Tests 06/20/19 05:55: White Blood Count 9.9, Red Blood Count 3.69L, Hemoglobin 11.0L, Hematocrit 32.7L , Mean Corpuscular Volume 89, Mean Corpuscular Hemoglobin 29.7, Mean Corpuscular Hemoglobin Concent 33.6, Red Cell Distribution Width 13.0, Platelet Count 434, Mean Platelet Volume 4.6L, Neutrophils (%) (Auto) 63.8, Lymphocytes ( %) (Auto) 23.9, Monocytes (%) (Auto) 7.0, Eosinophils (%) (Auto) 4.2H, Basophils (%) (Auto) 1.2, Sodium Level 136, Potassium Level 4.9, Chloride Level 101, Carbon Dioxide Level 22, Anion Gap 13, Blood Urea Nitrogen 34H, Creatinine 1.6H, Estimat Glomerular Filtration Rate 33.1, Glucose Level 152H, Calcium Level 9.3, Phosphorus Level 4.4, Magnesium Level 2.1, Total Bilirubin 0.4, Gamma Glutamyl Transpeptidase 18, Aspartate Amino Transf (AST/SGOT) 21, Alanine Aminotransferase (ALT/SGPT) 29, Alkaline Phosphatase 240H, Total Creatine Kinase 15L, C-Reactive Protein, Quantitative 0.6, Pro-B-Type Natriuretic Peptide 76, Total Protein 8.2, Albumin 3.1L, Globulin 5.1, Albumin/Globulin Ratio 0.6L Height (Feet): 5 Height (Inches): 4.00 Weight (Pounds): 215 General Appearance: no apparent distress Extremities: other - LE edema much decreased Objective no change Erasto Parikh MD Jun 20, 2019 12:37
--- NOTE | 2019-06-20 14:00 | NUR ---
NURSE NOTES: PT STATES SHE WOULD LIKE PLACEMENT NEAR [place]. RN RELAYED TO [facility] STAFFORD.
--- NOTE | 2019-06-20 15:08 | NUR ---
CASE MANAGEMENT:REVIEW 06/19/2019 SI;LEFT FOOT CELLULITIS. HTN. 98.6 86 20 159/75 95% ON RA NO LABS AVAILABLE IS;ZYVOX PO Q12 HRS KRISTI-HEX TOP Q12 HRS MED SURG STATUS DCP;SNF PLACEMENT OR HOME HEALTH UPON DISCHARGE CASE MANAGEMENT:REVIEW 06/20/2019 SI.LEFT FOOT CELLULITIS. HTN. 98.5 85 19 118/72 97% ON RA BUN 34 CR 1.6 IS;ZYVOX PO Q12 HRS KRISTI-HEX TOP Q12 HRS MED SURG STATUS DCP;SNF PLACEMENT
--- NOTE | 2019-06-20 15:16 | NUR ---
CDDI NOTE:DISCHARGE PLANNING NOTE PATIENT HAS BEEN REFERRED TO TERESO QUINTERO P: [phone] F: [phone]
[2019-06-20 16:00] VITALS: BP 141/88
--- NOTE | 2019-06-20 19:07 | NUR ---
HAND-OFF: Report given to Arsh VIDALES RN.
--- NOTE | 2019-06-20 19:36 | NUR ---
NURSE NOTES: Patient A x4,on room air. Denies pain or discomfort at this time. MICHELLE PICC line intact and patent. Dressing dry and intact. Bed locked in lowest position. Call light within reach. Will continue to monitor the pt.
[2019-06-20 20:19] VITALS: BP 127/75
[2019-06-20] MEDS: Atorvastatin 80mg tab ORAL SCH (20:41)
[2019-06-20] MEDS: Dyna-Hex 2% Top Sol 2oz TOPIC SCH (20:41)
--- NOTE | 2019-06-20 21:06 | General Progress Note ---
Assessment/Plan Problem List: (1) Hypertension ICD Codes: I10 - Essential (primary) hypertension SNOMED: 75191059 (2) Cellulitis of left foot ICD Codes: L03.116 - Cellulitis of left lower limb SNOMED: 204657855 (3) Open wound of left foot ICD Codes: S91.302A - Unspecified open wound, left foot, initial encounter SNOMED: 38182071948826132 (4) Left foot infection ICD Codes: L08.9 - Local infection of the skin and subcutaneous tissue, unspecified SNOMED: 726761073 (5) DMII (diabetes mellitus, type 2) ICD Codes: E11.9 - Type 2 diabetes mellitus without complications SNOMED: 10779865 Status: progressing Assessment/Plan: le and foot celluiits cleared by podiatry and id for dc iv abx per id so dc appropiate place per id to finish iv abx Subjective ROS Limited/Unobtainable: Yes Allergies: Coded Allergies: ERTAPENEM (Verified Allergy, Intermediate, RASH - legs, back, torso, ) VANCOMYCIN (Verified Allergy, Intermediate, RASH - legs, back, torso, 06/16) Objective Last 24 Hour Vital Signs Date Time Temp Pulse Resp B/P (MAP) Pulse Ox O2 Delivery O2 Flow Rate FiO2 06/20/19 20:19 98.2 93 18 127/75 (92) 97 06/20/19 16:00 98.4 79 17 141/88 (105) 97 06/20/19 12:00 97.9 83 17 118/79 (92) 99 06/20/19 09:00 Room Air 06/20/19 08:00 98.5 85 19 113/71 (85) 97 06/20/19 04:00 98.5 83 18 106/68 (81) 98 06/20/19 00:00 98.2 85 18 118/72 (87) 98 Intake and Output 06/19/19 06/20/19 19:00 07:00 Intake Total 300 ml Balance 300 ml Intake Oral 300 ml # Voids 2 Laboratory Tests 06/20/19 05:55: White Blood Count 9.9, Red Blood Count 3.69L, Hemoglobin 11.0L, Hematocrit 32.7L , Mean Corpuscular Volume 89, Mean Corpuscular Hemoglobin 29.7, Mean Corpuscular Hemoglobin Concent 33.6, Red Cell Distribution Width 13.0, Platelet Count 434, Mean Platelet Volume 4.6L, Neutrophils (%) (Auto) 63.8, Lymphocytes ( %) (Auto) 23.9, Monocytes (%) (Auto) 7.0, Eosinophils (%) (Auto) 4.2H, Basophils (%) (Auto) 1.2, Sodium Level 136, Potassium Level 4.9, Chloride Level 101, Carbon Dioxide Level 22, Anion Gap 13, Blood Urea Nitrogen 34H, Creatinine 1.6H, Estimat Glomerular Filtration Rate 33.1, Glucose Level 152H, Calcium Level 9.3, Phosphorus Level 4.4, Magnesium Level 2.1, Total Bilirubin 0.4, Gamma Glutamyl Transpeptidase 18, Aspartate Amino Transf (AST/SGOT) 21, Alanine Aminotransferase (ALT/SGPT) 29, Alkaline Phosphatase 240H, Total Creatine Kinase 15L, C-Reactive Protein, Quantitative 0.6, Pro-B-Type Natriuretic Peptide 76, Total Protein 8.2, Albumin 3.1L, Globulin 5.1, Albumin/Globulin Ratio 0.6L Height (Feet): 5 Height (Inches): 4.00 Weight (Pounds): 215 Cardiovascular: regular rhythm Respiratory/Chest: lungs clear Abdomen: soft Elodia Dunbar MD Jun 20, 2019 21:05
[2019-06-21] VITALS (7 sets, daily range): BP systolic 104–130; BP diastolic 54–75
--- NOTE | 2019-06-21 00:49 | NUR ---
NURSE NOTES: Called and received order for Loperamide 4mg PO one time dose due to c/o three episodes of diarrhea. Order carried out. Will continue to monitor the pt.
[2019-06-21] MEDS: metFORMIN 500mg tab ORAL SCH ×3 (06:12→16:30)
[2019-06-21] MEDS: NovoLOG Insulin Flexpen SUBQ SCH ×4 (06:12→21:08)
--- NOTE | 2019-06-21 06:45 | NUR ---
NURSE NOTES: No diarrhea noted after one dose of imodium 4mg po @ 0030.
--- NOTE | 2019-06-21 07:20 | NUR ---
NURSE NOTES:Handoff received from MICHELLE Patel. Patient received awake and alert and able to make needs known, Patient has Right upper arm PICC line, clean dry and intact, saline locked. No acute signs of distress noted. Patient has call light at reach with bed in the low and locked position. Patient does not have any DVT prophylaxis as said it is contraindicated for L foot wound. patient is on room air, no SOB or acute respiratory issues noted. Will continue to monitor patient.
--- NOTE | 2019-06-21 07:30 | NUR ---
HAND-OFF: Report given to MICHELLE Perea.
--- NOTE | 2019-06-21 12:12 | NUR ---
*-*DISCHARGE PLANNING*-* PATIENT HAS BEEN REFERRED TO: TERESOBRAYAN QUINTERO P: [phone] F: [phone] [facility] P:[phone] F:[phone] [facility] P: [phone] F: [phone]
--- NOTE | 2019-06-21 12:20 | NUR ---
NURSE NOTES: patient observed vomiting, patient stated the nausea came on suddenly and that she has been throwing up on and off for 5 days. Zofran administered.
--- NOTE | 2019-06-21 13:29 | NUR ---
CASE MANAGEMENT:DISCHARGE PLANNING NOTE SPOKE WITH PATIENT AT BEDSIDE. REQUESTED TO BE REFERRED BACK TO [facility] [facility] EMERG[facility]Y [facility]MENT. CALL MADE TO [facility]. SPOKE WITH SAMMIE, MEDICAL OUTSIDE SALESPERSON WHO STATES PATIENT NEEDS TO BE REFERRED TO [facility] FOR [facility]P BEFORE BEING ACCEPTED BACK TH [facility]. CALL MADE TO [facility] FOR HELP. SPOKE WITH [facility] WHO REQUESTS INPATIENT MEDICAL RECORDS TO PROCESS REQUEST FOR PLACEMENT. STATES THEY MAY BE ABLE TO EXPEDITE PLACEMENT PATIENT HAS BEEN AN ESTABLISHED CLIENT [facility] @ [facility] FOR HELP [phone] EMAIL: [email or web address] ERMIAS INFORMED AND AWARE Addendum: 06/21/19 at 1512 by RIVERA OCAMPO LVN LVN CORRECTION P: [phone] EMAIL: [email or web address] Addendum: 06/21/19 at 1652 by RIVERA OCAMPO LVN LVN CALL RECEIVED FROM LIAM AT [facility] FOR HELP. REPORTS THAT A STAFF NURSE WILL CONTACT [facility] Wednesday06/22/19 AFTER REVIEWING CLINICALS IN RE TO PLACEMENT. WILL ANTICIPATE CALL BACK
--- NOTE | 2019-06-21 14:25 | Infectious Diseases Prog Note ---
Assessment/Plan Assessment/Plan IMPRESSION: 1. Diabetic foot, osteomyelitis. 2. Allergic drug reaction to Invanz and vancomycin with rash, resolving 3. Diabetes mellitus. 4. Charcot joint. 5. Anemia. 6. Elevated transaminase improving 7. Chronic kidney disease 8. Diarrhea, negative C. difficile Plan: start on Imodium Continue Zyvox X 22 days Negative hepatitis B & C serologies Waiting for placement Subjective ROS Limited/Unobtainable: Yes Respiratory: Reports: no symptoms Gastrointestinal/Abdominal: Reports: vomiting, diarrhea Musculoskeletal: Reports: other - occasional foot pain Allergies: Coded Allergies: ERTAPENEM (Verified Allergy, Intermediate, RASH - legs, back, torso, ) VANCOMYCIN (Verified Allergy, Intermediate, RASH - legs, back, torso, 06/16) Objective Vital Signs Last 24 Hour Vital Signs Date Time Temp Pulse Resp B/P (MAP) Pulse Ox O2 Delivery O2 Flow Rate FiO2 06/21/19 14:00 98.8 96 20 130/75 (93) 98 06/21/19 12:00 98.8 96 20 130/75 (93) 98 06/21/19 09:00 Room Air 06/21/19 08:00 98.7 87 18 124/60 (81) 92 06/21/19 04:00 99.0 85 18 104/58 (73) 96 06/21/19 00:13 98.3 93 18 114/54 (74) 96 06/20/19 21:00 Room Air 06/20/19 20:19 98.2 93 18 127/75 (92) 97 06/20/19 16:00 98.4 79 17 141/88 (105) 97 Height (Feet): 5 Height (Inches): 4.00 Weight (Pounds): 213 General Appearance: no acute distress HEENT: mucous membranes moist Respiratory/Chest: lungs clear Cardiovascular: normal rate Abdomen: soft, non tender Extremities: other - mild edema Skin: ulcers, other - left foot Neurologic/Psychiatric: alert, oriented x 3, responsive Microbiology Date/Time Source Procedure Growth Status 06/19/19 05:02 Stool Clostridium difficile Toxin Assay - Final Complete Current Medications Medications (Trade) Dose Ordered Sig/Dileep Route PRN Reason Start Time Stop Time Status Last Admin Dose Admin Acetaminophen (Tylenol) 650 mg Q4H PRN ORAL For Pain 06/14/19 04:15 07/14/19 04:14 06/16/19 17:26 Atorvastatin Calcium (Lipitor) 80 mg BEDTIME ORAL 06/14/19 21:00 07/14/19 20:59 06/20/19 20:41 Chlorhexidine Gluconate (Tianna-Hex 2%) 1 applic DAILY@2000 TOPIC 06/14/19 20:00 07/14/19 19:59 06/20/19 20:41 Dextrose (Dextrose 50%) 25 ml Q30M PRN IV Hypoglycemia 06/14/19 07:45 07/14/19 07:44 Dextrose (Dextrose 50%) 50 ml Q30M PRN IV Hypoglycemia 06/14/19 07:45 07/14/19 07:44 Folic Acid (Folate) 2 mg DAILY ORAL 06/15/19 10:30 07/15/19 10:29 06/21/19 09:11 Insulin Aspart (NovoLOG) BEFORE MEALS AND HS SUBQ 06/14/19 11:30 07/14/19 11:29 06/21/19 12:31 Linezolid (Zyvox) 600 mg EVERY 12 HOURS ORAL 06/14/19 15:42 06/23/19 15:41 06/21/19 09:11 Metformin HCl (Glucophage) 500 mg TIAC ORAL 06/15/19 11:30 07/15/19 11:29 06/21/19 12:55 Ondansetron HCl (Zofran) 4 mg Q6H PRN IVP Nausea & Vomiting 06/14/19 22:00 07/14/19 21:59 06/21/19 12:21 Adarsh Pitts MD Jun 21, 2019 14:25
--- NOTE | 2019-06-21 14:26 | NUR ---
ASSEMBLY INSPECTOR NOTE Donnie Umana from [facility] [phone]. BEE faxed clinicals to [email or web address] Signed: 06/21/19 at 1427 by ERMIAS GAMBOA <Co-Signature Required>
--- NOTE | 2019-06-21 14:27 | NUR ---
*-* INSURANCE *-* ALL CLINICALS HAVE BEEN FAXED: CARMITA SEXTON # [phone] FAX# [phone] REVIEWS/CLINICALS
--- NOTE | 2019-06-21 14:56 | Nephrology Progress Note ---
Assessment/Plan Problem List: (1) DMII (diabetes mellitus, type 2) (2) Ascites (3) Hypertension (4) Cellulitis of left foot (5) Proteinuria Assessment: diabetic nephropathy Assessment Cr rising- Hold Zestril- watch Cr on Bactrim - Metformin Ascitis Obese DM Anemia HypoAlbuminemia elevated LFTs Plan Kayexelate as needed Bolus NS UA prn Lasix Anemia larose adjust BP meds wound care per orders Subjective ROS Limited/Unobtainable: No Constitutional: Reports: malaise Objective Objective Last 24 Hour Vital Signs Date Time Temp Pulse Resp B/P (MAP) Pulse Ox O2 Delivery O2 Flow Rate FiO2 06/21/19 14:00 98.8 96 20 130/75 (93) 98 06/21/19 12:00 98.8 96 20 130/75 (93) 98 06/21/19 09:00 Room Air 06/21/19 08:00 98.7 87 18 124/60 (81) 92 06/21/19 04:00 99.0 85 18 104/58 (73) 96 06/21/19 00:13 98.3 93 18 114/54 (74) 96 06/20/19 21:00 Room Air 06/20/19 20:19 98.2 93 18 127/75 (92) 97 06/20/19 16:00 98.4 79 17 141/88 (105) 97 Intake and Output 06/20/19 06/21/19 19:00 07:00 Intake Total 1020 ml Balance 1020 ml Intake Oral 120 ml Other 900 ml Height (Feet): 5 Height (Inches): 4.00 Weight (Pounds): 213 General Appearance: no apparent distress Objective no change Erasto Parikh MD Jun 21, 2019 14:56
--- NOTE | 2019-06-21 15:14 | NUR ---
CASE MANAGEMENT:REVIEW SI;LEFT FOOT CELLULITIS 99.0 96 20 130/75 92% ON RA NO LABS AVAILABLE IS;KRISTI-HEX TOP QD ZOFRAN IV Q6 HRS ZYVOX PO Q12 HRS MED SURG STATUS DCP;PLACEMENT
--- NOTE | 2019-06-21 15:33 | General Progress Note ---
Assessment/Plan Status: progressing Assessment/Plan: Assessment and Recs: # Anemia of chronic disease due to underlying chronic medical issues, multifactorial v Gi bleed --> Anemia workup has been ordered, rule out gi bleed --> No evidence of hemolysis is noted, peripheral smear has been reviewed. --> Hgb goal >7. Transfuse prn. --> Epogen or iron at this time is not particularly indicated --> hgb trend: 9.7-->10 --> Medications have been reviewed --> low threshold for gi evaluation in case has occult + # Occluded PICC line --> has been changed # Diabetic foot, osteomyelitis. LE foot cellulitis --> per endo, accuchecks qac and qhs --> seen by pod, id surg --> on bactrim zyvox-->now off # Diabetes mellitus. # Charcot joint. # Transaminitis # Dvt ppx scds Appreciate consultation and holden RN Subjective HEENT: Denies: no symptoms, eye pain, blurred vision, tearing, double vision, ear pain, ear discharge, nose pain, nose congestion, throat pain, throat swelling, mouth pain, mouth swelling, other Cardiovascular: Denies: no symptoms, chest pain, edema, irregular heart rate, lightheadedness, palpitations, syncope, other Respiratory: Denies: no symptoms, cough, orthopnea, shortness of breath, SOB with excertion, SOB at rest, sputum, stridor, wheezing, other Gastrointestinal/Abdominal: Denies: no symptoms, abdomen distended, abdominal pain, black stools, tarry stools, blood in stool, constipated, diarrhea, difficulty swallowing, nausea, poor appetite, poor fluid intake, rectal bleeding , vomiting, other Allergies: Coded Allergies: ERTAPENEM (Verified Allergy, Intermediate, RASH - legs, back, torso, ) VANCOMYCIN (Verified Allergy, Intermediate, RASH - legs, back, torso, 06/16) Subjective 06/16: no acute events, h/h stable, on zyvox, hep panel pending 06/18: awake and alert, no acute distress, labs reviewed 06/19: remains on linezolid, no bleeding, labs noted, no major changes 06/20: no major changes, labs noted, remains on abx, no bleeding 06/21: no bleeding, labs noted, with nausea this am, zofran was given Objective Last 24 Hour Vital Signs Date Time Temp Pulse Resp B/P (MAP) Pulse Ox O2 Delivery O2 Flow Rate FiO2 06/21/19 14:00 98.8 96 20 130/75 (93) 98 06/21/19 12:00 98.8 96 20 130/75 (93) 98 06/21/19 09:00 Room Air 06/21/19 08:00 98.7 87 18 124/60 (81) 92 06/21/19 04:00 99.0 85 18 104/58 (73) 96 06/21/19 00:13 98.3 93 18 114/54 (74) 96 06/20/19 21:00 Room Air 06/20/19 20:19 98.2 93 18 127/75 (92) 97 06/20/19 16:00 98.4 79 17 141/88 (105) 97 Intake and Output 06/20/19 06/21/19 19:00 07:00 Intake Total 1020 ml Balance 1020 ml Intake Oral 120 ml Other 900 ml Height (Feet): 5 Height (Inches): 4.00 Weight (Pounds): 213 Objective Physical Exam Vitals: reviewed General: NAD Neck: supple Chest: clear breath sounds bilaterally Cardiovascular: RRR, no s3, s4 Abdomen: soft, nontender, nd Extremities: no cce, normal range of motion ++ picc upper arm r, also ankle and left foot erythema with bandages+ Mental: alert Jose Bond MD Jun 21, 2019 15:33
--- NOTE | 2019-06-21 16:41 | NUR ---
MACHINE SHOP INSTRUCTOR NOTE Josefina Umana confirmed she received the fax and the packet will be reviewed by her RN senior systems programmer. Signed: 06/21/19 at 1642 by ERMIAS GAMBOA <Co-Signature Required>
[2019-06-21] MEDS: Dyna-Hex 2% Top Sol 2oz TOPIC SCH (19:30)
--- NOTE | 2019-06-21 19:39 | NUR ---
NURSE NOTES: Received patient awake in bed, able to make needs known, no c/o vomiting at this time. PICC noted, dressing to be changed today. Bed low and locked, patient wearing non slip socks. Call light and belongings within reach.
[2019-06-21] MEDS: Atorvastatin 80mg tab ORAL SCH (19:59)
--- NOTE | 2019-06-21 22:33 | NUR ---
NURSE NOTES: Dressing changed on left foot per wound care order.
[2019-06-22] VITALS (7 sets, daily range): BP systolic 109–160; BP diastolic 53–89
[2019-06-22 05:37] LABS: BASOPHILS % (AUTO) 0.9 % (0.0-2.0); EOSINOPHILS % (AUTO) 4.4 % (0.0-3.0); HEMATOCRIT 31.2 % (37.0-47.0); HEMOGLOBIN 10.5 G/DL (12.0-16.0); LYMPHOCYTES % (AUTO) 33.7 % (20.0-45.0); MEAN CORPUSCULAR VOLUME 88 FL (80-99); MONOCYTES % (AUTO) 6.1 % (1.0-10.0); NEUTROPHILS % (AUTO) 54.9 % (45.0-75.0); PLATELET COUNT 399 K/UL (150-450); RED BLOOD COUNT 3.53 M/UL (4.20-5.40); RED CELL DISTRIBUTION WIDTH 13.1 % (11.6-14.8); WHITE BLOOD COUNT 9.8 K/UL (4.8-10.8)
[2019-06-22] MEDS: metFORMIN 500mg tab ORAL SCH ×3 (06:02→16:30)
[2019-06-22] MEDS: NovoLOG Insulin Flexpen SUBQ SCH ×4 (06:02→20:38)
--- NOTE | 2019-06-22 07:10 | NUR ---
NURSE NOTES: Handoff received from MICHELLE Monreal. Patient received awake and alert with no acute signs of distress, patient denies pain at this time. Patient has call light at bedside, bed in the low and locked position. Patient has right upper arm PICC line, saline locked, dressing changed PM shift. Patient is on contact precaution for VRE. Will continue to monitor patient.
--- NOTE | 2019-06-22 07:12 | NUR ---
HAND-OFF: Report given to MICHELLE Perea.
--- NOTE | 2019-06-22 08:44 | Nephrology Progress Note ---
Assessment/Plan Problem List: (1) DMII (diabetes mellitus, type 2) (2) Ascites (3) Hypertension (4) Cellulitis of left foot (5) Proteinuria Assessment: diabetic nephropathy Assessment Cr rising- Hold Zestril- watch Cr on Bactrim - Metformin Ascitis Obese DM Anemia HypoAlbuminemia elevated LFTs Plan no chem panel today- Kayexelate as needed Bolus NS as needed UA prn Lasix Anemia larose adjust BP meds wound care per orders Subjective ROS Limited/Unobtainable: No Constitutional: Reports: malaise Objective Objective Last 24 Hour Vital Signs Date Time Temp Pulse Resp B/P (MAP) Pulse Ox O2 Delivery O2 Flow Rate FiO2 06/22/19 04:00 97.9 89 18 127/74 (91) 95 06/22/19 00:00 98.8 89 18 109/53 (71) 95 06/21/19 22:59 Room Air 06/21/19 20:00 97.8 91 18 112/70 (84) 95 06/21/19 16:00 98.5 94 19 114/65 (81) 95 06/21/19 14:00 98.8 96 20 130/75 (93) 98 06/21/19 12:00 98.8 96 20 130/75 (93) 98 06/21/19 09:00 Room Air Intake and Output 06/21/19 06/22/19 19:00 07:00 Intake Total 840 ml Balance 840 ml Intake Oral 840 ml # Voids 5 Laboratory Tests 06/22/19 04:40: White Blood Count 9.8, Red Blood Count 3.53L, Hemoglobin 10.5L, Hematocrit 31.2L , Mean Corpuscular Volume 88, Mean Corpuscular Hemoglobin 29.7, Mean Corpuscular Hemoglobin Concent 33.7, Red Cell Distribution Width 13.1, Platelet Count 399, Mean Platelet Volume 4.7L, Neutrophils (%) (Auto) 54.9, Lymphocytes ( %) (Auto) 33.7, Monocytes (%) (Auto) 6.1, Eosinophils (%) (Auto) 4.4H, Basophils (%) (Auto) 0.9 Height (Feet): 5 Height (Inches): 4.00 Weight (Pounds): 213 General Appearance: no apparent distress Objective no change Erasto Parikh MD Jun 22, 2019 08:44
--- NOTE | 2019-06-22 09:58 | General Progress Note ---
Assessment/Plan Status: progressing Assessment/Plan: IM PROGRESS NOTE COVERING FOR DR. HILLIARD Assessment and Recs: # Occluded PICC line, MICHELLE --> has been changed # Diabetic foot, osteomyelitis. LE foot cellulitis --> per endo, accuchecks qac and qhs --> seen by pod, id surg --> on bactrim zyvox-->now off # Anemia of chronic disease due to underlying chronic medical issues, multifactorial v Gi bleed --> Anemia workup has been ordered, rule out gi bleed --> No evidence of hemolysis is noted, peripheral smear has been reviewed. --> Hgb goal >7. Transfuse prn. --> Epogen or iron at this time is not particularly indicated --> hgb trend: 9.7-->10-->10.5 --> Medications have been reviewed --> low threshold for gi evaluation in case has occult + # Diabetes mellitus. # Charcot joint. # Transaminitis # Dvt ppx scds Appreciate consultation and dw RN Subjective Allergies: Coded Allergies: ERTAPENEM (Verified Allergy, Intermediate, RASH - legs, back, torso, ) VANCOMYCIN (Verified Allergy, Intermediate, RASH - legs, back, torso, 06/16) Subjective 06/16: no acute events, h/h stable, on zyvox, hep panel pending 06/18: awake and alert, no acute distress, labs reviewed 06/19: remains on linezolid, no bleeding, labs noted, no major changes 06/20: no major changes, labs noted, remains on abx, no bleeding 06/21: no bleeding, labs noted, with nausea this am, zofran was given 06/22: awake and alert, no acute events, on room air, folate Objective Last 24 Hour Vital Signs Date Time Temp Pulse Resp B/P (MAP) Pulse Ox O2 Delivery O2 Flow Rate FiO2 06/22/19 09:00 Room Air 06/22/19 08:00 98.2 90 18 115/59 (77) 98 06/22/19 04:00 97.9 89 18 127/74 (91) 95 06/22/19 00:00 98.8 89 18 109/53 (71) 95 06/21/19 22:59 Room Air 06/21/19 20:00 97.8 91 18 112/70 (84) 95 06/21/19 16:00 98.5 94 19 114/65 (81) 95 06/21/19 14:00 98.8 96 20 130/75 (93) 98 06/21/19 12:00 98.8 96 20 130/75 (93) 98 Intake and Output 06/21/19 06/22/19 19:00 07:00 Intake Total 840 ml Balance 840 ml Intake Oral 840 ml # Voids 5 Laboratory Tests 06/22/19 04:40: White Blood Count 9.8, Red Blood Count 3.53L, Hemoglobin 10.5L, Hematocrit 31.2L , Mean Corpuscular Volume 88, Mean Corpuscular Hemoglobin 29.7, Mean Corpuscular Hemoglobin Concent 33.7, Red Cell Distribution Width 13.1, Platelet Count 399, Mean Platelet Volume 4.7L, Neutrophils (%) (Auto) 54.9, Lymphocytes ( %) (Auto) 33.7, Monocytes (%) (Auto) 6.1, Eosinophils (%) (Auto) 4.4H, Basophils (%) (Auto) 0.9 Height (Feet): 5 Height (Inches): 4.00 Weight (Pounds): 213 Objective Physical Exam Vitals: reviewed General: NAD Neck: supple Chest: clear breath sounds bilaterally Cardiovascular: RRR, no s3, s4 Abdomen: soft, nontender, nd Extremities: no cce, normal range of motion ++ picc upper arm r, also ankle and left foot erythema with bandages+ Mental: alert Jose Bond MD Jun 22, 2019 09:58
--- NOTE | 2019-06-22 10:07 | NUR ---
NURSE NOTES: Patient has a form she needs filling out by an MD for physical health assessment for general relief. Contacted Dr Zaldivar to see if he could sign this form for the patient. stated he will try and fill it out next time he is in the hospital.
--- NOTE | 2019-06-22 11:14 | NUR ---
RESPITE WORKER NOTE BEE received a message from Josefina Umana from [facility] that pt is not appropriate for their interim housing program d/t incompletion of 6 weeks of antibiotics and isolation. Isolation needs to be cleared by in order for pt to qualify for such program. Josefina will re-assess the pt once the documentation of clearance are provided. BEE relayed such information to CORA Chapman. Signed: 06/22/19 at 1117 by ERMIAS GAMBOA <Co-Signature Required>
--- NOTE | 2019-06-22 12:01 | Infectious Diseases Prog Note ---
Assessment/Plan Assessment/Plan IMPRESSION: 1. Diabetic foot, osteomyelitis. 2. Allergic drug reaction to Invanz and vancomycin with rash, resolving 3. Diabetes mellitus. 4. Charcot joint. 5. Anemia. 6. Elevated transaminase improving 7. Chronic kidney disease 8. Diarrhea, negative C. 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 Plan: start on Imodium Continue Zyvox X 21 days Negative hepatitis B & C serologies Waiting for placement Subjective ROS Limited/Unobtainable: No Constitutional: Reports: no symptoms, other - feels better Respiratory: Reports: no symptoms Cardiovascular: Reports: no symptoms Gastrointestinal/Abdominal: Reports: nausea, diarrhea Skin: Reports: other - itching Allergies: Coded Allergies: ERTAPENEM (Verified Allergy, Intermediate, RASH - legs, back, torso, ) VANCOMYCIN (Verified Allergy, Intermediate, RASH - legs, back, torso, 06/16) Objective Vital Signs Last 24 Hour Vital Signs Date Time Temp Pulse Resp B/P (MAP) Pulse Ox O2 Delivery O2 Flow Rate FiO2 06/22/19 09:00 Room Air 06/22/19 08:00 98.2 90 18 115/59 (77) 98 06/22/19 04:00 97.9 89 18 127/74 (91) 95 06/22/19 00:00 98.8 89 18 109/53 (71) 95 06/21/19 22:59 Room Air 06/21/19 20:00 97.8 91 18 112/70 (84) 95 06/21/19 16:00 98.5 94 19 114/65 (81) 95 06/21/19 14:00 98.8 96 20 130/75 (93) 98 06/21/19 12:00 98.8 96 20 130/75 (93) 98 Height (Feet): 5 Height (Inches): 4.00 Weight (Pounds): 213 General Appearance: no acute distress HEENT: mucous membranes moist Respiratory/Chest: lungs clear Cardiovascular: normal rate Abdomen: soft, non tender Extremities: no edema Neurologic/Psychiatric: alert, oriented x 3, responsive Laboratory Tests Test 06/22/19 04:40 White Blood Count 9.8 K/UL (4.8-10.8) Red Blood Count 3.53 M/UL (4.20-5.40) L Hemoglobin 10.5 G/DL (12.0-16.0) L Hematocrit 31.2 % (37.0-47.0) L Mean Corpuscular Volume 88 FL (80-99) Mean Corpuscular Hemoglobin 29.7 PG (27.0-31.0) Mean Corpuscular Hemoglobin Concent 33.7 G/DL (32.0-36.0) Red Cell Distribution Width 13.1 % (11.6-14.8) Platelet Count 399 K/UL (150-450) Mean Platelet Volume 4.7 FL (6.5-10.1) L Neutrophils (%) (Auto) 54.9 % (45.0-75.0) Lymphocytes (%) (Auto) 33.7 % (20.0-45.0) Monocytes (%) (Auto) 6.1 % (1.0-10.0) Eosinophils (%) (Auto) 4.4 % (0.0-3.0) H Basophils (%) (Auto) 0.9 % (0.0-2.0) Current Medications Medications (Trade) Dose Ordered Sig/Dileep Route PRN Reason Start Time Stop Time Status Last Admin Dose Admin Acetaminophen (Tylenol) 650 mg Q4H PRN ORAL For Pain 06/14/19 04:15 07/14/19 04:14 06/16/19 17:26 Atorvastatin Calcium (Lipitor) 80 mg BEDTIME ORAL 06/14/19 21:00 07/14/19 20:59 06/21/19 19:59 Chlorhexidine Gluconate (Tianna-Hex 2%) 1 applic DAILY@2000 TOPIC 06/14/19 20:00 07/14/19 19:59 06/21/19 19:30 Dextrose (Dextrose 50%) 25 ml Q30M PRN IV Hypoglycemia 06/14/19 07:45 07/14/19 07:44 Dextrose (Dextrose 50%) 50 ml Q30M PRN IV Hypoglycemia 06/14/19 07:45 07/14/19 07:44 Folic Acid (Folate) 2 mg DAILY ORAL 06/15/19 10:30 07/15/19 10:29 06/22/19 09:49 Insulin Aspart (NovoLOG) BEFORE MEALS AND HS SUBQ 06/14/19 11:30 07/14/19 11:29 06/22/19 11:29 Linezolid (Zyvox) 600 mg EVERY 12 HOURS ORAL 06/14/19 15:42 07/13/19 23:59 06/22/19 09:49 Loperamide HCl (Imodium) 2 mg Q4H PRN ORAL Diarrhea 06/21/19 14:30 07/21/19 14:29 Metformin HCl (Glucophage) 500 mg TIAC ORAL 06/15/19 11:30 07/15/19 11:29 06/22/19 10:45 Ondansetron HCl (Zofran) 4 mg Q6H PRN IVP Nausea & Vomiting 06/14/19 22:00 07/14/19 21:59 06/22/19 10:45 Adarsh Pitts MD Jun 22, 2019 12:01
--- NOTE | 2019-06-22 13:17 | Surgery Progress Note ---
Surgery Progress Note Subjective Symptoms: improved Objective Last 24 Hour Vital Signs Date Time Temp Pulse Resp B/P (MAP) Pulse Ox O2 Delivery O2 Flow Rate FiO2 06/22/19 12:00 98.3 97 18 121/83 (96) 96 06/22/19 09:00 Room Air 06/22/19 08:00 98.2 90 18 115/59 (77) 98 06/22/19 04:00 97.9 89 18 127/74 (91) 95 06/22/19 00:00 98.8 89 18 109/53 (71) 95 06/21/19 22:59 Room Air 06/21/19 20:00 97.8 91 18 112/70 (84) 95 06/21/19 16:00 98.5 94 19 114/65 (81) 95 06/21/19 14:00 98.8 96 20 130/75 (93) 98 I&O Intake and Output 06/21/19 06/22/19 19:00 07:00 Intake Total 840 ml Balance 840 ml Intake Oral 840 ml # Voids 5 Dressing: dry Wound: clean Cardiovascular: RSR Respiratory: clear Abdomen: soft, non-tender, present bowel sounds Extremities: no cyanosis Laboratory Tests Test 06/22/19 04:40 White Blood Count 9.8 K/UL (4.8-10.8) Red Blood Count 3.53 M/UL (4.20-5.40) L Hemoglobin 10.5 G/DL (12.0-16.0) L Hematocrit 31.2 % (37.0-47.0) L Mean Corpuscular Volume 88 FL (80-99) Mean Corpuscular Hemoglobin 29.7 PG (27.0-31.0) Mean Corpuscular Hemoglobin Concent 33.7 G/DL (32.0-36.0) Red Cell Distribution Width 13.1 % (11.6-14.8) Platelet Count 399 K/UL (150-450) Mean Platelet Volume 4.7 FL (6.5-10.1) L Neutrophils (%) (Auto) 54.9 % (45.0-75.0) Lymphocytes (%) (Auto) 33.7 % (20.0-45.0) Monocytes (%) (Auto) 6.1 % (1.0-10.0) Eosinophils (%) (Auto) 4.4 % (0.0-3.0) H Basophils (%) (Auto) 0.9 % (0.0-2.0) Plan Problems: (1) Left foot infection (2) Occluded PICC line Assessment & Plan: new picc 06/14/2019 (3) Open wound of left foot (4) Cellulitis of left foot Assessment & Plan: 50-year-old female with history of chronic left foot wounds , cellulitis, infection who in 2018 initially developed a abscess/blister and has been dealing with chronic infection of the left foot since. On the medial aspect there is a 3 cm x 2 cm x 1 cm open wound with good granulation tissue seemingly a little bit more chronic than 1 week no drainage no signs of significant active infection. On the plantar aspect of the foot there is a 1 cm x 1 cm by half centimeter open punched-out wound from prior drainage with no active drainage currently. Patient states that she was recommended to have local wound care and antibiotics for 6 weeks. States that she is on isolation for the cultures that were taken outside facility. new picc placed Local wound care with hydrogel packing or Thera honey packing gauze daily Wash wound left foot daily with normal saline then apply above dressings Wrap foot leg with gauze after packing and dressings applied Trend labs Antibiotics per infectious disease podiatry input appreciated Thank you will follow with recommendations Cristian Tavarez Jun 22, 2019 13:17
--- NOTE | 2019-06-22 13:18 | Surgery Progress Note ---
Surgery Progress Note Subjective Additional Comments This is a late entry for examination performed on June 21, 2019. Unfortunate was called to the emergency room following to the operating room was unable to complete note. Patient states she is doing well. More comfortable. Alert awake oriented and calm well without pain. No nausea vomiting fever chills. Labs improving. Objective Last 24 Hour Vital Signs Date Time Temp Pulse Resp B/P (MAP) Pulse Ox O2 Delivery O2 Flow Rate FiO2 06/22/19 12:00 98.3 97 18 121/83 (96) 96 06/22/19 09:00 Room Air 06/22/19 08:00 98.2 90 18 115/59 (77) 98 06/22/19 04:00 97.9 89 18 127/74 (91) 95 06/22/19 00:00 98.8 89 18 109/53 (71) 95 06/21/19 22:59 Room Air 06/21/19 20:00 97.8 91 18 112/70 (84) 95 06/21/19 16:00 98.5 94 19 114/65 (81) 95 06/21/19 14:00 98.8 96 20 130/75 (93) 98 I&O Intake and Output 06/21/19 06/22/19 19:00 07:00 Intake Total 840 ml Balance 840 ml Intake Oral 840 ml # Voids 5 Laboratory Tests Test 06/22/19 04:40 White Blood Count 9.8 K/UL (4.8-10.8) Red Blood Count 3.53 M/UL (4.20-5.40) L Hemoglobin 10.5 G/DL (12.0-16.0) L Hematocrit 31.2 % (37.0-47.0) L Mean Corpuscular Volume 88 FL (80-99) Mean Corpuscular Hemoglobin 29.7 PG (27.0-31.0) Mean Corpuscular Hemoglobin Concent 33.7 G/DL (32.0-36.0) Red Cell Distribution Width 13.1 % (11.6-14.8) Platelet Count 399 K/UL (150-450) Mean Platelet Volume 4.7 FL (6.5-10.1) L Neutrophils (%) (Auto) 54.9 % (45.0-75.0) Lymphocytes (%) (Auto) 33.7 % (20.0-45.0) Monocytes (%) (Auto) 6.1 % (1.0-10.0) Eosinophils (%) (Auto) 4.4 % (0.0-3.0) H Basophils (%) (Auto) 0.9 % (0.0-2.0) Plan Problems: (1) Left foot infection (2) Occluded PICC line Assessment & Plan: new picc 06/14/2019 (3) Open wound of left foot (4) Cellulitis of left foot Assessment & Plan: 50-year-old female with history of chronic left foot wounds , cellulitis, infection who in 2018 initially developed a abscess/blister and has been dealing with chronic infection of the left foot since. On the medial aspect there is a 3 cm x 2 cm x 1 cm open wound with good granulation tissue seemingly a little bit more chronic than 1 week no drainage no signs of significant active infection. On the plantar aspect of the foot there is a 1 cm x 1 cm by half centimeter open punched-out wound from prior drainage with no active drainage currently. Patient states that she was recommended to have local wound care and antibiotics for 6 weeks. States that she is on isolation for the cultures that were taken outside facility. new picc placed Local wound care with hydrogel packing or Thera honey packing gauze daily Wash wound left foot daily with normal saline then apply above dressings Wrap foot leg with gauze after packing and dressings applied Trend labs Antibiotics per infectious disease podiatry input appreciated Thank you will follow with recommendations Cristian Tavarez Jun 22, 2019 13:18
--- NOTE | 2019-06-22 13:59 | NUR ---
RD ASSESSMENT & RECOMMENDATIONS SEE CARE ACTIVITY FOR COMPLETE ASSESSMENT DAILY ESTIMATED NEEDS: Needs based on DM, wound/ 64kg abw 25-30 kcals/kg 6352-5724 total kcals 1.25-1.5 g protein/kg 80-96 g total protein 25-30 mL/kg 1478-1906 total fluid mLs NUTRITION DIAGNOSIS: Altered nutrition related lab values R/T diabtes as evidenced by A1C of 11.2, POC glu (145-157 improved), Uglu 2+ upon adm. CURRENT DIET:Cardiac, mech soft chopped PO DIET RECOMMENDATIONS: CCHO MED/ texture as tolerated ADDITIONAL RECOMMENDATIONS: * Calibrated bedscale wt * Carb controlled diet as above * Wound healing: add MVI x 1, Vit C 250mg QD Angel BID as tolerated
--- NOTE | 2019-06-22 15:54 | NUR ---
*-*DISCHARGE PLANNING*-* PATIENT HAS BEEN REFERRED TO: [facility] P: [phone] F: [phone] [facility] P: [phone] F: [phone] [facility] P: [phone] F: [phone] [facility] P: [phone] F: [phone] [facility] P: [phone] F: [phone] [facility] P: [phone] F: [phone] [facility] P: [phone] F: [phone] [facility] P: [phone] F: [phone] [facility] P: [phone] F: [phone] [facility] P: [phone] F: [phone] *-*CLINICALS FAXED*-*
--- NOTE | 2019-06-22 16:48 | NUR ---
NURSE NOTES: Patient experienced nausea and vomiting, Zofran given. Patient states that she does not want the Metformin as she still feels nauseous.
--- NOTE | 2019-06-22 19:30 | NUR ---
NURSE NOTES: Received patient in bed. Awake, A/o x4. Patient denies pain at this time. Patient reports some nausea, saltine crackers given, will provide anti-emetics as prescribed. On room air, respirations unlabored. PICC line in the right upper arm with clean dressing intact.
--- NOTE | 2019-06-22 19:44 | NUR ---
HAND-OFF: Report given to MICHELLE Kong.
[2019-06-22] MEDS: Atorvastatin 80mg tab ORAL SCH (20:30)
[2019-06-22] MEDS: Dyna-Hex 2% Top Sol 2oz TOPIC SCH (20:31)
[2019-06-23] VITALS: BP 139/71
[2019-06-23 04:00] VITALS: BP 129/64
[2019-06-23] MEDS: metFORMIN 500mg tab ORAL SCH ×4 (06:17→17:02)
[2019-06-23] MEDS: NovoLOG Insulin Flexpen SUBQ SCH ×4 (06:21→21:00)
--- NOTE | 2019-06-23 07:03 | NUR ---
NURSE NOTES: Called the next of kin contact number for consent of blood. Left a message. Called twice.
--- NOTE | 2019-06-23 07:27 | NUR ---
NURSE NOTES: Report received from Dilan MARTINEZ. Patient is currently awake and alert x 4 sitting upright in bed eating breakfast. Patient currently has no complaints at this time. Patient noted to have a clean, dry, and intact dressing on left foot. Patient does not have complaints of pain in her foot at this time. Patient noted to have PICC line in right upper arm. Dressing clean and intact. Does not need to be changed at this time. Bed locked and in lowest position. Call light within reach. Will continue to follow plan of care.
--- NOTE | 2019-06-23 07:27 | NUR ---
HAND-OFF: Report given to Isaac MARTINEZ.
[2019-06-23 07:49] LABS: BASOPHILS % (AUTO) 0.9 % (0.0-2.0); EOSINOPHILS % (AUTO) 4.4 % (0.0-3.0); HEMATOCRIT 32.9 % (37.0-47.0); HEMOGLOBIN 11.1 G/DL (12.0-16.0); LYMPHOCYTES % (AUTO) 26.9 % (20.0-45.0); MEAN CORPUSCULAR VOLUME 88 FL (80-99); MONOCYTES % (AUTO) 6.9 % (1.0-10.0); NEUTROPHILS % (AUTO) 60.9 % (45.0-75.0); PLATELET COUNT 368 K/UL (150-450); RED BLOOD COUNT 3.74 M/UL (4.20-5.40); RED CELL DISTRIBUTION WIDTH 12.9 % (11.6-14.8); WHITE BLOOD COUNT 9.1 K/UL (4.8-10.8)
[2019-06-23 08:00] VITALS: BP 120/71
[2019-06-23 08:48] LABS: ALANINE AMINOTRANSFERASE 25 U/L (12-78); ALBUMIN 3.3 G/DL (3.4-5.0); ALBUMIN/GLOBULIN RATIO 0.6 (1.0-2.7); ALKALINE PHOSPHATASE 195 U/L (46-116); ANION GAP 14 mmol/L (5-15); ASPARTATE AMINO TRANSFERASE 10 U/L (15-37); BILIRUBIN,TOTAL 0.5 MG/DL (0.2-1.0); BLOOD UREA NITROGEN 35 mg/dL (7-18); CALCIUM 9.7 MG/DL (8.5-10.1); CARBON DIOXIDE 23 MMOL/L (21-32); CHLORIDE 102 MMOL/L (98-107); CREATININE 1.6 MG/DL (0.55-1.30); PHOSPHORUS 3.6 MG/DL (2.5-4.9); POTASSIUM 4.4 MMOL/L (3.5-5.1); SODIUM 139 MMOL/L (136-145)
--- NOTE | 2019-06-23 10:53 | NUR ---
METAL CASKET ASSEMBLER NOTE BEE communicated w/ Josefina from [facility] and was informed to send discharge notes. Per Filiberto, no bed was available as of yesterday afternoon. BEE faxed discharge notes to Josefina. Signed: 06/23/19 at 1054 by ERMIAS GAMBOA <Co-Signature Required>
--- NOTE | 2019-06-23 11:50 | NUR ---
NURSE NOTES: Contacted Doctor Varun regarding PICC line for patient. Patient's PICC line is flushing but has no return. New PICC line to be placed per Varun. Leave current PICC line in place until new one is placed per Varun.
[2019-06-23 12:00] VITALS: BP_SYST 141; BP_SYST 150; BP_DIAS 76; BP_DIAS 92
[2019-06-23] MEDS ORDERED: Heparin1,000 units/500ml Premix(Conc:2 units/ml) IV SCH (12:15)
[2019-06-23] MEDS ORDERED: Lidocaine 1% Plain 30 ml INJ SCH (12:15)
--- NOTE | 2019-06-23 12:23 | Infectious Diseases Prog Note ---
Assessment/Plan Assessment/Plan IMPRESSION: 1. Diabetic foot, osteomyelitis. 2. Allergic drug reaction to Invanz and vancomycin with rash, resolving 3. Diabetes mellitus. 4. Charcot joint. 5. Anemia. 6. Elevated transaminase improving 7. Chronic kidney disease 8. Diarrhea, negative C. 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 Plan: start on Imodium Continue Zyvox X 20 days Negative hepatitis B & C serologies Waiting for placement Subjective ROS Limited/Unobtainable: No Constitutional: Reports: other - feels better Respiratory: Reports: no symptoms Gastrointestinal/Abdominal: Reports: diarrhea; Denies: vomiting Musculoskeletal: Reports: no symptoms Allergies: Coded Allergies: ERTAPENEM (Verified Allergy, Intermediate, RASH - legs, back, torso, ) VANCOMYCIN (Verified Allergy, Intermediate, RASH - legs, back, torso, 06/16) Objective Vital Signs Last 24 Hour Vital Signs Date Time Temp Pulse Resp B/P (MAP) Pulse Ox O2 Delivery O2 Flow Rate FiO2 06/23/19 09:00 Room Air 06/23/19 08:00 98.0 84 18 120/71 (87) 96 06/23/19 04:00 98.0 83 20 129/64 (85) 95 06/23/19 00:00 97.9 84 20 139/71 (93) 97 06/22/19 21:00 Room Air 06/22/19 20:00 98.2 93 22 121/60 (80) 96 06/22/19 17:00 152/74 (100) 06/22/19 16:00 98.4 94 18 160/89 (112) 96 Height (Feet): 5 Height (Inches): 4.00 Weight (Pounds): 213 General Appearance: no acute distress HEENT: mucous membranes moist Respiratory/Chest: lungs clear Cardiovascular: normal rate Abdomen: soft, non tender Extremities: other - left foot edema Skin: ulcers, other - left foot Neurologic/Psychiatric: alert, oriented x 3, responsive Laboratory Tests Test 06/23/19 07:20 White Blood Count 9.1 K/UL (4.8-10.8) Red Blood Count 3.74 M/UL (4.20-5.40) L Hemoglobin 11.1 G/DL (12.0-16.0) L Hematocrit 32.9 % (37.0-47.0) L Mean Corpuscular Volume 88 FL (80-99) Mean Corpuscular Hemoglobin 29.5 PG (27.0-31.0) Mean Corpuscular Hemoglobin Concent 33.6 G/DL (32.0-36.0) Red Cell Distribution Width 12.9 % (11.6-14.8) Platelet Count 368 K/UL (150-450) Mean Platelet Volume 4.8 FL (6.5-10.1) L Neutrophils (%) (Auto) 60.9 % (45.0-75.0) Lymphocytes (%) (Auto) 26.9 % (20.0-45.0) Monocytes (%) (Auto) 6.9 % (1.0-10.0) Eosinophils (%) (Auto) 4.4 % (0.0-3.0) H Basophils (%) (Auto) 0.9 % (0.0-2.0) Sodium Level 139 MMOL/L (136-145) Potassium Level 4.4 MMOL/L (3.5-5.1) Chloride Level 102 MMOL/L (98-107) Carbon Dioxide Level 23 MMOL/L (21-32) Anion Gap 14 mmol/L (5-15) Blood Urea Nitrogen 35 mg/dL (7-18) H Creatinine 1.6 MG/DL (0.55-1.30) H Estimat Glomerular Filtration Rate 33.1 mL/min (>60) Glucose Level 128 MG/DL (74-106) H Uric Acid 10.2 MG/DL (2.6-7.2) H Calcium Level 9.7 MG/DL (8.5-10.1) Phosphorus Level 3.6 MG/DL (2.5-4.9) Magnesium Level 1.9 MG/DL (1.8-2.4) Total Bilirubin 0.5 MG/DL (0.2-1.0) Aspartate Amino Transf (AST/SGOT) 10 U/L (15-37) L Alanine Aminotransferase (ALT/SGPT) 25 U/L (12-78) Alkaline Phosphatase 195 U/L (46-116) H C-Reactive Protein, Quantitative < 0.4 mg/dL (0.00-0.90) Pro-B-Type Natriuretic Peptide 91 pg/mL (0-125) Total Protein 8.5 G/DL (6.4-8.2) H Albumin 3.3 G/DL (3.4-5.0) L Globulin 5.2 g/dL Albumin/Globulin Ratio 0.6 (1.0-2.7) L Current Medications Medications (Trade) Dose Ordered Sig/Dileep Route PRN Reason Start Time Stop Time Status Last Admin Dose Admin Acetaminophen (Tylenol) 650 mg Q4H PRN ORAL For Pain 06/14/19 04:15 07/14/19 04:14 06/16/19 17:26 Atorvastatin Calcium (Lipitor) 80 mg BEDTIME ORAL 06/14/19 21:00 07/14/19 20:59 06/22/19 20:30 Chlorhexidine Gluconate (Tianna-Hex 2%) 1 applic DAILY@1999 TOPIC 06/14/19 20:00 07/14/19 19:59 06/22/19 20:31 Chlorhexidine Gluconate (Tianna-Hex 2%) 1 applic DAILY@1999 TOPIC 06/23/19 20:00 07/23/19 19:59 UNV Dextrose (Dextrose 50%) 25 ml Q30M PRN IV Hypoglycemia 06/14/19 07:45 07/14/19 07:44 Dextrose (Dextrose 50%) 50 ml Q30M PRN IV Hypoglycemia 06/14/19 07:45 07/14/19 07:44 Folic Acid (Folate) 2 mg DAILY ORAL 06/15/19 10:30 07/15/19 10:29 06/23/19 08:14 Heparin Sodium/ Sodium Chloride (Heparin 1000 units/500ml Premix) 1,000 unit ONCE ONCE IV 06/23/19 12:15 06/23/19 12:16 UNV Insulin Aspart (NovoLOG) BEFORE MEALS AND HS SUBQ 06/14/19 11:30 07/14/19 11:29 06/23/19 11:47 Lidocaine HCl (Xylocaine 1% 30ml) 30 ml ONCE ONCE INJ 06/23/19 12:15 06/23/19 12:16 UNV Linezolid (Zyvox) 600 mg EVERY 12 HOURS ORAL 06/14/19 15:42 07/13/19 23:59 06/23/19 08:14 Loperamide HCl (Imodium) 2 mg Q4H PRN ORAL Diarrhea 06/21/19 14:30 07/21/19 14:29 06/22/19 20:30 Metformin HCl (Glucophage) 500 mg TIAC ORAL 06/15/19 11:30 07/15/19 11:29 06/23/19 11:45 Ondansetron HCl (Zofran) 4 mg Q6H PRN IVP Nausea & Vomiting 06/14/19 22:00 07/14/19 21:59 06/23/19 08:14 Adarsh Pitts MD Jun 23, 2019 12:23
--- NOTE | 2019-06-23 13:57 | NUR ---
DUPLICATING MACHINE OPERATOR NOTE BEE spoke w/ Josefina Umana from [facility] that [employer] nurse manager risk spoke w/ assigned RN. Per Josefina, pt is not eligible for the program d/t isolation. When medically cleared, Josefina is requesting to fax the updates for re-evaluation. BEE relayed such information to CORA Chapman. Signed: 06/23/19 at 1402 by ERMIAS GAMBOA <Co-Signature Required>
--- NOTE | 2019-06-23 14:18 | Surgery Progress Note ---
Surgery Progress Note Subjective Symptoms: improved Objective Last 24 Hour Vital Signs Date Time Temp Pulse Resp B/P (MAP) Pulse Ox O2 Delivery O2 Flow Rate FiO2 06/23/19 09:00 Room Air 06/23/19 08:00 98.0 84 18 120/71 (87) 96 06/23/19 04:00 98.0 83 20 129/64 (85) 95 06/23/19 00:00 97.9 84 20 139/71 (93) 97 06/22/19 21:00 Room Air 06/22/19 20:00 98.2 93 22 121/60 (80) 96 06/22/19 17:00 152/74 (100) 06/22/19 16:00 98.4 94 18 160/89 (112) 96 I&O Intake and Output 06/22/19 06/23/19 19:00 07:00 Intake Total 780 ml 400 ml Output Total 150 ml Balance 630 ml 400 ml Intake Oral 780 ml 400 ml Output Emesis 150 ml # Voids 3 # Bowel Movements 2 1 Dressing: dry Wound: clean Cardiovascular: RSR Respiratory: clear Abdomen: soft, flat, non-tender, present bowel sounds Extremities: no edema, no tenderness, no cyanosis Laboratory Tests Test 06/23/19 07:20 White Blood Count 9.1 K/UL (4.8-10.8) Red Blood Count 3.74 M/UL (4.20-5.40) L Hemoglobin 11.1 G/DL (12.0-16.0) L Hematocrit 32.9 % (37.0-47.0) L Mean Corpuscular Volume 88 FL (80-99) Mean Corpuscular Hemoglobin 29.5 PG (27.0-31.0) Mean Corpuscular Hemoglobin Concent 33.6 G/DL (32.0-36.0) Red Cell Distribution Width 12.9 % (11.6-14.8) Platelet Count 368 K/UL (150-450) Mean Platelet Volume 4.8 FL (6.5-10.1) L Neutrophils (%) (Auto) 60.9 % (45.0-75.0) Lymphocytes (%) (Auto) 26.9 % (20.0-45.0) Monocytes (%) (Auto) 6.9 % (1.0-10.0) Eosinophils (%) (Auto) 4.4 % (0.0-3.0) H Basophils (%) (Auto) 0.9 % (0.0-2.0) Sodium Level 139 MMOL/L (136-145) Potassium Level 4.4 MMOL/L (3.5-5.1) Chloride Level 102 MMOL/L (98-107) Carbon Dioxide Level 23 MMOL/L (21-32) Anion Gap 14 mmol/L (5-15) Blood Urea Nitrogen 35 mg/dL (7-18) H Creatinine 1.6 MG/DL (0.55-1.30) H Estimat Glomerular Filtration Rate 33.1 mL/min (>60) Glucose Level 128 MG/DL (74-106) H Uric Acid 10.2 MG/DL (2.6-7.2) H Calcium Level 9.7 MG/DL (8.5-10.1) Phosphorus Level 3.6 MG/DL (2.5-4.9) Magnesium Level 1.9 MG/DL (1.8-2.4) Total Bilirubin 0.5 MG/DL (0.2-1.0) Aspartate Amino Transf (AST/SGOT) 10 U/L (15-37) L Alanine Aminotransferase (ALT/SGPT) 25 U/L (12-78) Alkaline Phosphatase 195 U/L (46-116) H C-Reactive Protein, Quantitative < 0.4 mg/dL (0.00-0.90) Pro-B-Type Natriuretic Peptide 91 pg/mL (0-125) Total Protein 8.5 G/DL (6.4-8.2) H Albumin 3.3 G/DL (3.4-5.0) L Globulin 5.2 g/dL Albumin/Globulin Ratio 0.6 (1.0-2.7) L Plan Problems: (1) Left foot infection (2) Occluded PICC line Assessment & Plan: new picc 06/14/2019 (3) Open wound of left foot (4) Cellulitis of left foot Assessment & Plan: 50-year-old female with history of chronic left foot wounds , cellulitis, infection who in 2018 initially developed a abscess/blister and has been dealing with chronic infection of the left foot since. On the medial aspect there is a 3 cm x 2 cm x 1 cm open wound with good granulation tissue seemingly a little bit more chronic than 1 week no drainage no signs of significant active infection. On the plantar aspect of the foot there is a 1 cm x 1 cm by half centimeter open punched-out wound from prior drainage with no active drainage currently. Patient states that she was recommended to have local wound care and antibiotics for 6 weeks. States that she is on isolation for the cultures that were taken outside facility. new picc placed Local wound care with hydrogel packing or Thera honey packing gauze daily Wash wound left foot daily with normal saline then apply above dressings Wrap foot leg with gauze after packing and dressings applied Trend labs Antibiotics per infectious disease podiatry input appreciated Thank you will follow with recommendations Cristian Tavarez Jun 23, 2019 14:18
--- NOTE | 2019-06-23 14:33 | Nephrology Progress Note ---
Assessment/Plan Problem List: (1) DMII (diabetes mellitus, type 2) (2) Ascites (3) Hypertension (4) Cellulitis of left foot (5) Proteinuria Assessment: diabetic nephropathy Assessment Cr rising- Hold Zestril- watch Cr on Bactrim - Metformin Ascitis Obese DM Anemia HypoAlbuminemia elevated LFTs Plan Cr stable 1.6 Kayexelate as needed Bolus NS as needed UA prn Lasix Anemia larose adjust BP meds wound care per orders Subjective ROS Limited/Unobtainable: No Constitutional: Reports: malaise Objective Objective Last 24 Hour Vital Signs Date Time Temp Pulse Resp B/P (MAP) Pulse Ox O2 Delivery O2 Flow Rate FiO2 06/23/19 09:00 Room Air 06/23/19 08:00 98.0 84 18 120/71 (87) 96 06/23/19 04:00 98.0 83 20 129/64 (85) 95 06/23/19 00:00 97.9 84 20 139/71 (93) 97 06/22/19 21:00 Room Air 06/22/19 20:00 98.2 93 22 121/60 (80) 96 06/22/19 17:00 152/74 (100) 06/22/19 16:00 98.4 94 18 160/89 (112) 96 Intake and Output 06/22/19 06/23/19 19:00 07:00 Intake Total 780 ml 400 ml Output Total 150 ml Balance 630 ml 400 ml Intake Oral 780 ml 400 ml Output Emesis 150 ml # Voids 3 # Bowel Movements 2 1 Current Medications Medications (Trade) Dose Ordered Sig/Dileep Route PRN Reason Start Time Stop Time Status Last Admin Dose Admin Acetaminophen (Tylenol) 650 mg Q4H PRN ORAL For Pain 06/14/19 04:15 07/14/19 04:14 06/16/19 17:26 Atorvastatin Calcium (Lipitor) 80 mg BEDTIME ORAL 06/14/19 21:00 07/14/19 20:59 06/22/19 20:30 Chlorhexidine Gluconate (Tianna-Hex 2%) 1 applic DAILY@1999 TOPIC 06/14/19 20:00 07/14/19 19:59 06/22/19 20:31 Chlorhexidine Gluconate (Tianna-Hex 2%) 1 applic DAILY@1999 TOPIC 06/23/19 20:00 07/23/19 19:59 Dextrose (Dextrose 50%) 25 ml Q30M PRN IV Hypoglycemia 06/14/19 07:45 07/14/19 07:44 Dextrose (Dextrose 50%) 50 ml Q30M PRN IV Hypoglycemia 06/14/19 07:45 07/14/19 07:44 Folic Acid (Folate) 2 mg DAILY ORAL 06/15/19 10:30 07/15/19 10:29 06/23/19 08:14 Heparin Sodium/ Sodium Chloride (Heparin 1000 units/500ml Premix) 1,000 unit ONCE IV 06/23/19 12:15 06/23/19 23:59 Insulin Aspart (NovoLOG) BEFORE MEALS AND HS SUBQ 06/14/19 11:30 07/14/19 11:29 06/23/19 11:47 Lidocaine HCl (Xylocaine 1% 30ml) 30 ml ONCE INJ 06/23/19 12:15 06/23/19 23:59 Linezolid (Zyvox) 600 mg EVERY 12 HOURS ORAL 06/14/19 15:42 07/13/19 23:59 06/23/19 08:14 Loperamide HCl (Imodium) 2 mg Q4H PRN ORAL Diarrhea 06/21/19 14:30 07/21/19 14:29 06/22/19 20:30 Metformin HCl (Glucophage) 500 mg TIAC ORAL 06/15/19 11:30 07/15/19 11:29 06/23/19 11:45 Ondansetron HCl (Zofran) 4 mg Q6H PRN IVP Nausea & Vomiting 06/14/19 22:00 07/14/19 21:59 06/23/19 08:14 Laboratory Tests 06/23/19 07:20: White Blood Count 9.1, Red Blood Count 3.74L, Hemoglobin 11.1L, Hematocrit 32.9L , Mean Corpuscular Volume 88, Mean Corpuscular Hemoglobin 29.5, Mean Corpuscular Hemoglobin Concent 33.6, Red Cell Distribution Width 12.9, Platelet Count 368, Mean Platelet Volume 4.8L, Neutrophils (%) (Auto) 60.9, Lymphocytes ( %) (Auto) 26.9, Monocytes (%) (Auto) 6.9, Eosinophils (%) (Auto) 4.4H, Basophils (%) (Auto) 0.9, Sodium Level 139, Potassium Level 4.4, Chloride Level 102, Carbon Dioxide Level 23, Anion Gap 14, Blood Urea Nitrogen 35H, Creatinine 1.6H, Estimat Glomerular Filtration Rate 33.1, Glucose Level 128H, Uric Acid 10.2H, Calcium Level 9.7, Phosphorus Level 3.6, Magnesium Level 1.9, Total Bilirubin 0.5, Aspartate Amino Transf (AST/SGOT) 10L, Alanine Aminotransferase ( ALT/SGPT) 25, Alkaline Phosphatase 195H, C-Reactive Protein, Quantitative < 0.4 , Pro-B-Type Natriuretic Peptide 91, Total Protein 8.5H, Albumin 3.3L, Globulin 5.2, Albumin/Globulin Ratio 0.6L Height (Feet): 5 Height (Inches): 4.00 Weight (Pounds): 213 Cardiovascular: normal rate Respiratory/Chest: lungs clear, decreased breath sounds Abdomen: soft Objective no change Erasto Parikh MD Jun 23, 2019 14:33
--- NOTE | 2019-06-23 14:40 | NUR ---
PAIRING MACHINE OPERATORBALE TIE MACHINE OPERATOR NOTE CALL MADE TO LIAM Womack/[facility] FOR FOR HELP [phone] IN RE TO PLACEMENT PER LIAM, WILL AWAIT CLARIFICATION FROM ID CONFIRMING ESBL IS COLONIZED. WILL FORWARD INFO SOON AVAILABLE.
--- NOTE | 2019-06-23 14:47 | NUR ---
NURSE NOTES: Called Doctor Gisselle per request of case management requesting clarification of how long patient will need PICC line and how long patient needs to be on precautions. Waiting for call back.
--- NOTE | 2019-06-23 15:03 | NUR ---
NURSE NOTES: Per Doctor Gisselle patient no longer needs PICC line, can take oral antibiotics. Patient has antibiotics already. Per Doctor Gisselle patient no longer needs isolation due to colonization. Updated charge nurse Neha from case management.
--- NOTE | 2019-06-23 15:40 | NUR ---
*-* INSURANCE *-* ALL CLINICALS HAVE BEEN FAXED: CARMITA SEXTON # [phone] FAX# [phone] REVIEWS/CLINICALS
[2019-06-23 16:00] VITALS: BP 139/85
--- NOTE | 2019-06-23 16:25 | NUR ---
DISCHARGE PLANNING NOTE ORDERS RE PICC LINE AND ISOLATION HAVE BEEN EMAILED TO [facility] FOR HELP FOR PLACEMENT [email or web address]
--- NOTE | 2019-06-23 16:27 | NUR ---
CASE MANAGEMENT:REVIEW SI;CELLULITIS. LEFT FOOT WOUND. 98.0 84 20 141/76 95% ON RA BUN 35 CR 1.6 UR ACID 10.2 IS;KRISTI-HEX TOP QD HEPARIN IV ONCE ZYVOX PO Q12 HRS MED SURG STATUS DCP;PLACEMENT
--- NOTE | 2019-06-23 16:43 | General Progress Note ---
Assessment/Plan Status: progressing Assessment/Plan: IM PROGRESS NOTE COVERING FOR DR. HILLIARD Assessment and Recs: # Occluded PICC line, MICHELLE --> has been changed # Diabetic foot, osteomyelitis. LE foot cellulitis --> per endo, accuchecks qac and qhs --> seen by pod, id surg --> on bactrim zyvox-->now off # Anemia of chronic disease due to underlying chronic medical issues, multifactorial v Gi bleed --> Anemia workup has been ordered, rule out gi bleed --> No evidence of hemolysis is noted, peripheral smear has been reviewed. --> Hgb goal >7. Transfuse prn. --> Epogen or iron at this time is not particularly indicated --> hgb trend: 9.7-->10-->10.5 --> Medications have been reviewed --> low threshold for gi evaluation in case has occult + # Diabetes mellitus. # Charcot joint. # Transaminitis # Dvt ppx scds Appreciate consultation and dw RN Subjective Constitutional: Denies: no symptoms, chills, diaphoresis, fever, malaise, weakness, other HEENT: Denies: no symptoms, eye pain, blurred vision, tearing, double vision, ear pain, ear discharge, nose pain, nose congestion, throat pain, throat swelling, mouth pain, mouth swelling, other Cardiovascular: Denies: no symptoms, chest pain, edema, irregular heart rate, lightheadedness, palpitations, syncope, other Respiratory: Denies: no symptoms, cough, orthopnea, shortness of breath, SOB with excertion, SOB at rest, sputum, stridor, wheezing, other Gastrointestinal/Abdominal: Denies: no symptoms, abdomen distended, abdominal pain, black stools, tarry stools, blood in stool, constipated, diarrhea, difficulty swallowing, nausea, poor appetite, poor fluid intake, rectal bleeding , vomiting, other Genitourinary: Denies: no symptoms, burning, discharge, frequency, flank pain, hematuria, incontinence, pain, urgency, other Neurologic/Psychiatric: Denies: no symptoms, anxiety, depressed, emotional problems, headache, numbness, paresthesia, pre-existing deficit, seizure, tingling, tremors, weakness, other Endocrine: Denies: no symptoms, excessive sweating, flushing, intolerance to cold, intolerance to heat, increased hunger, increased thirst, increased urine, unexplained weight gain, unexplained weight loss, other Allergies: Coded Allergies: ERTAPENEM (Verified Allergy, Intermediate, RASH - legs, back, torso, ) VANCOMYCIN (Verified Allergy, Intermediate, RASH - legs, back, torso, 06/16) Subjective 06/16: no acute events, h/h stable, on zyvox, hep panel pending 06/18: awake and alert, no acute distress, labs reviewed 06/19: remains on linezolid, no bleeding, labs noted, no major changes 06/20: no major changes, labs noted, remains on abx, no bleeding 06/21: no bleeding, labs noted, with nausea this am, zofran was given 06/22: awake and alert, no acute events, on room air, folate 06/23: labs reviewed, no bleeding, no f/c, hgb 11 Objective Last 24 Hour Vital Signs Date Time Temp Pulse Resp B/P (MAP) Pulse Ox O2 Delivery O2 Flow Rate FiO2 06/23/19 12:00 97.6 81 20 141/76 (97) 97 06/23/19 09:00 Room Air 06/23/19 08:00 98.0 84 18 120/71 (87) 96 06/23/19 04:00 98.0 83 20 129/64 (85) 95 06/23/19 00:00 97.9 84 20 139/71 (93) 97 06/22/19 21:00 Room Air 06/22/19 20:00 98.2 93 22 121/60 (80) 96 06/22/19 17:00 152/74 (100) Intake and Output 06/22/19 06/23/19 19:00 07:00 Intake Total 780 ml 400 ml Output Total 150 ml Balance 630 ml 400 ml Intake Oral 780 ml 400 ml Output Emesis 150 ml # Voids 3 # Bowel Movements 2 1 Laboratory Tests 06/23/19 07:20: White Blood Count 9.1, Red Blood Count 3.74L, Hemoglobin 11.1L, Hematocrit 32.9L , Mean Corpuscular Volume 88, Mean Corpuscular Hemoglobin 29.5, Mean Corpuscular Hemoglobin Concent 33.6, Red Cell Distribution Width 12.9, Platelet Count 368, Mean Platelet Volume 4.8L, Neutrophils (%) (Auto) 60.9, Lymphocytes ( %) (Auto) 26.9, Monocytes (%) (Auto) 6.9, Eosinophils (%) (Auto) 4.4H, Basophils (%) (Auto) 0.9, Sodium Level 139, Potassium Level 4.4, Chloride Level 102, Carbon Dioxide Level 23, Anion Gap 14, Blood Urea Nitrogen 35H, Creatinine 1.6H, Estimat Glomerular Filtration Rate 33.1, Glucose Level 128H, Uric Acid 10.2H, Calcium Level 9.7, Phosphorus Level 3.6, Magnesium Level 1.9, Total Bilirubin 0.5, Aspartate Amino Transf (AST/SGOT) 10L, Alanine Aminotransferase ( ALT/SGPT) 25, Alkaline Phosphatase 195H, C-Reactive Protein, Quantitative < 0.4 , Pro-B-Type Natriuretic Peptide 91, Total Protein 8.5H, Albumin 3.3L, Globulin 5.2, Albumin/Globulin Ratio 0.6L Height (Feet): 5 Height (Inches): 4.00 Weight (Pounds): 213 Objective Physical Exam Vitals: reviewed General: NAD Neck: supple Chest: clear breath sounds bilaterally Cardiovascular: RRR, no s3, s4 Abdomen: soft, nontender, nd Extremities: no cce, normal range of motion ++ picc upper arm r, also ankle and left foot erythema with bandages+ Mental: alert Jose Bond MD Jun 23, 2019 16:43
--- NOTE | 2019-06-23 17:01 | NUR ---
*-*DISCHARGE PLANNING*-* PATIENT HAS BEEN REFERRED TO: [facility] P: [phone] F: [phone] [facility] P: [phone] F: [phone] [facility] P: [phone] F: [phone] [facility] P: [phone] F: [phone] [facility] P: [phone] F: [phone] [facility] P: [phone] F: [phone] [facility] P: [phone] F: [phone] [facility] P: [phone] F: [phone] [facility] P: [phone] F: [phone] [facility] P: [phone] F: [phone] *-*ALL FACILITIES DECLINED*-*
--- NOTE | 2019-06-23 19:26 | NUR ---
HAND-OFF: Report given to Dilan MARTINEZ.
--- NOTE | 2019-06-23 19:30 | NUR ---
NURSE NOTES: Received patient in bed. Awake, A/O x4. On room air. Patient denies pain at this time. PICC line in the Right upper arm with dressing intact, no redness or swelling at the site. 1/2 side rails up, non-skid socks in place. Call light within reach.
[2019-06-23 20:00] VITALS: BP 123/70
[2019-06-23] MEDS: Atorvastatin 80mg tab ORAL SCH (21:25)
[2019-06-23] MEDS: Dyna-Hex 2% Top Sol 2oz TOPIC SCH (21:26)
[2019-06-24] VITALS: BP 132/84
[2019-06-24 04:00] VITALS: BP 129/73
[2019-06-24] MEDS: NovoLOG Insulin Flexpen SUBQ SCH ×4 (06:21→21:24)
[2019-06-24] MEDS: metFORMIN 500mg tab ORAL SCH ×3 (06:40→17:04)
--- NOTE | 2019-06-24 07:16 | NUR ---
HAND-OFF: Report given to Isaac MARTINEZ.
--- NOTE | 2019-06-24 07:17 | NUR ---
NURSE NOTES: Report received from Dilan MARTINEZ. Patient is currently awake and alert x 4 sitting upright in bed eating breakfast. Patient currently has no complaints at this time. Patient noted to have a clean, dry, and intact dressing on left foot. Patient does not have complaints of pain in her foot at this time. Patient noted to have PICC line in right upper arm. PICC line currently does not have blood return but flushes. MD aware. Orders to remove upon discharge.Dressing clean and intact. Does not need to be changed at this time. Bed locked and in lowest position. Call light within reach. Will continue to follow plan of care.
[2019-06-24 08:00] VITALS: BP 114/68
[2019-06-24 08:24] LABS: BASOPHILS % (AUTO) 1.1 % (0.0-2.0); EOSINOPHILS % (AUTO) 5.2 % (0.0-3.0); HEMATOCRIT 32.1 % (37.0-47.0); LYMPHOCYTES % (AUTO) 28.4 % (20.0-45.0); MEAN CORPUSCULAR VOLUME 89 FL (80-99); MONOCYTES % (AUTO) 5.9 % (1.0-10.0); NEUTROPHILS % (AUTO) 59.5 % (45.0-75.0); PLATELET COUNT 312 K/UL (150-450); RED BLOOD COUNT 3.62 M/UL (4.20-5.40); RED CELL DISTRIBUTION WIDTH 12.8 % (11.6-14.8); WHITE BLOOD COUNT 9.7 K/UL (4.8-10.8)
--- NOTE | 2019-06-24 10:22 | Nephrology Progress Note ---
Assessment/Plan Problem List: (1) DMII (diabetes mellitus, type 2) (2) Ascites (3) Hypertension (4) Cellulitis of left foot (5) Proteinuria Assessment: diabetic nephropathy Assessment Cr rising- Hold Zestril- watch Cr on Bactrim - Metformin Ascitis Obese DM Anemia HypoAlbuminemia elevated LFTs Plan Cr stable 1.6 Kayexelate as needed Bolus NS as needed UA prn Lasix Anemia larose adjust BP meds wound care per orders Subjective ROS Limited/Unobtainable: No Constitutional: Reports: malaise Objective Objective Last 24 Hour Vital Signs Date Time Temp Pulse Resp B/P (MAP) Pulse Ox O2 Delivery O2 Flow Rate FiO2 06/24/19 04:00 98.2 80 19 129/73 (91) 95 06/24/19 00:00 97.8 76 19 132/84 (100) 96 06/23/19 21:00 Room Air 06/23/19 20:00 98.8 83 19 123/70 (87) 98 06/23/19 16:00 98.8 90 20 139/85 (103) 95 06/23/19 12:00 97.6 81 20 141/76 (97) 97 Intake and Output 06/23/19 06/24/19 19:00 07:00 Intake Total 480 ml 200 ml Balance 480 ml 200 ml Intake Oral 480 ml 200 ml # Voids 3 1 # Bowel Movements 1 1 Current Medications Medications (Trade) Dose Ordered Sig/Dileep Route PRN Reason Start Time Stop Time Status Last Admin Dose Admin Acetaminophen (Tylenol) 650 mg Q4H PRN ORAL For Pain 06/14/19 04:15 07/14/19 04:14 06/16/19 17:26 Atorvastatin Calcium (Lipitor) 80 mg BEDTIME ORAL 06/14/19 21:00 07/14/19 20:59 06/23/19 21:25 Chlorhexidine Gluconate (Tianna-Hex 2%) 1 applic DAILY@1999 TOPIC 06/23/19 20:00 07/23/19 19:59 06/23/19 21:26 Dextrose (Dextrose 50%) 25 ml Q30M PRN IV Hypoglycemia 06/14/19 07:45 07/14/19 07:44 Dextrose (Dextrose 50%) 50 ml Q30M PRN IV Hypoglycemia 06/14/19 07:45 07/14/19 07:44 Folic Acid (Folate) 2 mg DAILY ORAL 06/15/19 10:30 07/15/19 10:29 06/24/19 09:34 Insulin Aspart (NovoLOG) BEFORE MEALS AND HS SUBQ 06/14/19 11:30 07/14/19 11:29 06/23/19 11:47 Linezolid (Zyvox) 600 mg EVERY 12 HOURS ORAL 06/14/19 15:42 07/13/19 23:59 06/24/19 09:34 Loperamide HCl (Imodium) 2 mg Q4H PRN ORAL Diarrhea 06/21/19 14:30 07/21/19 14:29 06/22/19 20:30 Metformin HCl (Glucophage) 500 mg TIAC ORAL 06/15/19 11:30 07/15/19 11:29 06/24/19 06:40 Ondansetron HCl (Zofran) 4 mg Q6H PRN IVP Nausea & Vomiting 06/14/19 22:00 07/14/19 21:59 06/23/19 08:14 Laboratory Tests 06/24/19 06:20: White Blood Count 9.7, Red Blood Count 3.62L, Hemoglobin 11.0L, Hematocrit 32.1L , Mean Corpuscular Volume 89, Mean Corpuscular Hemoglobin 30.3, Mean Corpuscular Hemoglobin Concent 34.2, Red Cell Distribution Width 12.8, Platelet Count 312, Mean Platelet Volume 4.7L, Neutrophils (%) (Auto) 59.5, Lymphocytes ( %) (Auto) 28.4, Monocytes (%) (Auto) 5.9, Eosinophils (%) (Auto) 5.2H, Basophils (%) (Auto) 1.1 Height (Feet): 5 Height (Inches): 4.00 Weight (Pounds): 213 General Appearance: no apparent distress Cardiovascular: normal rate Respiratory/Chest: lungs clear Abdomen: soft Objective no change Erasto Parikh MD Jun 24, 2019 10:22
[2019-06-24 12:00] VITALS: BP 90/66
--- NOTE | 2019-06-24 12:58 | Surgery Progress Note ---
Surgery Progress Note Subjective Symptoms: improved, tolerating diet, voiding well, passing flatus, BM, pain decreased Objective Last 24 Hour Vital Signs Date Time Temp Pulse Resp B/P (MAP) Pulse Ox O2 Delivery O2 Flow Rate FiO2 06/24/19 12:00 98.3 90 20 90/66 (74) 97 06/24/19 09:00 Room Air 06/24/19 08:00 98.1 84 20 114/68 (83) 94 06/24/19 04:00 98.2 80 19 129/73 (91) 95 06/24/19 00:00 97.8 76 19 132/84 (100) 96 06/23/19 21:00 Room Air 06/23/19 20:00 98.8 83 19 123/70 (87) 98 06/23/19 16:00 98.8 90 20 139/85 (103) 95 I&O Intake and Output 06/23/19 06/24/19 19:00 07:00 Intake Total 480 ml 200 ml Balance 480 ml 200 ml Intake Oral 480 ml 200 ml # Voids 3 1 # Bowel Movements 1 1 Dressing: dry Wound: clean Cardiovascular: RSR Respiratory: clear Abdomen: soft, non-tender, present bowel sounds Extremities: no tenderness, no cyanosis, other Laboratory Tests Test 06/24/19 06:20 White Blood Count 9.7 K/UL (4.8-10.8) Red Blood Count 3.62 M/UL (4.20-5.40) L Hemoglobin 11.0 G/DL (12.0-16.0) L Hematocrit 32.1 % (37.0-47.0) L Mean Corpuscular Volume 89 FL (80-99) Mean Corpuscular Hemoglobin 30.3 PG (27.0-31.0) Mean Corpuscular Hemoglobin Concent 34.2 G/DL (32.0-36.0) Red Cell Distribution Width 12.8 % (11.6-14.8) Platelet Count 312 K/UL (150-450) Mean Platelet Volume 4.7 FL (6.5-10.1) L Neutrophils (%) (Auto) 59.5 % (45.0-75.0) Lymphocytes (%) (Auto) 28.4 % (20.0-45.0) Monocytes (%) (Auto) 5.9 % (1.0-10.0) Eosinophils (%) (Auto) 5.2 % (0.0-3.0) H Basophils (%) (Auto) 1.1 % (0.0-2.0) Plan Problems: (1) Left foot infection (2) Occluded PICC line Assessment & Plan: new picc 06/14/2019 (3) Open wound of left foot Assessment & Plan: DAILY ESTIMATED NEEDS: Needs based on DM, wound/ 64kg abw 25-30 kcals/kg [id number] total kcals 1.25-1.5 g protein/kg 80-96 g total protein 25-30 mL/kg 5080-2775 total fluid mLs NUTRITION DIAGNOSIS: Altered nutrition related lab values R/T diabtes as evidenced by A1C of 11.2, POC glu (145-157 improved), Uglu 2+ upon adm. CURRENT DIET:Cardiac, mech soft chopped PO DIET RECOMMENDATIONS: CCHO MED/ texture as tolerated ADDITIONAL RECOMMENDATIONS: * Calibrated bedscale wt * Carb controlled diet as above * Wound healing: add MVI x 1, Vit C 250mg QD Angel BID as tolerated (4) Cellulitis of left foot Assessment & Plan: 50-year-old female with history of chronic left foot wounds , cellulitis, infection who in 2018 initially developed a abscess/blister and has been dealing with chronic infection of the left foot since. On the medial aspect there is a 3 cm x 2 cm x 1 cm open wound with good granulation tissue seemingly a little bit more chronic than 1 week no drainage no signs of significant active infection. On the plantar aspect of the foot there is a 1 cm x 1 cm by half centimeter open punched-out wound from prior drainage with no active drainage currently. Patient states that she was recommended to have local wound care and antibiotics for 6 weeks. States that she is on isolation for the cultures that were taken outside facility. new picc placed Local wound care with hydrogel packing or Thera honey packing gauze daily Wash wound left foot daily with normal saline then apply above dressings Wrap foot leg with gauze after packing and dressings applied Trend labs Antibiotics per infectious disease podiatry input appreciated Thank you will follow with recommendations Cristian Tavarez Jun 24, 2019 12:58
[2019-06-24 16:00] VITALS: BP 117/60
--- NOTE | 2019-06-24 19:28 | NUR ---
HAND-OFF: Report given to Rui RN.Patient in stable condition.
[2019-06-24 20:00] VITALS: BP 109/57
--- NOTE | 2019-06-24 20:12 | NUR ---
NURSE NOTES: Pt is in bed, awake and alert. No acute distress noted. Wound dressing dry and intact, changed during last shift. Room air. Pt is ambulatory.PICC line will be flushed. Pt has discharge order, awaiting placement. Fall precaution in place, bed locked low in position,side rails up and call light within reach. Pt will be monitored.
[2019-06-24] MEDS: Dyna-Hex 2% Top Sol 2oz TOPIC SCH (21:21)
[2019-06-24] MEDS: Atorvastatin 80mg tab ORAL SCH (21:21)
[2019-06-25 04:00] VITALS: BP 119/72
--- NOTE | 2019-06-25 04:00 | NUR ---
NURSE NOTES: Pt had no issues overnight, pt slept well. Vitals stable.
[2019-06-25] MEDS: NovoLOG Insulin Flexpen SUBQ SCH ×4 (06:14→20:15)
[2019-06-25] MEDS: metFORMIN 500mg tab ORAL SCH ×3 (06:47→16:41)
--- NOTE | 2019-06-25 07:20 | NUR ---
HAND-OFF: Report given to MICHELLE Rainey.
--- NOTE | 2019-06-25 07:32 | NUR ---
NURSE NOTES: received report from MICHELLE Fabian. patient in bed. alert, oriented. verbally responsive. no respiratory distress noted. no pain at this time. PICC line on MICHELLE. DM ulcer on ankle, , bottom of foot with dressing. bed in the lowest position and locked. call light within reach. will continue to provide plan of care.
[2019-06-25 08:00] VITALS: BP 124/68
--- NOTE | 2019-06-25 08:38 | Hematology/Onc Progress Note ---
Assessment/Plan Assessment/Plan IM PROGRESS NOTE COVERING FOR DR. HILLIARD Assessment and Recs: # Occluded PICC line, MICHELLE --> has been changed # Diabetic foot, osteomyelitis. LE foot cellulitis --> per endo, accuchecks qac and qhs --> seen by pod, id surg --> on bactrim zyvox-->now off # Anemia of chronic disease due to underlying chronic medical issues, multifactorial v Gi bleed --> Anemia workup has been ordered, rule out gi bleed --> No evidence of hemolysis is noted, peripheral smear has been reviewed. --> Hgb goal >7. Transfuse prn. --> Epogen or iron at this time is not particularly indicated --> hgb trend: 9.7-->10-->10.5 --> Medications have been reviewed --> low threshold for gi evaluation in case has occult + # Diabetes mellitus. # Charcot joint. # Transaminitis # Dvt ppx scds Appreciate consultation and dw RN Subjective Constitutional: Denies: no symptoms, chills, fever, malaise, weakness, other HEENT: Denies: no symptoms, eye pain, blurred vision, tearing, double vision, ear pain, ear discharge, nose pain, nose congestion, throat pain, throat swelling, mouth pain, mouth swelling, other Respiratory: Denies: no symptoms, cough, shortness of breath, SOB with excertion, SOB at rest, sputum, wheezing, other Genitourinary: Denies: no symptoms, burning, discharge, frequency, flank pain, hematuria, incontinence, pain, urgency, other Neurologic/Psychiatric: Denies: no symptoms, anxiety, depressed, emotional problems, headache, numbness, paresthesia, pre-existing deficit, seizure, tingling, tremors, weakness, other Endocrine: Denies: no symptoms, excessive sweating, flushing, intolerance to cold, intolerance to heat, increased hunger, increased thirst, increased urine, unexplained weight gain, unexplained weight loss, other Hematologic/Lymphatic: Denies: no symptoms, anemia, easy bleeding, easy bruising, adenopathy, other Allergies: Coded Allergies: ERTAPENEM (Verified Allergy, Intermediate, RASH - legs, back, torso, ) VANCOMYCIN (Verified Allergy, Intermediate, RASH - legs, back, torso, 06/16) Subjective 06/16: no acute events, h/h stable, on zyvox, hep panel pending 06/18: awake and alert, no acute distress, labs reviewed 06/19: remains on linezolid, no bleeding, labs noted, no major changes 06/20: no major changes, labs noted, remains on abx, no bleeding 06/21: no bleeding, labs noted, with nausea this am, zofran was given 06/22: awake and alert, no acute events, on room air, folate 06/23: labs reviewed, no bleeding, no f/c, hgb 11 06/25: no major changes, labs reviewed, no bleeding, cbc ordered Objective Objective Current Medications Medications (Trade) Dose Ordered Sig/Dileep Route PRN Reason Start Time Stop Time Status Last Admin Dose Admin Acetaminophen (Tylenol) 650 mg Q4H PRN ORAL For Pain 06/14/19 04:15 07/14/19 04:14 06/16/19 17:26 Allopurinol (allopurinoL) 300 mg DAILY ORAL 06/24/19 10:30 07/24/19 10:29 06/25/19 08:31 Atorvastatin Calcium (Lipitor) 80 mg BEDTIME ORAL 06/14/19 21:00 07/14/19 20:59 06/24/19 21:21 Chlorhexidine Gluconate (Tianna-Hex 2%) 1 applic DAILY@2000 TOPIC 06/23/19 20:00 07/23/19 19:59 06/24/19 21:21 Dextrose (Dextrose 50%) 25 ml Q30M PRN IV Hypoglycemia 06/14/19 07:45 07/14/19 07:44 Dextrose (Dextrose 50%) 50 ml Q30M PRN IV Hypoglycemia 06/14/19 07:45 07/14/19 07:44 Folic Acid (Folate) 2 mg DAILY ORAL 06/15/19 10:30 07/15/19 10:29 06/25/19 08:31 Insulin Aspart (NovoLOG) BEFORE MEALS AND HS SUBQ 06/14/19 11:30 07/14/19 11:29 06/24/19 21:24 Linezolid (Zyvox) 600 mg EVERY 12 HOURS ORAL 06/14/19 15:42 07/13/19 23:59 06/25/19 08:31 Loperamide HCl (Imodium) 2 mg Q4H PRN ORAL Diarrhea 06/21/19 14:30 07/21/19 14:29 06/22/19 20:30 Metformin HCl (Glucophage) 500 mg TIAC ORAL 06/15/19 11:30 07/15/19 11:29 06/25/19 06:47 Ondansetron HCl (Zofran) 4 mg Q6H PRN IVP Nausea & Vomiting 06/14/19 22:00 07/14/19 21:59 06/24/19 12:12 Last 24 Hour Vital Signs Date Time Temp Pulse Resp B/P (MAP) Pulse Ox O2 Delivery O2 Flow Rate FiO2 06/25/19 04:00 97.8 85 18 119/72 (88) 100 06/24/19 21:00 Room Air 06/24/19 20:00 97.9 85 17 109/57 (74) 97 06/24/19 16:00 98.1 80 20 117/60 (79) 97 06/24/19 12:00 98.3 90 20 90/66 (74) 97 06/24/19 09:00 Room Air 06/24/19 08:00 98.1 84 20 114/68 (83) 94 06/24/19 04:00 98.2 80 19 129/73 (91) 95 06/24/19 00:00 97.8 76 19 132/84 (100) 96 06/23/19 21:00 Room Air 06/23/19 20:00 98.8 83 19 123/70 (87) 98 06/23/19 16:00 98.8 90 20 139/85 (103) 95 06/23/19 12:00 97.6 81 20 141/76 (97) 97 06/23/19 09:00 Room Air Intake and Output 06/24/19 06/25/19 19:00 07:00 Intake Total 960 ml 640 ml Balance 960 ml 640 ml Intake Oral 960 ml 640 ml # Voids 5 2 # Bowel Movements 1 2 Labs Test 06/23/19 07:20 06/24/19 06:20 White Blood Count 9.1 K/UL (4.8-10.8) 9.7 K/UL (4.8-10.8) Red Blood Count 3.74 M/UL (4.20-5.40) 3.62 M/UL (4.20-5.40) Hemoglobin 11.1 G/DL (12.0-16.0) 11.0 G/DL (12.0-16.0) Hematocrit 32.9 % (37.0-47.0) 32.1 % (37.0-47.0) Mean Corpuscular Volume 88 FL (80-99) 89 FL (80-99) Mean Corpuscular Hemoglobin 29.5 PG (27.0-31.0) 30.3 PG (27.0-31.0) Mean Corpuscular Hemoglobin Concent 33.6 G/DL (32.0-36.0) 34.2 G/DL (32.0-36.0) Red Cell Distribution Width 12.9 % (11.6-14.8) 12.8 % (11.6-14.8) Platelet Count 368 K/UL (150-450) 312 K/UL (150-450) Mean Platelet Volume 4.8 FL (6.5-10.1) 4.7 FL (6.5-10.1) Neutrophils (%) (Auto) 60.9 % (45.0-75.0) 59.5 % (45.0-75.0) Lymphocytes (%) (Auto) 26.9 % (20.0-45.0) 28.4 % (20.0-45.0) Monocytes (%) (Auto) 6.9 % (1.0-10.0) 5.9 % (1.0-10.0) Eosinophils (%) (Auto) 4.4 % (0.0-3.0) 5.2 % (0.0-3.0) Basophils (%) (Auto) 0.9 % (0.0-2.0) 1.1 % (0.0-2.0) Sodium Level 139 MMOL/L (136-145) Potassium Level 4.4 MMOL/L (3.5-5.1) Chloride Level 102 MMOL/L (98-107) Carbon Dioxide Level 23 MMOL/L (21-32) Anion Gap 14 mmol/L (5-15) Blood Urea Nitrogen 35 mg/dL (7-18) Creatinine 1.6 MG/DL (0.55-1.30) Estimat Glomerular Filtration Rate 33.1 mL/min (>60) Glucose Level 128 MG/DL (74-106) Uric Acid 10.2 MG/DL (2.6-7.2) Calcium Level 9.7 MG/DL (8.5-10.1) Phosphorus Level 3.6 MG/DL (2.5-4.9) Magnesium Level 1.9 MG/DL (1.8-2.4) Total Bilirubin 0.5 MG/DL (0.2-1.0) Aspartate Amino Transf (AST/SGOT) 10 U/L (15-37) Alanine Aminotransferase (ALT/SGPT) 25 U/L (12-78) Alkaline Phosphatase 195 U/L (46-116) C-Reactive Protein, Quantitative < 0.4 mg/dL (0.00-0.90) Pro-B-Type Natriuretic Peptide 91 pg/mL (0-125) Total Protein 8.5 G/DL (6.4-8.2) Albumin 3.3 G/DL (3.4-5.0) Globulin 5.2 g/dL Albumin/Globulin Ratio 0.6 (1.0-2.7) Height (Feet): 5 Height (Inches): 4.00 Weight (Pounds): 213 Objective Physical Exam Vitals: reviewed General: NAD Neck: supple Chest: clear breath sounds bilaterally Cardiovascular: RRR, no s3, s4 Abdomen: soft, nontender, nd Extremities: no cce, normal range of motion ++ picc upper arm r, also ankle and left foot erythema with bandages+ Mental: alert Jose Bond MD Jun 25, 2019 08:38
--- NOTE | 2019-06-25 10:47 | Infectious Diseases Prog Note ---
Assessment/Plan Assessment/Plan IMPRESSION: 1. Diabetic foot, osteomyelitis. 2. Allergic drug reaction to Invanz and vancomycin with rash, resolving 3. Diabetes mellitus. 4. Charcot joint. 5. Anemia. 6. Elevated transaminase improving 7. Chronic kidney disease 8. Diarrhea, negative C. 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 Plan: start on Imodium Continue Zyvox X 18 days Negative hepatitis B & C serologies Waiting for placement Subjective ROS Limited/Unobtainable: No Constitutional: Reports: no symptoms Respiratory: Reports: no symptoms Cardiovascular: Reports: no symptoms Gastrointestinal/Abdominal: Reports: nausea, diarrhea Allergies: Coded Allergies: ERTAPENEM (Verified Allergy, Intermediate, RASH - legs, back, torso, ) VANCOMYCIN (Verified Allergy, Intermediate, RASH - legs, back, torso, 06/16) Objective Vital Signs Last 24 Hour Vital Signs Date Time Temp Pulse Resp B/P (MAP) Pulse Ox O2 Delivery O2 Flow Rate FiO2 06/25/19 09:00 Room Air 06/25/19 08:00 97.9 82 18 124/68 (86) 98 06/25/19 04:00 97.8 85 18 119/72 (88) 100 06/24/19 21:00 Room Air 06/24/19 20:00 97.9 85 17 109/57 (74) 97 06/24/19 16:00 98.1 80 20 117/60 (79) 97 06/24/19 12:00 98.3 90 20 90/66 (74) 97 Height (Feet): 5 Height (Inches): 4.00 Weight (Pounds): 213 General Appearance: no acute distress HEENT: mucous membranes moist Cardiovascular: normal rate Abdomen: soft, non tender Extremities: no edema Skin: ulcers, other - left foot Neurologic/Psychiatric: alert, oriented x 3, responsive Current Medications Medications (Trade) Dose Ordered Sig/Dileep Route PRN Reason Start Time Stop Time Status Last Admin Dose Admin Acetaminophen (Tylenol) 650 mg Q4H PRN ORAL For Pain 06/14/19 04:15 07/14/19 04:14 06/16/19 17:26 Allopurinol (allopurinoL) 300 mg DAILY ORAL 06/24/19 10:30 07/24/19 10:29 06/25/19 08:31 Atorvastatin Calcium (Lipitor) 80 mg BEDTIME ORAL 06/14/19 21:00 07/14/19 20:59 06/24/19 21:21 Chlorhexidine Gluconate (Tianna-Hex 2%) 1 applic DAILY@2000 TOPIC 06/23/19 20:00 07/23/19 19:59 06/24/19 21:21 Dextrose (Dextrose 50%) 25 ml Q30M PRN IV Hypoglycemia 06/14/19 07:45 07/14/19 07:44 Dextrose (Dextrose 50%) 50 ml Q30M PRN IV Hypoglycemia 06/14/19 07:45 07/14/19 07:44 Folic Acid (Folate) 2 mg DAILY ORAL 06/15/19 10:30 07/15/19 10:29 06/25/19 08:31 Insulin Aspart (NovoLOG) BEFORE MEALS AND HS SUBQ 06/14/19 11:30 07/14/19 11:29 06/24/19 21:24 Linezolid (Zyvox) 600 mg EVERY 12 HOURS ORAL 06/14/19 15:42 07/13/19 23:59 06/25/19 08:31 Loperamide HCl (Imodium) 2 mg Q4H PRN ORAL Diarrhea 06/21/19 14:30 07/21/19 14:29 06/22/19 20:30 Metformin HCl (Glucophage) 500 mg TIAC ORAL 06/15/19 11:30 07/15/19 11:29 06/25/19 06:47 Ondansetron HCl (Zofran) 4 mg Q6H PRN IVP Nausea & Vomiting 06/14/19 22:00 07/14/19 21:59 06/25/19 08:44 Adarsh Pitts MD Jun 25, 2019 10:47
--- NOTE | 2019-06-25 11:31 | Nephrology Progress Note ---
Assessment/Plan Problem List: (1) DMII (diabetes mellitus, type 2) (2) Ascites (3) Hypertension (4) Cellulitis of left foot (5) Proteinuria Assessment: diabetic nephropathy Assessment Cr rising- Hold Zestril- watch Cr on Bactrim - Metformin Ascitis Obese DM Anemia HypoAlbuminemia elevated LFTs Plan Cr stable 1.6 Kayexelate as needed Bolus NS as needed UA prn Lasix Anemia larose adjust BP meds wound care per orders Subjective ROS Limited/Unobtainable: No Constitutional: Reports: malaise Objective Objective Last 24 Hour Vital Signs Date Time Temp Pulse Resp B/P (MAP) Pulse Ox O2 Delivery O2 Flow Rate FiO2 06/25/19 09:00 Room Air 06/25/19 08:00 97.9 82 18 124/68 (86) 98 06/25/19 04:00 97.8 85 18 119/72 (88) 100 06/24/19 21:00 Room Air 06/24/19 20:00 97.9 85 17 109/57 (74) 97 06/24/19 16:00 98.1 80 20 117/60 (79) 97 06/24/19 12:00 98.3 90 20 90/66 (74) 97 Intake and Output 06/24/19 06/25/19 19:00 07:00 Intake Total 960 ml 640 ml Balance 960 ml 640 ml Intake Oral 960 ml 640 ml # Voids 5 2 # Bowel Movements 1 2 Height (Feet): 5 Height (Inches): 4.00 Weight (Pounds): 213 General Appearance: no apparent distress Objective no change Erasto Parikh MD Jun 25, 2019 11:31
[2019-06-25 12:00] VITALS: BP 118/72
[2019-06-25] MEDS ORDERED: Tubing IV Secondary IV ONE (13:47)
--- NOTE | 2019-06-25 13:50 | Surgery Progress Note ---
Surgery Progress Note Subjective Symptoms: improved, tolerating diet, passing flatus Objective Last 24 Hour Vital Signs Date Time Temp Pulse Resp B/P (MAP) Pulse Ox O2 Delivery O2 Flow Rate FiO2 06/25/19 12:00 97.6 78 18 118/72 (87) 98 06/25/19 09:00 Room Air 06/25/19 08:00 97.9 82 18 124/68 (86) 98 06/25/19 04:00 97.8 85 18 119/72 (88) 100 06/24/19 21:00 Room Air 06/24/19 20:00 97.9 85 17 109/57 (74) 97 06/24/19 16:00 98.1 80 20 117/60 (79) 97 I&O Intake and Output 06/24/19 06/25/19 19:00 07:00 Intake Total 960 ml 640 ml Balance 960 ml 640 ml Intake Oral 960 ml 640 ml # Voids 5 2 # Bowel Movements 1 2 Dressing: dry Wound: clean Cardiovascular: RSR Respiratory: clear Abdomen: soft, non-tender, present bowel sounds Extremities: no cyanosis Plan Problems: (1) Left foot infection (2) Occluded PICC line Assessment & Plan: new picc 06/14/2019 (3) Open wound of left foot Assessment & Plan: DAILY ESTIMATED NEEDS: Needs based on DM, wound/ 64kg abw 25-30 kcals/kg 1647-0299 total kcals 1.25-1.5 g protein/kg 80-96 g total protein 25-30 mL/kg 6525-1219 total fluid mLs NUTRITION DIAGNOSIS: Altered nutrition related lab values R/T diabtes as evidenced by A1C of 11.2, POC glu (145-157 improved), Uglu 2+ upon adm. CURRENT DIET:Cardiac, mech soft chopped PO DIET RECOMMENDATIONS: CCHO MED/ texture as tolerated ADDITIONAL RECOMMENDATIONS: * Calibrated bedscale wt * Carb controlled diet as above * Wound healing: add MVI x 1, Vit C 250mg QD Angel BID as tolerated (4) Cellulitis of left foot Assessment & Plan: 50-year-old female with history of chronic left foot wounds , cellulitis, infection who in 2018 initially developed a abscess/blister and has been dealing with chronic infection of the left foot since. On the medial aspect there is a 3 cm x 2 cm x 1 cm open wound with good granulation tissue seemingly a little bit more chronic than 1 week no drainage no signs of significant active infection. On the plantar aspect of the foot there is a 1 cm x 1 cm by half centimeter open punched-out wound from prior drainage with no active drainage currently. Patient states that she was recommended to have local wound care and antibiotics for 6 weeks. States that she is on isolation for the cultures that were taken outside facility. new picc placed Local wound care with hydrogel packing or Thera honey packing gauze daily Wash wound left foot daily with normal saline then apply above dressings Wrap foot leg with gauze after packing and dressings applied Trend labs Antibiotics per infectious disease podiatry input appreciated Thank you will follow with recommendations Cristian Tavarez Jun 25, 2019 13:50
[2019-06-25 16:00] VITALS: BP 126/69
--- NOTE | 2019-06-25 19:09 | NUR ---
HAND-OFF: Report given to MICHELLE Fabian.
--- NOTE | 2019-06-25 19:33 | NUR ---
NURSE NOTES: Pt is in bed, awake and alert. No acute distress noted. Wound dressing dry and intact, dressing changed during last shift. Room air. Pt is ambulatory.PICC line will be flushed. Pt has discharge order, awaiting placement. Fall precaution in place, bed locked low in position,side rails up and call light within reach. Pt will be monitored.
[2019-06-25 20:00] VITALS: BP_SYST 135; BP_SYST 152; BP_DIAS 63; BP_DIAS 78
[2019-06-25] MEDS: Dyna-Hex 2% Top Sol 2oz TOPIC SCH (20:18)
[2019-06-25] MEDS: Atorvastatin 80mg tab ORAL SCH (20:18)
[2019-06-26] VITALS: BP 128/79
[2019-06-26 04:00] VITALS: BP 109/58
--- NOTE | 2019-06-26 05:00 | NUR ---
NURSE NOTES: Pt is asleep, No acute distress noted.
[2019-06-26] MEDS: NovoLOG Insulin Flexpen SUBQ SCH ×4 (06:19→20:50)
[2019-06-26] MEDS: metFORMIN 500mg tab ORAL SCH ×3 (06:20→16:59)
[2019-06-26 06:38] LABS: BASOPHILS % (AUTO) 0.9 % (0.0-2.0); EOSINOPHILS % (AUTO) 4.2 % (0.0-3.0); HEMATOCRIT 30.7 % (37.0-47.0); HEMOGLOBIN 10.5 G/DL (12.0-16.0); LYMPHOCYTES % (AUTO) 28.9 % (20.0-45.0); MEAN CORPUSCULAR VOLUME 88 FL (80-99); MONOCYTES % (AUTO) 7.4 % (1.0-10.0); NEUTROPHILS % (AUTO) 58.7 % (45.0-75.0); PLATELET COUNT 254 K/UL (150-450); RED CELL DISTRIBUTION WIDTH 13.1 % (11.6-14.8); WHITE BLOOD COUNT 9.4 K/UL (4.8-10.8)
[2019-06-26 06:53] LABS: ANION GAP 12 mmol/L (5-15); BLOOD UREA NITROGEN 29 mg/dL (7-18); CALCIUM 9.5 MG/DL (8.5-10.1); CARBON DIOXIDE 24 MMOL/L (21-32); CHLORIDE 103 MMOL/L (98-107); CREATININE 1.5 MG/DL (0.55-1.30); POTASSIUM 4.5 MMOL/L (3.5-5.1); SODIUM 139 MMOL/L (136-145)
--- NOTE | 2019-06-26 07:15 | NUR ---
HAND-OFF: Report given to MICHELLE Garcia.
[2019-06-26 08:00] VITALS: BP 127/66
--- NOTE | 2019-06-26 09:37 | Hematology/Onc Progress Note ---
Assessment/Plan Assessment/Plan Assessment and Recs: # Anemia of chronic disease due to underlying chronic medical issues, multifactorial v Gi bleed --> Anemia workup has been ordered, rule out gi bleed --> No evidence of hemolysis is noted, peripheral smear has been reviewed. --> Hgb goal >7. Transfuse prn. --> Epogen or iron at this time is not particularly indicated --> hgb trend: 9.7-->10-->10.5 --> Medications have been reviewed --> low threshold for gi evaluation in case has occult + # Occluded PICC line, MICHELLE --> has been changed # Diabetic foot, osteomyelitis. LE foot cellulitis --> per endo, accuchecks qac and qhs --> seen by pod, id surg --> on bactrim zyvox-->now off # Diabetes mellitus. # Charcot joint. # Transaminitis # Dvt ppx scds Appreciate consultation and holden RN Subjective HEENT: Denies: no symptoms, eye pain, blurred vision, tearing, double vision, ear pain, ear discharge, nose pain, nose congestion, throat pain, throat swelling, mouth pain, mouth swelling, other Cardiovascular: Denies: no symptoms, chest pain, edema, irregular heart rate, lightheadedness, palpitations, syncope, other Respiratory: Denies: no symptoms, cough, shortness of breath, SOB with excertion, SOB at rest, sputum, wheezing, other Gastrointestinal/Abdominal: Denies: no symptoms, abdomen distended, abdominal pain, black stools, tarry stools, blood in stool, constipated, diarrhea, difficulty swallowing, nausea, poor appetite, poor fluid intake, rectal bleeding , vomiting, other Genitourinary: Denies: no symptoms, burning, discharge, frequency, flank pain, hematuria, incontinence, pain, urgency, other Neurologic/Psychiatric: Denies: no symptoms, anxiety, depressed, emotional problems, headache, numbness, paresthesia, pre-existing deficit, seizure, tingling, tremors, weakness, other Endocrine: Denies: no symptoms, excessive sweating, flushing, intolerance to cold, intolerance to heat, increased hunger, increased thirst, increased urine, unexplained weight gain, unexplained weight loss, other Allergies: Coded Allergies: ERTAPENEM (Verified Allergy, Intermediate, RASH - legs, back, torso, ) VANCOMYCIN (Verified Allergy, Intermediate, RASH - legs, back, torso, 06/16) Subjective 06/16: no acute events, h/h stable, on zyvox, hep panel pending 06/18: awake and alert, no acute distress, labs reviewed 06/19: remains on linezolid, no bleeding, labs noted, no major changes 06/20: no major changes, labs noted, remains on abx, no bleeding 06/21: no bleeding, labs noted, with nausea this am, zofran was given 06/22: awake and alert, no acute events, on room air, folate 06/23: labs reviewed, no bleeding, no f/c, hgb 11 06/25: no major changes, labs reviewed, no bleeding, cbc ordered 06/26: no events, no bleeding, cbc is better, labs noted, awaiting placement Objective Objective Current Medications Medications (Trade) Dose Ordered Sig/Dileep Route PRN Reason Start Time Stop Time Status Last Admin Dose Admin Acetaminophen (Tylenol) 650 mg Q4H PRN ORAL For Pain 06/14/19 04:15 07/14/19 04:14 06/16/19 17:26 Allopurinol (allopurinoL) 300 mg DAILY ORAL 06/24/19 10:30 07/24/19 10:29 06/25/19 08:31 Atorvastatin Calcium (Lipitor) 80 mg BEDTIME ORAL 06/14/19 21:00 07/14/19 20:59 06/25/19 20:18 Chlorhexidine Gluconate (Tianna-Hex 2%) 1 applic DAILY@2000 TOPIC 06/23/19 20:00 07/23/19 19:59 06/25/19 20:18 Dextrose (Dextrose 50%) 25 ml Q30M PRN IV Hypoglycemia 06/14/19 07:45 07/14/19 07:44 Dextrose (Dextrose 50%) 50 ml Q30M PRN IV Hypoglycemia 06/14/19 07:45 07/14/19 07:44 Folic Acid (Folate) 2 mg DAILY ORAL 06/15/19 10:30 07/15/19 10:29 06/25/19 08:31 Insulin Aspart (NovoLOG) BEFORE MEALS AND HS SUBQ 06/14/19 11:30 07/14/19 11:29 06/25/19 11:44 Linezolid (Zyvox) 600 mg EVERY 12 HOURS ORAL 06/14/19 15:42 07/13/19 23:59 06/25/19 20:19 Loperamide HCl (Imodium) 2 mg Q4H PRN ORAL Diarrhea 06/21/19 14:30 07/21/19 14:29 06/22/19 20:30 Metformin HCl (Glucophage) 500 mg TIAC ORAL 06/15/19 11:30 07/15/19 11:29 06/26/19 06:20 Ondansetron HCl (Zofran) 4 mg Q6H PRN IVP Nausea & Vomiting 06/14/19 22:00 07/14/19 21:59 06/25/19 08:44 Last 24 Hour Vital Signs Date Time Temp Pulse Resp B/P (MAP) Pulse Ox O2 Delivery O2 Flow Rate FiO2 06/26/19 04:00 98.3 82 20 109/58 (75) 98 06/26/19 00:00 98.4 88 20 128/79 (95) 98 06/25/19 21:00 Room Air 06/25/19 20:00 98.1 83 20 152/78 (102) 98 06/25/19 16:00 98.0 84 18 126/69 (88) 98 06/25/19 12:00 97.6 78 18 118/72 (87) 98 06/25/19 09:00 Room Air 06/25/19 08:00 97.9 82 18 124/68 (86) 98 06/25/19 04:00 97.8 85 18 119/72 (88) 100 06/24/19 21:00 Room Air 06/24/19 20:00 97.9 85 17 109/57 (74) 97 06/24/19 16:00 98.1 80 20 117/60 (79) 97 06/24/19 12:00 98.3 90 20 90/66 (74) 97 Intake and Output 06/25/19 06/26/19 19:00 07:00 Intake Total 720 ml Balance 720 ml Intake Oral 720 ml # Voids 2 2 # Bowel Movements 1 Labs Test 06/24/19 06:20 06/26/19 05:55 White Blood Count 9.7 K/UL (4.8-10.8) 9.4 K/UL (4.8-10.8) Red Blood Count 3.62 M/UL (4.20-5.40) 3.50 M/UL (4.20-5.40) Hemoglobin 11.0 G/DL (12.0-16.0) 10.5 G/DL (12.0-16.0) Hematocrit 32.1 % (37.0-47.0) 30.7 % (37.0-47.0) Mean Corpuscular Volume 89 FL (80-99) 88 FL (80-99) Mean Corpuscular Hemoglobin 30.3 PG (27.0-31.0) 30.0 PG (27.0-31.0) Mean Corpuscular Hemoglobin Concent 34.2 G/DL (32.0-36.0) 34.2 G/DL (32.0-36.0) Red Cell Distribution Width 12.8 % (11.6-14.8) 13.1 % (11.6-14.8) Platelet Count 312 K/UL (150-450) 254 K/UL (150-450) Mean Platelet Volume 4.7 FL (6.5-10.1) 5.0 FL (6.5-10.1) Neutrophils (%) (Auto) 59.5 % (45.0-75.0) 58.7 % (45.0-75.0) Lymphocytes (%) (Auto) 28.4 % (20.0-45.0) 28.9 % (20.0-45.0) Monocytes (%) (Auto) 5.9 % (1.0-10.0) 7.4 % (1.0-10.0) Eosinophils (%) (Auto) 5.2 % (0.0-3.0) 4.2 % (0.0-3.0) Basophils (%) (Auto) 1.1 % (0.0-2.0) 0.9 % (0.0-2.0) Sodium Level 139 MMOL/L (136-145) Potassium Level 4.5 MMOL/L (3.5-5.1) Chloride Level 103 MMOL/L (98-107) Carbon Dioxide Level 24 MMOL/L (21-32) Anion Gap 12 mmol/L (5-15) Blood Urea Nitrogen 29 mg/dL (7-18) Creatinine 1.5 MG/DL (0.55-1.30) Estimat Glomerular Filtration Rate 35.7 mL/min (>60) Glucose Level 125 MG/DL (74-106) Calcium Level 9.5 MG/DL (8.5-10.1) Height (Feet): 5 Height (Inches): 4.00 Weight (Pounds): 213 Objective Physical Exam Vitals: reviewed General: NAD Neck: supple Chest: clear breath sounds bilaterally Cardiovascular: RRR, no s3, s4 Abdomen: soft, nontender, nd Extremities: no cce, normal range of motion ++ picc upper arm r, also ankle and left foot erythema with bandages+ Mental: alert Jose Bond MD Jun 26, 2019 09:37
--- NOTE | 2019-06-26 10:42 | Infectious Diseases Prog Note ---
Assessment/Plan Assessment/Plan IMPRESSION: 1. Diabetic foot, osteomyelitis. 2. Allergic drug reaction to Invanz and vancomycin with rash, resolving 3. Diabetes mellitus. 4. Charcot joint. 5. Anemia. 6. Elevated transaminase improving 7. Chronic kidney disease 8. Diarrhea, negative C. 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 Plan: Continue Imodium Continue Zyvox X 17 days Negative hepatitis B & C serologies Waiting for placement Subjective ROS Limited/Unobtainable: No Constitutional: Reports: no symptoms Gastrointestinal/Abdominal: Reports: nausea, other - decreased diarrhea Allergies: Coded Allergies: ERTAPENEM (Verified Allergy, Intermediate, RASH - legs, back, torso, ) VANCOMYCIN (Verified Allergy, Intermediate, RASH - legs, back, torso, 06/16) Objective Vital Signs Last 24 Hour Vital Signs Date Time Temp Pulse Resp B/P (MAP) Pulse Ox O2 Delivery O2 Flow Rate FiO2 06/26/19 08:00 98.0 82 18 127/66 (86) 97 06/26/19 04:00 98.3 82 20 109/58 (75) 98 06/26/19 00:00 98.4 88 20 128/79 (95) 98 06/25/19 21:00 Room Air 06/25/19 20:00 98.1 83 20 152/78 (102) 98 06/25/19 16:00 98.0 84 18 126/69 (88) 98 06/25/19 12:00 97.6 78 18 118/72 (87) 98 Height (Feet): 5 Height (Inches): 4.00 Weight (Pounds): 213 General Appearance: no acute distress HEENT: mucous membranes moist Respiratory/Chest: lungs clear Cardiovascular: normal rate, other - R arm PICC line Extremities: other - left foot edema Skin: ulcers, other - left foot Neurologic/Psychiatric: alert, oriented x 3, responsive Laboratory Tests Test 06/26/19 05:55 White Blood Count 9.4 K/UL (4.8-10.8) Red Blood Count 3.50 M/UL (4.20-5.40) L Hemoglobin 10.5 G/DL (12.0-16.0) L Hematocrit 30.7 % (37.0-47.0) L Mean Corpuscular Volume 88 FL (80-99) Mean Corpuscular Hemoglobin 30.0 PG (27.0-31.0) Mean Corpuscular Hemoglobin Concent 34.2 G/DL (32.0-36.0) Red Cell Distribution Width 13.1 % (11.6-14.8) Platelet Count 254 K/UL (150-450) Mean Platelet Volume 5.0 FL (6.5-10.1) L Neutrophils (%) (Auto) 58.7 % (45.0-75.0) Lymphocytes (%) (Auto) 28.9 % (20.0-45.0) Monocytes (%) (Auto) 7.4 % (1.0-10.0) Eosinophils (%) (Auto) 4.2 % (0.0-3.0) H Basophils (%) (Auto) 0.9 % (0.0-2.0) Sodium Level 139 MMOL/L (136-145) Potassium Level 4.5 MMOL/L (3.5-5.1) Chloride Level 103 MMOL/L (98-107) Carbon Dioxide Level 24 MMOL/L (21-32) Anion Gap 12 mmol/L (5-15) Blood Urea Nitrogen 29 mg/dL (7-18) H Creatinine 1.5 MG/DL (0.55-1.30) H Estimat Glomerular Filtration Rate 35.7 mL/min (>60) Glucose Level 125 MG/DL (74-106) H Calcium Level 9.5 MG/DL (8.5-10.1) Current Medications Medications (Trade) Dose Ordered Sig/Dileep Route PRN Reason Start Time Stop Time Status Last Admin Dose Admin Acetaminophen (Tylenol) 650 mg Q4H PRN ORAL For Pain 06/14/19 04:15 07/14/19 04:14 06/16/19 17:26 Allopurinol (allopurinoL) 300 mg DAILY ORAL 06/24/19 10:30 07/24/19 10:29 06/26/19 09:59 Atorvastatin Calcium (Lipitor) 80 mg BEDTIME ORAL 06/14/19 21:00 07/14/19 20:59 06/25/19 20:18 Chlorhexidine Gluconate (Tianna-Hex 2%) 1 applic DAILY@2000 TOPIC 06/23/19 20:00 07/23/19 19:59 06/25/19 20:18 Dextrose (Dextrose 50%) 25 ml Q30M PRN IV Hypoglycemia 06/14/19 07:45 07/14/19 07:44 Dextrose (Dextrose 50%) 50 ml Q30M PRN IV Hypoglycemia 06/14/19 07:45 07/14/19 07:44 Folic Acid (Folate) 2 mg DAILY ORAL 06/15/19 10:30 07/15/19 10:29 06/26/19 09:59 Insulin Aspart (NovoLOG) BEFORE MEALS AND HS SUBQ 06/14/19 11:30 07/14/19 11:29 06/25/19 11:44 Linezolid (Zyvox) 600 mg EVERY 12 HOURS ORAL 06/14/19 15:42 07/13/19 23:59 06/26/19 09:59 Loperamide HCl (Imodium) 2 mg Q4H PRN ORAL Diarrhea 06/21/19 14:30 07/21/19 14:29 06/22/19 20:30 Metformin HCl (Glucophage) 500 mg TIAC ORAL 06/15/19 11:30 07/15/19 11:29 06/26/19 06:20 Ondansetron HCl (Zofran) 4 mg Q6H PRN IVP Nausea & Vomiting 06/14/19 22:00 07/14/19 21:59 06/25/19 08:44 Adarsh Pitts MD Jun 26, 2019 10:42
--- NOTE | 2019-06-26 10:56 | Nephrology Progress Note ---
Assessment/Plan Problem List: (1) DMII (diabetes mellitus, type 2) (2) Ascites (3) Hypertension (4) Cellulitis of left foot (5) Proteinuria Assessment: diabetic nephropathy Assessment Cr rising- Hold Zestril- watch Cr on Bactrim - Metformin Ascitis Obese DM Anemia HypoAlbuminemia elevated LFTs Plan Cr stable 1.6 Kayexelate as needed Bolus NS as needed UA prn Lasix Anemia larose adjust BP meds wound care per orders Subjective ROS Limited/Unobtainable: No Objective Objective Last 24 Hour Vital Signs Date Time Temp Pulse Resp B/P (MAP) Pulse Ox O2 Delivery O2 Flow Rate FiO2 06/26/19 08:00 98.0 82 18 127/66 (86) 97 06/26/19 04:00 98.3 82 20 109/58 (75) 98 06/26/19 00:00 98.4 88 20 128/79 (95) 98 06/25/19 21:00 Room Air 06/25/19 20:00 98.1 83 20 152/78 (102) 98 06/25/19 16:00 98.0 84 18 126/69 (88) 98 06/25/19 12:00 97.6 78 18 118/72 (87) 98 Intake and Output 06/25/19 06/26/19 19:00 07:00 Intake Total 720 ml Balance 720 ml Intake Oral 720 ml # Voids 2 2 # Bowel Movements 1 Laboratory Tests 06/26/19 05:55: White Blood Count 9.4, Red Blood Count 3.50L, Hemoglobin 10.5L, Hematocrit 30.7L , Mean Corpuscular Volume 88, Mean Corpuscular Hemoglobin 30.0, Mean Corpuscular Hemoglobin Concent 34.2, Red Cell Distribution Width 13.1, Platelet Count 254, Mean Platelet Volume 5.0L, Neutrophils (%) (Auto) 58.7, Lymphocytes ( %) (Auto) 28.9, Monocytes (%) (Auto) 7.4, Eosinophils (%) (Auto) 4.2H, Basophils (%) (Auto) 0.9, Sodium Level 139, Potassium Level 4.5, Chloride Level 103, Carbon Dioxide Level 24, Anion Gap 12, Blood Urea Nitrogen 29H, Creatinine 1.5H, Estimat Glomerular Filtration Rate 35.7, Glucose Level 125H, Calcium Level 9.5 Height (Feet): 5 Height (Inches): 4.00 Weight (Pounds): 213 General Appearance: no apparent distress Objective no change Erasto Parikh MD Jun 26, 2019 10:56
[2019-06-26 12:00] VITALS: BP 131/79
--- NOTE | 2019-06-26 13:14 | Surgery Progress Note ---
Surgery Progress Note Subjective Symptoms: improved, pain absent, tolerating diet, voiding well, passing flatus , BM Objective Last 24 Hour Vital Signs Date Time Temp Pulse Resp B/P (MAP) Pulse Ox O2 Delivery O2 Flow Rate FiO2 06/26/19 09:00 Room Air 06/26/19 08:00 98.0 82 18 127/66 (86) 97 06/26/19 04:00 98.3 82 20 109/58 (75) 98 06/26/19 00:00 98.4 88 20 128/79 (95) 98 06/25/19 21:00 Room Air 06/25/19 20:00 98.1 83 20 152/78 (102) 98 06/25/19 16:00 98.0 84 18 126/69 (88) 98 I&O Intake and Output 06/25/19 06/26/19 19:00 07:00 Intake Total 720 ml Balance 720 ml Intake Oral 720 ml # Voids 2 2 # Bowel Movements 1 Dressing: dry Wound: clean Cardiovascular: RSR Respiratory: clear Abdomen: soft, non-tender, present bowel sounds Extremities: no tenderness, no cyanosis, other Laboratory Tests Test 06/26/19 05:55 White Blood Count 9.4 K/UL (4.8-10.8) Red Blood Count 3.50 M/UL (4.20-5.40) L Hemoglobin 10.5 G/DL (12.0-16.0) L Hematocrit 30.7 % (37.0-47.0) L Mean Corpuscular Volume 88 FL (80-99) Mean Corpuscular Hemoglobin 30.0 PG (27.0-31.0) Mean Corpuscular Hemoglobin Concent 34.2 G/DL (32.0-36.0) Red Cell Distribution Width 13.1 % (11.6-14.8) Platelet Count 254 K/UL (150-450) Mean Platelet Volume 5.0 FL (6.5-10.1) L Neutrophils (%) (Auto) 58.7 % (45.0-75.0) Lymphocytes (%) (Auto) 28.9 % (20.0-45.0) Monocytes (%) (Auto) 7.4 % (1.0-10.0) Eosinophils (%) (Auto) 4.2 % (0.0-3.0) H Basophils (%) (Auto) 0.9 % (0.0-2.0) Sodium Level 139 MMOL/L (136-145) Potassium Level 4.5 MMOL/L (3.5-5.1) Chloride Level 103 MMOL/L (98-107) Carbon Dioxide Level 24 MMOL/L (21-32) Anion Gap 12 mmol/L (5-15) Blood Urea Nitrogen 29 mg/dL (7-18) H Creatinine 1.5 MG/DL (0.55-1.30) H Estimat Glomerular Filtration Rate 35.7 mL/min (>60) Glucose Level 125 MG/DL (74-106) H Calcium Level 9.5 MG/DL (8.5-10.1) Plan Problems: (1) Left foot infection (2) Occluded PICC line Assessment & Plan: new picc 06/14/2019 (3) Open wound of left foot Assessment & Plan: DAILY ESTIMATED NEEDS: Needs based on DM, wound/ 64kg abw 25-30 kcals/kg 8035-0446 total kcals 1.25-1.5 g protein/kg 80-96 g total protein 25-30 mL/kg 8089-9508 total fluid mLs NUTRITION DIAGNOSIS: Altered nutrition related lab values R/T diabtes as evidenced by A1C of 11.2, POC glu (145-157 improved), Uglu 2+ upon adm. CURRENT DIET:Cardiac, mech soft chopped PO DIET RECOMMENDATIONS: CCHO MED/ texture as tolerated ADDITIONAL RECOMMENDATIONS: * Calibrated bedscale wt * Carb controlled diet as above * Wound healing: add MVI x 1, Vit C 250mg QD Angel BID as tolerated (4) Cellulitis of left foot Assessment & Plan: 50-year-old female with history of chronic left foot wounds , cellulitis, infection who in 2018 initially developed a abscess/blister and has been dealing with chronic infection of the left foot since. On the medial aspect there is a 3 cm x 2 cm x 1 cm open wound with good granulation tissue seemingly a little bit more chronic than 1 week no drainage no signs of significant active infection. On the plantar aspect of the foot there is a 1 cm x 1 cm by half centimeter open punched-out wound from prior drainage with no active drainage currently. Patient states that she was recommended to have local wound care and antibiotics for 6 weeks. States that she is on isolation for the cultures that were taken outside facility. new picc placed Local wound care with hydrogel packing or Thera honey packing gauze daily Wash wound left foot daily with normal saline then apply above dressings Wrap foot leg with gauze after packing and dressings applied Trend labs Antibiotics per infectious disease podiatry input appreciated improving d/c [planning thank you Thank you will follow with recommendations Cristian Tavarez Jun 26, 2019 13:14
[2019-06-26 16:00] VITALS: BP 121/60
[2019-06-26] MEDS ORDERED: Guaifenesin/DM 10ml syrup ORAL PRN (18:00)
--- NOTE | 2019-06-26 19:39 | NUR ---
HAND-OFF: Report given to MICHELLE Payne.
--- NOTE | 2019-06-26 19:53 | NUR ---
NURSE NOTES: Received report from MICHELLE Meyer. AAO x 4, room air, ambulatory. Dressing intact and clean. Fall precaution maintained. No acute distress noted. PICC line intact. Bed locked, alarm on, side rails padded and up, call light within reach. Will continue to monitor.
[2019-06-26 20:00] VITALS: BP 123/81
[2019-06-26] MEDS: Atorvastatin 80mg tab ORAL SCH (20:50)
[2019-06-26] MEDS: Dyna-Hex 2% Top Sol 2oz TOPIC SCH (20:51)
--- NOTE | 2019-06-26 21:04 | General Progress Note ---
Assessment/Plan Problem List: (1) Hypertension ICD Codes: I10 - Essential (primary) hypertension SNOMED: 60892784 (2) Cellulitis of left foot ICD Codes: L03.116 - Cellulitis of left lower limb SNOMED: 194851918 (3) Open wound of left foot ICD Codes: S91.302A - Unspecified open wound, left foot, initial encounter SNOMED: 83777776037270227 (4) Left foot infection ICD Codes: L08.9 - Local infection of the skin and subcutaneous tissue, unspecified SNOMED: 535731684 (5) DMII (diabetes mellitus, type 2) ICD Codes: E11.9 - Type 2 diabetes mellitus without complications SNOMED: 95167107 Status: progressing Assessment/Plan: dm htn iv abx per id and podiatry dc per id afebrile reviewed karyn and labs Subjective ROS Limited/Unobtainable: Yes Allergies: Coded Allergies: ERTAPENEM (Verified Allergy, Intermediate, RASH - legs, back, torso, ) VANCOMYCIN (Verified Allergy, Intermediate, RASH - legs, back, torso, 06/16) Objective Last 24 Hour Vital Signs Date Time Temp Pulse Resp B/P (MAP) Pulse Ox O2 Delivery O2 Flow Rate FiO2 06/26/19 16:00 97.3 81 18 121/60 (80) 99 06/26/19 12:00 98.2 80 19 131/79 (96) 98 06/26/19 09:00 Room Air 06/26/19 08:00 98.0 82 18 127/66 (86) 97 06/26/19 04:00 98.3 82 20 109/58 (75) 98 06/26/19 00:00 98.4 88 20 128/79 (95) 98 Intake and Output 06/25/19 06/26/19 19:00 07:00 Intake Total 720 ml Balance 720 ml Intake Oral 720 ml # Voids 2 2 # Bowel Movements 1 Laboratory Tests 06/26/19 05:55: White Blood Count 9.4, Red Blood Count 3.50L, Hemoglobin 10.5L, Hematocrit 30.7L , Mean Corpuscular Volume 88, Mean Corpuscular Hemoglobin 30.0, Mean Corpuscular Hemoglobin Concent 34.2, Red Cell Distribution Width 13.1, Platelet Count 254, Mean Platelet Volume 5.0L, Neutrophils (%) (Auto) 58.7, Lymphocytes ( %) (Auto) 28.9, Monocytes (%) (Auto) 7.4, Eosinophils (%) (Auto) 4.2H, Basophils (%) (Auto) 0.9, Sodium Level 139, Potassium Level 4.5, Chloride Level 103, Carbon Dioxide Level 24, Anion Gap 12, Blood Urea Nitrogen 29H, Creatinine 1.5H, Estimat Glomerular Filtration Rate 35.7, Glucose Level 125H, Calcium Level 9.5 Height (Feet): 5 Height (Inches): 4.00 Weight (Pounds): 213 Cardiovascular: normal rate Respiratory/Chest: lungs clear Abdomen: soft Elodia Dunbar MD Jun 26, 2019 21:04
--- NOTE | 2019-06-26 23:05 | NUR ---
NURSE NOTES: Provided wound care and changed dressing as ordered.
[2019-06-27] VITALS: BP 112/68
[2019-06-27 04:00] VITALS: BP 121/74
[2019-06-27] MEDS: metFORMIN 500mg tab ORAL SCH ×3 (05:41→17:28)
[2019-06-27] MEDS: NovoLOG Insulin Flexpen SUBQ SCH ×4 (05:43→21:00)
--- NOTE | 2019-06-27 07:30 | NUR ---
HAND-OFF: Report given to MICHELLE Stahl.
[2019-06-27 08:00] VITALS: BP 136/74
[2019-06-27 08:01] LABS: BASOPHILS % (AUTO) 1.9 % (0.0-2.0); EOSINOPHILS % (AUTO) 4.1 % (0.0-3.0); HEMATOCRIT 30.8 % (37.0-47.0); HEMOGLOBIN 10.4 G/DL (12.0-16.0); MEAN CORPUSCULAR VOLUME 87 FL (80-99); MONOCYTES % (AUTO) 6.4 % (1.0-10.0); NEUTROPHILS % (AUTO) 60.6 % (45.0-75.0); PLATELET COUNT 214 K/UL (150-450); RED BLOOD COUNT 3.54 M/UL (4.20-5.40); RED CELL DISTRIBUTION WIDTH 13.6 % (11.6-14.8); WHITE BLOOD COUNT 9.7 K/UL (4.8-10.8)
--- NOTE | 2019-06-27 08:02 | NUR ---
NURSE NOTES: Patient alert x4; on room air, no sing of distress and no sing of shortness of breath; no sing of chest pain; PICC on Right-Upper arm; red line not working; side rails up x2, breaks engaged, bed at lowest position; call light within reach; will keep monitoring.
[2019-06-27 08:19] LABS: ANION GAP 11 mmol/L (5-15); BLOOD UREA NITROGEN 27 mg/dL (7-18); CALCIUM 9.2 MG/DL (8.5-10.1); CARBON DIOXIDE 26 MMOL/L (21-32); CHLORIDE 102 MMOL/L (98-107); CREATININE 1.4 MG/DL (0.55-1.30); POTASSIUM 4.3 MMOL/L (3.5-5.1); SODIUM 139 MMOL/L (136-145)
--- NOTE | 2019-06-27 09:00 | NUR ---
*-* INSURANCE *-* ALL CLINICALS HAVE BEEN FAXED: CARMITA SEXTON # [phone] FAX# [phone] REVIEWS/CLINICALS
--- NOTE | 2019-06-27 09:57 | Surgery Progress Note ---
Surgery Progress Note Subjective Additional Comments no acute events comfortable stable Objective Last 24 Hour Vital Signs Date Time Temp Pulse Resp B/P (MAP) Pulse Ox O2 Delivery O2 Flow Rate FiO2 06/27/19 08:00 98.0 85 18 136/74 (94) 96 06/27/19 04:00 98.0 88 20 121/74 (90) 98 06/27/19 00:00 98.2 86 20 112/68 (83) 97 06/26/19 21:00 Room Air 06/26/19 20:00 98.8 96 20 123/81 (95) 98 06/26/19 16:00 97.3 81 18 121/60 (80) 99 06/26/19 12:00 98.2 80 19 131/79 (96) 98 I&O Intake and Output 06/26/19 06/27/19 18:59 06:59 Intake Total 390 ml Balance 390 ml Intake Oral 390 ml # Voids 5 Dressing: dry Wound: clean Cardiovascular: RSR Respiratory: clear Abdomen: soft, non-tender, present bowel sounds Extremities: no cyanosis Laboratory Tests Test 06/27/19 05:30 White Blood Count 9.7 K/UL (4.8-10.8) Red Blood Count 3.54 M/UL (4.20-5.40) L Hemoglobin 10.4 G/DL (12.0-16.0) L Hematocrit 30.8 % (37.0-47.0) L Mean Corpuscular Volume 87 FL (80-99) Mean Corpuscular Hemoglobin 29.4 PG (27.0-31.0) Mean Corpuscular Hemoglobin Concent 33.9 G/DL (32.0-36.0) Red Cell Distribution Width 13.6 % (11.6-14.8) Platelet Count 214 K/UL (150-450) Mean Platelet Volume 5.2 FL (6.5-10.1) L Neutrophils (%) (Auto) 60.6 % (45.0-75.0) Lymphocytes (%) (Auto) 27.0 % (20.0-45.0) Monocytes (%) (Auto) 6.4 % (1.0-10.0) Eosinophils (%) (Auto) 4.1 % (0.0-3.0) H Basophils (%) (Auto) 1.9 % (0.0-2.0) Sodium Level 139 MMOL/L (136-145) Potassium Level 4.3 MMOL/L (3.5-5.1) Chloride Level 102 MMOL/L (98-107) Carbon Dioxide Level 26 MMOL/L (21-32) Anion Gap 11 mmol/L (5-15) Blood Urea Nitrogen 27 mg/dL (7-18) H Creatinine 1.4 MG/DL (0.55-1.30) H Estimat Glomerular Filtration Rate 38.7 mL/min (>60) Glucose Level 129 MG/DL (74-106) H Calcium Level 9.2 MG/DL (8.5-10.1) Plan Problems: (1) Left foot infection (2) Occluded PICC line Assessment & Plan: new picc 06/14/2019 (3) Open wound of left foot Assessment & Plan: DAILY ESTIMATED NEEDS: Needs based on DM, wound/ 64kg abw 25-30 kcals/kg 8997-6192 total kcals 1.25-1.5 g protein/kg 80-96 g total protein 25-30 mL/kg 2465-6086 total fluid mLs NUTRITION DIAGNOSIS: Altered nutrition related lab values R/T diabtes as evidenced by A1C of 11.2, POC glu (145-157 improved), Uglu 2+ upon adm. CURRENT DIET:Cardiac, mech soft chopped PO DIET RECOMMENDATIONS: CCHO MED/ texture as tolerated ADDITIONAL RECOMMENDATIONS: * Calibrated bedscale wt * Carb controlled diet as above * Wound healing: add MVI x 1, Vit C 250mg QD Angel BID as tolerated (4) Cellulitis of left foot Assessment & Plan: 50-year-old female with history of chronic left foot wounds , cellulitis, infection who in 2018 initially developed a abscess/blister and has been dealing with chronic infection of the left foot since. On the medial aspect there is a 3 cm x 2 cm x 1 cm open wound with good granulation tissue seemingly a little bit more chronic than 1 week no drainage no signs of significant active infection. On the plantar aspect of the foot there is a 1 cm x 1 cm by half centimeter open punched-out wound from prior drainage with no active drainage currently. Patient states that she was recommended to have local wound care and antibiotics for 6 weeks. States that she is on isolation for the cultures that were taken outside facility. new picc placed Local wound care with hydrogel packing or Thera honey packing gauze daily Wash wound left foot daily with normal saline then apply above dressings Wrap foot leg with gauze after packing and dressings applied Trend labs Antibiotics per infectious disease podiatry input appreciated improving d/c [planning cont abx Thank you will follow with recommendations Cristian Tavarez Jun 27, 2019 09:57
--- NOTE | 2019-06-27 10:28 | Nephrology Progress Note ---
Assessment/Plan Problem List: (1) DMII (diabetes mellitus, type 2) (2) Ascites (3) Hypertension (4) Cellulitis of left foot (5) Proteinuria Assessment: diabetic nephropathy Assessment Cr rising- Hold Zestril- watch Cr on Bactrim - Metformin Ascitis Obese DM Anemia HypoAlbuminemia elevated LFTs Plan Cr stable and slowly lowering Kayexelate as needed Bolus NS as needed UA prn Lasix Anemia larose adjust BP meds wound care per orders Subjective ROS Limited/Unobtainable: No Constitutional: Reports: malaise Objective Objective Last 24 Hour Vital Signs Date Time Temp Pulse Resp B/P (MAP) Pulse Ox O2 Delivery O2 Flow Rate FiO2 06/27/19 09:00 Room Air 06/27/19 08:00 98.0 85 18 136/74 (94) 96 06/27/19 04:00 98.0 88 20 121/74 (90) 98 06/27/19 00:00 98.2 86 20 112/68 (83) 97 06/26/19 21:00 Room Air 06/26/19 20:00 98.8 96 20 123/81 (95) 98 06/26/19 16:00 97.3 81 18 121/60 (80) 99 06/26/19 12:00 98.2 80 19 131/79 (96) 98 Intake and Output 06/26/19 06/27/19 19:00 07:00 Intake Total 390 ml Balance 390 ml Intake Oral 390 ml # Voids 5 Current Medications Medications (Trade) Dose Ordered Sig/Dileep Route PRN Reason Start Time Stop Time Status Last Admin Dose Admin Acetaminophen (Tylenol) 650 mg Q4H PRN ORAL For Pain 06/14/19 04:15 07/14/19 04:14 06/16/19 17:26 Allopurinol (allopurinoL) 300 mg DAILY ORAL 06/24/19 10:30 07/24/19 10:29 06/27/19 09:23 Atorvastatin Calcium (Lipitor) 80 mg BEDTIME ORAL 06/14/19 21:00 07/14/19 20:59 06/26/19 20:50 Chlorhexidine Gluconate (Tianna-Hex 2%) 1 applic DAILY@1999 TOPIC 06/23/19 20:00 07/23/19 19:59 06/26/19 20:51 Dextrose (Dextrose 50%) 25 ml Q30M PRN IV Hypoglycemia 06/14/19 07:45 07/14/19 07:44 Dextrose (Dextrose 50%) 50 ml Q30M PRN IV Hypoglycemia 06/14/19 07:45 07/14/19 07:44 Folic Acid (Folate) 2 mg DAILY ORAL 06/15/19 10:30 07/15/19 10:29 06/27/19 09:23 Guaifenesin/ Dextromethorphan (Robitussin DM Syrup) 5 ml Q4H PRN ORAL For Cough 06/26/19 18:00 07/26/19 17:59 06/26/19 18:19 Insulin Aspart (NovoLOG) BEFORE MEALS AND HS SUBQ 06/14/19 11:30 07/14/19 11:29 06/26/19 13:39 Linezolid (Zyvox) 600 mg EVERY 12 HOURS ORAL 06/14/19 15:42 07/13/19 23:59 06/27/19 09:23 Loperamide HCl (Imodium) 2 mg Q4H PRN ORAL Diarrhea 06/21/19 14:30 07/21/19 14:29 06/22/19 20:30 Metformin HCl (Glucophage) 500 mg TIAC ORAL 06/15/19 11:30 07/15/19 11:29 06/27/19 05:41 Ondansetron HCl (Zofran) 4 mg Q6H PRN IVP Nausea & Vomiting 06/14/19 22:00 07/14/19 21:59 06/26/19 11:39 Laboratory Tests 06/27/19 05:30: White Blood Count 9.7, Red Blood Count 3.54L, Hemoglobin 10.4L, Hematocrit 30.8L , Mean Corpuscular Volume 87, Mean Corpuscular Hemoglobin 29.4, Mean Corpuscular Hemoglobin Concent 33.9, Red Cell Distribution Width 13.6, Platelet Count 214, Mean Platelet Volume 5.2L, Neutrophils (%) (Auto) 60.6, Lymphocytes ( %) (Auto) 27.0, Monocytes (%) (Auto) 6.4, Eosinophils (%) (Auto) 4.1H, Basophils (%) (Auto) 1.9, Sodium Level 139, Potassium Level 4.3, Chloride Level 102, Carbon Dioxide Level 26, Anion Gap 11, Blood Urea Nitrogen 27H, Creatinine 1.4H, Estimat Glomerular Filtration Rate 38.7, Glucose Level 129H, Calcium Level 9.2 Height (Feet): 5 Height (Inches): 4.00 Weight (Pounds): 213 General Appearance: no apparent distress Objective no change Erasto Parikh MD Jun 27, 2019 10:28
[2019-06-27] MEDS ORDERED: DiphenhydrAMINE 25mg Tab ORAL PRN (11:15)
--- NOTE | 2019-06-27 11:36 | Infectious Diseases Prog Note ---
Assessment/Plan Assessment/Plan IMPRESSION: 1. Diabetic foot, osteomyelitis. 2. Allergic drug reaction to Invanz and vancomycin with rash, resolving 3. Diabetes mellitus. 4. Charcot joint. 5. Anemia. 6. Elevated transaminase improving 7. Chronic kidney disease 8. Diarrhea, negative C. 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 Plan: Check ESR Continue Zyvox X 16 days Negative hepatitis B & C serologies Waiting for placement Subjective ROS Limited/Unobtainable: No Constitutional: Reports: no symptoms Gastrointestinal/Abdominal: Reports: no symptoms Genitourinary: Reports: no symptoms Musculoskeletal: Reports: pain, other - in left foot Allergies: Coded Allergies: ERTAPENEM (Verified Allergy, Intermediate, RASH - legs, back, torso, ) VANCOMYCIN (Verified Allergy, Intermediate, RASH - legs, back, torso, 06/16) Objective Vital Signs Last 24 Hour Vital Signs Date Time Temp Pulse Resp B/P (MAP) Pulse Ox O2 Delivery O2 Flow Rate FiO2 06/27/19 09:00 Room Air 06/27/19 08:00 98.0 85 18 136/74 (94) 96 06/27/19 04:00 98.0 88 20 121/74 (90) 98 06/27/19 00:00 98.2 86 20 112/68 (83) 97 06/26/19 21:00 Room Air 06/26/19 20:00 98.8 96 20 123/81 (95) 98 06/26/19 16:00 97.3 81 18 121/60 (80) 99 06/26/19 12:00 98.2 80 19 131/79 (96) 98 Height (Feet): 5 Height (Inches): 4.00 Weight (Pounds): 213 General Appearance: no acute distress HEENT: mucous membranes moist Respiratory/Chest: lungs clear Cardiovascular: normal rate, other - R arm PICC line Abdomen: soft, non tender Extremities: other - left foot edema Skin: ulcers, other - left foot Neurologic/Psychiatric: alert, oriented x 3, responsive Laboratory Tests Test 06/27/19 05:30 White Blood Count 9.7 K/UL (4.8-10.8) Red Blood Count 3.54 M/UL (4.20-5.40) L Hemoglobin 10.4 G/DL (12.0-16.0) L Hematocrit 30.8 % (37.0-47.0) L Mean Corpuscular Volume 87 FL (80-99) Mean Corpuscular Hemoglobin 29.4 PG (27.0-31.0) Mean Corpuscular Hemoglobin Concent 33.9 G/DL (32.0-36.0) Red Cell Distribution Width 13.6 % (11.6-14.8) Platelet Count 214 K/UL (150-450) Mean Platelet Volume 5.2 FL (6.5-10.1) L Neutrophils (%) (Auto) 60.6 % (45.0-75.0) Lymphocytes (%) (Auto) 27.0 % (20.0-45.0) Monocytes (%) (Auto) 6.4 % (1.0-10.0) Eosinophils (%) (Auto) 4.1 % (0.0-3.0) H Basophils (%) (Auto) 1.9 % (0.0-2.0) Sodium Level 139 MMOL/L (136-145) Potassium Level 4.3 MMOL/L (3.5-5.1) Chloride Level 102 MMOL/L (98-107) Carbon Dioxide Level 26 MMOL/L (21-32) Anion Gap 11 mmol/L (5-15) Blood Urea Nitrogen 27 mg/dL (7-18) H Creatinine 1.4 MG/DL (0.55-1.30) H Estimat Glomerular Filtration Rate 38.7 mL/min (>60) Glucose Level 129 MG/DL (74-106) H Calcium Level 9.2 MG/DL (8.5-10.1) Current Medications Medications (Trade) Dose Ordered Sig/Dileep Route PRN Reason Start Time Stop Time Status Last Admin Dose Admin Acetaminophen (Tylenol) 650 mg Q4H PRN ORAL For Pain 06/14/19 04:15 07/14/19 04:14 06/16/19 17:26 Allopurinol (allopurinoL) 300 mg DAILY ORAL 06/24/19 10:30 07/24/19 10:29 06/27/19 09:23 Atorvastatin Calcium (Lipitor) 80 mg BEDTIME ORAL 06/14/19 21:00 07/14/19 20:59 06/26/19 20:50 Chlorhexidine Gluconate (Tianna-Hex 2%) 1 applic DAILY@1999 TOPIC 06/23/19 20:00 07/23/19 19:59 06/26/19 20:51 Dextrose (Dextrose 50%) 25 ml Q30M PRN IV Hypoglycemia 06/14/19 07:45 07/14/19 07:44 Dextrose (Dextrose 50%) 50 ml Q30M PRN IV Hypoglycemia 06/14/19 07:45 07/14/19 07:44 Diphenhydramine HCl (Benadryl) 25 mg Q4H PRN ORAL Itching 06/27/19 11:15 07/27/19 11:14 Folic Acid (Folate) 2 mg DAILY ORAL 06/15/19 10:30 07/15/19 10:29 06/27/19 09:23 Guaifenesin/ Dextromethorphan (Robitussin DM Syrup) 5 ml Q4H PRN ORAL For Cough 06/26/19 18:00 07/26/19 17:59 06/26/19 18:19 Insulin Aspart (NovoLOG) BEFORE MEALS AND HS SUBQ 06/14/19 11:30 07/14/19 11:29 06/26/19 13:39 Linezolid (Zyvox) 600 mg EVERY 12 HOURS ORAL 06/14/19 15:42 07/13/19 23:59 06/27/19 09:23 Loperamide HCl (Imodium) 2 mg Q4H PRN ORAL Diarrhea 06/21/19 14:30 07/21/19 14:29 06/22/19 20:30 Metformin HCl (Glucophage) 500 mg TIAC ORAL 06/15/19 11:30 07/15/19 11:29 06/27/19 05:41 Ondansetron HCl (Zofran) 4 mg Q6H PRN IVP Nausea & Vomiting 06/14/19 22:00 07/14/19 21:59 06/26/19 11:39 Adarsh Pitts MD Jun 27, 2019 11:36
[2019-06-27 12:00] VITALS: BP 136/74
--- NOTE | 2019-06-27 15:59 | NUR ---
CASE MANAGEMENT:REVIEW 06/24/2019 SI;LEFT FOOT OSTEOMYELITIS. 98.3 90 20 90/66 94% ON RA NO LABS IS;ZYVOX PO Q12 HRS KRISTI-HEX TOP QD ALLOPURINOL PO QD MED SURG STATUS DCP;SNF PLACEMENT OR HOMELESS RETIREMENT REFERRAL PENDING ACCEPTANCE Addendum: 06/27/19 at 1619 by LEOBARDO ANGELON CASE MANAGEMENT:REVIEW 06/25/2019 SI;LEFT FOOT OSTEOMYELITIS 98.0 84 20 152/78 98% ON RA NO LABS IS;ZYVOX PO Q12 HRS KRISTI-HEX TOP QD ALLOPURINOL PO QD DCP;SNF PLACEMENT OR HOMELESS RETIREMENT REFERRAL PENDING ACCEPTANCE CASE MANAGEMENT:REVIEW 06/26/2019 SI;LEFT FOOT OSTEOMYELITIS. 98.8 96 20 131/79 97% ON RA NO LABS IS;ZYVOX PO Q12 HRS KRISTI-HEX TOP QD ALLOPURINOL PO QD MED SURG STATUS DCP;SNF PLACEMENT OR HOMELESS RETIREMENT REFERRAL PENDING ACCEPTANCE CASE MANAGEMENT: 06/27/2019 SI;LEFT FOOT OSTEOMYELITIS. 98.3 88 20 136/74 96% ON RA NO LABS IS;ZYVOX PO Q12 HRS KRISTI-HEX TOP QD ALLOPURINOL PO QD MED SURG STATUS DCP;SNF PLACEMENT OR HOMELESS RETIREMENT REFERRAL PENDING ACCEPTANCE
[2019-06-27 16:00] VITALS: BP 130/79
--- NOTE | 2019-06-27 16:34 | Hematology/Onc Progress Note ---
Assessment/Plan Assessment/Plan Assessment and Recs: # Anemia of chronic disease due to underlying chronic medical issues, multifactorial v Gi bleed --> Anemia workup has been ordered, rule out gi bleed --> No evidence of hemolysis is noted, peripheral smear has been reviewed. --> Hgb goal >7. Transfuse prn. --> Epogen or iron at this time is not particularly indicated --> hgb trend: 9.7-->10-->10.5-->10.4 --> Medications have been reviewed --> low threshold for gi evaluation in case has occult + # Occluded PICC line, MICHELLE --> has been changed # Diabetic foot, osteomyelitis. LE foot cellulitis --> per endo, accuchecks qac and qhs --> seen by pod, id surg --> on bactrim zyvox # Diabetes mellitus. # Charcot joint. # Transaminitis # Dvt ppx scds Appreciate consultation and dw RN Subjective Allergies: Coded Allergies: ERTAPENEM (Verified Allergy, Intermediate, RASH - legs, back, torso, ) VANCOMYCIN (Verified Allergy, Intermediate, RASH - legs, back, torso, 06/16) Subjective 06/16: no acute events, h/h stable, on zyvox, hep panel pending 06/18: awake and alert, no acute distress, labs reviewed 06/19: remains on linezolid, no bleeding, labs noted, no major changes 06/20: no major changes, labs noted, remains on abx, no bleeding 06/21: no bleeding, labs noted, with nausea this am, zofran was given 06/22: awake and alert, no acute events, on room air, folate 06/23: labs reviewed, no bleeding, no f/c, hgb 11 06/25: no major changes, labs reviewed, no bleeding, cbc ordered 06/26: no events, no bleeding, cbc is better, labs noted, awaiting placement 06/27: awake, no overnight events, negative hep panel, on zyvox Objective Objective Current Medications Medications (Trade) Dose Ordered Sig/Dileep Route PRN Reason Start Time Stop Time Status Last Admin Dose Admin Acetaminophen (Tylenol) 650 mg Q4H PRN ORAL For Pain 06/14/19 04:15 07/14/19 04:14 06/16/19 17:26 Allopurinol (allopurinoL) 300 mg DAILY ORAL 06/24/19 10:30 07/24/19 10:29 06/27/19 09:23 Atorvastatin Calcium (Lipitor) 80 mg BEDTIME ORAL 06/14/19 21:00 07/14/19 20:59 06/26/19 20:50 Chlorhexidine Gluconate (Tianna-Hex 2%) 1 applic DAILY@2000 TOPIC 06/23/19 20:00 07/23/19 19:59 06/26/19 20:51 Dextrose (Dextrose 50%) 25 ml Q30M PRN IV Hypoglycemia 06/14/19 07:45 07/14/19 07:44 Dextrose (Dextrose 50%) 50 ml Q30M PRN IV Hypoglycemia 06/14/19 07:45 07/14/19 07:44 Diphenhydramine HCl (Benadryl) 25 mg Q4H PRN ORAL Itching 06/27/19 11:15 07/27/19 11:14 Folic Acid (Folate) 2 mg DAILY ORAL 06/15/19 10:30 07/15/19 10:29 06/27/19 09:23 Guaifenesin/ Dextromethorphan (Robitussin DM Syrup) 5 ml Q4H PRN ORAL For Cough 06/26/19 18:00 07/26/19 17:59 06/26/19 18:19 Insulin Aspart (NovoLOG) BEFORE MEALS AND HS SUBQ 06/14/19 11:30 07/14/19 11:29 06/26/19 13:39 Linezolid (Zyvox) 600 mg EVERY 12 HOURS ORAL 06/14/19 15:42 07/13/19 23:59 06/27/19 09:23 Loperamide HCl (Imodium) 2 mg Q4H PRN ORAL Diarrhea 06/21/19 14:30 07/21/19 14:29 06/22/19 20:30 Metformin HCl (Glucophage) 500 mg TIAC ORAL 06/15/19 11:30 07/15/19 11:29 06/27/19 12:17 Ondansetron HCl (Zofran) 4 mg Q6H PRN IVP Nausea & Vomiting 06/14/19 22:00 3/13/20 21:59 06/26/19 11:39 Last 24 Hour Vital Signs Date Time Temp Pulse Resp B/P (MAP) Pulse Ox O2 Delivery O2 Flow Rate FiO2 06/27/19 16:00 98.3 78 17 130/79 (96) 97 06/27/19 12:00 97.9 81 17 136/74 (94) 98 06/27/19 09:00 Room Air 06/27/19 08:00 98.0 85 18 136/74 (94) 96 06/27/19 04:00 98.0 88 20 121/74 (90) 98 06/27/19 00:00 98.2 86 20 112/68 (83) 97 06/26/19 21:00 Room Air 06/26/19 20:00 98.8 96 20 123/81 (95) 98 06/26/19 16:00 97.3 81 18 121/60 (80) 99 06/26/19 12:00 98.2 80 19 131/79 (96) 98 06/26/19 09:00 Room Air 06/26/19 08:00 98.0 82 18 127/66 (86) 97 06/26/19 04:00 98.3 82 20 109/58 (75) 98 06/26/19 00:00 98.4 88 20 128/79 (95) 98 06/25/19 21:00 Room Air 06/25/19 20:00 98.1 83 20 152/78 (102) 98 Intake and Output 06/26/19 06/27/19 19:00 07:00 Intake Total 390 ml Balance 390 ml Intake Oral 390 ml # Voids 5 Labs Test 06/26/19 05:55 06/27/19 05:30 White Blood Count 9.4 K/UL (4.8-10.8) 9.7 K/UL (4.8-10.8) Red Blood Count 3.50 M/UL (4.20-5.40) 3.54 M/UL (4.20-5.40) Hemoglobin 10.5 G/DL (12.0-16.0) 10.4 G/DL (12.0-16.0) Hematocrit 30.7 % (37.0-47.0) 30.8 % (37.0-47.0) Mean Corpuscular Volume 88 FL (80-99) 87 FL (80-99) Mean Corpuscular Hemoglobin 30.0 PG (27.0-31.0) 29.4 PG (27.0-31.0) Mean Corpuscular Hemoglobin Concent 34.2 G/DL (32.0-36.0) 33.9 G/DL (32.0-36.0) Red Cell Distribution Width 13.1 % (11.6-14.8) 13.6 % (11.6-14.8) Platelet Count 254 K/UL (150-450) 214 K/UL (150-450) Mean Platelet Volume 5.0 FL (6.5-10.1) 5.2 FL (6.5-10.1) Neutrophils (%) (Auto) 58.7 % (45.0-75.0) 60.6 % (45.0-75.0) Lymphocytes (%) (Auto) 28.9 % (20.0-45.0) 27.0 % (20.0-45.0) Monocytes (%) (Auto) 7.4 % (1.0-10.0) 6.4 % (1.0-10.0) Eosinophils (%) (Auto) 4.2 % (0.0-3.0) 4.1 % (0.0-3.0) Basophils (%) (Auto) 0.9 % (0.0-2.0) 1.9 % (0.0-2.0) Sodium Level 139 MMOL/L (136-145) 139 MMOL/L (136-145) Potassium Level 4.5 MMOL/L (3.5-5.1) 4.3 MMOL/L (3.5-5.1) Chloride Level 103 MMOL/L (98-107) 102 MMOL/L (98-107) Carbon Dioxide Level 24 MMOL/L (21-32) 26 MMOL/L (21-32) Anion Gap 12 mmol/L (5-15) 11 mmol/L (5-15) Blood Urea Nitrogen 29 mg/dL (7-18) 27 mg/dL (7-18) Creatinine 1.5 MG/DL (0.55-1.30) 1.4 MG/DL (0.55-1.30) Estimat Glomerular Filtration Rate 35.7 mL/min (>60) 38.7 mL/min (>60) Glucose Level 125 MG/DL (74-106) 129 MG/DL (74-106) Calcium Level 9.5 MG/DL (8.5-10.1) 9.2 MG/DL (8.5-10.1) Height (Feet): 5 Height (Inches): 4.00 Weight (Pounds): 213 Objective Physical Exam Vitals: reviewed General: NAD Neck: supple Chest: clear breath sounds bilaterally Cardiovascular: RRR, no s3, s4 Abdomen: soft, nontender, nd Extremities: no cce, normal range of motion ++ picc upper arm r, also ankle and left foot erythema with bandages+ Mental: alert Jose Bond MD Jun 27, 2019 16:34
--- NOTE | 2019-06-27 19:41 | NUR ---
HAND-OFF: Report given to MICHELLE Wilson.
--- NOTE | 2019-06-27 19:47 | NUR ---
NURSE NOTES: Received patient in bed, awake, alert, oriented, no acute distress noted, patient is able to verbalize her needs. PICC line site is clean dry and intact, call light is within reach, bed is lowered, locked, alarm is on, will continue to monitor for comfort and safety.
[2019-06-27 20:00] VITALS: BP 114/68
[2019-06-27] MEDS: Dyna-Hex 2% Top Sol 2oz TOPIC SCH (20:54)
[2019-06-27] MEDS: Atorvastatin 80mg tab ORAL SCH (20:54)
--- NOTE | 2019-06-27 21:14 | General Progress Note ---
Assessment/Plan Problem List: (1) Hypertension ICD Codes: I10 - Essential (primary) hypertension SNOMED: 03378784 (2) Cellulitis of left foot ICD Codes: L03.116 - Cellulitis of left lower limb SNOMED: 430370546 (3) Open wound of left foot ICD Codes: S91.302A - Unspecified open wound, left foot, initial encounter SNOMED: 87141660694493752 (4) Left foot infection ICD Codes: L08.9 - Local infection of the skin and subcutaneous tissue, unspecified SNOMED: 209167059 (5) DMII (diabetes mellitus, type 2) ICD Codes: E11.9 - Type 2 diabetes mellitus without complications SNOMED: 71252594 Status: progressing Assessment/Plan: dm htn iv abx per id and podiatry foot cellulitis no fever no change Subjective ROS Limited/Unobtainable: Yes Allergies: Coded Allergies: ERTAPENEM (Verified Allergy, Intermediate, RASH - legs, back, torso, ) VANCOMYCIN (Verified Allergy, Intermediate, RASH - legs, back, torso, 06/16) Objective Last 24 Hour Vital Signs Date Time Temp Pulse Resp B/P (MAP) Pulse Ox O2 Delivery O2 Flow Rate FiO2 06/27/19 16:00 98.3 78 17 130/79 (96) 97 06/27/19 12:00 97.9 81 17 136/74 (94) 98 06/27/19 09:00 Room Air 06/27/19 08:00 98.0 85 18 136/74 (94) 96 06/27/19 04:00 98.0 88 20 121/74 (90) 98 06/27/19 00:00 98.2 86 20 112/68 (83) 97 Intake and Output 06/26/19 06/27/19 19:00 07:00 Intake Total 390 ml Balance 390 ml Intake Oral 390 ml # Voids 5 Laboratory Tests 06/27/19 05:30: White Blood Count 9.7, Red Blood Count 3.54L, Hemoglobin 10.4L, Hematocrit 30.8L , Mean Corpuscular Volume 87, Mean Corpuscular Hemoglobin 29.4, Mean Corpuscular Hemoglobin Concent 33.9, Red Cell Distribution Width 13.6, Platelet Count 214, Mean Platelet Volume 5.2L, Neutrophils (%) (Auto) 60.6, Lymphocytes ( %) (Auto) 27.0, Monocytes (%) (Auto) 6.4, Eosinophils (%) (Auto) 4.1H, Basophils (%) (Auto) 1.9, Sodium Level 139, Potassium Level 4.3, Chloride Level 102, Carbon Dioxide Level 26, Anion Gap 11, Blood Urea Nitrogen 27H, Creatinine 1.4H, Estimat Glomerular Filtration Rate 38.7, Glucose Level 129H, Calcium Level 9.2 Height (Feet): 5 Height (Inches): 4.00 Weight (Pounds): 213 Cardiovascular: normal rate Respiratory/Chest: lungs clear Abdomen: soft Elodia Dunbar MD Jun 27, 2019 21:14
[2019-06-28] VITALS: BP 122/57
[2019-06-28 04:00] VITALS: BP 145/85
[2019-06-28] MEDS: NovoLOG Insulin Flexpen SUBQ SCH ×3 (05:58→17:23)
[2019-06-28] MEDS: metFORMIN 500mg tab ORAL SCH ×3 (06:00→17:19)
--- NOTE | 2019-06-28 07:13 | NUR ---
HAND-OFF: Report given to Lia MARTINEZ.
[2019-06-28 07:19] LABS: ANION GAP 12 mmol/L (5-15); BLOOD UREA NITROGEN 26 mg/dL (7-18); CALCIUM 8.6 MG/DL (8.5-10.1); CARBON DIOXIDE 23 MMOL/L (21-32); CHLORIDE 107 MMOL/L (98-107); CREATININE 1.1 MG/DL (0.55-1.30); SODIUM 142 MMOL/L (136-145)
[2019-06-28 07:22] LABS: BASOPHILS % (AUTO) 1.1 % (0.0-2.0); EOSINOPHILS % (AUTO) 3.5 % (0.0-3.0); HEMATOCRIT 31.4 % (37.0-47.0); HEMOGLOBIN 10.6 G/DL (12.0-16.0); LYMPHOCYTES % (AUTO) 29.5 % (20.0-45.0); MEAN CORPUSCULAR VOLUME 88 FL (80-99); MONOCYTES % (AUTO) 5.5 % (1.0-10.0); NEUTROPHILS % (AUTO) 60.3 % (45.0-75.0); PLATELET COUNT 178 K/UL (150-450); RED BLOOD COUNT 3.57 M/UL (4.20-5.40); RED CELL DISTRIBUTION WIDTH 12.7 % (11.6-14.8); WHITE BLOOD COUNT 9.2 K/UL (4.8-10.8)
--- NOTE | 2019-06-28 07:30 | NUR ---
NURSE NOTES: Received report from Anat MARTINEZ. Patient is awake and oriented, no acute distress noted, left foot dressing dry and intact. Left foot dressing dry and intact. Patient updated on plan of care, needs met at this time.
[2019-06-28 08:00] VITALS: BP 141/73
--- NOTE | 2019-06-28 09:59 | NUR ---
NURSE NOTES: Informed Dr. Dunbar that medication reconciliation needs to be updated prior to patient being discharged, informed Dr. Dunbar that medication reconciliation states under continued medications "Novolog 100 units subcut TID", per Dr. Dunbar medication reconciliation for insulin will need to be updated/corrected by Dr. Martinez, informed Dr. Dunbar that patient will not be able to be discharged until medication reconciliation is corrected, per MD ok to wait until medication reconciliation for insulin is corrected before discharging.
--- NOTE | 2019-06-28 11:21 | Nephrology Progress Note ---
Assessment/Plan Problem List: (1) DMII (diabetes mellitus, type 2) (2) Ascites (3) Hypertension (4) Cellulitis of left foot (5) Proteinuria Assessment: diabetic nephropathy Assessment Cr rising- Hold Zestril- watch Cr on Bactrim - Metformin Ascitis Obese DM Anemia HypoAlbuminemia elevated LFTs Plan Cr stable and slowly lowering Kayexelate as needed Bolus NS as needed UA prn Lasix Anemia larose adjust BP meds wound care per orders Subjective ROS Limited/Unobtainable: No Constitutional: Reports: malaise Objective Objective Last 24 Hour Vital Signs Date Time Temp Pulse Resp B/P (MAP) Pulse Ox O2 Delivery O2 Flow Rate FiO2 06/28/19 08:00 97.9 96 18 141/73 (95) 99 06/28/19 04:00 98.4 90 20 145/85 (105) 98 06/28/19 00:00 98.0 92 20 122/57 (78) 97 06/27/19 21:18 Room Air 06/27/19 20:00 97.8 86 18 114/68 (83) 98 06/27/19 16:00 98.3 78 17 130/79 (96) 97 06/27/19 12:00 97.9 81 17 136/74 (94) 98 Intake and Output 06/27/19 06/28/19 19:00 07:00 Intake Total 900 ml Balance 900 ml Other 900 ml # Voids 3 Laboratory Tests 06/28/19 04:30: White Blood Count 9.2, Red Blood Count 3.57L, Hemoglobin 10.6L, Hematocrit 31.4L , Mean Corpuscular Volume 88, Mean Corpuscular Hemoglobin 29.7, Mean Corpuscular Hemoglobin Concent 33.7, Red Cell Distribution Width 12.7, Platelet Count 178, Mean Platelet Volume 5.7L, Neutrophils (%) (Auto) 60.3, Lymphocytes ( %) (Auto) 29.5, Monocytes (%) (Auto) 5.5, Eosinophils (%) (Auto) 3.5H, Basophils (%) (Auto) 1.1, Erythrocyte Sedimentation Rate 88H, Sodium Level 142, Potassium Level 4.0, Chloride Level 107, Carbon Dioxide Level 23, Anion Gap 12, Blood Urea Nitrogen 26H, Creatinine 1.1, Estimat Glomerular Filtration Rate 51.0 , Glucose Level 110H, Calcium Level 8.6 Height (Feet): 5 Height (Inches): 4.00 Weight (Pounds): 213 General Appearance: no apparent distress Objective no change Erasto Parikh MD Jun 28, 2019 11:21
[2019-06-28 12:00] VITALS: BP 149/82
--- NOTE | 2019-06-28 12:33 | NUR ---
FREIGHT HUSTLER NOTE CALL MADE TO SAMMIE BREEN AT [facility]. STATES CLIENTS ARE ACCEPTED BETWEEN 9AM AND 5PM. PATIENT WILL NEED PRESCRIPTION FOR AT LEAST 30 DAY SUPPLY OF MEDS UPON DISCHARGE FROM [facility] [place]. SAMMIE BREEN RN [phone] EXT [phone]
--- NOTE | 2019-06-28 13:42 | NUR ---
NURSE NOTES: Received call from Dr. Martinez, per MD patient does not need insulin on discharge, ok to discharge patient with prescription for metformin from Dr. Dunbar, Dr. Martinez ordered to remove insulin from the discharge medication list, order entered.
--- NOTE | 2019-06-28 14:45 | Infectious Diseases Prog Note ---
Assessment/Plan Assessment/Plan IMPRESSION: 1. Diabetic foot, osteomyelitis.ESR is decreasing 2. Allergic drug reaction to Invanz and vancomycin with rash, resolving 3. Diabetes mellitus. 4. Charcot joint. 5. Anemia. 6. Elevated transaminase improving 7. Chronic kidney disease 8. Diarrhea, negative C. 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 Plan: Check ESR Continue Zyvox X 15 days Negative hepatitis B & C serologies Waiting for placement Subjective ROS Limited/Unobtainable: Yes Allergies: Coded Allergies: ERTAPENEM (Verified Allergy, Intermediate, RASH - legs, back, torso, ) VANCOMYCIN (Verified Allergy, Intermediate, RASH - legs, back, torso, 06/16) Objective Vital Signs Last 24 Hour Vital Signs Date Time Temp Pulse Resp B/P (MAP) Pulse Ox O2 Delivery O2 Flow Rate FiO2 06/28/19 12:00 98.2 96 18 149/82 (104) 98 06/28/19 09:00 Room Air 06/28/19 08:00 97.9 96 18 141/73 (95) 99 06/28/19 04:00 98.4 90 20 145/85 (105) 98 06/28/19 00:00 98.0 92 20 122/57 (78) 97 06/27/19 21:18 Room Air 06/27/19 20:00 97.8 86 18 114/68 (83) 98 06/27/19 16:00 98.3 78 17 130/79 (96) 97 Height (Feet): 5 Height (Inches): 4.00 Weight (Pounds): 213 General Appearance: no acute distress HEENT: mucous membranes moist Respiratory/Chest: lungs clear Cardiovascular: normal rate Abdomen: soft, non tender Extremities: other - left pedal edema Skin: ulcers, other - left foot Neurologic/Psychiatric: other - sleeping Laboratory Tests Test 06/28/19 04:30 White Blood Count 9.2 K/UL (4.8-10.8) Red Blood Count 3.57 M/UL (4.20-5.40) L Hemoglobin 10.6 G/DL (12.0-16.0) L Hematocrit 31.4 % (37.0-47.0) L Mean Corpuscular Volume 88 FL (80-99) Mean Corpuscular Hemoglobin 29.7 PG (27.0-31.0) Mean Corpuscular Hemoglobin Concent 33.7 G/DL (32.0-36.0) Red Cell Distribution Width 12.7 % (11.6-14.8) Platelet Count 178 K/UL (150-450) Mean Platelet Volume 5.7 FL (6.5-10.1) L Neutrophils (%) (Auto) 60.3 % (45.0-75.0) Lymphocytes (%) (Auto) 29.5 % (20.0-45.0) Monocytes (%) (Auto) 5.5 % (1.0-10.0) Eosinophils (%) (Auto) 3.5 % (0.0-3.0) H Basophils (%) (Auto) 1.1 % (0.0-2.0) Erythrocyte Sedimentation Rate 88 MM/HR (0-30) H Sodium Level 142 MMOL/L (136-145) Potassium Level 4.0 MMOL/L (3.5-5.1) Chloride Level 107 MMOL/L (98-107) Carbon Dioxide Level 23 MMOL/L (21-32) Anion Gap 12 mmol/L (5-15) Blood Urea Nitrogen 26 mg/dL (7-18) H Creatinine 1.1 MG/DL (0.55-1.30) Estimat Glomerular Filtration Rate 51.0 mL/min (>60) Glucose Level 110 MG/DL (74-106) H Calcium Level 8.6 MG/DL (8.5-10.1) Current Medications Medications (Trade) Dose Ordered Sig/Dileep Route PRN Reason Start Time Stop Time Status Last Admin Dose Admin Acetaminophen (Tylenol) 650 mg Q4H PRN ORAL For Pain 06/14/19 04:15 07/14/19 04:14 06/16/19 17:26 Allopurinol (allopurinoL) 300 mg DAILY ORAL 06/24/19 10:30 07/24/19 10:29 06/28/19 08:48 Atorvastatin Calcium (Lipitor) 80 mg BEDTIME ORAL 06/14/19 21:00 07/14/19 20:59 06/27/19 20:54 Chlorhexidine Gluconate (Tianna-Hex 2%) 1 applic DAILY@2000 TOPIC 06/23/19 20:00 07/23/19 19:59 06/27/19 20:54 Dextrose (Dextrose 50%) 25 ml Q30M PRN IV Hypoglycemia 06/14/19 07:45 07/14/19 07:44 Dextrose (Dextrose 50%) 50 ml Q30M PRN IV Hypoglycemia 06/14/19 07:45 07/14/19 07:44 Diphenhydramine HCl (Benadryl) 25 mg Q4H PRN ORAL Itching 06/27/19 11:15 07/27/19 11:14 06/27/19 17:27 Folic Acid (Folate) 2 mg DAILY ORAL 06/15/19 10:30 07/15/19 10:29 06/28/19 08:48 Guaifenesin/ Dextromethorphan (Robitussin DM Syrup) 5 ml Q4H PRN ORAL For Cough 06/26/19 18:00 07/26/19 17:59 06/26/19 18:19 Insulin Aspart (NovoLOG) BEFORE MEALS AND HS SUBQ 06/14/19 11:30 07/14/19 11:29 06/26/19 13:39 Linezolid (Zyvox) 600 mg EVERY 12 HOURS ORAL 06/14/19 15:42 07/13/19 23:59 06/28/19 08:48 Loperamide HCl (Imodium) 2 mg Q4H PRN ORAL Diarrhea 06/21/19 14:30 07/21/19 14:29 06/22/19 20:30 Metformin HCl (Glucophage) 500 mg TIAC ORAL 06/15/19 11:30 07/15/19 11:29 06/28/19 12:20 Ondansetron HCl (Zofran) 4 mg Q6H PRN IVP Nausea & Vomiting 06/14/19 22:00 07/14/19 21:59 06/28/19 14:23 Adarsh Pitts MD Jun 28, 2019 14:45
--- NOTE | 2019-06-28 14:57 | NUR ---
SOAKER NOTE CALL MADE TO [facility]. INFORMED PATIENTS ANTICIPATED DISCHARGE TODAY. PER DHIA, PATIENT SHOULD ARRIVE BY 5 PM IF PATIENT WILL ARRIVE AFTER 5 PM, NURSING SHOULD BE NOTIFIED WHEN PATIENT LEAVES [facility]; [phone] NURSE; [phone] [facility] [address] [place] [address]
[2019-06-28 16:00] VITALS: BP 144/66
--- NOTE | 2019-06-28 18:00 | NUR ---
NURSE NOTES: Discharge instructions reviewed with patient and medication provided. Instructed patient that per order, she no longer needs to take insulin at home (order from Dr. Martinez), patient confirmed she has supply of Lipitor and Lisinopril. Left foot dressing dry and intact, wound care instructions provided for discharge and patient verbalized understanding. Patient to have home health follow up on discharge. All belongings present with patient. MICHELLE PICC removed intact, sterile dressing applied, patient tolerated well. Patient verbalized understanding of all after care instructions.
--- NOTE | 2019-06-28 18:31 | Hematology/Onc Progress Note ---
Assessment/Plan Assessment/Plan Assessment and Recs: # Anemia of chronic disease due to underlying chronic medical issues, multifactorial v Gi bleed --> Anemia workup has been ordered, rule out gi bleed --> No evidence of hemolysis is noted, peripheral smear has been reviewed. --> Hgb goal >7. Transfuse prn. --> Epogen or iron at this time is not particularly indicated --> hgb trend: 9.7-->10-->10.5-->10.4 --> Medications have been reviewed --> low threshold for gi evaluation in case has occult + # Occluded PICC line, MICHELLE --> has been changed # Diabetic foot, osteomyelitis. LE foot cellulitis --> per endo, accuchecks qac and qhs --> seen by pod, id surg --> on bactrim zyvox # Diabetes mellitus. # Charcot joint. # Transaminitis # Dvt ppx scds Appreciate consultation and dw RN Subjective Allergies: Coded Allergies: ERTAPENEM (Verified Allergy, Intermediate, RASH - legs, back, torso, ) VANCOMYCIN (Verified Allergy, Intermediate, RASH - legs, back, torso, 06/16) Subjective 06/16: no acute events, h/h stable, on zyvox, hep panel pending 06/18: awake and alert, no acute distress, labs reviewed 06/19: remains on linezolid, no bleeding, labs noted, no major changes 06/20: no major changes, labs noted, remains on abx, no bleeding 06/21: no bleeding, labs noted, with nausea this am, zofran was given 06/22: awake and alert, no acute events, on room air, folate 06/23: labs reviewed, no bleeding, no f/c, hgb 11 06/25: no major changes, labs reviewed, no bleeding, cbc ordered 06/26: no events, no bleeding, cbc is better, labs noted, awaiting placement 06/27: awake, no overnight events, negative hep panel, on zyvox 06/28: alert, no acute events, stable for dc Objective Objective Current Medications Medications (Trade) Dose Ordered Sig/Dileep Route PRN Reason Start Time Stop Time Status Last Admin Dose Admin Acetaminophen (Tylenol) 650 mg Q4H PRN ORAL For Pain 06/14/19 04:15 07/14/19 04:14 06/16/19 17:26 Allopurinol (allopurinoL) 300 mg DAILY ORAL 06/24/19 10:30 07/24/19 10:29 06/28/19 08:48 Atorvastatin Calcium (Lipitor) 80 mg BEDTIME ORAL 06/14/19 21:00 07/14/19 20:59 06/27/19 20:54 Chlorhexidine Gluconate (Tianna-Hex 2%) 1 applic DAILY@2000 TOPIC 06/23/19 20:00 07/23/19 19:59 06/27/19 20:54 Dextrose (Dextrose 50%) 25 ml Q30M PRN IV Hypoglycemia 06/14/19 07:45 07/14/19 07:44 Dextrose (Dextrose 50%) 50 ml Q30M PRN IV Hypoglycemia 06/14/19 07:45 07/14/19 07:44 Diphenhydramine HCl (Benadryl) 25 mg Q4H PRN ORAL Itching 06/27/19 11:15 07/27/19 11:14 06/27/19 17:27 Folic Acid (Folate) 2 mg DAILY ORAL 06/15/19 10:30 07/15/19 10:29 06/28/19 08:48 Guaifenesin/ Dextromethorphan (Robitussin DM Syrup) 5 ml Q4H PRN ORAL For Cough 06/26/19 18:00 07/26/19 17:59 06/26/19 18:19 Insulin Aspart (NovoLOG) BEFORE MEALS AND HS SUBQ 06/14/19 11:30 07/14/19 11:29 06/26/19 13:39 Linezolid (Zyvox) 600 mg EVERY 12 HOURS ORAL 06/14/19 15:42 07/13/19 23:59 06/28/19 08:48 Loperamide HCl (Imodium) 2 mg Q4H PRN ORAL Diarrhea 06/21/19 14:30 07/21/19 14:29 06/22/19 20:30 Metformin HCl (Glucophage) 500 mg TIAC ORAL 06/15/19 11:30 07/15/19 11:29 06/28/19 17:19 Ondansetron HCl (Zofran) 4 mg Q6H PRN IVP Nausea & Vomiting 06/14/19 22:00 07/14/19 21:59 06/28/19 14:23 Last 24 Hour Vital Signs Date Time Temp Pulse Resp B/P (MAP) Pulse Ox O2 Delivery O2 Flow Rate FiO2 06/28/19 12:00 98.2 96 18 149/82 (104) 98 06/28/19 09:00 Room Air 06/28/19 08:00 97.9 96 18 141/73 (95) 99 06/28/19 04:00 98.4 90 20 145/85 (105) 98 06/28/19 00:00 98.0 92 20 122/57 (78) 97 06/27/19 21:18 Room Air 06/27/19 20:00 97.8 86 18 114/68 (83) 98 06/27/19 16:00 98.3 78 17 130/79 (96) 97 06/27/19 12:00 97.9 81 17 136/74 (94) 98 06/27/19 09:00 Room Air 06/27/19 08:00 98.0 85 18 136/74 (94) 96 06/27/19 04:00 98.0 88 20 121/74 (90) 98 06/27/19 00:00 98.2 86 20 112/68 (83) 97 06/26/19 21:00 Room Air 06/26/19 20:00 98.8 96 20 123/81 (95) 98 Intake and Output 06/27/19 06/28/19 19:00 07:00 Intake Total 900 ml Balance 900 ml Other 900 ml # Voids 3 Labs Test 06/26/19 05:55 06/27/19 05:30 06/28/19 04:30 White Blood Count 9.4 K/UL (4.8-10.8) 9.7 K/UL (4.8-10.8) 9.2 K/UL (4.8-10.8) Red Blood Count 3.50 M/UL (4.20-5.40) 3.54 M/UL (4.20-5.40) 3.57 M/UL (4.20-5.40) Hemoglobin 10.5 G/DL (12.0-16.0) 10.4 G/DL (12.0-16.0) 10.6 G/DL (12.0-16.0) Hematocrit 30.7 % (37.0-47.0) 30.8 % (37.0-47.0) 31.4 % (37.0-47.0) Mean Corpuscular Volume 88 FL (80-99) 87 FL (80-99) 88 FL (80-99) Mean Corpuscular Hemoglobin 30.0 PG (27.0-31.0) 29.4 PG (27.0-31.0) 29.7 PG (27.0-31.0) Mean Corpuscular Hemoglobin Concent 34.2 G/DL (32.0-36.0) 33.9 G/DL (32.0-36.0) 33.7 G/DL (32.0-36.0) Red Cell Distribution Width 13.1 % (11.6-14.8) 13.6 % (11.6-14.8) 12.7 % (11.6-14.8) Platelet Count 254 K/UL (150-450) 214 K/UL (150-450) 178 K/UL (150-450) Mean Platelet Volume 5.0 FL (6.5-10.1) 5.2 FL (6.5-10.1) 5.7 FL (6.5-10.1) Neutrophils (%) (Auto) 58.7 % (45.0-75.0) 60.6 % (45.0-75.0) 60.3 % (45.0-75.0) Lymphocytes (%) (Auto) 28.9 % (20.0-45.0) 27.0 % (20.0-45.0) 29.5 % (20.0-45.0) Monocytes (%) (Auto) 7.4 % (1.0-10.0) 6.4 % (1.0-10.0) 5.5 % (1.0-10.0) Eosinophils (%) (Auto) 4.2 % (0.0-3.0) 4.1 % (0.0-3.0) 3.5 % (0.0-3.0) Basophils (%) (Auto) 0.9 % (0.0-2.0) 1.9 % (0.0-2.0) 1.1 % (0.0-2.0) Sodium Level 139 MMOL/L (136-145) 139 MMOL/L (136-145) 142 MMOL/L (136-145) Potassium Level 4.5 MMOL/L (3.5-5.1) 4.3 MMOL/L (3.5-5.1) 4.0 MMOL/L (3.5-5.1) Chloride Level 103 MMOL/L (98-107) 102 MMOL/L (98-107) 107 MMOL/L (98-107) Carbon Dioxide Level 24 MMOL/L (21-32) 26 MMOL/L (21-32) 23 MMOL/L (21-32) Anion Gap 12 mmol/L (5-15) 11 mmol/L (5-15) 12 mmol/L (5-15) Blood Urea Nitrogen 29 mg/dL (7-18) 27 mg/dL (7-18) 26 mg/dL (7-18) Creatinine 1.5 MG/DL (0.55-1.30) 1.4 MG/DL (0.55-1.30) 1.1 MG/DL (0.55-1.30) Estimat Glomerular Filtration Rate 35.7 mL/min (>60) 38.7 mL/min (>60) 51.0 mL/min (>60) Glucose Level 125 MG/DL (74-106) 129 MG/DL (74-106) 110 MG/DL (74-106) Calcium Level 9.5 MG/DL (8.5-10.1) 9.2 MG/DL (8.5-10.1) 8.6 MG/DL (8.5-10.1) Erythrocyte Sedimentation Rate 88 MM/HR (0-30) Height (Feet): 5 Height (Inches): 4.00 Weight (Pounds): 213 Objective Physical Exam Vitals: reviewed General: NAD Neck: supple Chest: clear breath sounds bilaterally Cardiovascular: RRR, no s3, s4 Abdomen: soft, nontender, nd Extremities: no cce, normal range of motion ++ picc upper arm r, also ankle and left foot erythema with bandages+ Mental: alert Jose Bond MD Jun 28, 2019 18:31
--- NOTE | 2019-06-28 18:33 | NUR ---
NURSE NOTES: Called Sofiya at [facility] and informed patient will be discharge to facility today.
--- NOTE | 2019-06-28 18:45 | NUR ---
NURSE NOTES: Patient was being wheeled off unit via wheelchair when patient started retching and had episode of emesis before leaving unit. Patient escorted back to room and into bed by charge nurse and RN, patient provided with ice chips. Nursing hospitality house supervisor notified. Will endorse discharge to nightshift RN.
--- NOTE | 2019-06-28 19:29 | NUR ---
HAND-OFF: Report given to Valerie MARTINEZ. Endorsed to discharge patient, rounds done and patient stated she is feeling better and ready to be discharged.
--- NOTE | 2019-06-28 19:52 | Surgery Progress Note ---
Surgery Progress Note Subjective Additional Comments no acute events comfortable stable no complaints Objective Last 24 Hour Vital Signs Date Time Temp Pulse Resp B/P (MAP) Pulse Ox O2 Delivery O2 Flow Rate FiO2 06/28/19 16:00 97.9 76 18 144/66 (92) 97 06/28/19 12:00 98.2 96 18 149/82 (104) 98 06/28/19 09:00 Room Air 06/28/19 08:00 97.9 96 18 141/73 (95) 99 06/28/19 04:00 98.4 90 20 145/85 (105) 98 06/28/19 00:00 98.0 92 20 122/57 (78) 97 06/27/19 21:18 Room Air 06/27/19 20:00 97.8 86 18 114/68 (83) 98 I&O Intake and Output 06/27/19 06/28/19 19:00 07:00 Intake Total 900 ml Balance 900 ml Other 900 ml # Voids 3 Dressing: dry Wound: clean Cardiovascular: RSR Respiratory: clear Abdomen: soft, flat, non-tender, present bowel sounds Extremities: no cyanosis, other Laboratory Tests Test 06/28/19 04:30 White Blood Count 9.2 K/UL (4.8-10.8) Red Blood Count 3.57 M/UL (4.20-5.40) L Hemoglobin 10.6 G/DL (12.0-16.0) L Hematocrit 31.4 % (37.0-47.0) L Mean Corpuscular Volume 88 FL (80-99) Mean Corpuscular Hemoglobin 29.7 PG (27.0-31.0) Mean Corpuscular Hemoglobin Concent 33.7 G/DL (32.0-36.0) Red Cell Distribution Width 12.7 % (11.6-14.8) Platelet Count 178 K/UL (150-450) Mean Platelet Volume 5.7 FL (6.5-10.1) L Neutrophils (%) (Auto) 60.3 % (45.0-75.0) Lymphocytes (%) (Auto) 29.5 % (20.0-45.0) Monocytes (%) (Auto) 5.5 % (1.0-10.0) Eosinophils (%) (Auto) 3.5 % (0.0-3.0) H Basophils (%) (Auto) 1.1 % (0.0-2.0) Erythrocyte Sedimentation Rate 88 MM/HR (0-30) H Sodium Level 142 MMOL/L (136-145) Potassium Level 4.0 MMOL/L (3.5-5.1) Chloride Level 107 MMOL/L (98-107) Carbon Dioxide Level 23 MMOL/L (21-32) Anion Gap 12 mmol/L (5-15) Blood Urea Nitrogen 26 mg/dL (7-18) H Creatinine 1.1 MG/DL (0.55-1.30) Estimat Glomerular Filtration Rate 51.0 mL/min (>60) Glucose Level 110 MG/DL (74-106) H Calcium Level 8.6 MG/DL (8.5-10.1) Plan Problems: (1) Left foot infection (2) Occluded PICC line Assessment & Plan: new picc 06/14/2019 (3) Open wound of left foot Assessment & Plan: DAILY ESTIMATED NEEDS: Needs based on DM, wound/ 64kg abw 25-30 kcals/kg 6079-2213 total kcals 1.25-1.5 g protein/kg 80-96 g total protein 25-30 mL/kg 9839-5225 total fluid mLs NUTRITION DIAGNOSIS: Altered nutrition related lab values R/T diabtes as evidenced by A1C of 11.2, POC glu (145-157 improved), Uglu 2+ upon adm. CURRENT DIET:Cardiac, mech soft chopped PO DIET RECOMMENDATIONS: CCHO MED/ texture as tolerated ADDITIONAL RECOMMENDATIONS: * Calibrated bedscale wt * Carb controlled diet as above * Wound healing: add MVI x 1, Vit C 250mg QD Angel BID as tolerated (4) Cellulitis of left foot Assessment & Plan: 50-year-old female with history of chronic left foot wounds , cellulitis, infection who in 2018 initially developed a abscess/blister and has been dealing with chronic infection of the left foot since. On the medial aspect there is a 3 cm x 2 cm x 1 cm open wound with good granulation tissue seemingly a little bit more chronic than 1 week no drainage no signs of significant active infection. On the plantar aspect of the foot there is a 1 cm x 1 cm by half centimeter open punched-out wound from prior drainage with no active drainage currently. Patient states that she was recommended to have local wound care and antibiotics for 6 weeks. States that she is on isolation for the cultures that were taken outside facility. new picc placed Local wound care with hydrogel packing or Thera honey packing gauze daily Wash wound left foot daily with normal saline then apply above dressings Wrap foot leg with gauze after packing and dressings applied Trend labs Antibiotics per infectious disease podiatry input appreciated improving d/c [planning cont abx Thank you will follow with recommendations Cristian Tavarez Jun 28, 2019 19:52
--- NOTE | 2019-06-28 20:00 | NUR ---
NURSE NOTES: Patient discharged at 1954 to [facility] in [place]. Report given to Sofiya by AM nurse. Patient left via wheelchair and transported by taxi with voucher. States she is feeling better at this time. No signs of distress or SOB. Foot dressing dry and intact. Belongings with patient. ID band and PICC line removed by AM nurse.
--- NOTE | 2019-06-29 11:24 | Discharge Summary ---
Discharge Summary Discharge Summary _ DATE OF ADMISSION: 06/14/2019 DATE OF DISCHARGE: 06/28/2019 DISCHARGED BY: Dr. 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 Patient apparently was just discharged to nursing facility , however nursing facility apparently did not know that she was coming and refused to accept her. In 2018 patient was walking around with thin shoes and sustained a wound to her left foot , which then developed a blister and then abscess, requiring I&D. The left foot remained intermittently infected since that time, requiring I&D. Most recent I&D was done about a week ago for evacuation of pus at the outside facility. Patient oted to have elevated systolic blood pressure in 180s and brought to the hospital again for reevaluation . Blood pressure in ED was 182/96. Laboratory work-up revealed leukocytosis WBC 12.1, hemoglobin 9.3, hematocrit 29.1 , platelet count 477. Stable electrolytes. BUN 19, creatinine 1.2. Glucose 125. AST 62, ALT 99. Troponin negative . Albumin 2.5 . EKG revealed sinus rhythm , no acute ischemic changes . Chest x-ray revealed no acute cardiopulmonary pathology. While attempting to access PICC line , it was found that the line was occluded. Patient required intermediate antibiotics , and was admitted for PICC line replacement. Patient initially admitted as observation , and subsequently status was changed to inpatient status. CONSULTANTS: ID specialist Dr. Pitts production machine operator Dr. Parikh wrist liner/oncologist Dr. Bond surgery Dr. Tavarez medical physicist Dr. Gallegos [facility] COURSE: Patient admitted to medical surgical floor. Patient undergone PICC line exchange by interventional radiologist 06/14. Patient was continued on antibiotics Podiatry seen and evaluated patient . Per medical physicist patient had osteomyelitis versus Charcot left foot. MRI from outside hospital showed destructive erosive changes in the midfoot of the left foot. MRI could not conclude definitely if it was Charcot foot versus osteomyelitis or both. Patient undergone incision and drainage of the left ankle and left foot about a week ago at the outside facility. Wound care provided as per medical physicist recommendation . Surgical wound was healing without any complication. No surgical intervention was indicated at this time. Antibiotics provided as per infectious disease recommendation. Continue antibiotic upon discharge to complete the course. Pain management was addressed as needed. Patient developed allergic drug reaction to Invanz and vancomycin with the rash. Patient was followed-up with inflammatory markers. ESR was slowly decreasing from initial 120 down to 88 , and CRP from 2.1 down to normal. Leukocytosis resolved , and patient remained afebrile. ID specialist recommended continue Zyvox . Hepatitis panel with negative hepatitis B and C serology. AST and ALT trended down to normal. Bilirubin remained stable. Hemoglobin A1c -11.2 , clearly not at goal. Blood sugar was managed with metformin and sliding scale of insulin as needed. Patient will need further optimization of anti-glycemic regimen as outpatient to improve blood sugar control. Patient was educated on compliance with diabetic diet and diabetic medications. Antidiarrheal provided as needed. Diarrhea resoled. Stool for C. difficile was negative. Supportive care provided. Renal parameters and electrolytes were closely monitored, electrolytes corrected as needed , and nephrotoxins were avoided. Patient developed acute kidney injury, probably due to vancomycin. Vancomycin was changed to Zyvox . Creatinine down to 1.1. Wound care provided as per surgeon recommendation for left leg ulcers. Continue wound care at the facility. Placement was arranged. Patient was stable for transfer. FINAL DIAGNOSES: Occluded PICC line status post replacement by interventional radiology Osteomyelitis left foot Diabetes mellitus type 2 , out of control Left foot cellulitis Charcot's joint Anemia Transaminitis- resolved Proteinuria Hypertension Acute kidney injury- resolved on chronic kidney disease Diarrhea/ stool C. difficile negative Allergic drug reaction to Invanz and vancomycin with rash - resolved DISCHARGE MEDICATIONS: See Medication Reconciliation list. DISCHARGE INSTRUCTIONS: Patient was discharged to [facility] [place] I have been assigned to dictate discharge summary for this account. I was not involved in the patient's management. Adela Maya NP Jun 29, 2019 11:24
--- NOTE | 2019-06-29 17:02 | NUR ---
*-* INSURANCE *-* ALL CLINICALS HAVE BEEN FAXED: CARMITA SEXTON # [phone] FAX# [phone] REVIEWS/CLINICALS
== END 2019-06-28 19:55 | disposition other institution (70) | DRG 344 ==
LOC: EDBD 21:03 → EMR 21:21 → 4E 23:45 → UNDOADMOB 23:45 → EDBEDREQ 06-14 01:18 → OBSVTOIN 06-14 01:45 → 4E 06-14 01:45 → UNDOADMOB 06-16 12:22 → INTOOBSV 06-16 12:22 → 4E 06-16 12:22 → OBSVTOIN 06-16 12:22 → INTOOBSV 06-16 14:11 → UNDODISOB 06-28 19:55
PROC: 02PYX3Z Removal of Infusion Device from Great Vessel, External Approach (ICD-10-PCS; principal; 2019-06-14)
PROC: 02HV33Z Insertion of Infusion Device into Superior Vena Cava, Percutaneous Approach (ICD-10-PCS; 2019-06-14)
DX: E11.69 Type 2 diabetes mellitus with other specified complication (principal); E11.610 Type 2 diabetes mellitus with diabetic neuropathic arthropathy; R18.8 Other ascites; M86.8X7 Other osteomyelitis, ankle and foot; E66.9 Obesity, unspecified; Z68.36 Body mass index [BMI] 36.0-36.9, adult; I12.9 Hypertensive chronic kidney disease with stage 1 through stage 4 chronic kidney disease, or unspecified chronic kidney disease; E11.22 Type 2 diabetes mellitus with diabetic chronic kidney disease; L03.116 Cellulitis of left lower limb; N18.9 Chronic kidney disease, unspecified; E11.65 Type 2 diabetes mellitus with hyperglycemia; T82.898A Other specified complication of vascular prosthetic devices, implants and grafts, initial encounter; Z79.4 Long term (current) use of insulin; L27.0 Generalized skin eruption due to drugs and medicaments taken internally; T36.8X5A Adverse effect of other systemic antibiotics, initial encounter; T36.1X5A Adverse effect of cephalosporins and other beta-lactam antibiotics, initial encounter; D63.1 Anemia in chronic kidney disease; E11.21 Type 2 diabetes mellitus with diabetic nephropathy; S91.302A Unspecified open wound, left foot, initial encounter; R19.7 Diarrhea, unspecified
CPT/HCPCS: 36415; 36569; 71045; 76937; 80048; 80053; 80061; 81001; 82550; 82607; 82728; 82746; 82962; 82977; 83036; 83540; 83550; 83735; 83880; 84100; 84484; 84550; 85025; 85651; 86140; 86706; 86803; 87081; 87324; 93005; 96374; 96375; 99284; J1815; J2405